=== PATIENT | female | born 1995 | race Caucasian/White ===

== ENCOUNTER → 2016-11-03 | Outpatient (CLI) | payer OTHER ==
[~2016-11-03] MED LIST: ATV5X PO; LAMO200T38 PO; LEVO1TAB19 PO; LITH1TAB PO; LTH300T PO; PRT/40 PO; SUCR1TAB29 PO; ZNTT/150 PO
[2016-11-03 14:34] LABS: BLOOD UREA NITROGEN 11 mg/dl (7-18); BUN/CREATININE RATIO 13.6 (10-20); CALCIUM 9.3 mg/dl (8.5-10.1); CARBON DIOXIDE 29 mmol/L (21-32); CHLORIDE 107 mmol/L (98-107); CREATININE 0.83 mg/dl (0.60-1.20); GLUCOSE 72 mg/dl (70-99); POTASSIUM 4.2 mmol/L (3.5-5.1); SODIUM 142 mmol/L (136-145)
== END | disposition home or self-care (01) ==
LOC: C.LAB 13:20
PROVIDERS: ATTEND Psychiatry & Neurology Psychiatry
DX: F31.81 Bipolar II disorder (principal)

== ENCOUNTER 2017-02-09 10:41 | Emergency (ER) | payer OTHER ==
[~2017-02-09] VITALS: Ht 165.1 cm; Wt 54.0 kg
[~2017-02-09 10:41] MED LIST changes: -LITH1TAB PO; +PANT40TA2 PO; -PRT/40 PO
[2017-02-09 10:52] VITALS: TEMP 36.6; Ht 165.1 cm; Wt 54.0 kg
[2017-02-09] MEDS ORDERED: MECLIZINE HCL 25 MG TAB PO STA (12:00)
[2017-02-09] MEDS ORDERED: SODIUM CHLORIDE 0.9% 1000ML 1,000 ML IV STA (12:00)
[2017-02-09] MEDS ORDERED: LITH1TAB PO (12:12)
[2017-02-09 12:30] LABS: BASO % 0.4 %; BASO ABS # 0.03 K/uL (0-0.2); COMPLETE YES; EOS % 1.4 %; HEMATOCRIT 44.4 % (37-47); LYMPH % 21.5 %; LYMPH ABS # 1.49 K/uL (1.2-3.4); MEAN CELL VOLUME 87.6 fL (80-100); MEAN CORPUSCULAR HEMOGLOBIN 29.8 pg (25-34); MONO % 7.9 %; NEUT % 68.8 %; PLATELET COUNT 383 K/uL (130-400); RED BLOOD COUNT 5.07 M/uL (4.2-5.4); WHITE BLOOD COUNT 6.93 K/uL (4.8-10.8)
--- NOTE | 2017-02-09 12:34 | EMERGENCY ROOM VISIT NOTE ---
History Report prepared by Loni: Kimberly Pagan Under the Supervision of: Dr. Lorena Carrero M.D. First contact with patient: 11:45 Chief Complaint: SYNCOPE (NEAR SYNCOPE) Stated Complaint: NEAR SYNCOPE Nursing Triage Summary: PT PRESENTS FROM THE [facility] FOR PRE-SYNCOPAL EVENT. PT DEVELOPED SUDDEN ABDOMINAL PAIN AND FELT LIKE SHE WAS GOING TO HAVE DIARRHEA AND THEN FELT LIKE SHE WAS GOING TO PASS OUT. PT VERBALIZES HX OF ANXIETY, GERD, PTSD. PT TAKES LAMICTAL, LITHIUM, AND LORAZAPAM AND HAS TAKEN MEDS PRESCRIBED BUT THINKS "I MIGHT BE HAVING A REACTION TO THEM". History of Present Illness The patient is a 21 year old female who presents to the Emergency Room with complaints of persistent lightheadedness and dizziness starting this morning. The patient has a history of anxiety. She took Lamictal, [place], and Lorazepam today as prescribed. She had a panic attack around 3 hours ago. About an hour later, she started having dizziness, lightheadedness, nausea, and diarrhea. The patient denies vomiting. She reports a pulse of 135. She felt as though she was about to pass out. The patient was at work at the time. 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 She currently continues to complain of dizziness. She describes it to be room-spinning. She ate breakfast as normal this morning. She denies headache , fevers, chills, chest pain, shortness of breath, or any other complaints. The patient denies any chance of . She is on control. She has a history of heat exhaustion occurring last year. Source of History: patient Onset: this morning Position: other (global) Quality: other (dizziness and lightheadedness) Timing: other (persistent) Associated Symptoms: + diarrhea, + nausea, No SOB, No chest pain, No chills , No fevers, No headache, No vomiting Review of Systems See HPI for pertinent positives & negatives. A total of 10 systems reviewed and were otherwise negative. Past Medical & Surgical Medical Problems: (1) Dizziness (2) Dysmenorrhea (3) Medication reaction (4) Nausea (5) self injurious behaviors - cutting Family History No pertinent family history Social History Smoking Status: Never Smoker Alcohol Use: none Drug Use: none Marital Status: single Housing Status: lives with family Occupation Status: student Current/Historical Medications Scheduled Lamotrigine (Lamictal), 200 MG PO HS Levonorgestrel & Eth Estradiol (Orsythia), 1 TAB PO HS [place] Carbonate Ext Rel (Lithobid Ext Rel), 450 MG PO BID Scheduled PRN Lorazepam (Lorazepam), 0.5 MG PO Q4H PRN for Anxiety Allergies Coded Allergies: Nickel (Verified Allergy, Severe, swelling, 02/09/17) Latex (Verified Allergy, Unknown, Itchiness., 02/09/17) Reported by PT and a friend of the family. Physical Exam Vital Signs Date Time Temp Pulse Resp B/P Pulse Ox O2 Delivery O2 Flow Rate FiO2 02/09/17 14:11 76 18 107/81 100 Room Air 02/09/17 12:57 82 18 117/65 100 Room Air 02/09/17 12:12 88 16 111/60 98 Room Air 02/09/17 11:15 103 18 121/71 100 Room Air 105 125/84 107 119/76 02/09/17 11:05 110 02/09/17 10:52 36.6 115 18 109/69 99 Room Air Physical Exam Vital signs reviewed. General: Well-appearing, in no significant distress. HEENT: No scleral icterus, PERRLA, neck supple. Atraumatic. Cardiovascular: Regular rate and rhythm, no extra sounds. Pulmonary: Clear to auscultation bilaterally, normal work of breathing. Abdomen: Soft, nontender, nondistended, positive bowel sounds. Musculoskeletal: Atraumatic, no peripheral edema. Neurologic: Patient awake alert and oriented x 3, full strength in all 4 extremities. Cranial nerves 2 through 12 grossly intact. Skin: Warm, dry, no rash Medical Decision & Procedures Laboratory Results 02/09/17 11:08 Red Blood Count 5.07, Mean Corpuscular Volume 87.6, Mean Corpuscular Hemoglobin 29.8, Mean Corpuscular Hemoglobin Concent 34.0, Mean Platelet Volume 10.0, Neutrophils (%) (Auto) 68.8, Lymphocytes (%) (Auto) 21.5, Monocytes (%) (Auto) 7.9, Eosinophils (%) (Auto) 1.4, Basophils (%) (Auto) 0.4, Neutrophils # (Auto) 4.76, Lymphocytes # (Auto) 1.49, Monocytes # (Auto) 0.55, Eosinophils # (Auto) 0.10, Basophils # (Auto) 0.03 02/09/17 11:08 Test 02/09/17 11:08 White Blood Count 6.93 K/uL (4.8-10.8) Red Blood Count 5.07 M/uL (4.2-5.4) Hemoglobin 15.1 g/dL (12.0-16.0) Hematocrit 44.4 % (37-47) Mean Corpuscular Volume 87.6 fL (80-100) Mean Corpuscular Hemoglobin 29.8 pg (25-34) Mean Corpuscular Hemoglobin Concent 34.0 g/dl (32-36) Platelet Count 383 K/uL (130-400) Mean Platelet Volume 10.0 fL (7.4-10.4) Neutrophils (%) (Auto) 68.8 % Lymphocytes (%) (Auto) 21.5 % Monocytes (%) (Auto) 7.9 % Eosinophils (%) (Auto) 1.4 % Basophils (%) (Auto) 0.4 % Neutrophils # (Auto) 4.76 K/uL (1.4-6.5) Lymphocytes # (Auto) 1.49 K/uL (1.2-3.4) Monocytes # (Auto) 0.55 K/uL (0.11-0.59) Eosinophils # (Auto) 0.10 K/uL (0-0.5) Basophils # (Auto) 0.03 K/uL (0-0.2) RDW Standard Deviation 40.5 fL (36.4-46.3) RDW Coefficient of Variation 12.6 % (11.5-14.5) Immature Granulocyte % (Auto) 0.0 % Immature Granulocyte # (Auto) 0.00 K/uL (0.00-0.02) Urine Color YELLOW Urine Appearance CLEAR (CLEAR) Urine pH 7.5 (4.5-7.5) Urine Specific [place] 1.006 (1.000-1.030) Urine Protein NEG (NEG) Urine Glucose (UA) NEG (NEG) Urine Ketones NEG (NEG) Urine Occult Blood NEG (NEG) Urine Nitrite NEG (NEG) Urine Bilirubin NEG (NEG) Urine Urobilinogen NEG (NEG) Urine Leukocyte Esterase SMALL (NEG) Urine WBC (Auto) 1-5 /hpf (0-5) Urine RBC (Auto) 0-4 /hpf (0-4) Urine Hyaline Casts (Auto) 1-5 /lpf (0-5) Urine Epithelial Cells (Auto) >30 /lpf (0-5) Urine Bacteria (Auto) 1+ (NEG) Urine Test NEG (NEG) Anion Gap 7.0 mmol/L (3-11) Est Creatinine Clear Calc Drug Dose 94.4 ml/min Estimated GFR () 121.2 Estimated GFR (Non- 104.6 BUN/Creatinine Ratio 13.2 (10-20) Calcium Level 9.6 mg/dl (8.5-10.1) Magnesium Level 2.0 mg/dl (1.8-2.4) Total Bilirubin 0.2 mg/dl (0.2-1) Direct Bilirubin < 0.1 mg/dl (0-0.2) Aspartate Amino Transf (AST/SGOT) 15 U/L (15-37) Alanine Aminotransferase (ALT/SGPT) 19 U/L (12-78) Alkaline Phosphatase 57 U/L (45-117) Total Protein 7.6 gm/dl (6.4-8.2) Albumin 4.3 gm/dl (3.4-5.0) Thyroid Stimulating Hormone (TSH) 1.500 uIu/ml (0.300-4.500) [place] Level 0.6 mMOL/L (0.6-1.2) Date/Time Source Procedure Growth Status 02/09/17 11:08 Urine , Clean Catch Urine Culture - Final THREE TYPES OF ORGANISMS PRESENT, ALL... Complete Laboratory results per my review. Medications Administered Medications (Trade) Dose Ordered Sig/Elvira Route Start Time Stop Time Status Last Admin Dose Admin Sodium Chloride (Nss 1000ml) 1,000 ml @ 999 mls/hr Q1H1M STAT IV 02/09/17 12:00 02/09/17 13:02 DC 02/09/17 12:11 999 MLS/HR Meclizine HCl (Antivert Tab) 25 mg NOW STAT PO 02/09/17 12:00 02/09/17 12:02 DC 02/09/17 12:11 25 MG ECG Indication: other (Lightheadedness and dizziness) Rate (beats per minute): 81 Rhythm: normal sinus (with sinus arrhythmia) Findings: no acute ischemic change, no ectopy ED Course 1145: Past medical records reviewed. The patient was evaluated in room C06. A complete history and physical examination was performed. 1200: Meclizine HCl 25 mg PO, Sodium Chloride 1000 ml @ 999 mls/hr IV 1417: Upon reevaluation, the patient appeared to have improvement of her symptoms. I discussed findings with her. She verbalized agreement of the treatment plan. The patient was discharged home. Medical Decision Differential diagnosis: Etiologies such as benign positional vertigo, dehydration, hypovolemia, anemia, tumor, infection, hypoglycemia, electrolyte abnormalities, cardiac sources, intracerebral event, toxicologic, neurologic, as well as others were entertained. This patient was evaluated and appeared to be in no significant distress. IV access was obtained and laboratory work was drawn. The patient was placed on the cardiac technologist and found to be in a normal sinus rhythm. She was hydrated with normal saline solution. She is found not to be significantly orthostatic. Laboratory work is unrevealing. She was feeling better after the IV fluids. Patient's lithium level is stable. EKG is normal. The patient was encouraged to follow-up with her primary care physician for reevaluation and to return to the ER for worsening of symptoms or any medical concerns. Impression Primary Impression: Near syncope Scribe Attestation The scribe's documentation has been prepared under my direction and personally reviewed by me in its entirety. I confirm that the note above accurately reflects all work, treatment, procedures, and medical decision making performed by me. Departure Information Dispostion Home / Self-Care Referrals Dede Long C.R.N.P. (PCP) Forms HOME CARE DOCUMENTATION FORM, IMPORTANT VISIT INFORMATION Patient Instructions My [facility] Additional Instructions Diagnosis: Near-syncope Drink plenty of clear fluids. Continue your medications as prescribed. Eat and drink on a regular schedule, preferably 5-6 small meals daily. Follow-up with your physician this week for reevaluation and return to the ER for worsening of symptoms or any medical concerns.
[2017-02-09 12:39] LABS: ALT/SGPT 19 U/L (12-78); BLOOD UREA NITROGEN 11 mg/dl (7-18); BUN/CREATININE RATIO 13.2 (10-20); CARBON DIOXIDE 27 mmol/L (21-32); CHLORIDE 109 mmol/L (98-107); CREATININE 0.81 mg/dl (0.60-1.20); GLUCOSE 65 mg/dl (70-99); POTASSIUM 3.7 mmol/L (3.5-5.1); SODIUM 143 mmol/L (136-145)
[2017-02-09 12:41] LABS: CALCIUM 9.6 mg/dl (8.5-10.1)
[2017-02-09 12:54] LABS: URINE APPEARANCE CLEAR (CLEAR); URINE BILIRUBIN NEG (NEG); URINE COLOR YELLOW; URINE EPITHELIAL CELL AUTO >30 /lpf (0-5); URINE NITRITE NEG (NEG); URINE PH 7.5 (4.5-7.5); URINE SPECIFIC GRAVITY 1.006 (1.000-1.030); UROBILINOGEN NEG (NEG); ZZUR CULT IF INDIC CLEAN CATCH YES
[2017-02-09 12:58] LABS: MANUAL MICROSCOPIC REQUIRED? NO; REVIEW REQ? NO
[2017-02-09 13:02] LABS: ALKALINE PHOSPHATASE 57 U/L (45-117); AST/SGOT 15 U/L (15-37)
[2017-02-09 14:11] VITALS: BP 107/81; PULSE 76; O2SAT 100
== END 2017-02-09 14:32 | disposition home or self-care (01) ==
LOC: EDBD 10:41 → C.EDC 10:47
DX: R55 Syncope and collapse (principal); R19.7 Diarrhea, unspecified

== ENCOUNTER 2018-12-13 19:12 | Inpatient (IN) ==
--- NOTE | 2018-12-13 20:13 | Emergency Department Note ---
Entered by Soco Welch acting as a scribe for Krzysztof Van DO History of Present Illness General Chief complaint: Mental Health Evaluation Stated complaint: MENTAL HEALTH EVAL Time Seen by Provider: 12/13/18 19:58 Source: patient History of Present Illness Onset (ago): week(s) 2 Location: head (Mental health evaluation) Severity: similar to prior episodes Pain Consistency: + other (Persistent) Maximum Pain Intensity: 0 Quality: + other (Mental health evaluation) Relieved By: + medication Exacerbated By: not by medication Associated symptoms: + other (SI, loss of sleep) Treatments prior to arrival: none The patient is a 23 year old female who presents to the Emergency Room seeking a mental health evaluation. The patient reports that she has been having persistent mood changes starting 2 weeks ago. She reports that she is bipolar and doesnt take medication for it. She states that she was severely depressed 4 weeks ago and was afraid to be alone. She notes that she did not trust herself to be alone while she was very depressed. She explains that since 1 week ago her mood has drastically improved and that she has only slept 6 hours over the last 6 days. The patient reports that she has intermittent suicidal thoughts and that she sometimes cuts herself on her arms with a razor. She states that if she were to kill herself she would do it by cutting herself with her razors on her arm. She notes that the last time she cut herself with a razor on her arm was 2 weeks ago. She adds that last time she took medication for her symptoms was in 2017 and that she was taking [place], Lamictal and Lorazepam. The patient reports that she recently tried to call her psychiatrist and make an appointment because she knows that she has been getting bad. She states that her psychiatrist is out of town on vacation and that she cannot get an appointment for two weeks and is afraid that she will not make it two more weeks. She reports that she drank alcohol last night, consuming 1 mixed drink and 2 shots of liquor. The patients friend is at bedside and reports that she has been encouraging the patient to check herself into the hospital. Home Medications Home Medications Medication Instructions Recorded Confirmed Type etonogestrel [Nexplanon] 68 mg SUBDERMAL DIRECTED 10/25/18 12/13/18 History Allergies Allergy/AdvReac Type Severity Reaction Status Date / Time nickel Allergy Severe swelling Verified 10/28/18 13:13 latex Allergy Unknown Itchiness. Verified 10/28/18 13:13 Past Med/Surg History Medical History Mood disorder GERD (gastroesophageal reflux disease) (Chronic) Family History Other No significant family history Social History marital status: relationship-boyfriend current occupational status: employed Feels Safe at Home: Yes Smoking Status: Never smoker Review of Systems See HPI for pertinent positives & negatives. and A total of 10 systems reviewed and were otherwise negative Physical Exam Vital Signs Vital Signs - 24 hr 12/13/18 19:24 12/13/18 22:59 Temperature 36.8 C Temperature Source Oral Sepsis Recent Fever Within 48 Hours No Sepsis Action Taken by Nursing No Action Required Pulse Rate 80 Pulse Rate [Right Finger] 120 H Pulse Rhythm Regular Pulse Strength Normal Respiratory Rate 18 18 Respiratory Effort / Characteristics Non-Labored Spontaneous Respiratory Depth Normal Normal Blood Pressure 142/93 H Blood Pressure [Right Arm] 124/85 Blood Pressure Mean 109 Blood Pressure Mean [Right Arm] 98 Blood Pressure Position Sitting Pulse Oximetry 98 99 Oxygen Delivery Method Room Air Room Air CONSTITUTIONAL/VITAL SIGNS: Reviewed / noted above. GENERAL: Non-toxic in appearance. INTEGUMENTARY: Warm, dry, and [place]. HEAD: Normocephalic. EYES: without scleral icterus or trauma. ENT/OROPHARYNX: clear and moist. LYMPHADENOPATHY/NECK: Is supple without lymphadenopathy or meningismus. RESPIRATORY: Lungs clear and equal. CARDIOVASCULAR: Regular rate and rhythm. GI/ABDOMEN: Soft and nontender. No organomegaly or pulsatile mass. No rebound or guarding. Normal bowel sounds. EXTREMITIES: Warm and well perfused. BACK: No CVA tenderness. NEUROLOGICAL: Intact without focal deficits. PSYCHIATRIC: depressed affect. MUSCULOSKELETAL: Normally developed with good muscle tone. Course 1999: Past medical records reviewed. The patient was evaluated in room A5, and a complete history and physical examination were performed. 2119: I informed the psychiatric counseling case manager that the patient has been medically cleared at this time. 2299: The patient was accepted to [address] [place] [address] Psychiatric Inpatient unit. They will evaluate the patient for further management. Medical Decision Making Differential Diagnosis differential includes toxic ingestions, self-mutilation, suicidal ideation, suicide attempt, depression. Medical Records Attestation: I reviewed the patient's medical records. Home Medications Current Medication List: was personally reviewed by me Laboratory Data Attestation: I reviewed the patient's lab results. Result diagrams: 12/13/18 20:15 12/13/18 20:15 Lab Results 12/13/18 12/13/18 12/13/18 Range/Units 20:15 20:15 20:15 WBC 9.39 (4.8-10.8) K/uL RBC 5.27 (4.2-5.4) M/uL Hgb 15.3 (12.0-16.0) g/dL Hct 44.7 (37-47) % MCV 84.8 (80-100) fL MCH 29.0 (25-34) pg MCHC 34.2 (32-36) g/dL RDW Std Deviation 41.2 (36.4-46.3) fL RDW Coeff of [place] 13.4 (11.5-14.5) % Plt Count 355 (130-400) K/uL MPV 9.4 (7.4-10.4) fL Immature Gran % (Auto) 0.2 % Neut % (Auto) 76.2 % Lymph % (Auto) 15.8 % [place] % (Auto) 5.5 % Eos % (Auto) 2.0 % Baso % (Auto) 0.3 % Immature Gran # (Auto) 0.02 (0.00-0.02) K/uL Neut # (Auto) 7.15 H (1.4-6.5) K/uL Lymph # (Auto) 1.48 (1.2-3.4) K/uL [place] # (Auto) 0.52 (0.11-0.59) K/uL Eos # (Auto) 0.19 (0-0.5) K/uL Baso # (Auto) 0.03 (0-0.2) K/uL Sodium 138 (136-145) mmol/L Potassium 3.7 (3.5-5.1) mmol/L Chloride 106 (98-107) mmol/L Carbon Dioxide 24 (21-32) mmol/L Anion Gap 8.0 (3-11) BUN 9 (7-18) mg/dl Creatinine 0.67 (0.6-1.2) mg/dl Est Cr Clr Drug Dosing 118.5 ml/min Est GFR ( Amer) 144.6 Est GFR (Non-Af Amer) 124.8 BUN/Creatinine Ratio 13.2 (10-20) Glucose 90 (70-99) mg/dl Calcium 9.2 (8.5-10.1) mg/dl Total Bilirubin 0.5 (0.2-1) mg/dl AST 12 L (15-37) U/L ALT 15 (12-78) U/L Alkaline Phosphatase 73 (45-117) U/L Total Protein 7.9 (6.4-8.2) gm/dl Albumin 4.9 (3.4-5.0) gm/dl Globulin 3.0 (2.5-4.0) gm/dl Albumin/Globulin Ratio 1.6 (0.9-2) TSH 0.845 (0.300-4.500) uIu/ml HCG, Qual (Negative) Urine Color Urine Appearance (Clear) Urine pH (4.5-7.5) Ur Specific [place] (1.000-1.030) Urine Protein (Negative) Urine Glucose (UA) (Negative) Urine Ketones (Negative) Urine Blood (Negative) Urine Nitrite (Negative) Urine Bilirubin (Negative) Urine Urobilinogen (Negative) Ur Leukocyte Esterase (Negative) Urine WBC (Auto) (0-5) /hpf Urine RBC (Auto) (0-4) /hpf U Hyaline Cast (Auto) (0-5) /lpf U Epithel Cells (Auto) (0-5) /lpf Urine Bacteria (Auto) (Negative) Salicylates < 1.7 L (2.8-20) mg/dl Urine Opiates Screen (Neg) Ur Methadone, Qual (Neg) Acetaminophen < 2 L (10-30) ug/ml Urine Barbiturates (Neg) Ur Phencyclidine (PCP) (Neg) U Amphetamin/Meth Scrn (Neg) MDMA (Ecstasy) Screen (Neg) U Benzodiazepines Scrn (Neg) Ur Cocaine Metabolite (Neg) U Marijuana (THC) Screen (Neg) Ethyl Alcohol mg/dL (0-3) mg/dl 12/13/18 12/13/18 12/13/18 Range/Units 20:15 20:15 Unknown WBC (4.8-10.8) K/uL RBC (4.2-5.4) M/uL Hgb (12.0-16.0) g/dL Hct (37-47) % MCV (80-100) fL MCH (25-34) pg MCHC (32-36) g/dL RDW Std Deviation (36.4-46.3) fL RDW Coeff of Maryana (11.5-14.5) % Plt Count (130-400) K/uL MPV (7.4-10.4) fL Immature Gran % (Auto) % Neut % (Auto) % Lymph % (Auto) % [place] % (Auto) % Eos % (Auto) % Baso % (Auto) % Immature Gran # (Auto) (0.00-0.02) K/uL Neut # (Auto) (1.4-6.5) K/uL Lymph # (Auto) (1.2-3.4) K/uL [place] # (Auto) (0.11-0.59) K/uL Eos # (Auto) (0-0.5) K/uL Baso # (Auto) (0-0.2) K/uL Sodium (136-145) mmol/L Potassium (3.5-5.1) mmol/L Chloride (98-107) mmol/L Carbon Dioxide (21-32) mmol/L Anion Gap (3-11) BUN (7-18) mg/dl Creatinine (0.6-1.2) mg/dl Est Cr Clr Drug Dosing ml/min Est GFR ( Amer) Est GFR (Non-Af Amer) BUN/Creatinine Ratio (10-20) Glucose (70-99) mg/dl Calcium (8.5-10.1) mg/dl Total Bilirubin (0.2-1) mg/dl AST (15-37) U/L ALT (12-78) U/L Alkaline Phosphatase (45-117) U/L Total Protein (6.4-8.2) gm/dl Albumin (3.4-5.0) gm/dl Globulin (2.5-4.0) gm/dl Albumin/Globulin Ratio (0.9-2) TSH (0.300-4.500) uIu/ml HCG, Qual Negative (Negative) Urine Color Urine Appearance (Clear) Urine pH (4.5-7.5) Ur Specific [place] (1.000-1.030) Urine Protein (Negative) Urine Glucose (UA) (Negative) Urine Ketones (Negative) Urine Blood (Negative) Urine Nitrite (Negative) Urine Bilirubin (Negative) Urine Urobilinogen (Negative) Ur Leukocyte Esterase (Negative) Urine WBC (Auto) (0-5) /hpf Urine RBC (Auto) (0-4) /hpf U Hyaline Cast (Auto) (0-5) /lpf U Epithel Cells (Auto) (0-5) /lpf Urine Bacteria (Auto) (Negative) Salicylates (2.8-20) mg/dl Urine Opiates Screen Neg (Neg) Ur Methadone, Qual Neg (Neg) Acetaminophen (10-30) ug/ml Urine Barbiturates Neg (Neg) Ur Phencyclidine (PCP) Neg (Neg) U Amphetamin/Meth Scrn Neg (Neg) MDMA (Ecstasy) Screen Neg (Neg) U Benzodiazepines Scrn Neg (Neg) Ur Cocaine Metabolite Neg (Neg) U Marijuana (THC) Screen Neg (Neg) Ethyl Alcohol mg/dL < 3.0 (0-3) mg/dl 12/13/18 Range/Units Unknown WBC (4.8-10.8) K/uL RBC (4.2-5.4) M/uL Hgb (12.0-16.0) g/dL Hct (37-47) % MCV (80-100) fL MCH (25-34) pg MCHC (32-36) g/dL RDW Std Deviation (36.4-46.3) fL RDW Coeff of Maryana (11.5-14.5) % Plt Count (130-400) K/uL MPV (7.4-10.4) fL Immature Gran % (Auto) % Neut % (Auto) % Lymph % (Auto) % [place] % (Auto) % Eos % (Auto) % Baso % (Auto) % Immature Gran # (Auto) (0.00-0.02) K/uL Neut # (Auto) (1.4-6.5) K/uL Lymph # (Auto) (1.2-3.4) K/uL [place] # (Auto) (0.11-0.59) K/uL Eos # (Auto) (0-0.5) K/uL Baso # (Auto) (0-0.2) K/uL Sodium (136-145) mmol/L Potassium (3.5-5.1) mmol/L Chloride (98-107) mmol/L Carbon Dioxide (21-32) mmol/L Anion Gap (3-11) BUN (7-18) mg/dl Creatinine (0.6-1.2) mg/dl Est Cr Clr Drug Dosing ml/min Est GFR ( Amer) Est GFR (Non-Af Amer) BUN/Creatinine Ratio (10-20) Glucose (70-99) mg/dl Calcium (8.5-10.1) mg/dl Total Bilirubin (0.2-1) mg/dl AST (15-37) U/L ALT (12-78) U/L Alkaline Phosphatase (45-117) U/L Total Protein (6.4-8.2) gm/dl Albumin (3.4-5.0) gm/dl Globulin (2.5-4.0) gm/dl Albumin/Globulin Ratio (0.9-2) TSH (0.300-4.500) uIu/ml HCG, Qual (Negative) Urine Color Yellow Urine Appearance Cloudy H (Clear) Urine pH 7.5 (4.5-7.5) Ur Specific [place] 1.027 (1.000-1.030) Urine Protein Negative (Negative) Urine Glucose (UA) Negative (Negative) Urine Ketones Negative (Negative) Urine Blood Trace H (Negative) Urine Nitrite Negative (Negative) Urine Bilirubin Negative (Negative) Urine Urobilinogen Negative (Negative) Ur Leukocyte Esterase Negative (Negative) Urine WBC (Auto) 1-5 (0-5) /hpf Urine RBC (Auto) 0-4 (0-4) /hpf U Hyaline Cast (Auto) 1-5 (0-5) /lpf U Epithel Cells (Auto) >30 H (0-5) /lpf Urine Bacteria (Auto) Negative (Negative) Salicylates (2.8-20) mg/dl Urine Opiates Screen (Neg) Ur Methadone, Qual (Neg) Acetaminophen (10-30) ug/ml Urine Barbiturates (Neg) Ur Phencyclidine (PCP) (Neg) U Amphetamin/Meth Scrn (Neg) MDMA (Ecstasy) Screen (Neg) U Benzodiazepines Scrn (Neg) Ur Cocaine Metabolite (Neg) U Marijuana (THC) Screen (Neg) Ethyl Alcohol mg/dL (0-3) mg/dl Blood Pressure Blood Pressure Findings: Normal blood pressure Blood Pressure Disposition: further management by hospitalist BARBRA Narrative This is a 23-year-old female who presents to the ED with a chief complaint of bipolar disorder. The patient states that she has not been taking her medication since 2017. She had been on lithium, Lamictal and lorazepam. The patient states that for the past 6 days she is only slept for about 6 hours. She states that she cannot see her psychiatrist for at least 2 weeks because she is out of town. She feels that she could get suicidal in that timeframe and her friends talked her into coming in because of her recent symptoms. She did cut her wrist 2 weeks ago. She feels like she could cut her wrist if she became suicidal. Her physical exam was unremarkable. She did drink some alcohol last night. She has not attempted to overdose or hurt herself in the last 24 hours. She is cooperative and willing to get help. The patient's blood work was normal. Tox screen was negative. test was negative. The patient is felt to be stable for mental health evaluation/admission. She was admitted to [facility] [address]. Impression & Plan Bipolar affect, depressed Discharge Plan Visit Data Chief Complaint: Mental Health Evaluation Stated Complaint: MENTAL HEALTH EVAL ED Provider: Krzysztof Van Discharge Problem: Bipolar affect, depressed Patient Disposition: Admitted As Inpatient Forms Stand Alone Forms: My [facility] Prescriptions Prescriptions: No Action Nexplanon 68 mg Implant 68 mg Subdermal DIRECTED RF: 0 Referrals Referrals: Dede Long CRNP [Primary Care Provider] - Discharge Problem: Bipolar affect, depressed Qualifiers: Current episode severity: moderate Qualified Code(s): F31.32 - Bipolar disorder, current episode depressed, moderate The scribe's documentation has been prepared under my direction and personally reviewed by me in its entirety. I confirm that the note above accurately refl ects all work, treatment, procedures, and medical decision making performed by me.
[2018-12-13 20:30] LABS: Basophils # (auto) 0.03 K/uL (0-0.2); Basophils % (auto) 0.3 %; Eosinophils # (auto) 0.19 K/uL (0-0.5); Hematocrit (blood only) 44.7 % (37-47); Hemoglobin 15.3 g/dL (12.0-16.0); Immature Granulocytes # (auto) 0.02 K/uL (0.00-0.02); Immature Granulocytes % (auto) 0.2 %; Lymphocytes # (auto) 1.48 K/uL (1.2-3.4); Lymphocytes % (auto) 15.8 %; Mean Corpuscular Hgb Conc 34.2 g/dL (32-36); Mean Corpuscular Volume 84.8 fL (80-100); Mean Platelet Volume 9.4 fL (7.4-10.4); Monocytes # (auto) 0.52 K/uL (0.11-0.59); Monocytes % (auto) 5.5 %; Neutrophils # (auto) 7.15 K/uL (1.4-6.5); Neutrophils % (auto) 76.2 %; Platelet Count 355 K/uL (130-400); RDW Coefficient of Variation 13.4 % (11.5-14.5); RDW Standard Deviation 41.2 fL (36.4-46.3); Red Blood Count 5.27 M/uL (4.2-5.4); White Blood Count 9.39 K/uL (4.8-10.8)
[2018-12-13 20:34] LABS: Appearance Urine Cloudy (Clear); Bacteria Urine Automated Negative (Negative); Bilirubin Urine Negative (Negative); Blood Urine Trace (Negative); Color Urine Yellow; Epithelial Cell Urine Auto >30 /lpf (0-5); Glucose Urine UA Negative (Negative); Ketones Urine Negative (Negative); Leukocyte Esterase Urine Negative (Negative); Nitrite Urine Negative (Negative); Protein Urine Negative (Negative); RBC Urine Automated 0-4 /hpf (0-4); Specific Gravity Urine 1.027 (1.000-1.030); Urobilinogen Urine Negative (Negative); pH Urine 7.5 (4.5-7.5)
[2018-12-13 20:48] LABS: Albumin Level 4.9 gm/dl (3.4-5.0); BUN Creatinine Ratio 13.2 (10-20); Calcium 9.2 mg/dl (8.5-10.1); Creatinine Clr Calc Pharmacy 118.5 ml/min; Est GFR (African American) 144.6; Est GFR (Non-African American) 124.8; Potassium 3.7 mmol/L (3.5-5.1)
[2018-12-13 20:51] LABS: Amphetamines+Metham, Urine Neg (Neg); Barbiturates, Urine Neg (Neg); Benzodiazepine, Urine Neg (Neg); Cocaine, Urine Neg (Neg); MDMA (Ecstacy), Urine Neg (Neg); Methadone, Urine Neg (Neg); Opiate, Urine Neg (Neg); Phencyclidine, Urine Neg (Neg)
[2018-12-13 20:58] LABS: Albumin Globulin Ratio 1.6 (0.9-2); Bilirubin,Total 0.5 mg/dl (0.2-1); Total Protein 7.9 gm/dl (6.4-8.2)
[2018-12-13 21:15] LABS: Pregnancy Test, Serum Negative (Negative)
[2018-12-13 21:18] LABS: Acetaminophen < 2 ug/ml (10-30)
[2018-12-13 21:19] LABS: Salicylate < 1.7 mg/dl (2.8-20)
[2018-12-13] MEDS ORDERED: SODIUM CHLORIDE 0.65% NA SOLN 45 ML (OCEAN) PRN (22:46)
[2018-12-13] MEDS ORDERED: ALUMINUM/MAGNESIUM SUSP 30 ML UDC PO PRN (22:46)
[2018-12-13] MEDS ORDERED: ACETAMINOPHEN 325 MG TAB PO PRN (22:46)
[2018-12-13] MEDS ORDERED: MAGNESIUM HYDROXIDE SUSP 30 ML UDC PO PRN (22:46)
[2018-12-13] MEDS ORDERED: BISMUTH SUBSALICYLATE PER ML OMNICELL CHARGE PO PRN (22:46)
--- NOTE | 2018-12-14 14:23 | History & Physical ---
Date of Service December 14, 2018 Impression / Recommendations Impression 23 yo female with previous dx of PTSD and/or bipolar disorder presents with recurrent depressive symptoms in the context of being out of meds/formal treatment for > 1 year. She continues to have an interesting interpersonal style that suggests underlying personality disorder traits, likely shaped by past family dynamics. (1) Bipolar affect, depressed: The patient [facility] on q15 min checks (behavioral with suicide precautions) for safety. The patient will participate in group, recreational, and milieu therapies and will be offered additional individual and family sessions as clinically appropriate. Risks/benefits/alternatives reviewed re: restart of low dose lithium, lamictal retitration, and prn Ativan for panic attacks which have been more frequent off of mood stabilizers. Discussion included but was not limited to risks of Garrick's Guru, interactions with control, teratogenecity and toxicity with lihtium. She contracted not to combine prn Ativan with ETOH if it is continued upon discharge and is aware controlled substance which can be habit forming and/or affect operation of a vehicle/machinery,etc. [place] 150 mg po this hs, lamictal 25 mg hs. Current episode severity: moderate Qualified Code(s): F31.32 - Bipolar disorder, current episode depressed, moderate Inventory Assets Strengths: employed, longstanding relationship with boyfriend, independent Needs: resume outpatient med management and therapy Risk Factors Assessment Do You Have Access To A Gun?: No Protective Factors Assessment Employed: Yes Psychiatric History Identifying Data STANLEY HOWELLBashirWILMAN is a 23-year-old F who currently lives in alone, has a history of mood disorder dx and at least 1 inpatient psychiatric admission, and was admitted on 12/13/18 22:46 on a 201 voluntary commitment for SI. Chief Complaint "Just been feeling really hopeless for 2 weeks". History of Present Illness Stanley, prefers [place], is known to me from previously treatment at [facility], initially evaluated in middle school for concerns about urges to cut and possible dissociative symptoms. Parents were not supportive of med trials around that time but when turned 19, reports gaining stability on combo of Bethal[place], Lamictal, and prn Ativan (the latter for panic). She reports a prior suicide attempt by taking OTC meds at age 18 but was not hospitalized at that time. She states that she stopped medication 1.5-2 years ago and that it was a "mistake". Patient states that she has gradually had a harder time coping with stress. She is currently working 2 jobs, at one of the jobs she feels she is being harassed by the customers ([employer]) and that the management is not doing anything about it. 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 She also just got a seasonal position at [employer]. Regardless, these changes haven't been enough. Her friends have encouraged her to get back in treatment as she hasn't been "myself". She states that she started missing shifts at work but at the same time would sometimes stay at the [employer] [facility] longer than her currently shift as feeling hopeless and lonely and didn't feel safe to be "alone with myself" in the apartment. She does have a boyfriend but is disappointed that her brothers from her adoptive family (at least 1 of which is biological) don't stay in touch. She frequently apologized for "unloading" or saying "too much". She states that she hasn't been sleeping well, denies catrina. Is aware that her affect seemed somewhat expansive in the ED and attributes to anxiety, "not being used to people listening to me". She reported a voice/or obessive thought to "let the blood out". When she was younger she had an active imagination and would discuss her house being haunted/had a friendship with a ghost as a coping mechanism. Past Psychiatric History Current Psychiatric Diagnosis: Bipolar disorder; PTSD Outpatient Services: none currently, states she wasn't able to secure a return appointment at [facility] Previous Psych Admissions: 2017 [facility] Do You Have Access To A Gun?: No History of Previous Suicide Attempt: Yes Describe Attempts in the Past: 18 y/o - overdose Past Head Trauma/Neuro History History of Concussion/Seizure: No Allergies Allergy/AdvReac Type Severity Reaction Status Date / Time nickel Allergy Severe swelling Verified 10/28/18 13:13 latex Allergy Unknown Itchiness. Verified 10/28/18 13:13 Home Medications Home Medications Medication Instructions Recorded Confirmed Type etonogestrel [Nexplanon] 68 mg SUBDERMAL DIRECTED 10/25/18 12/13/18 History Family History Family Mental Health History Comment: Hx of MH and addiction on biological side, patient was adopted Alcohol History Hx of Alcohol Use Over the Past 12 Months: Yes (On occassions, when my friends drag me out of isolation) AUDIT Total Score: 1 Smoking Use Have You Smoked or Used Tobacco Products in the Last 30 Days: No Smoking Status: Never smoker Substance History Hx of Prescription Med Misuse Over the Past 12 Months: No Hx of Over the Counter Med Misuse Over the Past 12 Months: No Hx of Inhalent Misuse Over the Past 12 Months: No Hx of Organic Substance Use Over the Past 12 Months: No Hx of Illegal Substances/Street Drug Use Over Past 12 Months: No Problems as a Result of Past Substance Use: None Identified Personal History Living Arrangements: [employer]artment Childhood: conflictual with adoptive mothers, reports mothers now live in [place] Highest Grade Completed: High School Graduate Highest Grade Completed Comment: 12 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 Marital Status: Single Number Of Children: 0 Beliefs That Will Affect Care: None Current Legal Problems: No Hx Traumatic Life Events: Yes Patient History Medical History Mood disorder GERD (gastroesophageal reflux disease) (Chronic) Family History Other No significant family history Social History Preferred Language: Albanian Communication Ability: Effective Outside Machinist Required: No Beliefs That Will Affect Care: None marital status: relationship-boyfriend current occupational status: employed Feels Safe at Home: Yes Smoking Status: Never smoker Review of Systems All systems reviewed & are unremarkable except as noted in HPI & below Physical Exam Psychiatric Orientation: alert and oriented x 3 Apperance: appropriately dressed and appropriately groomed Eye Contact: + fair eye contact Motor Behavior: no abnormal motor movements Speech: normal rate/rhythm/volume of speech Affect: + depressed affect Mood: + depressed mood and + anxious mood Thought Process: goal directed thought process Thought Content: + preoccupation Suicidal Thoughts: denies suicidal plan ongoing SI, no urge to cut on the unit, unable to safety contract outside of the hospital Homicidal Thoughts: denies homicidal thoughts Hallucinations: no auditory hallucinations and no visual hallucinations Cognition: remote memory grossly intact, attention grossly intact and language grossly intact Estimated Intelligence: consistent with education level Insight: + limited insight Judgement: + limited judgement A routine physical examination was performed in the ED by Dr. Carrero. I accept that physical as accurate for the inpatient physical exam as well as medical clearance. Vital Signs (Past 24 Hours) Last Vital Signs Temp 36.7 C 12/14/18 06:46 Pulse 96 H 12/14/18 06:47 Resp 16 12/14/18 06:46 BP 112/50 L 12/14/18 06:47 Pulse Ox 99 12/13/18 22:59 Results & Data Laboratory Results Laboratory Results - last 24 hr 12/13/18 12/13/18 12/13/18 20:15 20:15 20:15 WBC 9.39 RBC 5.27 Hgb 15.3 Hct 44.7 MCV 84.8 MCH 29.0 MCHC 34.2 RDW Std Deviation 41.2 RDW Coeff of Maryana 13.4 Plt Count 355 MPV 9.4 Immature Gran % (Auto) 0.2 Neut % (Auto) 76.2 Lymph % (Auto) 15.8 Bryan % (Auto) 5.5 Eos % (Auto) 2.0 Baso % (Auto) 0.3 Immature Gran # (Auto) 0.02 Neut # (Auto) 7.15 H Lymph # (Auto) 1.48 Bryan # (Auto) 0.52 Eos # (Auto) 0.19 Baso # (Auto) 0.03 Sodium 138 Potassium 3.7 Chloride 106 Carbon Dioxide 24 Anion Gap 8.0 BUN 9 Creatinine 0.67 Est Cr Clr Drug Dosing 118.5 Est GFR ( Amer) 144.6 Est GFR (Non-Af Amer) 124.8 BUN/Creatinine Ratio 13.2 Glucose 90 Calcium 9.2 Total Bilirubin 0.5 AST 12 L ALT 15 Alkaline Phosphatase 73 Total Protein 7.9 Albumin 4.9 Globulin 3.0 Albumin/Globulin Ratio 1.6 TSH 0.845 HCG, Qual Urine Color Urine Appearance Urine pH Ur Specific Sebastian Urine Protein Urine Glucose (UA) Urine Ketones Urine Blood Urine Nitrite Urine Bilirubin Urine Urobilinogen Ur Leukocyte Esterase Urine WBC (Auto) Urine RBC (Auto) U Hyaline Cast (Auto) U Epithel Cells (Auto) Urine Bacteria (Auto) Salicylates < 1.7 L Urine Opiates Screen Ur Methadone, Qual Acetaminophen < 2 L Urine Barbiturates Ur Phencyclidine (PCP) U Amphetamin/Meth Scrn MDMA (Ecstasy) Screen U Benzodiazepines Scrn Ur Cocaine Metabolite U Marijuana (THC) Screen Ethyl Alcohol mg/dL 12/13/18 12/13/18 12/13/18 20:15 20:15 Unknown WBC RBC Hgb Hct MCV MCH MCHC RDW Std Deviation RDW Coeff of Maryana Plt Count MPV Immature Gran % (Auto) Neut % (Auto) Lymph % (Auto) Bryan % (Auto) Eos % (Auto) Baso % (Auto) Immature Gran # (Auto) Neut # (Auto) Lymph # (Auto) Bryan # (Auto) Eos # (Auto) Baso # (Auto) Sodium Potassium Chloride Carbon Dioxide Anion Gap BUN Creatinine Est Cr Clr Drug Dosing Est GFR ( Amer) Est GFR (Non-Af Amer) BUN/Creatinine Ratio Glucose Calcium Total Bilirubin AST ALT Alkaline Phosphatase Total Protein Albumin Globulin Albumin/Globulin Ratio TSH HCG, Qual Negative Urine Color Urine Appearance Urine pH Ur Specific Sebastian Urine Protein Urine Glucose (UA) Urine Ketones Urine Blood Urine Nitrite Urine Bilirubin Urine Urobilinogen Ur Leukocyte Esterase Urine WBC (Auto) Urine RBC (Auto) U Hyaline Cast (Auto) U Epithel Cells (Auto) Urine Bacteria (Auto) Salicylates Urine Opiates Screen Neg Ur Methadone, Qual Neg Acetaminophen Urine Barbiturates Neg Ur Phencyclidine (PCP) Neg U Amphetamin/Meth Scrn Neg MDMA (Ecstasy) Screen Neg U Benzodiazepines Scrn Neg Ur Cocaine Metabolite Neg U Marijuana (THC) Screen Neg Ethyl Alcohol mg/dL < 3.0 12/13/18 Unknown WBC RBC Hgb Hct MCV MCH MCHC RDW Std Deviation RDW Coeff of Maryana Plt Count MPV Immature Gran % (Auto) Neut % (Auto) Lymph % (Auto) Bryan % (Auto) Eos % (Auto) Baso % (Auto) Immature Gran # (Auto) Neut # (Auto) Lymph # (Auto) Bryan # (Auto) Eos # (Auto) Baso # (Auto) Sodium Potassium Chloride Carbon Dioxide Anion Gap BUN Creatinine Est Cr Clr Drug Dosing Est GFR ( Amer) Est GFR (Non-Af Amer) BUN/Creatinine Ratio Glucose Calcium Total Bilirubin AST ALT Alkaline Phosphatase Total Protein Albumin Globulin Albumin/Globulin Ratio TSH HCG, Qual Urine Color Yellow Urine Appearance Cloudy H Urine pH 7.5 Ur Specific Sebastian 1.027 Urine Protein Negative Urine Glucose (UA) Negative Urine Ketones Negative Urine Blood Trace H Urine Nitrite Negative Urine Bilirubin Negative Urine Urobilinogen Negative Ur Leukocyte Esterase Negative Urine WBC (Auto) 1-5 Urine RBC (Auto) 0-4 U Hyaline Cast (Auto) 1-5 U Epithel Cells (Auto) >30 H Urine Bacteria (Auto) Negative Salicylates Urine Opiates Screen Ur Methadone, Qual Acetaminophen Urine Barbiturates Ur Phencyclidine (PCP) U Amphetamin/Meth Scrn MDMA (Ecstasy) Screen U Benzodiazepines Scrn Ur Cocaine Metabolite U Marijuana (THC) Screen Ethyl Alcohol mg/dL Current Inpatient Medications Current Inpatient Medications: Current Inpatient Medications Acetaminophen (Tylenol) 650 mg PO Q4H PRN PRN Reason: Headache or Minor Fever Stop: 01/12/19 22:45 Al Hydrox/Mg Hydrox/Simethicone (Maalox) 30 ml PO Q4H PRN PRN Reason: GI Upset Stop: 01/12/19 22:45 Bismuth Subsalicylate (Kaopectate) 15 ml PO PRN PRN PRN Reason: Loose Stool Stop: 01/12/19 22:45 Hydroxyzine HCl (Vistaril) 25 mg PO Q4H PRN PRN Reason: Anxiety Stop: 01/12/19 22:45 Hydroxyzine HCl (Vistaril) 50 mg PO HSZ PRN PRN Reason: Insomnia Stop: 01/12/19 22:45 Last Admin: 12/14/18 00:06 Dose: 50 mg Documented by: Magnesium Hydroxide (Milk Of Magnesia) 30 ml PO DAILY PRN PRN Reason: Heartburn Stop: 01/12/19 22:45 Sodium Chloride ([place] Nasal) 1 - 2 sprays NA PRN PRN PRN Reason: Nasal Dryness/Congestion Stop: 01/12/19 22:45 CPT Code CPT Code Initial Hospital Care: [id number]
[2018-12-14] MEDS ORDERED: LORazepam 0.5 MG TAB PO PRN (14:32)
[2018-12-14] MEDS: lamoTRIgine 25 MG TAB PO SCH (21:17)
[2018-12-14] MEDS ORDERED: LITHIUM CARBONATE 300 MG TAB PO SCH (22:00)
[2018-12-14] MEDS ORDERED: LITHIUM ORAL SOLN 300MG/5 ML UDP PO SCH (22:00)
--- NOTE | 2018-12-15 11:27 | Psychiatric Progress Note ---
Date of Service December 15, 2018 Impression / Recommendations Impression 23 yo female with previous dx of PTSD and/or bipolar disorder presents with recurrent depressive symptoms in the context of being out of meds/formal treatment for > 1 year. She continues to have an interesting interpersonal style that suggests underlying personality disorder traits, likely shaped by past family dynamics. (1) Bipolar affect, depressed: 12/14--The patient was admitted to the [facility] on q15 min checks (behavioral with suicide precautions) for safety. The patient will participate in group, recreational, and milieu therapies and will be offered additional individual and family sessions as clinically appropriate. Risks/benefits/alternatives reviewed re: restart of low dose lithium, lamictal retitration, and prn Ativan for panic attacks which have been more frequent off of mood stabilizers. Discussion included but was not limited to risks of Garrick's Guru, interactions with control, teratogenecity and toxicity with lihtium. She contracted not to combine prn Ativan with ETOH if it is continued upon discharge and is aware controlled substance which can be habit forming and/or affect operation of a vehicle/machinery,etc. [place] 150 mg po this hs, lamictal 25 mg hs. 12/15--titrate [place] to 300 mg Inventory Assets Strengths: employed, longstanding relationship with boyfriend, independent Needs: resume outpatient med management and therapy Risk Factors Assessment Do You Have Access To A Gun?: No Protective Factors Assessment Employed: Yes Interval History Chief Complaint "still isolating myself". Review of Systems Sleep Information Total Hours of Sleep: 7.25 Sleep Comments: pt given vistaril per rn. pt on q-15 minute checks Meal Information Percent Meal Consumed - Breakfast: 60 Percent Meal Consumed - Lunch: 100 Percent Meal Consumed - Dinner: 60 Nutrition Comment: states that she does not typically eat breakfast Subjective Subjective Patient was seen & assessed and interval progress reviewed with Nursing and social work. Patient apparently does have access to gun via boyfriend so social work to address today. Tolerated restart of [place] and Lamictal, no rash, did use prn Vistaril for sleep so seems a bit tired this am. Continues to view self as "black sheep" of her family, purposely keeps discussion pretty superficial and then apologizes repeatedly. Physical Exam Psychiatric Orientation: alert and oriented x 3 Apperance: appropriately dressed and appropriately groomed Eye Contact: + fair eye contact Motor Behavior: no abnormal motor movements Speech: normal rate/rhythm/volume of speech Affect: + depressed affect Mood: + depressed mood and + anxious mood Thought Process: goal directed thought process Thought Content: + preoccupation Suicidal Thoughts: denies suicidal plan Homicidal Thoughts: denies homicidal thoughts Hallucinations: no auditory hallucinations and no visual hallucinations Cognition: remote memory grossly intact, attention grossly intact and language grossly intact Estimated Intelligence: consistent with education level Insight: + limited insight Judgement: + limited judgement Vital Signs (Past 24 Hours) Last Vital Signs Temp 36.6 C 12/15/18 06:46 Pulse 86 12/15/18 06:46 Resp 16 12/15/18 06:46 BP 114/67 12/15/18 06:46 Pulse Ox 99 12/13/18 22:59 Results & Data Current Inpatient Medications Current Inpatient Medications: Current Inpatient Medications Acetaminophen (Tylenol) 650 mg PO Q4H PRN PRN Reason: Headache or Minor Fever Stop: 01/12/19 22:45 Al Hydrox/Mg Hydrox/Simethicone (Maalox) 30 ml PO Q4H PRN PRN Reason: GI Upset Stop: 01/12/19 22:45 Bismuth Subsalicylate (Kaopectate) 15 ml PO PRN PRN PRN Reason: Loose Stool Stop: 01/12/19 22:45 Hydroxyzine HCl (Vistaril) 25 mg PO Q4H PRN PRN Reason: Anxiety Stop: 01/12/19 22:45 Hydroxyzine HCl (Vistaril) 50 mg PO HSZ PRN PRN Reason: Insomnia Stop: 01/12/19 22:45 Last Admin: 12/14/18 22:51 Dose: 50 mg Documented by: Lamotrigine (Lamictal) 25 mg PO HS LORENA Stop: 01/13/19 21:59 Last Admin: 12/14/18 21:17 Dose: 25 mg Documented by: [place] Carbonate ([place] Carbonate) 300 mg PO HS LORENA Stop: 01/14/19 21:59 Lorazepam (Ativan) 0.5 mg PO Q6 PRN PRN Reason: Anxiety Stop: 01/13/19 14:31 Magnesium Hydroxide (Milk Of Magnesia) 30 ml PO DAILY PRN PRN Reason: Heartburn Stop: 01/12/19 22:45 Sodium Chloride ([place] Nasal) 1 - 2 sprays NA PRN PRN PRN Reason: Nasal Dryness/Congestion Stop: 01/12/19 22:45 Post Discharge Appointments Primary Care Physician Name Of Family Doctor: Dede Long Therapist Name of Therapist: Denies Director External Communications Name of Director External Communications: Denies CPT Code CPT Code 81309 (1) Bipolar affect, depressed Current episode severity: moderate Qualified Code(s): F31.32 - Bipolar disorder, current episode depressed, moderate
[2018-12-15] MEDS: LITHIUM CARBONATE 300 MG TAB PO SCH (21:09)
[2018-12-15] MEDS: lamoTRIgine 25 MG TAB PO SCH (21:09)
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
[2018-12-16] MEDS: LITHIUM CARBONATE 300 MG TAB PO SCH ×2 (10:49→21:00)
[2018-12-16] MEDS: lamoTRIgine 25 MG TAB PO SCH (20:59)
[2018-12-17] MEDS: LITHIUM CARBONATE 300 MG TAB PO SCH ×2 (08:39→21:17)
--- NOTE | 2018-12-17 10:38 | Psychiatric Progress Note ---
Date of Service December 17, 2018 Impression / Recommendations Impression Feels she is benefitting from her hospitalization and is taking time to practice healthier behaviors like being assertive. She denies side effects to meds and so will continue. Will need a lithium level on or about 12/20/18. (1) Bipolar affect, depressed: 12/14--The patient was admitted to the [facility] ([facility] mental health unit) on q15 min checks (behavioral with suicide precautions) for safety. The patient will participate in group, recreational, and milieu therapies and will be offered additional individual and family sessions as clinically appropriate. Risks/benefits/alternatives reviewed re: restart of low dose lithium, lamictal retitration, and prn Ativan for panic attacks which have been more frequent off of mood stabilizers. Discussion included but was not limited to risks of Garrick's Guru, interactions with control, teratogenecity and toxicity with lihtium. She contracted not to combine prn Ativan with ETOH if it is continued upon discharge and is aware controlled substance which can be habit forming and/or affect operation of a vehicle/machinery,etc. [place] 150 mg po this hs, lamictal 25 mg hs. 12/15--titrate [place] to 300 mg. 12/16--Titrate lithium to 300 mg BID. Continue lamictal 25 mg HS 12/17 - Continue current meds - Li level on or about 12/20/18 Inventory Assets Strengths: employed, longstanding relationship with boyfriend, independent Needs: resume outpatient med management and therapy Risk Factors Assessment Do You Have Access To A Gun?: No Protective Factors Assessment Employed: Yes Interval History Identifying Information 23 yo admitted voluntarily after having been off of her meds for more than a year, and decompensating into severe depression. Chief Complaint "I'm better. ". Review of Systems Sleep Information Total Hours of Sleep: 7.25 Sleep Comments: pt given vistaril per rn. pt on q-15 minute checks Meal Information Percent Meal Consumed - Breakfast: 30 Percent Meal Consumed - Lunch: 50 Percent Meal Consumed - Dinner: 100 Nutrition Comment: states that she does not typically eat breakfast Subjective Subjective Patient was seen & assessed and interval progress reviewed with Treatment Team. The patient says that she is feeling "better" and by that she means "calmer", less anxious. She also reports that her mood is improved, but doesn't feel ready to leave the hospital. She talked about plans to quite her second job that she doesn't like, and to only work the rest of the winter at the [employer] where she has worked for 9 years. 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 She talked about having had a meeting with her boyfriend that went "as well as could be expected". She admits that she has trouble "opening up" and recognizes that she needs to be more open with him. This led her to talking about the fact that she could hear discussions in the nurses station about her that she perceived to be negative which hurt her feelings. She says that she has trouble confronting issues like this but wanted to talk with someone who might be able to talk with the staff for her. She was given positive reinforcement for being assertive and trying to communicate differently as she says previously she would just keep it to herself and then she would ruminate about it. She denies SI/HI today, and denies side effects to meds. Physical Exam Psychiatric Orientation: alert and cooperative Apperance: appropriately dressed and appropriately groomed Eye Contact: + fair eye contact Motor Behavior: steady gait and station and no abnormal motor movements Speech: normal rate/rhythm/volume of speech Affect: + anxious affect Mood: + depressed mood (improving) and + anxious mood (improving) Thought Process: goal directed thought process Thought Content: reality based without delusions Suicidal Thoughts: denies suicidal thoughts Homicidal Thoughts: denies homicidal thoughts Hallucinations: no auditory hallucinations and no visual hallucinations Estimated Intelligence: average estimated intelligence Insight: + limited insight Judgement: + limited judgement Vital Signs (Past 24 Hours) Last Vital Signs Temp 36.7 C 12/17/18 06:51 Pulse 92 H 12/17/18 06:51 Resp 16 12/17/18 06:51 BP 108/71 12/17/18 06:51 Pulse Ox 99 12/13/18 22:59 Results & Data Current Inpatient Medications Current Inpatient Medications: Current Inpatient Medications Acetaminophen (Tylenol) 650 mg PO Q4H PRN PRN Reason: Headache or Minor Fever Stop: 01/12/19 22:45 Al Hydrox/Mg Hydrox/Simethicone (Maalox) 30 ml PO Q4H PRN PRN Reason: GI Upset Stop: 01/12/19 22:45 Bismuth Subsalicylate (Kaopectate) 15 ml PO PRN PRN PRN Reason: Loose Stool Stop: 01/12/19 22:45 Hydroxyzine HCl (Vistaril) 25 mg PO Q4H PRN PRN Reason: Anxiety Stop: 01/12/19 22:45 Hydroxyzine HCl (Vistaril) 50 mg PO HSZ PRN PRN Reason: Insomnia Stop: 01/12/19 22:45 Last Admin: 12/16/18 22:36 Dose: 50 mg Documented by: Lamotrigine (Lamictal) 25 mg PO HS [place] Stop: 01/13/19 21:59 Last Admin: 12/16/18 20:59 Dose: 25 mg Documented by: [place] Carbonate ([place] Carbonate) 300 mg PO HS [facility] Stop: 01/14/19 21:59 Last Admin: 12/16/18 21:00 Dose: 300 mg Documented by: [place] Carbonate ([place] Carbonate) 300 mg PO QAM [place] Stop: 01/15/19 09:59 Last Admin: 12/17/18 08:39 Dose: 300 mg Documented by: Lorazepam (Ativan) 0.5 mg PO Q6 PRN PRN Reason: Anxiety Stop: 01/13/19 14:31 Magnesium Hydroxide (Milk Of Magnesia) 30 ml PO DAILY PRN PRN Reason: Heartburn Stop: 01/12/19 22:45 Sodium Chloride ([place] Nasal) 1 - 2 sprays NA PRN PRN PRN Reason: Nasal Dryness/Congestion Stop: 01/12/19 22:45 Post Discharge Appointments Primary Care Physician Name Of Family Doctor: [facility] - ROYA Richter Primary Care Provider Appointment Comment: [address], [address], [place] [address] Psychiatrist Name of Psychiatrist: Iris Zamora Psychiatrist's Date of Appointment with Psychiatrist: 12/20/18 Time of Appointment with Psychiatrist: 3pm Psychiatric Appointment Comment: [address], [place] [address] Therapist Name of Therapist: [facility] - therapist will call us to schedule Therapist's Therapy Appointment Comment: [address], [place] [address] Metal Fabricating Supervisor Name of Metal Fabricating Supervisor: Denies Contact Information Discharge Discharge Address: [address], [place] [address] CPT Code CPT Code 04168 (1) Bipolar affect, depressed Current episode severity: moderate Qualified Code(s): F31.32 - Bipolar disorder, current episode depressed, moderate
[2018-12-17] MEDS: lamoTRIgine 25 MG TAB PO SCH (21:17)
[2018-12-18] MEDS: LITHIUM CARBONATE 300 MG TAB PO SCH ×2 (08:43→21:22)
--- NOTE | 2018-12-18 09:42 | Psychiatric Progress Note ---
Date of Service December 18, 2018 Impression / Recommendations Impression Although the patient had reported that she felt that she was improving, nursing staff reports that yesterday afternoon and evening she became more paranoid. She voiced persecute toward believes, such as a belief that unspecified "others" were planning to cause her physical harm, feeling that she was "not safe," and believe that others were talking about her in derogatory terms and laughing at her when, in fact, this seems not to been the case. The patient acknowledges, freely, that she has become more paranoid and she spontaneously and independently noted that this is often a symptom of an exacerbation of her illness. She even stated, "I am not hearing voices yet," and clarified that by saying that often auditory hallucinations began to occur when she becomes more paranoid. She does use the word "paranoid" herself, and is able to recognize that some of what she is fearing and believing catrina. While the patient does say that she is not experiencing auditory hallucinations, I suspect that she may be. For example, she told me that she was hearing things coming from the nursing station while we were in the physician's this, and sounds in the nursing station are generally not audible. I most certainly did not hear any sounds coming from the nursing station. She described the sounds as consisting of a ringing telephone and a nurse answering the phone." When I commented that that seemed to be unlikely, the patient said that she has "excellent hearing" and "[hears] things that many other people do not." Today, we will get a lithium level and determine whether to adjust her dose of lithium. She tells me that her standard dose of lithium tends to be 600 mg daily, and she prefers sustained release lithium, once the lithium level has reached the therapeutic range. She also is aware that lamotrigine has to be titrated slowly, and so we discussed interim options, including adding an anti-psychotic medication. The patient tells me that she has never taken an antipsychotic medication in the past, but has heard of Abilify and is willing to give it a try. Material risks of Abilify, including but not limited to metabolic syndrome, reviewed with the patient and she indicated understanding. Her hope is that this will be a temporary measure, while we titrate the dose of lamotrigine. (1) Bipolar affect, depressed: 3/--The patient was admitted to the [facility] ([facility] mental health unit) on q15 min checks (behavioral with suicide precautions) for safety. The patient will participate in group, recreational, and milieu therapies and will be offered additional individual and family sessions as clinically appropriate. Risks/benefits/alternatives reviewed re: restart of low dose lithium, lamictal retitration, and prn Ativan for panic attacks which have been more frequent off of mood stabilizers. Discussion included but was not limited to risks of Garrick's Guru, interactions with control, teratogenecity and toxicity with lihtium. She contracted not to combine prn Ativan with ETOH if it is continued upon discharge and is aware controlled substance which can be habit forming and/or affect operation of a vehicle/machinery,etc. [place] 150 mg po this hs, lamictal 25 mg hs. 12/15--titrate [place] to 300 mg. 12/16--Titrate lithium to 300 mg BID. Continue lamictal 25 mg HS 12/17 - Continue current meds - Li level on or about 12/20/1812/18 -More symptomatic today. -[place] level ordered -Continue lithium carbonate 300 mg twice a day. -Add aripiprazole 5 mg daily as a mood stabilizer and to address paranoia and possible perceptual disturbances. Inventory Assets Strengths: employed, longstanding relationship with boyfriend, independent Needs: resume outpatient med management and therapy Risk Factors Assessment Do You Have Access To A Gun?: No Protective Factors Assessment Employed: Yes Interval History Identifying Information 23 yo admitted voluntarily after having been off of her meds for more than a year, and decompensating into severe depression. Chief Complaint "Yes, I'm feeling paranoid". Review of Systems Sleep Information Total Hours of Sleep: 6 Sleep Comments: pt on q-15 minute checks Meal Information Percent Meal Consumed - Breakfast: 30 Percent Meal Consumed - Lunch: 90 Percent Meal Consumed - Dinner: 100 Nutrition Comment: states that she does not typically eat breakfast Subjective Subjective Patient was seen & assessed and interval progress reviewed with Treatment Team. I met individually with the patient in order to assess her current mental status, evaluate her response to treatment, coordinate any necessary changes in her treatment plan with the patient, and address issues and concerns that might arise. Nursing staff reports that the patient has seemed more vigilant and paranoid recently. She reportedly said that she has "excellent hearing," and claimed that she heard nursing staff ridiculing her and the nursing station when, in fact, she had not been the subject of any discussion at the time. Also noted by nursing staff is that she has reported feeling unsafe and, perhaps, targeted. Today, when I met with the patient, she acknowledged that she has been feeling paranoid and she self identifies that as a symptom of not being well. While she notes that she is not experiencing auditory hallucinations "yet," she acknowledges that she said "not yet" because she is expecting that perceptual disturbances will follow the recent increased feelings of persecution. In fact, during the encounter she told me that she could hear sounds coming from the nursing station, even though the office in which we were situated is located at the opposite end of the unit and sounds from the nursing station are not routinely heard in this location. We discussed various treatment options at this point, and I recommended a trial of aripiprazole 5 mg now and then 5 mg daily as a mood stabilizer, at least while while we are in the process of titrating her dose of lamotrigine. (The patient tells me that she has not taken any antipsychotic medication in the past, including, but not limited to, aripiprazole, risperidone, invega, Geodon, Haldol, and olanzapine.) Physical Exam Psychiatric Orientation: oriented x 3 Apperance: appropriately dressed and appropriately groomed Eye Contact: good eye contact Motor Behavior: steady gait and station Speech: normal rate/rhythm/volume of speech Affect: + constricted affect Mood: + depressed mood and + anxious mood Thought Process: linear/logical thought process Thought Content: + delusions (The patient describes non-systematized delusions of persecution that involve a believe that others are denigrating her, and a expressed fear that she is in physical danger as part of being targeted by others.) Suicidal Thoughts: denies suicidal thoughts Homicidal Thoughts: denies homicidal thoughts Hallucinations: + auditory hallucinations Although the patient reports that she is not experiencing auditory hallucinations currently, I suspect that she may be. For example, the patient reported that she was hearing nursing staff in the nursing station making derogatory comments about her and laughing at her when, in fact, this pretty clearly was not the case. Also, in the office today, she claimed that she could overhear things that were happening in the nursing station from the office, even though I heard nothing and sounds from the nursing station are not audible in the physicians' office. Cognition: recent memory grossly intact, remote memory grossly intact, attention grossly intact and language grossly intact Estimated Intelligence: average estimated intelligence Insight: + fair insight Judgement: + fair judgement Vital Signs (Past 24 Hours) Last Vital Signs Temp 36.7 C 12/18/18 06:48 Pulse 78 12/18/18 06:48 Resp 16 12/18/18 06:48 BP 108/66 12/18/18 06:48 Pulse Ox 99 12/13/18 22:59 Results & Data Current Inpatient Medications Current Inpatient Medications: Current Inpatient Medications Acetaminophen (Tylenol) 650 mg PO Q4H PRN PRN Reason: Headache or Minor Fever Stop: 01/12/19 22:45 Al Hydrox/Mg Hydrox/Simethicone (Maalox) 30 ml PO Q4H PRN PRN Reason: GI Upset Stop: 01/12/19 22:45 Aripiprazole (Abilify) 5 mg PO QAM [facility] Stop: 01/17/19 09:14 Bismuth Subsalicylate (Kaopectate) 15 ml PO PRN PRN PRN Reason: Loose Stool Stop: 01/12/19 22:45 Hydroxyzine HCl (Vistaril) 25 mg PO Q4H PRN PRN Reason: Anxiety Stop: 01/12/19 22:45 Hydroxyzine HCl (Vistaril) 50 mg PO HSZ PRN PRN Reason: Insomnia Stop: 01/12/19 22:45 Last Admin: 12/17/18 22:25 Dose: 50 mg Documented by: Lamotrigine (Lamictal) 25 mg PO HS LORENA Stop: 01/13/19 21:59 Last Admin: 12/17/18 21:17 Dose: 25 mg Documented by: [place]al[place] Carbonate (Escalante Carbonate) 300 mg PO HS LORENA Stop: 01/14/19 21:59 Last Admin: 12/17/18 21:17 Dose: 300 mg Documented by: [place] Carbonate ([place] Carbonate) 300 mg PO QAM LORENA Stop: 01/17/19 08:59 Lorazepam (Ativan) 0.5 mg PO Q6 PRN PRN Reason: Anxiety Stop: 01/13/19 14:31 Magnesium Hydroxide (Milk Of Magnesia) 30 ml PO DAILY PRN PRN Reason: Heartburn Stop: 01/12/19 22:45 Sodium Chloride ([place] Nasal) 1 - 2 sprays NA PRN PRN PRN Reason: Nasal Dryness/Congestion Stop: 01/12/19 22:45 Post Discharge Appointments Primary Care Physician Name Of Family Doctor: [facility] - ROYA Richter Primary Care Provider Appointment Comment: [address], [address], [place] [address] Psychiatrist Name of Psychiatrist: Iris Dowling - Georgina Zamora Psychiatrist's Date of Appointment with Psychiatrist: 12/20/18 Time of Appointment with Psychiatrist: 3pm Psychiatric Appointment Comment: [address], [place] [address] Therapist Name of Therapist: [facility] - Tg Greer Therapist's Date of Therapist Appointment: 12/25/18 Time of Therapist Appointment: 15:00 Therapy Appointment Comment: [address], [place] [address] Interior Decorator Painting Name of Interior Decorator Painting: Denies Contact Information Discharge Discharge Address: [address], [place] [address] CPT Code CPT Code 20255 (1) Bipolar affect, depressed Current episode severity: moderate Qualified Code(s): F31.32 - Bipolar disorder, current episode depressed, moderate
[2018-12-18] MEDS: ARIPiprazole 5 MG TAB PO SCH (10:21)
[2018-12-18 10:48] LABS: Chol HDL Ratio 3; Cholesterol 179 mg/dl (0-200); HDL Cholesterol 63 mg/dl; LDL Cholesterol Calculated 102 mg/dl; Triglycerides 72 mg/dl (0-150); VLDL Cholesterol 14 mg/dl
[2018-12-18] MEDS: lamoTRIgine 25 MG TAB PO SCH (21:22)
[2018-12-19] MEDS ORDERED: LITHIUM CARBONATE 300 MG TAB PO SCH (09:00)
[2018-12-19] MEDS: ARIPiprazole 5 MG TAB PO SCH (09:15)
--- NOTE | 2018-12-19 10:07 | Psychiatric Progress Note ---
Date of Service December 19, 2018 Impression / Recommendations Impression The patient reports a favorable response to aripiprazole. More specifically, she says that she feels her mood has brightened, she feels more "stable, and has noticed that she is not feeling paranoid. As she notes that she was experiencing some degree of nausea, but reports today that that has improved considerably and the "queasy feeling" has essentially resolved. Her lithium level this morning was slightly in the subtherapeutic range. According the patient, her lithium level typically is therapeutic when she takes an extended release form of lithium carbonate 300 mg twice a day or 600 mg at bedtime. We d iscussed possibly increasing her dose of lithium today, but the patient says that she would prefer to be converted to a sustained release form of lithium and be retested. The patient has been active in the milieu, participates actively in groups, and has been engaged. We agree that if the patient continues to do well and remained stable we will look towards discharge tomorrow morning. (1) Bipolar affect, depressed: 12/14--The patient was admitted to the [facility] unit) on q15 min checks (behavioral with suicide precautions) for safety. The patient will participate in group, recreational, and milieu therapies and will be offered additional individual and family sessions as clinically appropriate. Risks/benefits/alternatives reviewed re: restart of low dose lithium, lamictal retitration, and prn Ativan for panic attacks which have been more frequent off of mood stabilizers. Discussion included but was not limited to risks of Garrick's Guru, interactions with control, teratogenecity and toxicity with lihtium. She contracted not to combine prn Ativan with ETOH if it is continued upon discharge and is aware controlled substance which can be habit forming and/or affect operation of a vehicle/machinery,etc. [place] 150 mg po this hs, lamictal 25 mg hs. 12/15--titrate [place] to 300 mg. 12/16--Titrate lithium to 300 mg BID. Continue lamictal 25 mg HS 12/17 - Continue current meds - Li level on or about 12/20/18 36 -More symptomatic today. -[place] level ordered -Continue lithium carbonate 300 mg twice a day. -Add aripiprazole 5 mg daily as a mood stabilizer and to address paranoia and possible perceptual disturbances. 12/19 -[place] level = 0.5 this morning. [place] extended release 300 mg twice a day has generally allowed the patient to maintain a therapeutic lithium level, and today we are changing her to dose formal lithium from immediate release lithium carbonate to lithium carbonate slow release 300 mg twice a day. -The patient reports a favorable response to aripiprazole 5 mg daily. The only side effect noted yesterday was some mild nausea, and she reports today that the nausea has for the most part resolved. -If the patient continues to do well we will plan to discharge her to the community tomorrow. She has an appointment with a psychiatrist at 3 PM on 12/20/2018. -The patient reports that her paranoia has resolved. She also has had no perceptual disturbances, and she describes her mood as being "7 out of 10. -No thoughts of suicide. Inventory Assets Strengths: employed, longstanding relationship with boyfriend, independent Needs: resume outpatient med management and therapy Risk Factors Assessment Do You Have Access To A Gun?: No Protective Factors Assessment Employed: Yes Interval History Identifying Information 23 yo admitted voluntarily after having been off of her meds for more than a year, and decompensating into severe depression. Chief Complaint "I'm feeling better. Not paranoid." Review of Systems Sleep Information Total Hours of Sleep: 7 Sleep Comments: received an hs prn dose of vistaril for sleep aid Meal Information Percent Meal Consumed - Breakfast: 100 Percent Meal Consumed - Lunch: 90 Percent Meal Consumed - Dinner: 95 Nutrition Comment: states that she does not typically eat breakfast Subjective Subjective Patient was seen & assessed and interval progress reviewed with Treatment Team. I met with the patient individually in order to assess her current mental status, evaluate her response to treatment, make any necessary changes in the patient's treatment plan and coordination with the patient, and address issues and concerns that may arise. Today, the patient tells me that she is feeling "better." More specifically, she reports that her mood has been brighter and more stable. She also reports that she has been feeling "not paranoid. May be a little suspicious at times, but that is my usual." There are no perceptual disturbances. The patient does note, however, that on immediate release lithium she can feel her lithium level "get low" before her next dose and asked that she be placed on extended release/slow release lithium. Sleep and appetite are reportedly "good," and there has been no further thoughts of suicide. She is participating actively in the milieu and seems engaged. We also discussed her safety plan, and I provided her with my assessment of her personal strengths which include honesty, motivation to recovery, emotional maturity, and others. I advised the patient that her lipid panel findings were within normal limits. Her lithium level today was 0.5, which is slightly below the therapeutic range, and I recommended that we convert lithium to lithium slow release 300 mg twice a day, a dose that, traditionally, has allowed the patient to have a therapeutic benefit. Physical Exam Psychiatric Orientation: oriented x 3 Apperance: appropriately dressed and appropriately groomed Eye Contact: good eye contact Motor Behavior: steady gait and station Speech: normal rate/rhythm/volume of speech Affect: euthymic affect "Good. At least a 7 out of 10." Thought Process: linear/logical thought process Thought Content: reality based without delusions; not paranoid Suicidal Thoughts: denies suicidal thoughts Homicidal Thoughts: denies homicidal thoughts Hallucinations: no auditory hallucinations Cognition: recent memory grossly intact, remote memory grossly intact, attention grossly intact and language grossly intact Estimated Intelligence: + above average estimated intelligence Insight: good insight Judgement: good judgement Vital Signs (Past 24 Hours) Last Vital Signs Temp 36.9 C 12/19/18 06:46 Pulse 78 12/19/18 06:47 Resp 16 12/19/18 06:46 BP 123/85 12/19/18 06:47 Pulse Ox 99 12/13/18 22:59 Results & Data Laboratory Results Laboratory Results - last 24 hr 12/18/18 12/18/18 09:13 09:17 Triglycerides 72 Cholesterol 179 LDL Cholesterol, Calc 102 VLDL Cholesterol, Calc 14 HDL Cholesterol 63 Cholesterol/HDL Ratio 3 [place] 0.5 L Current Inpatient Medications Current Inpatient Medications: Current Inpatient Medications Acetaminophen (Tylenol) 650 mg PO Q4H PRN PRN Reason: Headache or Minor Fever Stop: 01/12/19 22:45 Last Admin: 12/19/18 08:34 Dose: 650 mg Documented by: Al Hydrox/Mg Hydrox/Simethicone (Maalox) 30 ml PO Q4H PRN PRN Reason: GI Upset Stop: 01/12/19 22:45 Aripiprazole (Abilify) 5 mg PO QAM [place] Stop: 01/17/19 09:59 Last Admin: 12/19/18 09:15 Dose: 5 mg Documented by: Bismuth Subsalicylate (Kaopectate) 15 ml PO PRN PRN PRN Reason: Loose Stool Stop: 01/12/19 22:45 Hydroxyzine HCl (Vistaril) 25 mg PO Q4H PRN PRN Reason: Anxiety Stop: 01/12/19 22:45 Hydroxyzine HCl (Vistaril) 50 mg PO HSZ PRN PRN Reason: Insomnia Stop: 01/12/19 22:45 Last Admin: 12/18/18 22:15 Dose: 50 mg Documented by: Lamotrigine (Lamictal) 25 mg PO HS LORENA Stop: 01/13/19 21:59 Last Admin: 12/18/18 21:22 Dose: 25 mg Documented by: [place] Carbonate (Lithobid) 300 mg PO BID LORENA Stop: 01/18/19 20:59 Lorazepam (Ativan) 0.5 mg PO Q6 PRN PRN Reason: Anxiety Stop: 01/13/19 14:31 Magnesium Hydroxide (Milk Of Magnesia) 30 ml PO DAILY PRN PRN Reason: Heartburn Stop: 01/12/19 22:45 Sodium Chloride ([place] Nasal) 1 - 2 sprays NA PRN PRN PRN Reason: Nasal Dryness/Congestion Stop: 01/12/19 22:45 Post Discharge Appointments Primary Care Physician Name Of Family Doctor: [facility] - ROYA Richter Primary Care Provider Appointment Comment: [address], [address], [place] [address] Psychiatrist Name of Psychiatrist: Iris Dowling - Georgina Zamora Psychiatrist's Date of Appointment with Psychiatrist: 12/20/18 Time of Appointment with Psychiatrist: 3pm Psychiatric Appointment Comment: [address], [place] [address] Therapist Name of Therapist: [facility] - [facility] Greer Therapist's Date of Therapist Appointment: 12/25/18 Time of Therapist Appointment: 15:00 Therapy Appointment Comment: [address], [place] [address] Pony Worker Name of Pony Worker: Denies Contact Information Discharge Discharge Address: [address] [place] [address] CPT Code CPT Code 19248 (1) Bipolar affect, depressed Current episode severity: moderate Qualified Code(s): F31.32 - Bipolar disorder, current episode depressed, moderate
[2018-12-19] MEDS: lamoTRIgine 25 MG TAB PO SCH (21:15)
[2018-12-19] MEDS: LITHIUM CARBONATE SLOW REL 300 MG TAB PO SCH (21:15)
[2018-12-20] MEDS: LITHIUM CARBONATE SLOW REL 300 MG TAB PO SCH (09:01)
[2018-12-20] MEDS: ARIPiprazole 5 MG TAB PO SCH (09:01)
--- NOTE | 2018-12-20 09:37 | Discharge Summary ---
Date of Service December 20, 2018 History of Present Illness Elidia, prefers Carmelita, is known to me from previously treatment at [facility], initially evaluated in middle school for concerns about urges to cut and possible dissociative symptoms. Parents were not supportive of med trials around that time but when turned 19, reports gaining stability on combo of Senath, Lamictal, and prn Ativan (the latter for panic). She reports a prior suicide attempt by taking OTC meds at age 18 but was not hospitalized at that time. She states that she stopped medication 1.5-2 years ago and that it was a "mistake". Patient states that she has gradually had a harder time coping with stress. She is currently working 2 jobs, at one of the jobs she feels she is being harassed by the customers ([employer]) and that the management is not doing anything about it. 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 Regardless, these changes haven't been enough. Her friends have encouraged her to get back in treatment as she hasn't been "myself". She states that she started missing shifts at work but at the same time would sometimes stay at the [employer] longer than her currently shift as feeling hopeless and lonely and didn't feel safe to be "alone with myself" in the apartment. She does have a boyfriend but is disappointed that her brothers from her adoptive family (at least 1 of which is biological) don't stay in touch. She frequently apologized for "u nloading" or saying "too much". She states that she hasn't been sleeping well, denies catrina. Is aware that her affect seemed somewhat expansive in the ED and attributes to anxiety, "not being used to people listening to me". She reported a voice/or obessive thought to "let the blood out". When she was younger she had an active imagination and would discuss her house being haunted/had a friendship with a ghost as a coping mechanism. Physical Exam Psychiatric Orientation: oriented x 3 Apperance: appropriately dressed and appropriately groomed Eye Contact: good eye contact Motor Behavior: steady gait and station Speech: normal rate/rhythm/volume of speech Affect: euthymic affect "Good. Stable." Thought Process: goal directed thought process, linear/logical thought process and clear/coherent thought process Thought Content: reality based without delusions Suicidal Thoughts: denies suicidal thoughts Homicidal Thoughts: denies homicidal thoughts Hallucinations: no auditory hallucinations Cognition: recent memory grossly intact, remote memory grossly intact, attention grossly intact and language grossly intact Estimated Intelligence: + above average estimated intelligence Insight: good insight Judgement: good judgement Vital Signs (Past 24 Hours) Last Vital Signs Temp 36.7 C 12/20/18 09:19 Pulse 85 12/20/18 09:19 Resp 16 12/20/18 09:19 BP 113/74 12/20/18 09:19 Pulse Ox 99 12/20/18 09:19 Principal Diagnosis Bipolar Disorder, Type 1, Mixed Psychiatric Data During the course of hospitalization the patient was offered various modalities of psychiatric treatment, including individual, group, activity and milieu therapy. Several medication adjustments were made during the patient's stay. Senath carbonate was restarted and titrated to a dose of lithium carbonate slow release 300 mg twice a day. Her lithium level on 12/19/2018 was 0.5 at a trough, and the dose form was changed from immediate release to sustained release. The patient reports that typically 300 mg of extended release lithium twice a day is sufficient to maintain a therapeutic range in her case, and so the dose was not increased but should be rechecked by her outpatient provider. In addition, we added lamotrigine 25 mg daily as a mood stabilizer. The risks associated with lamotrigine were reviewed with the patient, including, but not limited to Draper-Guru syndrome, and the patient has been made aware of the need to monitor for the development of a rash and to report same immediately to a healthcare provider should one occur. The patient is aware that the dose of this medication has to be titrated slowly, and that she may expect the dose to be increased in approximately 2 weeks. We also added aripiprazole 5 mg daily, as a mood stabilizer and as an antipsychotic, given the patient's reports of paranoia and auditory hallucinations. She initially experienced nausea associated with aripiprazole, but this resolved after several days and she reports that aripiprazole was effective in reducing her feelings of being persecuted or, as she put it, "paranoia," and it also seems to have brightened her mood. Although the patient's admitting diagnosis was bipolar disorder, depressed, her pattern seems to be more consistent with the diagnosis of bipolar disorder, mixed, with periods during which her mood is depressed, but she has increased energy and decreased desire for sleep. Day of Discharge Assessment The patient was seen individually by the undersigned on the day of discharge. She reports that she is feeling "good" and notes that her mood is "stable." She offers no complaints, and tells me that she feels fully ready to return to the community. She said, "this is a great unit, and the staff is awesome, but, no offense, I am really hoping I do not have to come back." The patient's affect is euthymic. Her thought processes demonstrate tight associations. There is no delusional material identified and the patient's thought content, and she reports that the feelings that somebody was about to come up behind her and choke her or that people were talking about her or laughing at her have all resolved. She also has not experienced any perceptual disturbances, although she notes that the onset of auditory hallucinations is often a sign of a relapse in her bipolar disorder. The patient reports that she has no suicidal ideations, and she was able to accurately review her safety plan with me. We again reviewed her discharge medications and reviewed both the material risks and anticipated benefits of each. Transition of Care Transition Of Care Record: was reviewed with the patient Advance Directives Advance Directives Information Provided: Yes Advance Directives: No Mental Health Advance Directive: No Advance Directives on File: No Living Will: No Power of Federal Appellate Clerk: No Advance Directives Reason:: Declines as Mental Health Visit. Risk Factors Assessment Male: No : Yes Do You Have Access To A Gun?: No Health Problems: No Mental Health Diagnoses: Yes Substance Use Disorders: No Previous Attempt: No Previous Attempt; Highly Lethal: No Previous Attempt; Planned: No Previous Attempt; Didn't Tell Anyone: No Family History of Suicide: No Hopelessness: No Smoker: No Protective Factors Assessment : No Responsible for Young Children: No Employed: Yes Stable Relationships: Yes Supportive Family: No Good Rapport with Provider: Yes Absence of Any Risk Factors Above: No Discharge Data Lab Results 12/13/18 12/13/18 12/13/18 20:15 20:15 20:15 WBC 9.39 RBC 5.27 Hgb 15.3 Hct 44.7 MCV 84.8 MCH 29.0 MCHC 34.2 RDW Std Deviation 41.2 RDW Coeff of Maryana 13.4 Plt Count 355 MPV 9.4 Immature Gran % (Auto) 0.2 Neut % (Auto) 76.2 Lymph % (Auto) 15.8 Cambria % (Auto) 5.5 Eos % (Auto) 2.0 Baso % (Auto) 0.3 Immature Gran # (Auto) 0.02 Neut # (Auto) 7.15 H Lymph # (Auto) 1.48 Cambria # (Auto) 0.52 Eos # (Auto) 0.19 Baso # (Auto) 0.03 Sodium 138 Potassium 3.7 Chloride 106 Carbon Dioxide 24 Anion Gap 8.0 BUN 9 Creatinine 0.67 Est Cr Clr Drug Dosing 118.5 Est GFR ( Amer) 144.6 Est GFR (Non-Af Amer) 124.8 BUN/Creatinine Ratio 13.2 Glucose 90 Calcium 9.2 Total Bilirubin 0.5 AST 12 L ALT 15 Alkaline Phosphatase 73 Total Protein 7.9 Albumin 4.9 Globulin 3.0 Albumin/Globulin Ratio 1.6 Triglycerides Cholesterol LDL Cholesterol, Calc VLDL Cholesterol, Calc HDL Cholesterol Cholesterol/HDL Ratio TSH 0.845 HCG, Qual Urine Color Urine Appearance Urine pH Ur Specific Sledge Urine Protein Urine Glucose (UA) Urine Ketones Urine Blood Urine Nitrite Urine Bilirubin Urine Urobilinogen Ur Leukocyte Esterase Urine WBC (Auto) Urine RBC (Auto) U Hyaline Cast (Auto) U Epithel Cells (Auto) Urine Bacteria (Auto) Salicylates < 1.7 L Urine Opiates Screen Ur Methadone, Qual Acetaminophen < 2 L Urine Barbiturates Ur Phencyclidine (PCP) U Amphetamin/Meth Scrn MDMA (Ecstasy) Screen U Benzodiazepines Scrn Senath Ur Cocaine Metabolite U Marijuana (THC) Screen Ethyl Alcohol mg/dL 12/13/18 12/13/18 12/13/18 20:15 20:15 Unknown WBC RBC Hgb Hct MCV MCH MCHC RDW Std Deviation RDW Coeff of Maryana Plt Count MPV Immature Gran % (Auto) Neut % (Auto) Lymph % (Auto) Cambria % (Auto) Eos % (Auto) Baso % (Auto) Immature Gran # (Auto) Neut # (Auto) Lymph # (Auto) Cambria # (Auto) Eos # (Auto) Baso # (Auto) Sodium Potassium Chloride Carbon Dioxide Anion Gap BUN Creatinine Est Cr Clr Drug Dosing Est GFR ( Amer) Est GFR (Non-Af Amer) BUN/Creatinine Ratio Glucose Calcium Total Bilirubin AST ALT Alkaline Phosphatase Total Protein Albumin Globulin Albumin/Globulin Ratio Triglycerides Cholesterol LDL Cholesterol, Calc VLDL Cholesterol, Calc HDL Cholesterol Cholesterol/HDL Ratio TSH HCG, Qual Negative Urine Color Urine Appearance Urine pH Ur Specific Sledge Urine Protein Urine Glucose (UA) Urine Ketones Urine Blood Urine Nitrite Urine Bilirubin Urine Urobilinogen Ur Leukocyte Esterase Urine WBC (Auto) Urine RBC (Auto) U Hyaline Cast (Auto) U Epithel Cells (Auto) Urine Bacteria (Auto) Salicylates Urine Opiates Screen Neg Ur Methadone, Qual Neg Acetaminophen Urine Barbiturates Neg Ur Phencyclidine (PCP) Neg U Amphetamin/Meth Scrn Neg MDMA (Ecstasy) Screen Neg U Benzodiazepines Scrn Neg Senath Ur Cocaine Metabolite Neg U Marijuana (THC) Screen Neg Ethyl Alcohol mg/dL < 3.0 12/13/18 12/18/18 12/18/18 Unknown 09:13 09:17 WBC RBC Hgb Hct MCV MCH MCHC RDW Std Deviation RDW Coeff of Maryana Plt Count MPV Immature Gran % (Auto) Neut % (Auto) Lymph % (Auto) Cambria % (Auto) Eos % (Auto) Baso % (Auto) Immature Gran # (Auto) Neut # (Auto) Lymph # (Auto) Cambria # (Auto) Eos # (Auto) Baso # (Auto) Sodium Potassium Chloride Carbon Dioxide Anion Gap BUN Creatinine Est Cr Clr Drug Dosing Est GFR ( Amer) Est GFR (Non-Af Amer) BUN/Creatinine Ratio Glucose Calcium Total Bilirubin AST ALT Alkaline Phosphatase Total Protein Albumin Globulin Albumin/Globulin Ratio Triglycerides 72 Cholesterol 179 LDL Cholesterol, Calc 102 VLDL Cholesterol, Calc 14 HDL Cholesterol 63 Cholesterol/HDL Ratio 3 TSH HCG, Qual Urine Color Yellow Urine Appearance Cloudy H Urine pH 7.5 Ur Specific Sledge 1.027 Urine Protein Negative Urine Glucose (UA) Negative Urine Ketones Negative Urine Blood Trace H Urine Nitrite Negative Urine Bilirubin Negative Urine Urobilinogen Negative Ur Leukocyte Esterase Negative Urine WBC (Auto) 1-5 Urine RBC (Auto) 0-4 U Hyaline Cast (Auto) 1-5 U Epithel Cells (Auto) >30 H Urine Bacteria (Auto) Negative Salicylates Urine Opiates Screen Ur Methadone, Qual Acetaminophen Urine Barbiturates Ur Phencyclidine (PCP) U Amphetamin/Meth Scrn MDMA (Ecstasy) Screen U Benzodiazepines Scrn Senath 0.5 L Ur Cocaine Metabolite U Marijuana (THC) Screen Ethyl Alcohol mg/dL Hospital Course (1) Bipolar affect, depressed: 12/14--The patient was admitted to the [facility] ([facility]) on q15 min checks (behavioral with suicide precautions) for safety. The patient will participate in group, recreational, and milieu therapies and will be offered additional individual and family sessions as clinically appropriate. Risks/benefits/alternatives reviewed re: restart of low dose lithium, lamictal retitration, and prn Ativan for panic attacks which have been more frequent off of mood stabilizers. Discussion included but was not limited to risks of Garrick's Guru, interactions with control, teratogenecity and toxicity with lihtium. She contracted not to combine prn Ativan with ETOH if it is continued upon discharge and is aware controlled substance which can be habit forming and/or affect operation of a vehicle/machinery,etc. Senath 150 mg po this hs, lamictal 25 mg hs. 12/15--titrate Senath to 300 mg. 12/16--Titrate lithium to 300 mg BID. Continue lamictal 25 mg HS 12/17 - Continue current meds 12/17 -Continue current meds. Ready for discharge today. - Li level on or about 12/20/1812/18 -More symptomatic today. -Senath level ordered -Continue lithium carbonate 300 mg twice a day. -Add aripiprazole 5 mg daily as a mood stabilizer and to address paranoia and possible perceptual disturbances. 12/19 -Senath level = 0.5 this morning. Senath extended release 300 mg twice a day has generally allowed the patient to maintain a therapeutic lithium level, and today we are changing her to dose formal lithium from immediate release lithium carbonate to lithium carbonate slow release 300 mg twice a day. -The patient reports a favorable response to aripiprazole 5 mg daily. The only side effect noted yesterday was some mild nausea, and she reports today that the nausea has for the most part resolved. -If the patient continues to do well we will plan to discharge her to the community tomorrow. She has an appointment with a psychiatrist at 3 PM on 12/20/2018. -The patient reports that her paranoia has resolved. She also has had no perceptual disturbances, and she describes her mood as being "7 out of 10. -No thoughts of suicide. Post Discharge Appointments Primary Care Physician Name Of Family Doctor: [facility] - ROYA Richter Primary Care Time of Appointment with PCP: As needed Provider Appointment Comment: [address], [address], [place] [address] Primary Care Release of Information: Obtained, Reviewed and Signed Psychiatrist Name of Psychiatrist: Iris Dowling - Georgina Zamora Psychiatrist's Date of Appointment with Psychiatrist: 12/20/18 Time of Appointment with Psychiatrist: 3pm Psychiatric Appointment Comment: [address], [place] [address] Psychiatrist Release of Information: Obtained, Reviewed and Signed Therapist Name of Therapist: [facility] - Tg [facility]er Therapist's Date of Therapist Appointment: 12/25/18 Time of Therapist Appointment: 3:00pm Therapy Appointment Comment: [address], [place] [address] Therapist Release of Information: Obtained, Reviewed and Signed Supervisor Name of Supervisor: Denies Contact Information Discharge Discharge Address: [address] [place] [address] Discharge Plan Discharge Items Patient Disposition: Home - Self-Care Reason For Visit: DEPRESSIVE DISORDER NOS Discharge Diagnosis: Bipolar Disorder, Type 1, Mixed Discharge Goals: Specific goals Specific Goals: Maintain mood stability Activity: Resume your previous activity Non-emergency contact: Primary Care Provider, Psychiatrist and Therapist Call non-emergency contact if: you have any medication questions and your s ymptoms worsen Follow-up/Referrals: Dede Long CRNP [Primary Care Provider] - Diet: Regular Addtl Provider Instructions: Access your safety plan and coping strategies, as needed. Prescriptions: New lithium carbonate 300 mg Tablet Extended Release 300 mg PO BID Qty: 60 RF: 0 lamotrigine 25 mg Tablet 25 mg PO HS Qty: 30 RF: 0 hydroxyzine HCl 25 mg Tablet 50 mg PO HSZ PRN (Reason: Sleep) Qty: 30 RF: 0 aripiprazole [Abilify] 5 mg Tablet 5 mg PO QAM Qty: 30 RF: 0 Continued Nexplanon 68 mg Implant 68 mg Subdermal DIRECTED RF: 0 Stand-Alone Forms: [facility] Discharge Orders: Discharge Order (Routine); Ordered 12/20/18 Ordered By: Eduardo Hughes Admission Data Admit Date/Time: 12/13/18 22:46 Attending Provider: Loretta Patino Admit Provider: Loretta Patino Primary Care Provider: Dede Long Service: Psychiatry Other Interventions: PSY Interdisciplinary Discharge Planning Last Done: 12/19/18 10:09 Pending Studies at Discharge: No
--- NOTE | 2018-12-20 09:42 | Discharge Summary ---
Date of Service December 20, 2018 History of Present Illness Elidia, prefers Carmelita, is known to me from previously treatment at [facility], initially evaluated in middle school for concerns about urges to cut and possible dissociative symptoms. Parents were not supportive of med trials around that time but when turned 19, reports gaining stability on combo of Lawson, Lamictal, and prn Ativan (the latter for panic). She reports a prior suicide attempt by taking OTC meds at age 18 but was not hospitalized at that time. She states that she stopped medication 1.5-2 years ago and that it was a "mistake". Patient states that she has gradually had a harder time coping with stress. She is currently working 2 jobs, at one of the jobs she feels she is being harassed by the customers ([employer]) and that the management is not doing anything about it. 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 She also just got a seasonal position at [employer]. Regardless, these changes haven't been enough. Her friends have encouraged her to get back in treatment as she hasn't been "myself". She states that she started missing shifts at work but at the same time would sometimes stay at the [employer] longer than her currently shift as feeling hopeless and lonely and didn't feel safe to be "alone with myself" in the apartment. She does have a boyfriend but is disappointed that her brothers from her adoptive family (at least 1 of which is biological) don't stay in touch. She frequently apologized for "u nloading" or saying "too much". She states that she hasn't been sleeping well, denies catrina. Is aware that her affect seemed somewhat expansive in the ED and attributes to anxiety, "not being used to people listening to me". She reported a voice/or obessive thought to "let the blood out". When she was younger she had an active imagination and would discuss her house being haunted/had a friendship with a ghost as a coping mechanism. Physical Exam Vital Signs (Past 24 Hours) Last Vital Signs Temp 36.7 C 12/20/18 09:19 Pulse 85 12/20/18 09:19 Resp 16 12/20/18 09:19 BP 113/74 12/20/18 09:19 Pulse Ox 99 12/20/18 09:19 Psychiatric Data Advance Directives Advance Directives Information Provided: Yes Advance Directives: No Mental Health Advance Directive: No Advance Directives on File: No Living Will: No Power of Ophthalmic Nurse: No Advance Directives Reason:: Declines as Mental Health Visit. Risk Factors Assessment Male: No : Yes Do You Have Access To A Gun?: No Health Problems: No Mental Health Diagnoses: Yes Substance Use Disorders: No Previous Attempt: No Previous Attempt; Highly Lethal: No Previous Attempt; Planned: No Previous Attempt; Didn't Tell Anyone: No Family History of Suicide: No Hopelessness: No Smoker: No Protective Factors Assessment : No Responsible for Young Children: No Employed: Yes Stable Relationships: Yes Supportive Family: No Good Rapport with Provider: Yes Absence of Any Risk Factors Above: No Tobacco Cessation at Discharge Tobacco Cessation Medication Prescribed at Discharge: Not Applicable/Non-Smoker Discharge Data Lab Results 12/13/18 12/13/18 12/13/18 20:15 20:15 20:15 WBC 9.39 RBC 5.27 Hgb 15.3 Hct 44.7 MCV 84.8 MCH 29.0 MCHC 34.2 RDW Std Deviation 41.2 RDW Coeff of Maryana 13.4 Plt Count 355 MPV 9.4 Immature Gran % (Auto) 0.2 Neut % (Auto) 76.2 Lymph % (Auto) 15.8 Frontier % (Auto) 5.5 Eos % (Auto) 2.0 Baso % (Auto) 0.3 Immature Gran # (Auto) 0.02 Neut # (Auto) 7.15 H Lymph # (Auto) 1.48 Frontier # (Auto) 0.52 Eos # (Auto) 0.19 Baso # (Auto) 0.03 Sodium 138 Potassium 3.7 Chloride 106 Carbon Dioxide 24 Anion Gap 8.0 BUN 9 Creatinine 0.67 Est Cr Clr Drug Dosing 118.5 Est GFR ( Amer) 144.6 Est GFR (Non-Af Amer) 124.8 BUN/Creatinine Ratio 13.2 Glucose 90 Calcium 9.2 Total Bilirubin 0.5 AST 12 L ALT 15 Alkaline Phosphatase 73 Total Protein 7.9 Albumin 4.9 Globulin 3.0 Albumin/Globulin Ratio 1.6 Triglycerides Cholesterol LDL Cholesterol, Calc VLDL Cholesterol, Calc HDL Cholesterol Cholesterol/HDL Ratio TSH 0.845 HCG, Qual Urine Color Urine Appearance Urine pH Ur Specific [place] Urine Protein Urine Glucose (UA) Urine Ketones Urine Blood Urine Nitrite Urine Bilirubin Urine Urobilinogen Ur Leukocyte Esterase Urine WBC (Auto) Urine RBC (Auto) U Hyaline Cast (Auto) U Epithel Cells (Auto) Urine Bacteria (Auto) Salicylates < 1.7 L Urine Opiates Screen Ur Methadone, Qual Acetaminophen < 2 L Urine Barbiturates Ur Phencyclidine (PCP) U Amphetamin/Meth Scrn MDMA (Ecstasy) Screen U Benzodiazepines Scrn Lawson Ur Cocaine Metabolite U Marijuana (THC) Screen Ethyl Alcohol mg/dL 12/13/18 12/13/18 12/13/18 20:15 20:15 Unknown WBC RBC Hgb Hct MCV MCH MCHC RDW Std Deviation RDW Coeff of Maryana Plt Count MPV Immature Gran % (Auto) Neut % (Auto) Lymph % (Auto) Frontier % (Auto) Eos % (Auto) Baso % (Auto) Immature Gran # (Auto) Neut # (Auto) Lymph # (Auto) Frontier # (Auto) Eos # (Auto) Baso # (Auto) Sodium Potassium Chloride Carbon Dioxide Anion Gap BUN Creatinine Est Cr Clr Drug Dosing Est GFR ( Amer) Est GFR (Non-Af Amer) BUN/Creatinine Ratio Glucose Calcium Total Bilirubin AST ALT Alkaline Phosphatase Total Protein Albumin Globulin Albumin/Globulin Ratio Triglycerides Cholesterol LDL Cholesterol, Calc VLDL Cholesterol, Calc HDL Cholesterol Cholesterol/HDL Ratio TSH HCG, Qual Negative Urine Color Urine Appearance Urine pH Ur Specific [place] Urine Protein Urine Glucose (UA) Urine Ketones Urine Blood Urine Nitrite Urine Bilirubin Urine Urobilinogen Ur Leukocyte Esterase Urine WBC (Auto) Urine RBC (Auto) U Hyaline Cast (Auto) U Epithel Cells (Auto) Urine Bacteria (Auto) Salicylates Urine Opiates Screen Neg Ur Methadone, Qual Neg Acetaminophen Urine Barbiturates Neg Ur Phencyclidine (PCP) Neg U Amphetamin/Meth Scrn Neg MDMA (Ecstasy) Screen Neg U Benzodiazepines Scrn Neg Lawson Ur Cocaine Metabolite Neg U Marijuana (THC) Screen Neg Ethyl Alcohol mg/dL < 3.0 12/13/18 12/18/18 12/18/18 Unknown 09:13 09:17 WBC RBC Hgb Hct MCV MCH MCHC RDW Std Deviation RDW Coeff of Maryana Plt Count MPV Immature Gran % (Auto) Neut % (Auto) Lymph % (Auto) Frontier % (Auto) Eos % (Auto) Baso % (Auto) Immature Gran # (Auto) Neut # (Auto) Lymph # (Auto) Frontier # (Auto) Eos # (Auto) Baso # (Auto) Sodium Potassium Chloride Carbon Dioxide Anion Gap BUN Creatinine Est Cr Clr Drug Dosing Est GFR ( Amer) Est GFR (Non-Af Amer) BUN/Creatinine Ratio Glucose Calcium Total Bilirubin AST ALT Alkaline Phosphatase Total Protein Albumin Globulin Albumin/Globulin Ratio Triglycerides 72 Cholesterol 179 LDL Cholesterol, Calc 102 VLDL Cholesterol, Calc 14 HDL Cholesterol 63 Cholesterol/HDL Ratio 3 TSH HCG, Qual Urine Color Yellow Urine Appearance Cloudy H Urine pH 7.5 Ur Specific [place] 1.027 Urine Protein Negative Urine Glucose (UA) Negative Urine Ketones Negative Urine Blood Trace H Urine Nitrite Negative Urine Bilirubin Negative Urine Urobilinogen Negative Ur Leukocyte Esterase Negative Urine WBC (Auto) 1-5 Urine RBC (Auto) 0-4 U Hyaline Cast (Auto) 1-5 U Epithel Cells (Auto) >30 H Urine Bacteria (Auto) Negative Salicylates Urine Opiates Screen Ur Methadone, Qual Acetaminophen Urine Barbiturates Ur Phencyclidine (PCP) U Amphetamin/Meth Scrn MDMA (Ecstasy) Screen U Benzodiazepines Scrn Lawson 0.5 L Ur Cocaine Metabolite U Marijuana (THC) Screen Ethyl Alcohol mg/dL Hospital Course (1) Bipolar affect, depressed: 3/--The patient was admitted to the [facility] ([facility] unit) on q15 min checks (behavioral with suicide precautions) for safety. The patient will participate in group, recreational, and milieu therapies and will be offered additional individual and family sessions as clinically appropriate. Risks/benefits/alternatives reviewed re: restart of low dose lithium, lamictal retitration, and prn Ativan for panic attacks which have been more frequent off of mood stabilizers. Discussion included but was not limited to risks of Garrick's Guru, interactions with control, teratogenecity and toxicity with lihtium. She contracted not to combine prn Ativan with ETOH if it is continued upon discharge and is aware controlled substance which can be habit forming and/or affect operation of a vehicle/machinery,etc. Lawson 150 mg po this hs, lamictal 25 mg hs. 3/3--titrate Lawson to 300 mg. 3/4--Titrate lithium to 300 mg BID. Continue lamictal 25 mg HS 12/17 - Continue current meds 12/17 -Continue current meds. Ready for discharge today. - Li level on or about 12/20/1812/18 -More symptomatic today. -Lawson level ordered -Continue lithium carbonate 300 mg twice a day. -Add aripiprazole 5 mg daily as a mood stabilizer and to address paranoia and possible perceptual disturbances. 12/19 -Lawson level = 0.5 this morning. Lawson extended release 300 mg twice a day has generally allowed the patient to maintain a therapeutic lithium level, and today we are changing her to dose formal lithium from immediate release lithium carbonate to lithium carbonate slow release 300 mg twice a day. -The patient reports a favorable response to aripiprazole 5 mg daily. The only side effect noted yesterday was some mild nausea, and she reports today that the nausea has for the most part resolved. -If the patient continues to do well we will plan to discharge her to the community tomorrow. She has an appointment with a psychiatrist at 3 PM on 12/20/2018. -The patient reports that her paranoia has resolved. She also has had no perceptual disturbances, and she describes her mood as being "7 out of 10. -No thoughts of suicide. Post Discharge Appointments Primary Care Physician Name Of Family Doctor: [facility] - ROYA Richter Primary Care Time of Appointment with PCP: As needed Provider Appointment Comment: [address], [address], [place] [address] Primary Care Release of Information: Obtained, Reviewed and Signed Psychiatrist Name of Psychiatrist: Iris Zamora Psychiatrist's Date of Appointment with Psychiatrist: 12/20/18 Time of Appointment with Psychiatrist: 3pm Psychiatric Appointment Comment: [address], [place] [address] Psychiatrist Release of Information: Obtained, Reviewed and Signed Therapist Name of Therapist: [facility] - [facility] Therapist's Date of Therapist Appointment: 12/25/18 Time of Therapist Appointment: 3:00pm Therapy Appointment Comment: [address], [place] [address] Therapist Release of Information: Obtained, Reviewed and Signed Manager Highway Name of Manager Highway: Denies Smoking Cessation Counseling Tobacco Cessation Medication Prescribed at Discharge: Not Applicable/Non-Smoker Contact Information Discharge Discharge Address: [address] [place] [address] Discharge Plan Discharge Items Patient Disposition: Home - Self-Care Reason For Visit: DEPRESSIVE DISORDER NOS Discharge Diagnosis: Bipolar Disorder, Type 1, Mixed Discharge Goals: Specific goals Specific Goals: Maintain mood stability Activity: Resume your previous activity Non-emergency contact: Primary Care Provider, Psychiatrist and Therapist Call non-emergency contact if: you have any medication questions and your symptoms worsen Follow-up/Referrals: Dede Long CRNP [Primary Care Provider] - Diet: Regular Addtl Provider Instructions: Access your safety plan and coping strategies, as needed. Prescriptions: New lithium carbonate 300 mg Tablet Extended Release 300 mg PO BID Qty: 60 RF: 0 lamotrigine 25 mg Tablet 25 mg PO HS Qty: 30 RF: 0 hydroxyzine HCl 25 mg Tablet 50 mg PO HSZ PRN (Reason: Sleep) Qty: 30 RF: 0 aripiprazole [Abilify] 5 mg Tablet 5 mg PO QAM Qty: 30 RF: 0 Continued Nexplanon 68 mg Implant 68 mg Subdermal DIRECTED RF: 0 Stand-Alone Forms: [facility] Discharge Orders: Discharge Order (Routine); Ordered 12/20/18 Ordered By: Eduardo Hughes Admission Data Admit Date/Time: 12/13/18 22:46 Attending Provider: Loretta Patino Admit Provider: Loretta Patino Primary Care Provider: Dede Long Service: Psychiatry Other Interventions: PSY Interdisciplinary Discharge Planning Last Done: 12/19/18 10:09 Pending Studies at Discharge: No
== END 2018-12-20 11:25 | disposition home or self-care (01) | DRG 885 ==
LOC: ED 19:12 → 3S 22:46

== ENCOUNTER 2019-03-05 20:30 | Inpatient (IN) ==
--- OUTSIDE RECORDS SUMMARY | 2019-03-05 20:33 | External Medical Summary | Continuity of Care Document ---
:1995 Author Name Abel Pillai, Provider Address Unavailable Unavailable , Care Team Providers Name Role Phone Unavailable Unavailable Unavailable PCP, UNKNOWN Unavailable Unavailable Problems Active medical history not documented Allergies and Adverse Reactions Allergy history not documented Medications Medications not documented Procedures Procedures not documented Immunizations Immunizations not documented Plan of Treatment Planned Observations Planned Goals not documented Results No Known Results Results not documented
[2019-03-05] MEDS ORDERED: LORazepam 1 MG TAB SL STA (20:43)
[2019-03-05 21:27] LABS: Basophils # (auto) 0.03 K/uL (0-0.2); Basophils % (auto) 0.3 %; Eosinophils # (auto) 0.24 K/uL (0-0.5); Eosinophils % (auto) 2.7 %; Hematocrit (blood only) 38.2 % (37-47); Hemoglobin 13.2 g/dL (12.0-16.0); Immature Granulocytes # (auto) 0.02 K/uL (0.00-0.02); Immature Granulocytes % (auto) 0.2 %; Lymphocytes # (auto) 2.43 K/uL (1.2-3.4); Mean Corpuscular Hgb Conc 34.6 g/dL (32-36); Mean Corpuscular Volume 86.6 fL (80-100); Monocytes # (auto) 0.87 K/uL (0.11-0.59); Monocytes % (auto) 9.7 %; Neutrophils % (auto) 60.1 %; Platelet Count 380 K/uL (130-400); RDW Coefficient of Variation 13.7 % (11.5-14.5); Red Blood Count 4.41 M/uL (4.2-5.4); White Blood Count 8.99 K/uL (4.8-10.8)
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
[2019-03-05 21:44] LABS: Albumin Level 4.1 gm/dl (3.4-5.0); Calcium 8.9 mg/dl (8.5-10.1); Creatinine Clr Calc Pharmacy 107.3 ml/min; Est GFR (African American) 133.3; Potassium 3.7 mmol/L (3.5-5.1)
[2019-03-05 21:49] LABS: Acetaminophen < 2 ug/ml (10-30); Lithium < 0.2 mmol/L (0.6-1.2); Salicylate < 1.7 mg/dl (2.8-20)
[2019-03-05 21:54] LABS: Pregnancy Test, Serum Negative (Negative)
[2019-03-05 21:55] LABS: Albumin Globulin Ratio 1.2 (0.9-2); Bilirubin,Total 0.3 mg/dl (0.2-1); Globulin 3.4 gm/dl (2.5-4.0); Total Protein 7.5 gm/dl (6.4-8.2)
[2019-03-05 21:57] LABS: Amphetamines+Metham, Urine Neg (Neg); Barbiturates, Urine Neg (Neg); Benzodiazepine, Urine Neg (Neg); Cocaine, Urine Neg (Neg); MDMA (Ecstacy), Urine Neg (Neg); Methadone, Urine Neg (Neg); Opiate, Urine Neg (Neg); Phencyclidine, Urine Neg (Neg)
[2019-03-05 22:24] LABS: Appearance Urine Cloudy (Clear); Bacteria Urine Automated 1+ (Negative); Bilirubin Urine Negative (Negative); Blood Urine Negative (Negative); Color Urine Yellow; Epithelial Cell Urine Auto >30 /lpf (0-5); Glucose Urine UA Negative (Negative); Ketones Urine Negative (Negative); Leukocyte Esterase Urine Negative (Negative); Nitrite Urine Negative (Negative); Protein Urine Negative (Negative); RBC Urine Automated 0-4 /hpf (0-4); Specific Gravity Urine 1.026 (1.000-1.030); Urobilinogen Urine Negative (Negative); pH Urine 5.5 (4.5-7.5)
[2019-03-05] MEDS ORDERED: ACETAMINOPHEN 325 MG TAB PO PRN (23:50)
[2019-03-05] MEDS ORDERED: ALUMINUM/MAGNESIUM SUSP 30 ML UDC PO PRN (23:50)
[2019-03-05] MEDS ORDERED: BISMUTH SUBSALICYLATE PER ML OMNICELL CHARGE PO PRN (23:50)
[2019-03-05] MEDS ORDERED: MAGNESIUM HYDROXIDE SUSP 30 ML UDC PO PRN (23:50)
[2019-03-05] MEDS ORDERED: SODIUM CHLORIDE 0.65% NA SOLN 45 ML (OCEAN) PRN (23:50)
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
[2019-03-06] MEDS: lamoTRIgine 25 MG TAB PO SCH (11:22)
[2019-03-06] MEDS: LITHIUM CARBONATE SLOW REL 300 MG TAB PO SCH ×2 (11:22→20:58)
[2019-03-06] MEDS: PANTOprazole 40 MG TAB PO SCH (12:44)
[2019-03-07] MEDS: LITHIUM CARBONATE SLOW REL 300 MG TAB PO SCH ×2 (08:43→21:42)
[2019-03-07] MEDS: lamoTRIgine 25 MG TAB PO SCH (08:43)
[2019-03-07] MEDS: PANTOprazole 40 MG TAB PO SCH (08:43)
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
--- NOTE | 2019-03-07 15:10 | Psychiatric Progress Note ---
Date of Service March 07, 2019 Impression / Recommendations Impression This 23-year-old woman with a history of bipolar disorder and PTSD had been discharged from the hospital following an inpatient psychiatric stay approximately 2 months ago. She reports that she had done well in the community subsequent to discharge, but experienced certain breakthrough symptoms and was offered an increased dose of aripiprazole. She had difficulty tolerating the higher dose of aripiprazole because of side effects that included cognitive "fogging" and "feeling like a robot." She acknowledges that she made a bad decision by not talking about it with her outpatient psychiatrist and, instead, when she was unable to reach the psychiatrist she decided to simply stop her medications. The patient does have insight into the self sabotaging nature of this decision, given the fragility of her psychiatric condition and her recurrent symptomatology. Her explanation was that she had been feeling "good enough" and thought that the problem at this point was just "side effects." When her mood alterations resumed following discontinuation of her medications, she hoped that she would be able to manage without them, but was aware that her symptoms were becoming progressively worse and she began to experience recurrence of her suicidal thoughtseventually with specific plan to either overdose on leftover pain medications given to her following recent surgery, or exsanguinate through self cutting. To her credit, she accessed her safety plan developed during her previous stay, and within this context, she eventually realized that she would need to come to the emergency room for a psychiatric evaluation and possible psychiatric hospitalizations. She has been placed back on lamotrigine 25 mg daily (she had reached a dose of lamotrigine 50 mg until she stopped lamotrigine 2 weeks ago) and lithium carbonate 300 mg twice a day. The current plan is to continue these medications, but lamotrigine will be increased today to 50 mg given the patient's demonstrated ability to tolerate lamotrigine at this dose without any noted side effects. We reviewed the material risks, including but not limited to the risk of Draper-Guru syndrome with the patient, and she indicated understanding. (1) Suicidal ideation: 03/06 -continue inpatient treatment on a voluntary commitment. -Every 15 minute checks for safety. -Attend to participate in groups and therapy. Work on healthy coping skills and discharge safety plan. -Family meeting with boyfriend, with specific discussion of their safety plan and how to ensure the patient will not have access to his guns or other weapons. Discussed today with the patient that she needs to own her safety plan, and that because of the chronic nature of her condition, she and her boyfriend should have a plan that either of them can implement at any time if they feel she is destabilizing, is having suicidal thoughts, or either of them have concerns for her safety. This plan should include a way to secure the guns, knives, and swords as well as medications, and could involve the use of a gun safe that only her boyfriend had access to, trigger locks, a medication lock box, etc. -Discussed importance of avoiding alcohol when mood is unstable, given the increased risk of impulsive acts and self-harm under the influence. 03/07 -The patient reports that her suicidal thoughts essentially resolved shortly after admission to the behavioral health unit. She says that she is not entirely sure that she feels safe because her symptoms of depression persist, albeit to a lesser extent, and she is concerned about being able to tolerate the stress of community reentry. -Today, the patient is future oriented (2) Bipolar disorder: 03/06 -patient has been diagnosed with bipolar type II in the past, changed to bipolar type I during her hospitalization in December as she presented in a mixed state. She has had good response to combination of lithium and lamotrigine in the past, and would like to return to this regimen. Will start lithium ER 300 mg twice daily and lamotrigine 25 mg daily. Discussed the need to titrate lamotrigine over a period of 4 weeks, and patient expressed understanding. She will need a lithium trough level after 5 days. -Coordinate care with psychiatric PA, Georgina Zamora, at [place], and therapist, Tg Greer, at [facility]. 03/07 -the patient has been started back on lithium carbonate 300 mg twice a day and lamotrigine 25 mg it is my opinion that the patient can safely have her dose lamotrigine increased back to 50 mg daily at this point. She is aware of the material risks associated with lamotrigine and will continue to monitor in the inpatient setting. (3) PTSD (post-traumatic stress disorder): 03/06 -resume medications as above. Hydroxyzine as needed for anxiety. -Work on coping skills in groups, and coordinate with outpatient therapist. Inventory Assets Strengths: intelligence, employed, stable housing and relationship Needs: mood stabilizing medication, safety plan (multiple guns and knives/swords at home) Risk Factors Assessment Male: No : Yes Do You Have Access To A Gun?: Yes Health Problems: No Mental Health Diagnoses: Yes Substance Use Disorders: No Previous Attempt: Yes Family History of Suicide: No Previous Psychiatric Hospitalization: Yes Hopelessness: Yes Smoker: No Protective Factors Assessment Shinto Beliefs: No : No Responsible for Young Children: No Employed: Yes Stable Relationships: Yes Good Rapport with Provider: Yes Interval History Chief Complaint "I went off my medications and got depressed.". Review of Systems Sleep Information Total Hours of Sleep: 8.5 Meal Information Percent Meal Consumed - Breakfast: 50 Percent Meal Consumed - Lunch: 100 Percent Meal Consumed - Dinner: 100 Subjective Subjective Patient was seen & assessed and interval progress reviewed with Treatment Team. I met with the patient individually in order to assess her current mental status, evaluate her response to treatment, make any necessary changes in her medication regimen, and address issues and concerns that may arise. She explains that following her most recent previous hospitalization she did fairly well in the community, but had some breakthrough symptoms and her outpatient psychiatrist increased her dose of aripiprazole from 5 mg to a dose of 10 mg. After the dose was increased, she began to feel mentally "foggy" and "like a zombie," and, approximately 2 weeks ago she stopped her medications completely. Shortly thereafter, she began to notice a return of her feelings of depression (while the "foggy" cognition resolved). Suicidal thoughts reemerge and eventually developed into an act plan to either cut herself and exsanguinate or overdose on her pain medications, given her subsequent to recent surgery. She tells us that she applied to the safety plan that she had been given following her discharge from the previous inpatient stay, and this worked for several days, but as the thoughts of suicide became more intense she arranged for a psychiatric evaluation and was admitted to 3 . Since admission, the suicidal thoughts of reportedly stopped, and her mood is gradually improved. Yesterday, she described her mood as a "3 out of 10". She notes that her mood was "4 out of 10" this morning, and currently it is described as being "5 out of 10." She agreed that the trajectory is towards recovery, and she hopes that this will be a short stay. There have been several positive changes in the community, including the fact that she is now working full-time at the [employer] and enjoys her new assignment. Physical Exam Psychiatric Orientation: oriented x 3 Apperance: appropriately dressed and appropriately groomed Eye Contact: good eye contact Motor Behavior: steady gait and station and no abnormal motor movements Speech: normal rate/rhythm/volume of speech Affect: euthymic affect Patient reports that she continues to have feelings of depression, but also reports that these are improving. Thought Process: goal directed thought process and linear/logical thought process Thought Content: reality based without delusions Suicidal Thoughts: denies suicidal thoughts Patient reports that her suicidal thoughts resolved shortly after admission, but her concern is that she may not be able to tolerate the stress of community reentry at this point until her mood has improved somewhat more. Homicidal Thoughts: denies homicidal thoughts Hallucinations: no auditory hallucinations Cognition: recent memory grossly intact, remote memory grossly intact, attention grossly intact and language grossly intact Estimated Intelligence: + above average estimated intelligence Insight: good insight Judgement: good judgement Vital Signs (Past 24 Hours) Last Vital Signs Temp 36.7 C 03/07/19 06:22 Pulse 94 H 03/07/19 06:23 Resp 16 03/07/19 06:22 BP 87/57 L 03/07/19 06:23 Pulse Ox 100 03/05/19 23:51 Results & Data Current Inpatient Medications Current Inpatient Medications: Current Inpatient Medications Acetaminophen (Tylenol) 650 mg PO Q4H PRN PRN Reason: Headache or Minor Fever Stop: 04/04/19 23:49 Last Admin: 03/07/19 10:00 Dose: 650 mg Documented by: Al Hydrox/Mg Hydrox/Simethicone (Maalox) 30 ml PO Q4H PRN PRN Reason: GI Upset Stop: 04/04/19 23:49 Bismuth Subsalicylate (Kaopectate) 15 ml PO PRN PRN PRN Reason: Loose Stool Stop: 04/04/19 23:49 Hydroxyzine HCl (Vistaril) 50 mg PO HSZ PRN PRN Reason: Insomnia Stop: 04/04/19 23:49 Hydroxyzine HCl (Vistaril) 25 mg PO Q4H PRN PRN Reason: Anxiety Stop: 04/04/19 23:49 Lamotrigine (Lamictal) 25 mg PO QAM LORENA Stop: 04/05/19 11:14 Last Admin: 03/07/19 08:43 Dose: 25 mg Documented by: [place] Carbonate (Lithobid) 300 mg PO BID LORENA Stop: 04/05/19 11:14 Last Admin: 03/07/19 08:43 Dose: 300 mg Documented by: Magnesium Hydroxide (Milk Of Magnesia) 30 ml PO DAILY PRN PRN Reason: Heartburn Stop: 04/04/19 23:49 Pantoprazole Sodium (Protonix) 40 mg PO DAILY LORENA Stop: 04/05/19 11:14 Last Admin: 03/07/19 08:43 Dose: 40 mg Documented by: Sodium Chloride (Bent Nasal) 1 - 2 sprays NA PRN PRN PRN Reason: Nasal Dryness/Congestion Stop: 04/04/19 23:49 Post Discharge Appointments Primary Care Physician Name Of Family Doctor: [facility]: Dede Logn [facility] Time of Appointment with PCP: follow up as needed. Provider Appointment Comment: [id number], [place] [address] Psychiatrist Name of Psychiatrist: Iris Zamora Psychiatrist's Date of Appointment with Psychiatrist: 03/14/19 Time of Appointment with Psychiatrist: 9am Psychiatric Appointment Comment: [address] [facility], [place] [address] Therapist Name of Therapist: [facility] Bashir Mas Therapist's Date of Therapist Appointment: 03/18/19 Time of Therapist Appointment: 4pm Therapy Appointment Comment: [address] [facility], [address], [place] [address] Environmental Engineer Name of Environmental Engineer: Denied Contact Information Discharge Discharge Address: [address] [place] [address], [place] [address] CPT Code CPT Code 81916 (1) Bipolar disorder Active/Remission status: currently active Current bipolar episode type: depressed Current episode severity: severe Psychotic features: without psychotic features Qualified Code(s): F31.4 - Bipolar disorder, current episode depressed, severe, without psychotic features
[2019-03-08] MEDS: PANTOprazole 40 MG TAB PO SCH (09:06)
[2019-03-08] MEDS: LITHIUM CARBONATE SLOW REL 300 MG TAB PO SCH ×2 (09:06→21:14)
[2019-03-08] MEDS: lamoTRIgine 25 MG TAB PO SCH (09:06)
--- NOTE | 2019-03-08 12:21 | Psychiatric Progress Note ---
Date of Service March 08, 2019 Impression / Recommendations Impression This 23-year-old woman with a history of bipolar disorder and PTSD had been discharged from the hospital following an inpatient psychiatric stay approximately 2 months ago. She reported that she had done well in the ommunity subsequent to discharge, but experienced certain breakthrough symptoms and was offered an increased dose of aripiprazole to which she had side effects to includecognitive "fogging" and "feeling like a robot." She acknowledged to intake provider that she made a bad decision by not talking about it with her outpatient psychiatrist and, instead, when she was unable to reach the psychiatrist she decided to simply stop her medications. The patient does have some insight into the self sabotaging nature of this decision, given the fragility of her psychiatric condition and her recurrent symptomatology. Her explanation was that she had been feeling "good enough" and thought that the problem at this point was just "side effects." When her mood alterations resumed following discontinuation of her medications, she hoped that she would be able to manage without them, but was aware that her symptoms were becoming progressively worse and she began to experience recurrence of her suicidal thoughtseventually with specific plan to either overdose on leftover pain medications given to her following recent surgery, or exsanguinate through self cutting. To her credit, she accessed her safety plan developed during her previous stay, and within this context, she eventually realized that she would need to come to the emergency room for a psychiatric evaluation and possible psychiatric hospitalizations. At admission she has been placed back on lamotrigine 25 mg daily (she had reached a dose of lamotrigine 50 mg until she stopped lamotrigine 2 weeks ago) and lithium carbonate 300 mg twice a day. The current plan is to continue these medications, but lamotrigine was to be increased 03/07/19 to 50 mg given the patient's demonstrated ability to tolerate lamotrigine at this dose without any noted side effects. At that time the provider reviewed the material risks, including but not limited to the risk of Draper-Guru syndrome with the patient, and she indicated understanding. (1) Suicidal ideation: 03/06 -continue inpatient treatment on a voluntary commitment. -Every 15 minute checks for safety. -Attend to participate in groups and therapy. Work on healthy coping skills and discharge safety plan. -Family meeting with boyfriend, with specific discussion of their safety plan and how to ensure the patient will not have access to his guns or other weapons. Discussed today with the patient that she needs to own her safety plan, and that because of the chronic nature of her condition, she and her boyfriend should have a plan that either of them can implement at any time if they feel she is destabilizing, is having suicidal thoughts, or either of them have concerns for her safety. This plan should include a way to secure the guns, knives, and swords as well as medications, and could involve the use of a gun safe that only her boyfriend had access to, trigger locks, a medication lock box, etc. -Discussed importance of avoiding alcohol when mood is unstable, given the increased risk of impulsive acts and self-harm under the influence. 03/07 -The patient reports that her suicidal thoughts essentially resolved shortly after admission to the behavioral health unit. She says that she is not entirely sure that she feels safe because her symptoms of depression persist, albeit to a lesser extent, and she is concerned about being able to tolerate the stress of community reentry. -Today, the patient is future oriented (2) Bipolar disorder: 03/06 -patient has been diagnosed with bipolar type II in the past, changed to bipolar type I during her hospitalization in December as she presented in a mixed state. She has had good response to combination of lithium and lamotrigine in the past, and would like to return to this regimen. Will start lithium ER 300 mg twice daily and lamotrigine 25 mg daily. Discussed the need to titrate lamotrigine over a period of 4 weeks, and patient expressed understanding. She will need a lithium trough level after 5 days. -Coordinate care with psychiatric PA, Georgina Zamora, at [place], and therapist, Tg Greer, at [facility]. 03/07 -the patient has been started back on lithium carbonate 300 mg twice a day and lamotrigine 25 mg it is my opinion that the patient can safely have her dose lamotrigine increased back to 50 mg daily at this point. She is aware of the material risks associated with lamotrigine and will continue to monitor in the inpatient setting. 03/08 - continue plan as above, follow through with 50mg lamictal as already advanced watching closely while inpatient, and order lithium level for 5/28/19 (3) PTSD (post-traumatic stress disorder): 03/06 -resume medications as above. Hydroxyzine as needed for anxiety. -Work on coping skills in groups, and coordinate with outpatient therapist. Inventory Assets Strengths: intelligence, employed, stable housing and relationship Needs: mood stabilizing medication, safety plan (multiple guns and knives/swords at home) Risk Factors Assessment Male: No : Yes Do You Have Access To A Gun?: Yes Health Problems: No Mental Health Diagnoses: Yes Substance Use Disorders: No Previous Attempt: Yes Family History of Suicide: No Previous Psychiatric Hospitalization: Yes Hopelessness: Yes Smoker: No Protective Factors Assessment Gnosticist Beliefs: No : No Responsible for Young Children: No Employed: Yes Stable Relationships: Yes Good Rapport with Provider: Yes Interval History Chief Complaint "I am feeling a little bit better than when I came in". Review of Systems Sleep Information Total Hours of Sleep: 6.75 Meal Information Percent Meal Consumed - Breakfast: 95 Percent Meal Consumed - Lunch: 100 Percent Meal Consumed - Dinner: 100 Subjective Subjective Patient was seen & assessed and interval progress reviewed with Treatment Team She had a meeting with BF yesterday and roommate came to visit and social work reports that went fair e.g. still had not secured weapons as previously he said he would do. Ludin was able to be assertive with roommate about not drinking in the apartment, She notes that she is at a 5/10 today, not feeling great but not feeling as poorly as she had when she came in. She denies thoughts to hurt herself on the unit but notes "I don't have any major stresses here" She is tolerating the lithium, day 5 would be 03/11/19, and she has been on lamictal 25mg since 03/06 as well would increase on 03/13/19 to which she agrees. She denies SE. She notes she is sleeping, energy is fair to poor but slowly showing improvemetn. She is eating better than when she came in. She denies h/h/w. Still having some low motivation and limited interest. Physical Exam Psychiatric Orientation: alert, oriented x 3 and cooperative Apperance: appropriately dressed, appropriately groomed and appeared stated age Eye Contact: good eye contact and + fair eye contact Motor Behavior: steady gait and station and no abnormal motor movements Speech: normal rate/rhythm/volume of speech Affect: + blunted affect (seems [id number] but not spontaneous, no social brightening) Mood: + depressed mood and + anxious mood Thought Process: goal directed thought process and linear/logical thought process Thought Content: + cognitive distortions, reality based without delusions, + hopelessness, + guilt and + self deprecation Suicidal Thoughts: denies suicidal thoughts (had thoughts to shoot self at admission, BF asked to secure weapons ) Homicidal Thoughts: denies homicidal thoughts Hallucinations: no auditory hallucinations and no visual hallucinations Cognition: recent memory grossly intact, remote memory grossly intact, attention grossly intact and language grossly intact Estimated Intelligence: + above average estimated intelligence Insight: good insight and + fair insight Judgement: good judgement and + fair judgement Vital Signs (Past 24 Hours) Last Vital Signs Temp 36.6 C 03/08/19 06:45 Pulse 79 03/08/19 06:45 Resp 16 03/08/19 06:45 BP 104/67 03/08/19 06:45 Pulse Ox 100 03/05/19 23:51 Results & Data Current Inpatient Medications Current Inpatient Medications: Current Inpatient Medications Acetaminophen (Tylenol) 650 mg PO Q4H PRN PRN Reason: Headache or Minor Fever Stop: 04/04/19 23:49 Last Admin: 03/07/19 10:00 Dose: 650 mg Documented by: Al Hydrox/Mg Hydrox/Simethicone (Maalox) 30 ml PO Q4H PRN PRN Reason: GI Upset Stop: 04/04/19 23:49 Bismuth Subsalicylate (Kaopectate) 15 ml PO PRN PRN PRN Reason: Loose Stool Stop: 04/04/19 23:49 Hydroxyzine HCl (Vistaril) 50 mg PO HSZ PRN PRN Reason: Insomnia Stop: 04/04/19 23:49 Hydroxyzine HCl (Vistaril) 25 mg PO Q4H PRN PRN Reason: Anxiety Stop: 04/04/19 23:49 Lamotrigine (Lamictal) 25 mg PO QAM LORENA Stop: 04/05/19 11:14 Last Admin: 03/08/19 09:06 Dose: 25 mg Documented by: [place] Carbonate (Lithobid) 300 mg PO BID LORENA Stop: 04/05/19 11:14 Last Admin: 03/08/19 09:06 Dose: 300 mg Documented by: Magnesium Hydroxide (Milk Of Magnesia) 30 ml PO DAILY PRN PRN Reason: Heartburn Stop: 04/04/19 23:49 Pantoprazole Sodium (Protonix) 40 mg PO DAILY LORENA Stop: 04/05/19 11:14 Last Admin: 03/08/19 09:06 Dose: 40 mg Documented by: Sodium Chloride ([place] Nasal) 1 - 2 sprays NA PRN PRN PRN Reason: Nasal Dryness/Congestion Stop: 04/04/19 23:49 Post Discharge Appointments Primary Care Physician Name Of Family Doctor: [facility]: Dede Long [facility] Time of Appointment with PCP: follow up as needed. Provider Appointment Comment: [address], [place] [address] Psychiatrist Name of Psychiatrist: Iris Zamora Psychiatrist's Date of Appointment with Psychiatrist: 03/14/19 Time of Appointment with Psychiatrist: 9am Psychiatric Appointment Comment: [address] [facility], [place] [address] Therapist Name of Therapist: [facility] Bashir Mas Therapist's Date of Therapist Appointment: 03/18/19 Time of Therapist Appointment: 4pm Therapy Appointment Comment: [address] [facility], [address], [place] [address] Engineering Lab Technician Name of Engineering Lab Technician: Denied Contact Information Discharge Discharge Address: [address] [place] [address], [place], [place] [address] CPT Code CPT Code 43205 (1) Bipolar disorder Active/Remission status: currently active Current bipolar episode type: depressed Current episode severity: severe Psychotic features: without psychotic features Qualified Code(s): F31.4 - Bipolar disorder, current episode depressed, severe, without psychotic features
[2019-03-09] MEDS: PANTOprazole 40 MG TAB PO SCH (08:39)
[2019-03-09] MEDS: LITHIUM CARBONATE SLOW REL 300 MG TAB PO SCH ×2 (08:39→21:16)
[2019-03-09] MEDS: lamoTRIgine 25 MG TAB PO SCH (08:39)
--- NOTE | 2019-03-09 10:38 | Psychiatric Progress Note ---
Date of Service March 09, 2019 Impression / Recommendations Impression This 23-year-old woman with a history of bipolar disorder and PTSD had been discharged from the hospital following an inpatient psychiatric stay approximately 2 months ago. She reported that she had done well in the ommunity subsequent to discharge, but experienced certain breakthrough symptoms and was offered an increased dose of aripiprazole to which she had side effects to includecognitive "fogging" and "feeling like a robot." She acknowledged to intake provider that she made a bad decision by not talking about it with her outpatient psychiatrist and, instead, when she was unable to reach the psychiatrist she decided to simply stop her medications. The patient does have some insight into the self sabotaging nature of this decision, given the fragility of her psychiatric condition and her recurrent symptomatology. Her explanation was that she had been feeling "good enough" and thought that the problem at this point was just "side effects." When her mood alterations resumed following discontinuation of her medications, she hoped that she would be able to manage without them, but was aware that her symptoms were becoming progressively worse and she began to experience recurrence of her suicidal thoughtseventually with specific plan to either overdose on leftover pain medications given to her following recent surgery, or exsanguinate through self cutting. To her credit, she accessed her safety plan developed during her previous stay, and within this context, she eventually realized that she would need to come to the emergency room for a psychiatric evaluation and possible psychiatric hospitalizations. At admission she has been placed back on lamotrigine 25 mg daily (she had reached a dose of lamotrigine 50 mg until she stopped lamotrigine 2 weeks ago) and lithium carbonate 300 mg twice a day. The current plan is to continue these medications, and titrate lamictal back to mood stablizing doses. (1) Suicidal ideation: 03/06 -continue inpatient treatment on a voluntary commitment. -Every 15 minute checks for safety. -Attend to participate in groups and therapy. Work on healthy coping skills and discharge safety plan. -Family meeting with boyfriend, with specific discussion of their safety plan and how to ensure the patient will not have access to his guns or other weapons. Discussed today with the patient that she needs to own her safety plan, and that because of the chronic nature of her condition, she and her boyfriend should have a plan that either of them can implement at any time if they feel she is destabilizing, is having suicidal thoughts, or either of them have concerns for her safety. This plan should include a way to secure the guns, knives, and swords as well as medications, and could involve the use of a gun safe that only her boyfriend had access to, trigger locks, a medication lock box, etc. -Discussed importance of avoiding alcohol when mood is unstable, given the increased risk of impulsive acts and self-harm under the influence. 03/07 -The patient reports that her suicidal thoughts essentially resolved shortly after admission to the behavioral health unit. She says that she is not entirely sure that she feels safe because her symptoms of depression persist, albeit to a lesser extent, and she is concerned about being able to tolerate the stress of community reentry. -Today, the patient is future oriented 03/09/19 - patient denies active SI intention or plan but due to limited structure and access to supports we discussed that premature discharge may put her in a position of worsening with less structure. Goal is to anticipate discharge on Sunday or Sunday to utilize the return to structure as a support and closer to f/u appt as well. She notes "I don't want to come back here if I don't have to and I want to be solid when I leave." Agreed to support her in this way as premature discharge could lead to worsening and regression of her improvements here. (2) Bipolar disorder: 03/06 -patient has been diagnosed with bipolar type II in the past, changed to bipolar type I during her hospitalization in December as she presented in a mixe d state. She has had good response to combination of lithium and lamotrigine in the past, and would like to return to this regimen. Will start lithium ER 300 mg twice daily and lamotrigine 25 mg daily. Discussed the need to titrate lamotrigine over a period of 4 weeks, and patient expressed understanding. She will need a lithium trough level after 5 days. -Coordinate care with psychiatric PA, Georgina Zamora, at [facility], and therapist, Tg Greer, at [facility]. 03/07 -the patient has been started back on lithium carbonate 300 mg twice a day and lamotrigine 25 mg it is my opinion that the patient can safely have her dose lamotrigine increased back to 50 mg daily at this point. She is aware of the material risks associated with lamotrigine and will continue to monitor in the inpatient setting. 03/08 and 03/09 - continue plan as above, follow through with {amended from :"50mg lamictal as already advanced " ----> ammended to: staying at 25mg/day for full week and advancing weekly watching closely while inpatient, and order lithium level for 03/11/19 (3) PTSD (post-traumatic stress disorder): 03/06 -resume medications as above. Hydroxyzine as needed for anxiety. -Work on coping skills in groups, and coordinate with outpatient therapist. Inventory Assets Strengths: intelligence, employed, stable housing and relationship Needs: mood stabilizing medication, safety plan (multiple guns and knives/swords at home) Risk Factors Assessment Male: No : Yes Do You Have Access To A Gun?: Yes Health Problems: No Mental Health Diagnoses: Yes Substance Use Disorders: No Previous Attempt: Yes Family History of Suicide: No Previous Psychiatric Hospitalization: Yes Hopelessness: Yes Smoker: No Protective Factors Assessment Nondenominational Beliefs: No : No Responsible for Young Children: No Employed: Yes Stable Relationships: Yes Good Rapport with Provider: Yes Interval History Chief Complaint "I think I am holding steady". Review of Systems Sleep Information Total Hours of Sleep: 8 Meal Information Percent Meal Consumed - Breakfast: 95 Percent Meal Consumed - Lunch: 100 Percent Meal Consumed - Dinner: 100 Subjective Subjective Patient was seen & assessed and interval progress reviewed with Treatment Team. Patient is taking medication, and attending groups involved in the milieu actively. Met with patient she notes she feels improved back on her medications and we discussed safety planning and responsibilities of work and stressors of work and bills. Discussed her need to get lithium level this Sunday and she is concerned about the timing of her f/u appt with PA at [facility] due to conflict with anticipated work shift. She notes she however looks forward to returning to work when discharged. She feels "each day is a little better" rating mood as a 5/10 (10 manic, 5 middle, 0 most depressed) and denies active thoughts to hurt self today inpatient. She is concerned about going home today due to limited access to supports given the holiday weekend and feeling that she is only feeling less depressed int he last 1-2 days. We discussed working toward discharge on Sunday or Sunday when she has access to BF, and structure of workday to help her, and closer to her f/u appt. Physical Exam Vital Signs (Past 24 Hours) Last Vital Signs Temp 36.6 C 03/09/19 06:39 Pulse 94 H 03/09/19 06:39 Resp 16 03/09/19 06:39 BP 98/63 L 03/09/19 06:39 Pulse Ox 100 03/05/19 23:51 Results & Data Current Inpatient Medications Current Inpatient Medications: Current Inpatient Medications Acetaminophen (Tylenol) 650 mg PO Q4H PRN PRN Reason: Headache or Minor Fever Stop: 04/04/19 23:49 Last Admin: 03/07/19 10:00 Dose: 650 mg Documented by: Al Hydrox/Mg Hydrox/Simethicone (Maalox) 30 ml PO Q4H PRN PRN Reason: GI Upset Stop: 04/04/19 23:49 Bismuth Subsalicylate (Kaopectate) 15 ml PO PRN PRN PRN Reason: Loose Stool Stop: 04/04/19 23:49 Hydroxyzine HCl (Vistaril) 50 mg PO HSZ PRN PRN Reason: Insomnia Stop: 04/04/19 23:49 Hydroxyzine HCl (Vistaril) 25 mg PO Q4H PRN PRN Reason: Anxiety Stop: 04/04/19 23:49 Lamotrigine (Lamictal) 25 mg PO QAM [facility] Stop: 04/05/19 11:14 Last Admin: 03/09/19 08:39 Dose: 25 mg Documented by: [place] Carbonate (Lithobid) 300 mg PO BID [facility] Stop: 04/05/19 11:14 Last Admin: 03/09/19 08:39 Dose: 300 mg Documented by: Magnesium Hydroxide (Milk Of Magnesia) 30 ml PO DAILY PRN PRN Reason: Heartburn Stop: 04/04/19 23:49 Pantoprazole Sodium (Protonix) 40 mg PO DAILY [facility] Stop: 04/05/19 11:14 Last Admin: 03/09/19 08:39 Dose: 40 mg Documented by: Sodium Chloride ([place] Nasal) 1 - 2 sprays NA PRN PRN PRN Reason: Nasal Dryness/Congestion Stop: 04/04/19 23:49 Post Discharge Appointments Primary Care Physician Name Of Family Doctor: [facility]: Dede [facility] Time of Appointment with PCP: follow up as needed. Provider Appointment Comment: [id number], [place] [address] Psychiatrist Name of Psychiatrist: Iris Zamora Psychiatrist's Date of Appointment with Psychiatrist: 03/14/19 Time of Appointment with Psychiatrist: 9am Psychiatric Appointment Comment: [address] [facility], [place] [address] Therapist Name of Therapist: [facility] - Tg Therapist's Date of Therapist Appointment: 03/18/19 Time of Therapist Appointment: 4pm Therapy Appointment Comment: [address], [address], [place] [address] Flue Lining Dipper Name of Flue Lining Dipper: Denied Contact Information Discharge Discharge Address: [address] [place] [address], [place] [address] CPT Code CPT Code 59768 (1) Bipolar disorder Active/Remission status: currently active Current bipolar episode type: depressed Current episode severity: severe Psychotic features: without psychotic features Qualified Code(s): F31.4 - Bipolar disorder, current episode depressed, severe, without psychotic features
[2019-03-10] MEDS: LITHIUM CARBONATE SLOW REL 300 MG TAB PO SCH ×2 (08:36→21:51)
[2019-03-10] MEDS: lamoTRIgine 25 MG TAB PO SCH (08:36)
[2019-03-10] MEDS: PANTOprazole 40 MG TAB PO SCH (08:37)
--- NOTE | 2019-03-10 09:49 | Psychiatric Progress Note ---
Date of Service March 10, 2019 Impression / Recommendations Impression This 23-year-old woman with a history of bipolar disorder and PTSD had been discharged from the hospital following an inpatient psychiatric stay approximately 2 months ago. She reported that she had done well in the ommunity subsequent to discharge, but experienced certain breakthrough symptoms and was offered an increased dose of aripiprazole to which she had side effects to includecognitive "fogging" and "feeling like a robot." She acknowledged to intake provider that she made a bad decision by not talking about it with her outpatient psychiatrist and, instead, when she was unable to reach the psychiatrist she decided to simply stop her medications. The patient does have some insight into the self sabotaging nature of this decision, given the fragility of her psychiatric condition and her recurrent symptomatology. Her explanation was that she had been feeling "good enough" and thought that the problem at this point was just "side effects." When her mood alterations resumed following discontinuation of her medications, she hoped that she would be able to manage without them, but was aware that her symptoms were becoming progressively worse and she began to experience recurrence of her suicidal thoughtseventually with specific plan to either overdose on leftover pain medications given to her following recent surgery, or exsanguinate through self cutting. To her credit, she accessed her safety plan developed during her previous stay, and within this context, she eventually realized that she would need to come to the emergency room for a psychiatric evaluation and possible psychiatric hospitalizations. At admission she has been placed back on lamotrigine 25 mg daily (she had reached a dose of lamotrigine 50 mg until she stopped lamotrigine 2 weeks ago) and lithium carbonate 300 mg twice a day. The current plan is to continue these medications, and titrate lamictal back to mood stablizing doses. (1) Suicidal ideation: 03/06 -continue inpatient treatment on a voluntary commitment. -Every 15 minute checks for safety. -Attend to participate in groups and therapy. Work on healthy coping skills and discharge safety plan. -Family meeting with boyfriend, with specific discussion of their safety plan and how to ensure the patient will not have access to his guns or other weapons. Discussed today with the patient that she needs to own her safety plan, and that because of the chronic nature of her condition, she and her boyfriend should have a plan that either of them can implement at any time if they feel she is destabilizing, is having suicidal thoughts, or either of them have concerns for her safety. This plan should include a way to secure the guns, knives, and swords as well as medications, and could involve the use of a gun safe that only her boyfriend had access to, trigger locks, a medication lock box, etc. -Discussed importance of avoiding alcohol when mood is unstable, given the increased risk of impulsive acts and self-harm under the influence. 03/07 -The patient reports that her suicidal thoughts essentially resolved shortly after admission to the behavioral health unit. She says that she is not entirely sure that she feels safe because her symptoms of depression persist, albeit to a lesser extent, and she is concerned about being able to tolerate the stress of community reentry. -Today, the patient is future oriented 03/09/19 - patient denies active SI intention or plan but due to limited structure and access to supports we discussed that premature discharge may put her in a position of worsening with less structure. Goal is to anticipate discharge on Sunday or Sunday to utilize the return to structure as a support and closer to f/u appt as well. She notes "I don't want to come back here if I don't have to and I want to be solid when I leave." Agreed to support her in this way as premature discharge could lead to worsening and regression of her improvements here. 03/10/19 - patient darryl for safety on the unit, she seems to have regressed somewhat being around another patient with high emotional intensity, and is more anxious and uncertain today. She is aware that the logistics and stressors of aftercare can be burden for her and asks to complete her lithium level and attempts to move f/u appt prior to discharge to pave the way for her to simply focus on return to work and have as few additional stressors at possible. This is very reasonable and as it assists in support of reduction of stress this harm reduction strategy to improve chance of successful return to outpatient care. (2) Bipolar disorder: 03/06 -patient has been diagnosed with bipolar type II in the past, changed to bipolar type I during her hospitalization in December as she presented in a mixed state. She has had good response to combination of lithium and lamotrigine in the past, and would like to return to this regimen. Will start lithium ER 300 mg twice daily and lamotrigine 25 mg daily. Discussed the need to titrate lamotrigine over a period of 4 weeks, and patient expressed understanding. She will need a lithium trough level after 5 days. -Coordinate care with psychiatric PA, Georgina Zamora, at [facility], and therapist, Tg Greer, at [facility]. 03/07 -the patient has been started back on lithium carbonate 300 mg twice a day and lamotrigine 25 mg it is my opinion that the patient can safely have her dose lamotrigine increased back to 50 mg daily at this point. She is aware of the material risks associated with lamotrigine and will continue to monitor in the inpatient setting. 03/08 and 03/09 and 03/10 - continue plan as above, follow through with {amended from :"50mg lamictal as already advanced " ----> ammended to: staying at 25mg/day for full week and advancing weekly watching closely while inpatient, and order lithium level for 03/11/19 (3) PTSD (post-traumatic stress disorder): 03/06 -resume medications as above. Hydroxyzine as needed for anxiety. -Work on coping skills in groups, and coordinate with outpatient therapist. Inventory Assets Strengths: intelligence, employed, stable housing and relationship Needs: mood stabilizing medication, safety plan (multiple guns and knives/swords at home) Risk Factors Assessment Male: No : Yes Do You Have Access To A Gun?: Yes Health Problems: No Mental Health Diagnoses: Yes Substance Use Disorders: No Previous Attempt: Yes Family History of Suicide: No Previous Psychiatric Hospitalization: Yes Hopelessness: Yes Smoker: No Protective Factors Assessment Scientology Beliefs: No : No Responsible for Young Children: No Employed: Yes Stable Relationships: Yes Good Rapport with Provider: Yes Interval History Chief Complaint "I am feeling anxious being around another intense patient on the unit". Review of Systems Sleep Information Total Hours of Sleep: 8.25 Sleep Comments: pt on q-15 minute checks Meal Information Percent Meal Consumed - Breakfast: 100 Percent Meal Consumed - Lunch: 90 Percent Meal Consumed - Dinner: 100 Nutrition Comment: per meal record. Subjective Subjective Patient was seen & assessed and interval progress reviewed with Treatment Team. She was noted to be anxious yesterday after visit with BF and asked for prn vistaril and seems more blunted through the evening and this AM. Met with patient she notes "I am okay...feel anxious yesterday and a little paranoid tat the staff was trying to hurt me...but I was able to use my rational thought to say they have not done anything for me to have that feeling, and that helped it pass. THis morning I was anxious because of another patient who seemed to create conflict with the staff over a status board the patient asked about. Ludin felt taht somehow there was a conflict she did not intend to be constitution party to." Ludin states she is not having active paranoia this AM and is able to reality test thoughts from yesterday without assistance, feels safe here. She denies sarah t the visit from her BF impacted her anxiousness yesterday stating the visit went well. She shares about being sensing and perceiving and reacting to the other patient's emotional intensity. Pt notes that is hard for her to separate other's intense emotions from her own at times in the past and this AM. She reports her mood is "stable" "a little down today but not depressed" She feels anxious but wtih time away from the other patient is settling. SHe wishes to stay through tomorrow to get her lithium level, and see if her Sunday appt can be moved to afternoon as "I have missed so much work, I can't take off one more day." Ludin feels that coordinating all of these details alone may serve to be more stressful and would appreciate the help of the unit as she prepares to leave. Overall she feels improved, denies SI at this time but is aware of her sensitivity to emotions and reactions of others and plans to focus on this today. Physical Exam Psychiatric Orientation: alert, oriented x 3 and cooperative Apperance: appropriately dressed, appropriately groomed and appeared stated age Eye Contact: good eye contact and + fair eye contact Motor Behavior: steady gait and station and no abnormal motor movements Speech: normal rate/rhythm/volume of speech Affect: + anxious affect and + blunted affect (seems [id number] but not spontaneous, no social brightening) Mood: + depressed mood and + anxious mood Thought Process: goal directed thought process and linear/logical thought process Thought Content: + cognitive distortions, reality based without delusions, + hopelessness, + guilt and + self deprecation Suicidal Thoughts: denies suicidal thoughts (had thoughts to shoot self at admission, BF asked to secure weapons ) Homicidal Thoughts: denies homicidal thoughts Hallucinations: no auditory hallucinations and no visual hallucinations Cognition: recent memory grossly intact, remote memory grossly intact, attention grossly intact and language grossly intact Estimated Intelligence: + above average estimated intelligence Insight: good insight and + fair insight Judgement: good judgement, + impaired judgement and + fair judgement Vital Signs (Past 24 Hours) Last Vital Signs Temp 36.6 C 03/10/19 06:54 Pulse 84 03/10/19 06:55 Resp 16 03/10/19 06:54 BP 90/59 L 03/10/19 06:55 Pulse Ox 100 03/05/19 23:51 Results & Data Current Inpatient Medications Current Inpatient Medications: Current Inpatient Medications Acetaminophen (Tylenol) 650 mg PO Q4H PRN PRN Reason: Headache or Minor Fever Stop: 04/04/19 23:49 Last Admin: 03/07/19 10:00 Dose: 650 mg Documented by: Al Hydrox/Mg Hydrox/Simethicone (Maalox) 30 ml PO Q4H PRN PRN Reason: GI Upset Stop: 04/04/19 23:49 Bismuth Subsalicylate (Kaopectate) 15 ml PO PRN PRN PRN Reason: Loose Stool Stop: 04/04/19 23:49 Hydroxyzine HCl (Vistaril) 50 mg PO HSZ PRN PRN Reason: Insomnia Stop: 04/04/19 23:49 Hydroxyzine HCl (Vistaril) 25 mg PO Q4H PRN PRN Reason: Anxiety Stop: 04/04/19 23:49 Last Admin: 03/09/19 18:38 Dose: 25 mg Documented by: Lamotrigine (Lamictal) 25 mg PO QAM [facility] Stop: 04/05/19 11:14 Last Admin: 03/10/19 08:36 Dose: 25 mg Documented by: [place] Carbonate (Lithobid) 300 mg PO BID [facility] Stop: 04/05/19 11:14 Last Admin: 03/10/19 08:36 Dose: 300 mg Documented by: Magnesium Hydroxide (Milk Of Magnesia) 30 ml PO DAILY PRN PRN Reason: Heartburn Stop: 04/04/19 23:49 Pantoprazole Sodium (Protonix) 40 mg PO DAILY [facility] Stop: 04/05/19 11:14 Last Admin: 03/10/19 08:37 Dose: 40 mg Documented by: Sodium Chloride ([place] Nasal) 1 - 2 sprays NA PRN PRN PRN Reason: Nasal Dryness/Congestion Stop: 04/04/19 23:49 Post Discharge Appointments Primary Care Physician Name Of Family Doctor: [facility] [place]: Dede Long Primary [facility] Time of Appointment with PCP: follow up as needed. Provider Appointment Comment: [id number], [place] [address] Psychiatrist Name of Psychiatrist: Iris Zamora Psychiatrist's Date of Appointment with Psychiatrist: 03/14/19 Time of Appointment with Psychiatrist: 9am Psychiatric Appointment Comment: [address] [facility], [place] [address] Therapist Name of Therapist: [facility] Bashir Mas Therapist's Date of Therapist Appointment: 03/18/19 Time of Therapist Appointment: 4pm Therapy Appointment Comment: [address] [facility], [address], [place] [address] Hide Buffer Name of Hide Buffer: Denied Contact Information Discharge Discharge Address: [address] [place] [address], [place] [address] CPT Code CPT Code 03020 (1) Bipolar disorder Active/Remission status: currently active Current bipolar episode type: depressed Current episode severity: severe Psychotic features: without psychotic features Qualified Code(s): F31.4 - Bipolar disorder, current episode depressed, severe, without psychotic features
--- NOTE | 2019-03-11 09:17 | Discharge Summary ---
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 By: Marita Aguilera Admission Data Admit Date/Time: 03/05/19 23:12 Attending Provider: Azzia Baum Admit Provider: Aziza Baum Primary Care Provider: Dede Long Service: Psychiatry Other Interventions: Discharge Summary Assessment (RN) Last Done: 03/11/19 10:13 PSY Interdisciplinary Discharge Planning Last Done: 03/11/19 10:17 Pending Studies at Discharge: Yes Studies:: Outpatient lab order provided - [place] level to be drawn on 03/17/19 prior to AM dose of lithium. DC Date/Time DO NOT enter until pt leaves facility: 03/11/19 11:05
[2019-03-11] MEDS: lamoTRIgine 25 MG TAB PO SCH (09:25)
[2019-03-11] MEDS: LITHIUM CARBONATE SLOW REL 300 MG TAB PO SCH (09:25)
[2019-03-11] MEDS: PANTOprazole 40 MG TAB PO SCH (09:25)
== END 2019-03-11 11:05 | disposition home or self-care (01) | DRG 885 ==
LOC: ED 20:30 → 3S 23:12

== ENCOUNTER 2019-10-03 10:51 | Inpatient (IN) ==
[2019-10-03 12:01] LABS: Appearance Urine Clear (Clear); Bacteria Urine Automated Negative (Negative); Bilirubin Urine Negative (Negative); Blood Urine Negative (Negative); Cast Urine Automated 0 /lpf (0-5); Color Urine Yellow; Epithelial Cell Urine Auto >30 /lpf (0-5); Glucose Urine UA Negative (Negative); Ketones Urine Negative (Negative); Leukocyte Esterase Urine Trace (Negative); Nitrite Urine Negative (Negative); Protein Urine Negative (Negative); RBC Urine Automated 0-4 /hpf (0-4); Specific Gravity Urine 1.008 (1.000-1.030); Urobilinogen Urine Negative (Negative); pH Urine 7.5 (4.5-7.5)
[2019-10-03 12:05] LABS: Basophils # (auto) 0.03 K/uL (0-0.2); Basophils % (auto) 0.5 %; Eosinophils # (auto) 0.21 K/uL (0-0.5); Eosinophils % (auto) 3.3 %; Hematocrit (blood only) 42.1 % (37-47); Hemoglobin 14.1 g/dL (12.0-16.0); Lymphocytes # (auto) 1.01 K/uL (1.2-3.4); Mean Corpuscular Hemoglobin 28.3 pg (25-34); Mean Corpuscular Hgb Conc 33.5 g/dL (32-36); Mean Corpuscular Volume 84.4 fL (80-100); Mean Platelet Volume 9.1 fL (7.4-10.4); Monocytes # (auto) 0.53 K/uL (0.11-0.59); Monocytes % (auto) 8.4 %; Neutrophils # (auto) 4.54 K/uL (1.4-6.5); Neutrophils % (auto) 71.8 %; Platelet Count 391 K/uL (130-400); RDW Coefficient of Variation 14.5 % (11.5-14.5); Red Blood Count 4.99 M/uL (4.2-5.4); White Blood Count 6.32 K/uL (4.8-10.8)
[2019-10-03 12:20] LABS: Pregnancy Test, Serum Negative (Negative)
[2019-10-03 12:23] LABS: Albumin Level 4.2 gm/dl (3.4-5.0); BUN Creatinine Ratio 10.6 (10-20); Calcium 9.5 mg/dl (8.5-10.1); Creatinine Clr Calc Pharmacy 99.7 ml/min; Est GFR (African American) 122.3; Est GFR (Non-African American) 105.5; Potassium 3.8 mmol/L (3.5-5.1)
[2019-10-03 12:30] LABS: Amphetamines+Metham, Urine Neg (Neg); Barbiturates, Urine Neg (Neg); Benzodiazepine, Urine Neg (Neg); Cocaine, Urine Neg (Neg); MDMA (Ecstacy), Urine Neg (Neg); Methadone, Urine Neg (Neg); Opiate, Urine Neg (Neg); Phencyclidine, Urine Neg (Neg)
[2019-10-03 12:34] LABS: Albumin Globulin Ratio 1.2 (0.9-2); Bilirubin,Total 0.5 mg/dl (0.2-1); Globulin 3.5 gm/dl (2.5-4.0); Thyroid Stimulating Hormone 1.14 uIu/ml (0.300-4.500); Total Protein 7.7 gm/dl (6.4-8.2)
[2019-10-03 13:12] LABS: Acetaminophen < 2 ug/ml (10-30); Lithium 0.6 mmol/L (0.6-1.2); Salicylate < 1.7 mg/dl (2.8-20)
--- NOTE | 2019-10-03 15:46 | Emergency Department Note ---
Entered by Lance Brito acting as a scribe for Chris Yeager MD History of Present Illness General Chief complaint: Referred by Doctor Stated complaint: DOCTOR REFERRED Time Seen by Provider: 10/03/19 11:43 Source: patient Limitations: no limitations History of Present Illness Onset (ago): week(s) 1 Location: head Exacerbated By: + other (not being able to be around pools again) Associated symptoms: + other (suicidal thoughts, ); no fever/chills (fevers) and no nausea/vomiting (vomiting) Treatments prior to arrival: other (lithium) The patient is a 24 year old female who presents to the Emergency Room with complaints of suicidal thoughts starting a week ago. The patient states she was exposed to chlorine gas for months while at work and developed a chemical pneumonitis. 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 She feels like she has wasted 8 years and job development because of this. She states she has been having a rough year. She states has been cutting her wrist everyday for the past week with a razor. She states she saw shadows from the corner of her eyes last night. She states she has seen shadows before. These visual hallucinations are not abnormal for her. She states she saw her psychiatrist today and her psychiatrist sent her to the ED for inpatient psychiatric care. She states she has been drinking alcohol frequently but states she did not drink today or yesterday. She notes she has bipolar disorder and states she has been taking lithium for it. The patient denies having fevers, vomiting, and taking drugs. Home Medications Home Medications Medication Instructions Recorded Confirmed Type Nexplanon 68 mg SUBDERMAL DIRECTED 03/09/19 10/03/19 History lithium carbonate 300 mg PO BID 06/21/19 10/03/19 History albuterol sulfate [Ventolin HFA] 90 mcg INHALATION DIRECTED 10/03/19 10/03/19 History Allergies Allergy/AdvReac Type Severity Reaction Status Date / Time nickel Allergy Severe swelling Verified 07/28/19 18:14 latex Allergy Intermediate Itchiness Verified 07/28/19 18:14 Past Med/Surg History Medical History Bipolar disorder Chemical pneumonitis GERD (gastroesophageal reflux disease) (Chronic) PTSD (post-traumatic stress disorder) (Chronic) Surgical History H/O wisdom tooth extraction Family History Other No significant family history Social History Preferred Language: Georgian Communication Ability: Effective Tax Examiner Required: No Beliefs That Will Affect Care: None marital status: relationship-boyfriend current occupational status: employed Feels Safe at Home: Yes Smoking Status: Never smoker Review of Systems See HPI for pertinent positives & negatives. and A total of 10 systems reviewed and were otherwise negative Physical Exam Vital Signs Vital Signs - 24 hr 10/03/19 10:53 10/03/19 13:42 Temperature 37 C Temperature Source Oral Pulse Rate 64 Pulse Rate [Right Finger] 82 Pulse Rhythm Regular Pulse Rhythm [Right Finger] Regular Pulse Strength Normal Pulse Strength [Right Finger] Normal Respiratory Rate 18 18 Respiratory Effort / Characteristics Non-Labored Spontaneous Non-Labored Spontaneous Respiratory Depth Normal Normal Respiratory Pattern Regular Regular Blood Pressure 136/80 Blood Pressure [Left Arm] 123/74 Blood Pressure Mean 98 Blood Pressure Mean [Left Arm] 90 Blood Pressure Position Sitting Blood Pressure Position [Left Arm] Sitting Pulse Oximetry 97 99 Oxygen Delivery Method Room Air Room Air Sepsis Recent Fever Within 48 Hours No Sepsis New/Unexplained Change in Mental Status No Sepsis Action Taken by Nursing No Action Required Constitutional: Vital signs reviewed. Eyes: Pupils are equal round reactive to light. Conjunctiva are noninjected. ENT: Pharynx is clear without erythema or exudate. Mucous membranes are moist. Neck supple without meningeal signs. Respiratory: Clear to auscultation bilaterally. Breath sounds are equal bilaterally. Cardiovascular: Regular rate and rhythm. No rubs or gallops. GI: Soft, nondistended and nontender. Bowel sounds are present. Musculoskeletal: No peripheral edema. No lower extremity tenderness. Multiple superficial abrasions to volar aspect of the left wrist. No signs of infection or bleeding. Integumentary: No cyanosis. Neurological: The patient is awake and alert. No focal deficits. Psychiatric: Guarded affect. Not tearful. Course Course 1146: The patient was evaluated in room A7, and a complete history and physical examination were performed. 1649: The patient has been accepted to [address] [place] [address]. Administered Medications Medical Decision Making Differential Diagnosis Differential Diagnosis includes but is not limited to mood disorder, schizoaffective disorder, suicidal ideations, alcohol dependence, and visual hallucinations. Medical Records Attestation: I reviewed the patient's medical records. Patient was seen in the ED for dyspnea in July. She was evaluated here and discharged for outpatient follow-up. Home Medications Current Medication List: was personally reviewed by me Laboratory Data Attestation: I reviewed the patient's lab results. Result diagrams: 10/03/19 11:47 10/03/19 11:47 Lab Results 10/03/19 10/03/19 10/03/19 Range/Units 11:20 11:20 11:47 WBC 6.32 (4.8-10.8) K/uL RBC 4.99 (4.2-5.4) M/uL Hgb 14.1 (12.0-16.0) g/dL Hct 42.1 (37-47) % MCV 84.4 (80-100) fL MCH 28.3 (25-34) pg MCHC 33.5 (32-36) g/dL RDW Std Deviation 45.0 (36.4-46.3) fL RDW Coeff of Maryana 14.5 (11.5-14.5) % Plt Count 391 (130-400) K/uL MPV 9.1 (7.4-10.4) fL Immature Gran % (Auto) 0.0 % Neut % (Auto) 71.8 % Lymph % (Auto) 16.0 % [place] % (Auto) 8.4 % Eos % (Auto) 3.3 % Baso % (Auto) 0.5 % Immature Gran # (Auto) 0.00 (0.00-0.02) K/uL Neut # (Auto) 4.54 (1.4-6.5) K/uL Lymph # (Auto) 1.01 L (1.2-3.4) K/uL [place] # (Auto) 0.53 (0.11-0.59) K/uL Eos # (Auto) 0.21 (0-0.5) K/uL Baso # (Auto) 0.03 (0-0.2) K/uL Sodium (136-145) mmol/L Potassium (3.5-5.1) mmol/L Chloride (98-107) mmol/L Carbon Dioxide (21-32) mmol/L Anion Gap (3-11) BUN (7-18) mg/dl Creatinine (0.6-1.2) mg/dl Est Cr Clr Drug Dosing ml/min Est GFR ( Amer) Est GFR (Non-Af Amer) BUN/Creatinine Ratio (10-20) Glucose (70-99) mg/dl Calcium (8.5-10.1) mg/dl Total Bilirubin (0.2-1) mg/dl AST (15-37) U/L ALT (12-78) U/L Alkaline Phosphatase (45-117) U/L Total Protein (6.4-8.2) gm/dl Albumin (3.4-5.0) gm/dl Globulin (2.5-4.0) gm/dl Albumin/Globulin Ratio (0.9-2) TSH (0.300-4.500) uIu/ml HCG, Qual (Negative) Urine Color Yellow Urine Appearance Clear (Clear) Urine pH 7.5 (4.5-7.5) Ur Specific [place] 1.008 (1.000-1.030) Urine Protein Negative (Negative) Urine Glucose (UA) Negative (Negative) Urine Ketones Negative (Negative) Urine Blood Negative (Negative) Urine Nitrite Negative (Negative) Urine Bilirubin Negative (Negative) Urine Urobilinogen Negative (Negative) Ur Leukocyte Esterase Trace H (Negative) Urine WBC (Auto) 1-5 (0-5) /hpf Urine RBC (Auto) 0-4 (0-4) /hpf U Hyaline Cast (Auto) 0 (0-5) /lpf U Epithel Cells (Auto) >30 H (0-5) /lpf Urine Bacteria (Auto) Negative (Negative) Salicylates (2.8-20) mg/dl Urine Opiates Screen Neg (Neg) Ur Methadone, Qual Neg (Neg) Acetaminophen (10-30) ug/ml Urine Barbiturates Neg (Neg) Ur Phencyclidine (PCP) Neg (Neg) U Amphetamin/Meth Scrn Neg (Neg) MDMA (Ecstasy) Screen Neg (Neg) U Benzodiazepines Scrn Neg (Neg) New [place]uwe (0.6-1.2) mmol/L Ur Cocaine Metabolite Neg (Neg) U Marijuana (THC) Screen Neg (Neg) Ethyl Alcohol mg/dL (0-3) mg/dl 10/03/19 10/03/19 10/03/19 Range/Units 11:47 11:47 11:47 WBC (4.8-10.8) K/uL RBC (4.2-5.4) M/uL Hgb (12.0-16.0) g/dL Hct (37-47) % MCV (80-100) fL MCH (25-34) pg MCHC (32-36) g/dL RDW Std Deviation (36.4-46.3) fL RDW Coeff of Maryana (11.5-14.5) % Plt Count (130-400) K/uL MPV (7.4-10.4) fL Immature Gran % (Auto) % Neut % (Auto) % Lymph % (Auto) % [place] % (Auto) % Eos % (Auto) % Baso % (Auto) % Immature Gran # (Auto) (0.00-0.02) K/uL Neut # (Auto) (1.4-6.5) K/uL Lymph # (Auto) (1.2-3.4) K/uL [place] # (Auto) (0.11-0.59) K/uL Eos # (Auto) (0-0.5) K/uL Baso # (Auto) (0-0.2) K/uL Sodium 140 (136-145) mmol/L Potassium 3.8 (3.5-5.1) mmol/L Chloride 109 H (98-107) mmol/L Carbon Dioxide 27 (21-32) mmol/L Anion Gap 5.0 (3-11) BUN 8 (7-18) mg/dl Creatinine 0.79 (0.6-1.2) mg/dl Est Cr Clr Drug Dosing 99.7 ml/min Est GFR ( Amer) 122.3 Est GFR (Non-Af Amer) 105.5 BUN/Creatinine Ratio 10.6 (10-20) Glucose 93 (70-99) mg/dl Calcium 9.5 (8.5-10.1) mg/dl Total Bilirubin 0.5 (0.2-1) mg/dl AST 10 L (15-37) U/L ALT 17 (12-78) U/L Alkaline Phosphatase 65 (45-117) U/L Total Protein 7.7 (6.4-8.2) gm/dl Albumin 4.2 (3.4-5.0) gm/dl Globulin 3.5 (2.5-4.0) gm/dl Albumin/Globulin Ratio 1.2 (0.9-2) TSH 1.140 (0.300-4.500) uIu/ml HCG, Qual (Negative) Urine Color Urine Appearance (Clear) Urine pH (4.5-7.5) Ur Specific [place] (1.000-1.030) Urine Protein (Negative) Urine Glucose (UA) (Negative) Urine Ketones (Negative) Urine Blood (Negative) Urine Nitrite (Negative) Urine Bilirubin (Negative) Urine Urobilinogen (Negative) Ur Leukocyte Esterase (Negative) Urine WBC (Auto) (0-5) /hpf Urine RBC (Auto) (0-4) /hpf U Hyaline Cast (Auto) (0-5) /lpf U Epithel Cells (Auto) (0-5) /lpf Urine Bacteria (Auto) (Negative) Salicylates < 1.7 L (2.8-20) mg/dl Urine Opiates Screen (Neg) Ur Methadone, Qual (Neg) Acetaminophen < 2 L (10-30) ug/ml Urine Barbiturates (Neg) Ur Phencyclidine (PCP) (Neg) U Amphetamin/Meth Scrn (Neg) MDMA (Ecstasy) Screen (Neg) U Benzodiazepines Scrn (Neg) New [place]uwe 0.6 (0.6-1.2) mmol/L Ur Cocaine Metabolite (Neg) U Marijuana (THC) Screen (Neg) Ethyl Alcohol mg/dL < 3.0 (0-3) mg/dl 10/03/19 Range/Units 11:47 WBC (4.8-10.8) K/uL RBC (4.2-5.4) M/uL Hgb (12.0-16.0) g/dL Hct (37-47) % MCV (80-100) fL MCH (25-34) pg MCHC (32-36) g/dL RDW Std Deviation (36.4-46.3) fL RDW Coeff of Maryana (11.5-14.5) % Plt Count (130-400) K/uL MPV (7.4-10.4) fL Immature Gran % (Auto) % Neut % (Auto) % Lymph % (Auto) % [place] % (Auto) % Eos % (Auto) % Baso % (Auto) % Immature Gran # (Auto) (0.00-0.02) K/uL Neut # (Auto) (1.4-6.5) K/uL Lymph # (Auto) (1.2-3.4) K/uL [place] # (Auto) (0.11-0.59) K/uL Eos # (Auto) (0-0.5) K/uL Baso # (Auto) (0-0.2) K/uL Sodium (136-145) mmol/L Potassium (3.5-5.1) mmol/L Chloride (98-107) mmol/L Carbon Dioxide (21-32) mmol/L Anion Gap (3-11) BUN (7-18) mg/dl Creatinine (0.6-1.2) mg/dl Est Cr Clr Drug Dosing ml/min Est GFR ( Amer) Est GFR (Non-Af Amer) BUN/Creatinine Ratio (10-20) Glucose (70-99) mg/dl Calcium (8.5-10.1) mg/dl Total Bilirubin (0.2-1) mg/dl AST (15-37) U/L ALT (12-78) U/L Alkaline Phosphatase (45-117) U/L Total Protein (6.4-8.2) gm/dl Albumin (3.4-5.0) gm/dl Globulin (2.5-4.0) gm/dl Albumin/Globulin Ratio (0.9-2) TSH (0.300-4.500) uIu/ml HCG, Qual Negative (Negative) Urine Color Urine Appearance (Clear) Urine pH (4.5-7.5) Ur Specific [place] (1.000-1.030) Urine Protein (Negative) Urine Glucose (UA) (Negative) Urine Ketones (Negative) Urine Blood (Negative) Urine Nitrite (Negative) Urine Bilirubin (Negative) Urine Urobilinogen (Negative) Ur Leukocyte Esterase (Negative) Urine WBC (Auto) (0-5) /hpf Urine RBC (Auto) (0-4) /hpf U Hyaline Cast (Auto) (0-5) /lpf U Epithel Cells (Auto) (0-5) /lpf Urine Bacteria (Auto) (Negative) Salicylates (2.8-20) mg/dl Urine Opiates Screen (Neg) Ur Methadone, Qual (Neg) Acetaminophen (10-30) ug/ml Urine Barbiturates (Neg) Ur Phencyclidine (PCP) (Neg) U Amphetamin/Meth Scrn (Neg) MDMA (Ecstasy) Screen (Neg) U Benzodiazepines Scrn (Neg) New [place] (0.6-1.2) mmol/L Ur Cocaine Metabolite (Neg) U Marijuana (THC) Screen (Neg) Ethyl Alcohol mg/dL (0-3) mg/dl Blood Pressure Blood Pressure Findings: Elevated blood pressure Blood Pressure Disposition: elevated BP felt to be situational MDM Narrative I did evaluate the patient as noted above. The patient was evaluated by her psychiatrist and sent here for inpatient psychiatric care. The patient has had been thinking about hurting herself for the past week. She has had a rough year career [employer] and also relating to her health. She is agreeable to hospitalization.. I did order a urine analysis. I did order and review the patient's blood work as noted in the electronic medical record. CBC is unremarkable without leukocytosis or anemia. Electrolytes are unremarkable. Her lithium level is within normal limits. The patient was medically cleared. She was seen by the mental health disease case manager for placement. She was accepted by [facility] and taken upstairs for inpatient psychiatric care. Impression & Plan Mood disorder, Suicidal ideation, Hallucination, visual, Self-harm Discharge Plan Visit Data *Final* Discharge Date/Time: 10/03/19 16:50 Chief Complaint: Referred by Doctor Stated Complaint: DOCTOR REFERRED ED Provider: Chris Yeager Discharge Problem: Mood disorder, Suicidal ideation, Hallucination, visual, Self-harm Patient Disposition: Transfer Inpatient Rehab Fac Discharge Instructions Interventions: ED Discharge Assessment Last Done: 10/03/19 16:50 The justinlloyd's documentation has been prepared under my direction and personally reviewed by me in its entirety. I confirm that the note above accurately reflects all work, treatment, procedures, and medical decision making performed by me.
[2019-10-03] MEDS ORDERED: ACETAMINOPHEN 325 MG TAB PO PRN (16:37)
[2019-10-03] MEDS ORDERED: BISMUTH SUBSALICYLATE PER ML OMNICELL CHARGE PO PRN (16:37)
[2019-10-03] MEDS ORDERED: SODIUM CHLORIDE 0.65% NA SOLN 45 ML (OCEAN) PRN (16:37)
[2019-10-03] MEDS ORDERED: MAGNESIUM HYDROXIDE SUSP 30 ML UDC PO PRN (16:37)
[2019-10-03] MEDS ORDERED: ALUMINUM/MAGNESIUM SUSP 30 ML UDC PO PRN (16:37)
[2019-10-03] MEDS ORDERED: ALBUTEROL HFA 8 GM INHALER INH PRN (16:52)
[2019-10-03] MEDS: LITHIUM CARBONATE 300 MG TAB PO SCH (21:15)
[2019-10-04] MEDS: LITHIUM CARBONATE 300 MG TAB PO SCH ×2 (08:52→20:50)
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
[2019-10-05] MEDS: LITHIUM CARBONATE 300 MG TAB PO SCH ×2 (08:30→20:48)
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
[2019-10-06] MEDS: LITHIUM CARBONATE 300 MG TAB PO SCH ×2 (10:42→21:32)
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
[2019-10-07] MEDS: LITHIUM CARBONATE 300 MG TAB PO SCH ×2 (08:41→21:56)
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
[2019-10-08] MEDS: LITHIUM CARBONATE 300 MG TAB PO SCH ×2 (09:02→21:23)
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
[2019-10-09] MEDS: LITHIUM CARBONATE 300 MG TAB PO SCH ×2 (08:40→20:46)
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
[2019-10-10] MEDS: LITHIUM CARBONATE 300 MG TAB PO SCH (08:59)
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
== END 2019-10-10 14:59 | disposition home or self-care (01) | DRG 885 ==
LOC: ED 10:51 → 3S 16:38

== ENCOUNTER 2022-08-25 10:49 | Inpatient (IN) ==
--- NOTE | 2022-08-25 11:19 | Emergency Department Note ---
Impression & Plan Depression with suicidal ideation, PTSD (post-traumatic stress disorder), Bipolar disorder ED Provider Note NAME: STANLEY VUONG AGE: 27 SEX: F : 1995 ARRIVES VIA: Walk-In INFORMANT: Patient, ED PROVIDER(S): Horacio Bolaños MD Chief Complaint: Suicidal ideation HPI: Patient presents due to concern for suicidal ideation and patient has thought about shooting herself as the patient does have a firearm within the home. The patient is also thought about cutting into her overdose. The patient does have a prior history of suicide attempt in 2019. This was last time that she was inpatient. Patient Nuys any chest pains or shortness of breath. Patient did have a recent increase in her lithium several weeks ago and thinks that this may be helping but modestly. Patient denies any HI or AVH. Patient states her sleep and appetite of been poor the patient has been having nightmares. Patient states that she has not had a solid meal in approximate 3 weeks. Patient has been sober for several years and does not use any alcohol currently. No tobacco or drugs. 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 The patient does feel safe at home. ROS: See HPI for pertinent positives and negatives. A total of 10 systems were reviewed and otherwise negative. Past medical history: See below Surgical history: See below Social history: See below Physical Exam: GENERAL: NAD, wearing a mask, non-toxic. EYE EXAM: Normal conjunctiva. PERRL, no anisocoria and EOM's grossly intact w/o pain. NECK: Supple, no nuchal rigidity, no adenopathy, non-tender. No signs of meningismus. FROM of the neck with good chin to chest and neck extension. No stridor. LUNGS: Clear to auscultation. Normal chest wall mechanics. HEART: NSR, no MRG. ABDOMEN: Abdomen soft, non-tender, normo-active bowel sounds, no masses, no rebound or guarding. BACK: No CVA TTP. SKIN: No rashes and no bruising. UPPER EXTREMITIES: Upper extremities are grossly normal. LOWER EXTREMITIES: Grossly normal, no edema. NEURO EXAM: A&O x3, cranial nerves II-XII grossly intact, normal speech, moves all 4 extremities. Psych: Positive SI with plan, negative HI or AVH. Differential diagnoses: Mood disorder, infection, hypoglycemia, electrolyte abnormalities, cardiac sources, intracerebral event, toxicologic, trauma, victoriano rologic, as well as other pathologies. Course: Patient was seen and evaluated the bedside. Full history physical exam was performed. MDM: Patient was seen due to concern for suicidal ideation with plan. Blood work is obtained. Patient was seen and evaluated by the psych manager case. Patient was cleared medically was accepted to 3 S. Past Med/Surg History Medical History Bipolar disorder Chemical pneumonitis GERD (gastroesophageal reflux disease) PTSD (post-traumatic stress disorder) Surgical History H/O wisdom tooth extraction Family History Other No significant family history Social History Smoking Status: Never smoker Preferred Language: Namibian Communication Ability: Effective Tax Accounting Assistant Required: No Beliefs That Will Affect Care: None marital status: relationship-boyfriend current occupational status: employed Feels Safe at Home: Yes Assistive Devices: None Allergies Allergies Allergy/AdvReac Type Severity Reaction Status Date / Time nickel Allergy Severe swelling Verified 10/03/21 08:36 Influenza Virus Vaccines Allergy Intermediate Itchiness Verified 10/03/21 08:36 and hives latex Allergy Intermediate Itchiness Verified 10/03/21 08:36 AEROSOLS/VARIOUS CHEMICALS Allergy Severe INFLAMMED Uncoded 10/03/21 08:36 AIRWAYS Home Meds Home Medications Medication Instructions Recorded Confirmed budesonide 0.5 mg/2 mL suspension 0.25 mg inhalation BID PRN SOB 08/25/22 08/25/22 for nebulization lithium carbonate 300 mg 600 mg PO BID 08/25/22 08/25/22 tablet,extended release Previous Rx's Medication Instructions Recorded ondansetron 4 mg disintegrating 4 mg PO Q8H PRN nausea and 05/11/21 tablet vomiting #8 tabs Results & Data (ED) Vital Signs Vital Signs - 24 hr 08/25/22 10:54 08/25/22 12:50 08/25/22 14:00 Temperature 36.6 C Temperature Source Temporal Artery Scan Pulse Rate 94 H Respiratory Rate 18 20 70 H Respiratory Effort / Characteristics Non-Labored Non-Labored Respiratory Depth Normal Normal Respiratory Pattern Regular Blood Pressure 126/91 Blood Pressure [Left Arm] 124/74 119/60 Blood Pressure Mean 102 Blood Pressure Mean [Left Arm] 90 79 Blood Pressure Position [Left Arm] Sitting Pulse Oximetry 99 98 98 Oxygen Delivery Method Room Air Room Air Room Air Sepsis Recent Fever Within 48 Hours No Sepsis New/Unexplained Change in Mental Status No Sepsis Action Taken by Nursing No Action Required Home Medications Current Medication List: was personally reviewed by me Laboratory Data Attestation: I reviewed the patient's lab results. Result diagrams: 08/25/22 Unknown 08/25/22 Unknown Lab Results 08/25/22 Range/Units Unknown WBC 8.60 (4.8-10.8) K/ul RBC 4.91 (3.93-5.22) M/uL Hgb 14.5 (12.0-16.0) g/dl Hct 42.2 (34.1-44.9) % MCV 85.9 (80.0-100.0) fL MCH 29.5 (25.0-34.0) pg MCHC 34.4 (32.0-36.0) g/dL RDW Std Deviation 38.6 (36.4-46.3) fL RDW Coeff of Maryana 12.5 (11.5-14.5) % Plt Count 453 H (130-400) K/uL MPV 9.4 (9.4-12.3) fL Immature Gran % (Auto) 0.2 % Neut % (Auto) 58.8 % Lymph % (Auto) 29.1 % [place] % (Auto) 8.8 % Eos % (Auto) 2.4 % Baso % (Auto) 0.7 % Neut # (Auto) 5.05 (1.4-6.5) K/uL Lymph # (Auto) 2.50 (1.2-3.4) K/uL [place] # (Auto) 0.76 (0.24-0.82) K/uL Eos # (Auto) 0.21 (0-0.50) K/uL Baso # (Auto) 0.06 (0-0.2) K/uL Immature Gran # (Auto) 0.02 (0.00-0.02) K/uL Discharge Plan Visit Data Chief Complaint: Mental Health Evaluation Stated Complaint: MENTAL HEALTH ED Provider: Horacio Bolaños Discharge Problem: Depression with suicidal ideation, PTSD (post-traumatic stress disorder), Bipolar disorder Patient Disposition: Admitted As Inpatient Discharge Instructions Interventions: ED Discharge Assessment Last Done: 08/25/22 15:28 : Bipolar disorder Qualifiers: Active/Remission status: remission status unspecified Qualified Code(s): F31.9 - Bipolar disorder, unspecified
[2022-08-25 12:01] LABS: Basophils # (auto) 0.06 K/uL (0-0.2); Basophils % (auto) 0.7 %; Eosinophils # (auto) 0.21 K/uL (0-0.50); Eosinophils % (auto) 2.4 %; Hematocrit (blood only) 42.2 % (34.1-44.9); Hemoglobin 14.5 g/dl (12.0-16.0); Immature Granulocytes # (auto) 0.02 K/uL (0.00-0.02); Immature Granulocytes % (auto) 0.2 %; Lymphocytes % (auto) 29.1 %; Mean Corpuscular Hemoglobin 29.5 pg (25.0-34.0); Mean Corpuscular Hgb Conc 34.4 g/dL (32.0-36.0); Mean Corpuscular Volume 85.9 fL (80.0-100.0); Mean Platelet Volume 9.4 fL (9.4-12.3); Monocytes # (auto) 0.76 K/uL (0.24-0.82); Monocytes % (auto) 8.8 %; Neutrophils # (auto) 5.05 K/uL (1.4-6.5); Neutrophils % (auto) 58.8 %; Platelet Count 453 K/uL (130-400); RDW Coefficient of Variation 12.5 % (11.5-14.5); RDW Standard Deviation 38.6 fL (36.4-46.3); Red Blood Count 4.91 M/uL (3.93-5.22)
[2022-08-25 12:08] LABS: Pregnancy Test, Urine Negative (Negative)
[2022-08-25 12:10] LABS: Appearance Urine Clear (Clear); Bacteria Urine Automated Negative (Negative); Bilirubin Urine Negative (Negative); Blood Urine Negative (Negative); Cast Urine Automated 0 /lpf (0-5); Color Urine Yellow; Epithelial Cell Urine Auto >30 /lpf (0-5); Glucose Urine UA Negative (Negative); Ketones Urine Negative (Negative); Leukocyte Esterase Urine Trace (Negative); Nitrite Urine Negative (Negative); Protein Urine Negative (Negative); RBC Urine Automated 0-4 /hpf (0-4); Specific Gravity Urine 1.012 (1.000-1.030); Urobilinogen Urine Negative (Negative); pH Urine 8.5 (4.5-7.5)
[2022-08-25 12:33] LABS: Albumin Globulin Ratio 1.7 (0.9-2); Albumin Level 4.6 gm/dl (3.4-5.0); BUN Creatinine Ratio 10.8 (10-20); Bilirubin,Total 0.4 mg/dl (0.2-1.0); Calcium 9.6 mg/dl (8.5-10.1); Creatinine Clr Calc Pharmacy 115.6 ml/min; Est GFR (African American) 129.6 ml/min; Est GFR (Non-African American) 111.8 ml/min; Globulin 2.7 gm/dl (2.5-4.0); Potassium 3.6 mmol/L (3.5-5.1); Total Protein 7.3 gm/dl (6.0-8.3)
[2022-08-25 12:34] LABS: Acetaminophen < 3 ug/ml (10-30); Salicylate < 3.0 mg/dl (3.0-30)
[2022-08-25 12:42] LABS: Thyroid Stimulating Hormone 6.183 uIu/ml (0.300-4.500)
[2022-08-25 13:24] LABS: Amphetamines+Metham, Urine Neg (Neg); Barbiturates, Urine Neg (Neg); Benzodiazepine, Urine Neg (Neg); MDMA (Ecstacy), Urine Neg (Neg); Methadone, Urine Neg (Neg); Opiate, Urine Neg (Neg); Phencyclidine, Urine Neg (Neg)
[2022-08-25 13:59] LABS: T4 Free Thyroxine 0.73 ng/dl (0.61-1.60)
[2022-08-25] MEDS ORDERED: SODIUM CHLORIDE 0.65% NA SOLN 45 ML (OCEAN) PRN (14:58)
[2022-08-25] MEDS ORDERED: ALUMINUM/MAGNESIUM SUSP 30 ML UDC PO PRN (14:58)
[2022-08-25] MEDS ORDERED: BISMUTH SUBSALICYLATE LIQD 236 ML PO PRN (14:58)
[2022-08-25] MEDS ORDERED: hydrOXYzine HCl 25 MG TAB PO PRN ×2 (14:58)
[2022-08-25] MEDS ORDERED: ACETAMINOPHEN 325 MG TAB PO PRN (14:58)
[2022-08-25] MEDS ORDERED: MAGNESIUM HYDROXIDE SUSP 30 ML UDC PO PRN (14:58)
[2022-08-25 16:36] LABS: Cocaine, Urine Neg (Neg)
[2022-08-25] MEDS: LITHIUM CARBONATE SLOW REL 300 MG TAB PO SCH (21:39)
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
[2022-08-26] MEDS: LITHIUM CARBONATE SLOW REL 300 MG TAB PO SCH ×2 (08:47→21:43)
[2022-08-26] MEDS ORDERED: ONDANSETRON 4 MG OD TAB PO PRN (10:51)
[2022-08-26] MEDS ORDERED: BUDESONIDE 0.5 MG/2 ML VIAL (PULMICORT) INH PRN (10:51)
[2022-08-26] MEDS: MIRTAZAPINE TAB 15 MG TAB PO SCH (21:43)
[2022-08-27] MEDS: LITHIUM CARBONATE SLOW REL 300 MG TAB PO SCH ×2 (08:54→22:09)
--- NOTE | 2022-08-27 08:56 | Psychiatric Progress Note ---
Date of Service August 27, 2022 Impression / Recommendations Impression 27 year old with a history of BPAD, PTSD, depression, anxiety who was admitted for depression and SI with plan. Diagnostically consistent with BPAD current depressive episode with prominent symptoms of decreased sleep and appetite. The patient is deemed unstable and requires psychiatric hospitalization for diagnostic clarification, safety and stabilization, medication management and development of further coping skills. 08/27/22: Remains depressed with SI. Tolerating mirtazapine with improved sleep. Ongoing counseling regarding access to guns at home. (1) Bipolar disorder with severe depression: (2) Depression with suicidal ideation: (3) Pulmonary disorder: (4) Reactive airways dysfunction syndrome: (5) Bipolar disorder: (6) PTSD (post-traumatic stress disorder): (7) Anxiety disorder, unspecified: (8) TSH elevation: recommend repeat level in 6-8 weeks by PCP, current free T4 level is normal Plan 08/27/22: Continue current medications and tx plan. 08/26/22: The patient was admitted to the [facility] ([facility] mental health unit) on q15 min checks (behavioral with suicide precautions) for safety. The patient will participate in group, recreational, and milieu therapies and will be offered additional individual and family sessions as clinically appropriate. -Continue Maskell SR 600mg BID -Start mirtazapine 7.5mg qhs Inventory Assets Strengths: supportive relationships, willing to get treatment, trauma survivor Needs: safety and stabilization, medication adjustment, additional coping skills Suicide Risk Level Suicide Risk Level: High-Moderate (q15 min suicide checks) (High-Moderate due to severe depression with SI with plan prior to admission but feels safe in the hospital, able to safety contract and agrees to let nursing/staff know should they develop plan, intent or feel unable to remain safe.) Suicide Risk Level Comments: Risk Factors Assessment : Yes Do You Have Access To A Gun?: Yes (3 guns at home) Mental Health Diagnoses: Yes Previous Attempt: Yes Previous Psychiatric Hospitalization: Yes Protective Factors Assessment 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 Chief Complaint "The suicidal thoughts are still there but not as prominent". Review of Systems Sleep Information Total Hours of Sleep: 7.5 Sleep Comments: reports she ususally works nightshift Meal Information Percent Meal Consumed - Breakfast: 50 Percent Meal Consumed - Lunch: 50 Percent Meal Consumed - Dinner: 50 Subjective Subjective Patient was seen & assessed and interval progress reviewed with treatment team nursing and social work. Intermittent SI and very low mood last night. Slept 7.5 hours last night after taking the mirtazapine. Attending groups. Feels tired today but thinks that's maybe because she finally got enough sleep. Still with SI but lessening. No medication side effects. Physical Exam Psychiatric Orientation: alert and oriented x 3 Apperance: appropriately dressed and appropriately groomed Eye Contact: good eye contact Motor Behavior: no abnormal motor movements Speech: normal rate/rhythm/volume of speech Affect: + constricted affect Mood: + depressed mood and + anxious mood Thought Process: goal directed thought process Thought Content: reality based without delusions Suicidal Thoughts: denies suicidal plan (none for her in the hospital, using gun prior to coming to the hospital) and denies suicidal intent; + reports suicidal thoughts (intermittent) Homicidal Thoughts: denies homicidal thoughts Hallucinations: no auditory hallucinations and no visual hallucinations Cognition: recent memory grossly intact, remote memory grossly intact, attention grossly intact and language grossly intact Estimated Intelligence: consistent with education level Insight: + fair insight Judgement: + limited judgement Vital Signs (Past 24 Hours) Last Vital Signs Temp 36.9 C 08/27/22 06:34 Pulse 83 08/27/22 06:35 Resp 18 08/27/22 06:34 BP 125/90 08/27/22 06:35 Pulse Ox 97 08/25/22 15:28 O2 Del Method 08/25/22 15:28 Results & Data ([facility]) Current Inpatient Medications Current Inpatient Medications: Current Inpatient Medications Acetaminophen (Acetaminophen 325 Mg Tab) 650 mg PO Q4H PRN PRN Reason: Headache or Minor Fever Stop: 09/24/22 14:57 Al Hydrox/Mg Hydrox/Simethicone (Aluminum/Magnesium Susp 30 Ml Udc) 30 ml PO Q4H PRN PRN Reason: GI Upset Stop: 09/24/22 14:57 Albuterol (Albuterol 0.5% Neb Soln 2.5 Mg/0.5 Ml Vial) 2.5 mg NEB QID PRN; Protocol PRN Reason: Shortness Of Breath Stop: 09/25/22 12:59 Bismuth Subsalicylate (Bismuth Subsalicylate Liqd 236 Ml) 15 ml PO PRN PRN PRN Reason: Loose Stool Stop: 09/24/22 14:57 Budesonide (Budesonide 0.5 Mg/2 Ml Vial (Pulmicort)) 0.25 mg INH BID PRN PRN Reason: Shortness Of Breath Stop: 09/25/22 10:50 Hydroxyzine HCl (Hydroxyzine Hcl 25 Mg Tab) 50 mg PO HSZ PRN PRN Reason: Insomnia Stop: 09/24/22 14:57 Hydroxyzine HCl (Hydroxyzine Hcl 25 Mg Tab) 25 mg PO Q4H PRN PRN Reason: Anxiety Stop: 09/24/22 14:57 Maskell Carbonate (Maskell Carbonate Slow Rel 300 Mg Tab) 600 mg PO BID LORENA Stop: 09/24/22 20:59 Last Admin: 08/26/22 21:43 Dose: 600 mg Magnesium Hydroxide (Magnesium Hydroxide Susp 30 Ml Udc) 30 ml PO DAILY PRN PRN Reason: Constipation Stop: 09/24/22 14:57 Mirtazapine (Mirtazapine Tab 15 Mg Tab) 7.5 mg PO HS LORENA Stop: 09/25/22 21:59 Last Admin: 08/26/22 21:43 Dose: 7.5 mg Ondansetron HCl (Ondansetron 4 Mg Od Tab) 4 mg PO DAILY PRN PRN Reason: nausea and vomiting Stop: 09/25/22 10:50 Sodium Chloride (Sodium Chloride 0.65% Na Soln 45 Ml ([place])) 1 - 2 sprays NA PRN PRN PRN Reason: Nasal Dryness/Congestion Stop: 09/24/22 14:57 Mental Health & Subst Abuse Tx Therapist Name of Therapist: [facility]/for[facility] name Date of Therapist Appointment: 08/29/22 Machine Lay Out Worker Name of Machine Lay Out Worker: None Post Discharge Appointments Primary Care Physician Name Of Family Doctor: Dede Gerard (1) Bipolar disorder Active/Remission status: remission status unspecified Qualified Code(s): F31.9 - Bipolar disorder, unspecified
[2022-08-27] MEDS: MIRTAZAPINE TAB 15 MG TAB PO SCH (22:09)
--- NOTE | 2022-08-28 08:49 | Psychiatric Progress Note ---
Date of Service August 28, 2022 Impression / Recommendations Impression 27 year old with a history of BPAD, PTSD, depression, anxiety who was admitted for depression and SI with plan. Diagnostically consistent with BPAD current depressive episode with prominent symptoms of decreased sleep and appetite. The patient is deemed unstable and requires psychiatric hospitalization for diagnostic clarification, safety and stabilization, medication management and development of further coping skills. 08/28/22: Remains depressed with SI and a lot of intrusive PTSD memories. Tolerating mirtazapine with improved sleep. Ongoing counseling regarding access to guns at home. (1) Bipolar disorder with severe depression: (2) Depression with suicidal ideation: (3) Pulmonary disorder: (4) Reactive airways dysfunction syndrome: (5) Bipolar disorder: (6) PTSD (post-traumatic stress disorder): (7) Anxiety disorder, unspecified: (8) TSH elevation: recommend repeat level in 6-8 weeks by PCP, current free T4 level is normal Plan 08/28/22: Continue current medications and tx plan. Consider addition of SSRI if depression and PTSD symptoms remain challenging 08/27/22: Continue current medications and tx plan. 08/26/22: The patient was admitted to the [facility] ([facility] mental health unit) on q15 min checks (behavioral with suicide precautions) for safety. The patient will participate in group, recreational, and milieu therapies and will be offered additional individual and family sessions as clinically appropriate. -Continue Bowen SR 600mg BID -Start mirtazapine 7.5mg qhs Inventory Assets Strengths: supportive relationships, willing to get treatment, trauma survivor Needs: safety and stabilization, medication adjustment, additional coping skills Suicide Risk Level Suicide Risk Level: High-Moderate (q15 min suicide checks) (High-Moderate due to severe depression with SI with plan prior to admission but feels safe in the hospital, able to safety contract and agrees to let nursing/staff know should they develop plan, intent or feel unable to remain safe.) Suicide Risk Level Comments: Risk Factors Assessment : Yes Do You Have Access To A Gun?: Yes (3 guns at home) Mental Health Diagnoses: Yes Previous Attempt: Yes Previous Psychiatric Hospitalization: Yes Protective Factors Assessment 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 Chief Complaint "I feel nothing". Review of Systems Sleep Information Total Hours of Sleep: 6.5 Sleep Comments: reports she ususally works nightshift Meal Information Percent Meal Consumed - Breakfast: 100 Percent Meal Consumed - Lunch: 90 Percent Meal Consumed - Dinner: 50 Subjective Subjective Patient was seen & assessed and interval progress reviewed with treatment team nursing and social work. Anxious last evening after making call to get [facility] paperwork. Today reports she continues to have SI but it's "not as frequent but still there". Her mood is "ok" and she notes that she can't "feel anything". Discussed how the traumatic events of her job, hearing about the deaths of children, continues to haunt her thoughts and reviewed some of the trauma work she's been doing in therapy. Did sleep well last night, tired today but she thinks this is due to normally sleeping during the day since she works at night. Physical Exam Psychiatric Orientation: alert and oriented x 3 Apperance: appropriately dressed and appropriately groomed Eye Contact: good eye contact Motor Behavior: no abnormal motor movements Speech: normal rate/rhythm/volume of speech Affect: + depressed affect and + constricted affect Mood: + depressed mood and + anxious mood Thought Process: goal directed thought process Thought Content: reality based without delusions Suicidal Thoughts: denies suicidal plan (none for her in the hospital, using gun prior to coming to the hospital) and denies suicidal intent; + reports suicidal thoughts (intermittent) Homicidal Thoughts: denies homicidal thoughts Hallucinations: no auditory hallucinations and no visual hallucinations Cognition: recent memory grossly intact, remote memory grossly intact, attention grossly intact and language grossly intact Estimated Intelligence: consistent with education level Insight: + fair insight Judgement: + limited judgement Vital Signs (Past 24 Hours) Last Vital Signs Temp 36.9 C 08/28/22 06:38 Pulse 80 08/28/22 06:39 Resp 16 08/28/22 06:38 BP 105/74 08/28/22 06:39 Pulse Ox 97 08/25/22 15:28 O2 Del Method 08/25/22 15:28 Results & Data ([facility]) Current Inpatient Medications Current Inpatient Medications: Current Inpatient Medications Acetaminophen (Acetaminophen 325 Mg Tab) 650 mg PO Q4H PRN PRN Reason: Headache or Minor Fever Stop: 09/24/22 14:57 Al Hydrox/Mg Hydrox/Simethicone (Aluminum/Magnesium Susp 30 Ml Udc) 30 ml PO Q4H PRN PRN Reason: GI Upset Stop: 09/24/22 14:57 Albuterol (Albuterol 0.5% Neb Soln 2.5 Mg/0.5 Ml Vial) 2.5 mg NEB QID PRN; Protocol PRN Reason: Shortness Of Breath Stop: 09/25/22 12:59 Bismuth Subsalicylate (Bismuth Subsalicylate Liqd 236 Ml) 15 ml PO PRN PRN PRN Reason: Loose Stool Stop: 09/24/22 14:57 Budesonide (Budesonide 0.5 Mg/2 Ml Vial (Pulmicort)) 0.25 mg INH BID PRN PRN Reason: Shortness Of Breath Stop: 09/25/22 10:50 Hydroxyzine HCl (Hydroxyzine Hcl 25 Mg Tab) 50 mg PO HSZ PRN PRN Reason: Insomnia Stop: 09/24/22 14:57 Hydroxyzine HCl (Hydroxyzine Hcl 25 Mg Tab) 25 mg PO Q4H PRN PRN Reason: Anxiety Stop: 09/24/22 14:57 Bowen Carbonate (Bowen Carbonate Slow Rel 300 Mg Tab) 600 mg PO BID LORENA Stop: 09/24/22 20:59 Last Admin: 08/27/22 22:09 Dose: 600 mg Magnesium Hydroxide (Magnesium Hydroxide Susp 30 Ml Udc) 30 ml PO DAILY PRN PRN Reason: Constipation Stop: 09/24/22 14:57 Mirtazapine (Mirtazapine Tab 15 Mg Tab) 7.5 mg PO HS LORENA Stop: 09/25/22 21:59 Last Admin: 08/27/22 22:09 Dose: 7.5 mg Ondansetron HCl (Ondansetron 4 Mg Od Tab) 4 mg PO DAILY PRN PRN Reason: nausea and vomiting Stop: 09/25/22 10:50 Sodium Chloride (Sodium Chloride 0.65% Na Soln 45 Ml ([place])) 1 - 2 sprays NA PRN PRN PRN Reason: Nasal Dryness/Congestion Stop: 09/24/22 14:57 Mental Health & Subst Abuse Tx Therapist Name of Therapist: Ashley/baldomero name Date of Therapist Appointment: 08/29/22 .Net Architect Name of .Net Architect: None Post Discharge Appointments Primary Care Physician Name Of Family Doctor: Dede Gerard (1) Bipolar disorder Active/Remission status: remission status unspecified Qualified Code(s): F31.9 - Bipolar disorder, unspecified
[2022-08-28] MEDS: LITHIUM CARBONATE SLOW REL 300 MG TAB PO SCH ×2 (08:59→21:48)
[2022-08-28] MEDS: ALBUTEROL 0.5% NEB SOLN 2.5 MG/0.5 ML VIAL NEB PRN (15:31)
[2022-08-28] MEDS: MIRTAZAPINE TAB 15 MG TAB PO SCH (21:49)
[2022-08-29] MEDS: LITHIUM CARBONATE SLOW REL 300 MG TAB PO SCH ×2 (08:58→21:43)
[2022-08-29] MEDS: ALBUTEROL HFA 8 GM INHALER INH PRN ×2 (12:28→14:27)
--- NOTE | 2022-08-29 13:09 | Psychiatric Progress Note ---
Date of Service August 29, 2022 Impression / Recommendations Impression 27 year old with a history of BPAD, PTSD, depression, anxiety who was admitted for depression and SI with plan. Diagnostically consistent with BPAD current depressive episode with prominent symptoms of decreased sleep and appetite. The patient is deemed unstable and requires psychiatric hospitalization for diagnostic clarification, safety and stabilization, medication management and development of further coping skills. 08/29/22: Remains depressed with SI and increased pulmonary symptoms which have contributed to an increase in anxiety. Not interested in addition of SSRI for the time being. Sleep is stable. Remains unwilling to remove the guns from her home but able to make a safety plan regarding what to do with them if she became worried about using them in the future with her friend Cameron who agreed to secure them if requested in the future. Spent 20 minutes completing [facility] paperwork. (1) Bipolar disorder with severe depression: (2) Depression with suicidal ideation: (3) Pulmonary disorder: (4) Reactive airways dysfunction syndrome: (5) Bipolar disorder: (6) PTSD (post-traumatic stress disorder): (7) Anxiety disorder, unspecified: (8) TSH elevation: recommend repeat level in 6-8 weeks by PCP, current free T4 level is normal Plan 08/29/22: Continue current medications and tx plan. Singulair added to help with breathing. 08/28/22: Continue current medications and tx plan. Consider addition of SSRI if depression and PTSD symptoms remain challenging 08/27/22: Continue current medications and tx plan. 08/26/22: The patient was admitted to the [facility] ([facility] mental health unit) on q15 min checks (behavioral with suicide precautions) for safety. The patient will participate in group, recreational, and milieu therapies and will be offered additional individual and family sessions as clinically appropriate. -Continue Osterdock SR 600mg BID -Start mirtazapine 7.5mg qhs Inventory Assets Strengths: supportive relationships, willing to get treatment, trauma survivor Needs: safety and stabilization, medication adjustment, additional coping skills Suicide Risk Level Suicide Risk Level: High-Moderate (q15 min suicide checks) (High-Moderate due to severe depression with SI with plan prior to admission but feels safe in the hospital, able to safety contract and agrees to let nursing/staff know should they develop plan, intent or feel unable to remain safe.) Suicide Risk Level Comments: Risk Factors Assessment : Yes Do You Have Access To A Gun?: Yes (3 guns at home) Mental Health Diagnoses: Yes Previous Attempt: Yes Previous Psychiatric Hospitalization: Yes Protective Factors Assessment 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 Chief Complaint "That's challenging to answer" (when asked about her mood today). Review of Systems Sleep Information Total Hours of Sleep: 6.5 Sleep Comments: reports she ususally works nightshift Meal Information Percent Meal Consumed - Breakfast: 100 Percent Meal Consumed - Lunch: 95 Percent Meal Consumed - Dinner: 80 Subjective Subjective Patient was seen & assessed and interval progress reviewed with treatment team nursing and social work. Had more breathing issues yesterday which she attributes to painting that has needed to occur on the unit. Offered N95 mask to help with reducing exposure to fumes but she declined, felt this was ineffective and unfortunately we do not have any respirators which she felt would be the only thing that might help. Due to breathing issues she feels her mood is worse today but that her SI is "there but improving". Denies any medication side effects. Unsure about SSRI. Using Vistaril prn for anxiety and finds this helpful. Reviewed [facility] paperwork was received and she gives permission for me to complete this. Asks about starting montelukast as this has helped in the past when her breathing worsens. Physical Exam Psychiatric Orientation: alert and oriented x 3 Apperance: appropriately dressed and appropriately groomed Eye Contact: good eye contact Motor Behavior: no abnormal motor movements Speech: normal rate/rhythm/volume of speech Affect: + depressed affect, + anxious affect and + constricted affect; + mood not congruent with affect Mood: + depressed mood and + anxious mood Thought Process: goal directed thought process Thought Content: reality based without delusions Suicidal Thoughts: denies suicidal plan (none for her in the hospital, using gun prior to coming to the hospital) and denies suicidal intent; + reports suicidal thoughts (intermittent) Homicidal Thoughts: denies homicidal thoughts Hallucinations: no auditory hallucinations and no visual hallucinations Cognition: recent memory grossly intact, remote memory grossly intact, attention grossly intact and language grossly intact Estimated Intelligence: consistent with education level Insight: + fair insight Judgement: + limited judgement Vital Signs (Past 24 Hours) Last Vital Signs Temp 36.9 C 08/29/22 06:38 Pulse 81 08/29/22 06:39 Resp 16 08/29/22 06:38 BP 103/66 08/29/22 06:39 Pulse Ox 100 08/28/22 15:33 O2 Del Method 08/28/22 15:33 Results & Data ([facility]) Current Inpatient Medications Current Inpatient Medications: Current Inpatient Medications Acetaminophen (Acetaminophen 325 Mg Tab) 650 mg PO Q4H PRN PRN Reason: Headache or Minor Fever Stop: 09/24/22 14:57 Al Hydrox/Mg Hydrox/Simethicone (Aluminum/Magnesium Susp 30 Ml Udc) 30 ml PO Q4H PRN PRN Reason: GI Upset Stop: 09/24/22 14:57 Albuterol (Albuterol 0.5% Neb Soln 2.5 Mg/0.5 Ml Vial) 2.5 mg NEB QID PRN; Protocol PRN Reason: Shortness Of Breath Stop: 09/25/22 12:59 Last Admin: 08/28/22 15:31 Dose: 2.5 mg Albuterol (Albuterol Hfa 8 Gm Inhaler) 2 puffs INH Q2R PRN PRN Reason: Shortness Of Breath Or Wheezing Stop: 09/27/22 16:59 Last Admin: 08/29/22 12:28 Dose: 2 puffs Bismuth Subsalicylate (Bismuth Subsalicylate Liqd 236 Ml) 15 ml PO PRN PRN PRN Reason: Loose Stool Stop: 09/24/22 14:57 Budesonide (Budesonide 0.5 Mg/2 Ml Vial (Pulmicort)) 0.25 mg INH BID PRN PRN Reason: Shortness Of Breath Stop: 09/25/22 10:50 Hydroxyzine HCl (Hydroxyzine Hcl 25 Mg Tab) 50 mg PO HSZ PRN PRN Reason: Insomnia Stop: 09/24/22 14:57 Hydroxyzine HCl (Hydroxyzine Hcl 25 Mg Tab) 25 mg PO Q4H PRN PRN Reason: Anxiety Stop: 09/24/22 14:57 Last Admin: 08/28/22 15:26 Dose: 25 mg Osterdock Carbonate (Osterdock Carbonate Slow Rel 300 Mg Tab) 600 mg PO BID LORENA Stop: 09/24/22 20:59 Last Admin: 08/29/22 08:58 Dose: 600 mg Magnesium Hydroxide (Magnesium Hydroxide Susp 30 Ml Udc) 30 ml PO DAILY PRN PRN Reason: Constipation Stop: 09/24/22 14:57 Mirtazapine (Mirtazapine Tab 15 Mg Tab) 7.5 mg PO HS LORENA Stop: 09/25/22 21:59 Last Admin: 08/28/22 21:49 Dose: 7.5 mg Ondansetron HCl (Ondansetron 4 Mg Od Tab) 4 mg PO DAILY PRN PRN Reason: nausea and vomiting Stop: 09/25/22 10:50 Sodium Chloride (Sodium Chloride 0.65% Na Soln 45 Ml ([place])) 1 - 2 sprays NA PRN PRN PRN Reason: Nasal Dryness/Congestion Stop: 09/24/22 14:57 Mental Health & Subst Abuse Tx Psychiatrist Name of Psychiatrist: Iris Garcia Psychiatrist's Date of Appointment with Psychiatrist: 09/14/22 Time of Appointment with Psychiatrist: 11 AM Psychiatric Appointment Comment: [address] [place], [place] Therapist Name of Therapist: Juan M Maria Therapist's Date of Therapist Appointment: 09/05/22 Time of Therapist Appointment: 10am Therapy Appointment Comment: [address], [address], [place], [place] Floorperson Name of Floorperson: None Post Discharge Appointments Primary Care Physician Name Of Family Doctor: Dede PRYOR Provider Appointment Comment: Please follow-up with PCP as needed. Contact Information Discharge Discharge [address]: [address] [place] [id number] (1) Bipolar disorder Active/Remission status: remission status unspecified Qualified Code(s): F31.9 - Bipolar disorder, unspecified
[2022-08-29] MEDS: MIRTAZAPINE TAB 15 MG TAB PO SCH (21:43)
[2022-08-29] MEDS ORDERED: MONTELUKAST SODIUM 10 MG TABLET PO SCH (22:00)
[2022-08-30] MEDS: LITHIUM CARBONATE SLOW REL 300 MG TAB PO SCH ×2 (08:37→21:30)
[2022-08-30] MEDS: ALBUTEROL 0.5% NEB SOLN 2.5 MG/0.5 ML VIAL NEB PRN (09:27)
--- NOTE | 2022-08-30 16:15 | Psychiatric Progress Note ---
Date of Service August 30, 2022 Impression / Recommendations Impression 27 year old with a history of BPAD, PTSD, depression, anxiety who was admitted for depression and SI with plan. Diagnostically consistent with BPAD current depressive episode with prominent symptoms of decreased sleep and appetite. The patient is deemed unstable and requires psychiatric hospitalization for diagnostic clarification, safety and stabilization, medication management and development of further coping skills. 08/30/22: Remains depressed with SI and increased anxiety related to increased pulmonary symptoms. Not interested in addition of SSRI for the time being. (1) Bipolar disorder with severe depression: (2) Depression with suicidal ideation: (3) Pulmonary disorder: (4) Reactive airways dysfunction syndrome: (5) Bipolar disorder: (6) PTSD (post-traumatic stress disorder): (7) Anxiety disorder, unspecified: (8) TSH elevation: recommend repeat level in 6-8 weeks by PCP, current free T4 level is normal Plan 08/30/22: Continue current medications and treatment plan. 08/29/22: Continue current medications and tx plan. Singulair added to help with breathing. 08/28/22: Continue current medications and tx plan. Consider addition of SSRI if depression and PTSD symptoms remain challenging 08/27/22: Continue current medications and tx plan. 08/26/22: The patient was admitted to the [facility] ([facility] unit) on q15 min checks (behavioral with suicide precautions) for safety. The patient will participate in group, recreational, and milieu therapies and will be offered additional individual and family sessions as clinically appropriate. -Continue [place] SR 600mg BID -Start mirtazapine 7.5mg qhs Inventory Assets Strengths: supportive relationships, willing to get treatment, trauma survivor Needs: safety and stabilization, medication adjustment, additional coping skills Suicide Risk Level Suicide Risk Level: High-Moderate (q15 min suicide checks) (High-Moderate due to severe depression with SI with plan prior to admission and ongoing SI but no plan, feels safe in the hospital, able to safety contract and agrees to let nursing/staff know should they develop plan, intent or feel unable to remain safe.) Suicide Risk Level Comments: Risk Factors Assessment : Yes Do You Have Access To A Gun?: Yes (3 guns at home) Mental Health Diagnoses: Yes Previous Attempt: Yes Previous Psychiatric Hospitalization: Yes Protective Factors Assessment 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 Chief Complaint "I'm ok". 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 This morning felt very dizziness and like she couldn't breathe. Got nebulizer treatment was 100% on room air prior to this. States she feels embarrassed this happened and anxious about what may have caused it, wonders if it was a medication reaction to addition of montelukast last night, requests that this be moved to the morning as possibility it caused interaction with mirtazapine. Denies any other side effects from medication. Still with SI but lessening, feels these thoughts are more "at bay" today. Brighter in interactions with peers. Slept well. Remains overwhelmed by recent health issues involving pulmonary issues and worsened with COVID. Physical Exam Psychiatric Orientation: alert and oriented x 3 Apperance: appropriately dressed and appropriately groomed Eye Contact: good eye contact Motor Behavior: no abnormal motor movements Speech: normal rate/rhythm/volume of speech Affect: + depressed affect, + anxious affect and + constricted affect Mood: + depressed mood and + anxious mood Thought Process: goal directed thought process Thought Content: reality based without delusions Suicidal Thoughts: denies suicidal plan (none for in the hospital, using gun prior to coming to the hospital) and denies suicidal intent; + reports suicidal thoughts (intermittent) Homicidal Thoughts: denies homicidal thoughts Hallucinations: no auditory hallucinations and no visual hallucinations Cognition: recent memory grossly intact, remote memory grossly intact, attention grossly intact and language grossly intact Estimated Intelligence: consistent with education level Insight: + fair insight Judgement: + limited judgement Vital Signs (Past 24 Hours) Last Vital Signs Temp 36.9 C 08/30/22 06:00 Pulse 80 08/30/22 09:35 Resp 16 08/30/22 09:35 BP 118/82 08/30/22 06:45 Pulse Ox 98 08/30/22 09:35 O2 Del Method 08/30/22 09:35 Results & Data ([facility]) Current Inpatient Medications Current Inpatient Medications: Current Inpatient Medications Acetaminophen (Acetaminophen 325 Mg Tab) 650 mg PO Q4H PRN PRN Reason: Headache or Minor Fever Stop: 09/24/22 14:57 Al Hydrox/Mg Hydrox/Simethicone (Aluminum/Magnesium Susp 30 Ml Udc) 30 ml PO Q4H PRN PRN Reason: GI Upset Stop: 09/24/22 14:57 Albuterol (Albuterol 0.5% Neb Soln 2.5 Mg/0.5 Ml Vial) 2.5 mg NEB QID PRN; Protocol PRN Reason: Shortness Of Breath Stop: 09/25/22 12:59 Last Admin: 08/30/22 09:27 Dose: 2.5 mg Albuterol (Albuterol Hfa 8 Gm Inhaler) 2 puffs INH Q2R PRN PRN Reason: Shortness Of Breath Or Wheezing Stop: 09/27/22 16:59 Last Admin: 08/29/22 14:27 Dose: 2 puffs Bismuth Subsalicylate (Bismuth Subsalicylate Liqd 236 Ml) 15 ml PO PRN PRN PRN Reason: Loose Stool Stop: 09/24/22 14:57 Budesonide (Budesonide 0.5 Mg/2 Ml Vial (Pulmicort)) 0.25 mg INH BID PRN PRN Reason: Shortness Of Breath Stop: 09/25/22 10:50 Hydroxyzine HCl (Hydroxyzine Hcl 25 Mg Tab) 50 mg PO HSZ PRN PRN Reason: Insomnia Stop: 09/24/22 14:57 Hydroxyzine HCl (Hydroxyzine Hcl 25 Mg Tab) 25 mg PO Q4H PRN PRN Reason: Anxiety Stop: 09/24/22 14:57 Last Admin: 08/28/22 15:26 Dose: 25 mg [place] Carbonate ([place] Carbonate Slow Rel 300 Mg Tab) 600 mg PO BID LORENA Stop: 09/24/22 20:59 Last Admin: 08/30/22 08:37 Dose: 600 mg Magnesium Hydroxide (Magnesium Hydroxide Susp 30 Ml Udc) 30 ml PO DAILY PRN PRN Reason: Constipation Stop: 09/24/22 14:57 Mirtazapine (Mirtazapine Tab 15 Mg Tab) 7.5 mg PO HS LORENA Stop: 09/25/22 21:59 Last Admin: 08/29/22 21:43 Dose: 7.5 mg Montelukast Sodium (Montelukast Sodium 10 Mg Tablet) 10 mg PO QD@08 LORENA Stop: 09/30/22 07:59 Ondansetron HCl (Ondansetron 4 Mg Od Tab) 4 mg PO DAILY PRN PRN Reason: nausea and vomiting Stop: 09/25/22 10:50 Sodium Chloride (Sodium Chloride 0.65% Na Soln 45 Ml ([place])) 1 - 2 sprays NA PRN PRN PRN Reason: Nasal Dryness/Congestion Stop: 09/24/22 14:57 Mental Health & Subst Abuse Tx Psychiatrist Name of Psychiatrist: Iris Garcia Psychiatrist's Date of Appointment with Psychiatrist: 09/14/22 Time of Appointment with Psychiatrist: 11 AM Psychiatric Appointment Comment: [address] [place], [place] Therapist Name of Therapist: Juan M Maria Therapist's Date of Therapist Appointment: 09/05/22 Time of Therapist Appointment: 10am Therapy Appointment Comment: [address], [address], [place], [place] Sports Teacher Name of Sports Teacher: None Post Discharge Appointments Primary Care Physician Name Of Family Doctor: Dede PRYOR Provider Appointment Comment: Please follow-up with PCP as needed. Contact Information Discharge Discharge Address: [address] [place] [id number] (1) Bipolar disorder Active/Remission status: remission status unspecified Qualified Code(s): F31.9 - Bipolar disorder, unspecified
[2022-08-30] MEDS: MIRTAZAPINE TAB 15 MG TAB PO SCH (21:30)
--- NOTE | 2022-08-31 08:53 | Psychiatric Progress Note ---
Date of Service August 31, 2022 Impression / Recommendations Impression 27 year old with a history of BPAD, PTSD, depression, anxiety who was admitted for depression and SI with plan. Diagnostically consistent with BPAD current depressive episode with prominent symptoms of decreased sleep and appetite. The patient is deemed unstable and requires psychiatric hospitalization for diagnostic clarification, safety and stabilization, medication management and development of further coping skills. 08/31/22: Remains depressed with SI but mood with steady progress and less lightheadedness today. Ongoing discussions regarding safety planning and managing distress related to work. (1) Bipolar disorder with severe depression: (2) Depression with suicidal ideation: (3) Pulmonary disorder: (4) Reactive airways dysfunction syndrome: (5) Bipolar disorder: (6) PTSD (post-traumatic stress disorder): (7) Anxiety disorder, unspecified: (8) TSH elevation: recommend repeat level in 6-8 weeks by PCP, current free T4 level is normal Plan 08/31/22: Continue current medications and treatment plan. 08/30/22: Continue current medications and treatment plan. 08/29/22: Continue current medications and tx plan. Singulair added to help with breathing. 08/28/22: Continue current medications and tx plan. Consider addition of SSRI if depression and PTSD symptoms remain challenging 08/27/22: Continue current medications and tx plan. 08/26/22: The patient was admitted to the [facility] ([facility]) on q15 min checks (behavioral with suicide precautions) for safety. The patient will participate in group, recreational, and milieu therapies and will be offered additional individual and family sessions as clinically appropriate. -Continue [place] SR 600mg BID -Start mirtazapine 7.5mg qhs Inventory Assets Strengths: supportive relationships, willing to get treatment, trauma survivor Needs: safety and stabilization, medication adjustment, additional coping skills Suicide Risk Level Suicide Risk Level: Moderate (q15 min suicide checks) (severe depression with SI with plan prior to admission and ongoing SI but lessening and feels safe in the hospital, able to safety contract and agrees to let nursing/staff know should they develop plan, intent or feel unable to remain safe.) Suicide Risk Level Comments: Risk Factors Assessment : Yes Do You Have Access To A Gun?: Yes (3 guns at home) Mental Health Diagnoses: Yes Previous Attempt: Yes Previous Psychiatric Hospitalization: Yes Protective Factors Assessment 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 Chief Complaint "I'm ok". Review of Systems Sleep Information Total Hours of Sleep: 7.5 Sleep Comments: reports she ususally works nightshift Meal Information Percent Meal Consumed - Breakfast: 100 Percent Meal Consumed - Lunch: 90 Percent Meal Consumed - Dinner: 90 Subjective Subjective Patient was seen & assessed and interval progress reviewed with treatment team nursing and social work. Attending groups and affect improving around peers. Intermittent lightheadedness today but only with position change and not like yesterday. Wants to continue with mirtazapine. Still with SI but lessening. Physical Exam Psychiatric Orientation: alert and oriented x 3 Apperance: appropriately dressed and appropriately groomed Eye Contact: good eye contact Motor Behavior: no abnormal motor movements Speech: normal rate/rhythm/volume of speech Affect: + depressed affect, + anxious affect and + constricted affect Mood: + depressed mood and + anxious mood Thought Process: goal directed thought process Thought Content: reality based without delusions Suicidal Thoughts: denies suicidal plan and denies suicidal intent; + reports suicidal thoughts (intermittent) Homicidal Thoughts: denies homicidal thoughts Hallucinations: no auditory hallucinations and no visual hallucinations Cognition: recent memory grossly intact, remote memory grossly intact, attention grossly intact and language grossly intact Estimated Intelligence: consistent with education level Insight: + fair insight Judgement: + limited judgement Vital Signs (Past 24 Hours) Last Vital Signs Temp 36.4 C L 08/31/22 06:00 Pulse 84 08/31/22 06:36 Resp 16 08/31/22 06:00 BP 115/80 08/31/22 06:36 Pulse Ox 97 08/31/22 06:00 O2 Del Method 08/31/22 06:00 Results & Data ([facility]) Current Inpatient Medications Current Inpatient Medications: Current Inpatient Medications Acetaminophen (Acetaminophen 325 Mg Tab) 650 mg PO Q4H PRN PRN Reason: Headache or Minor Fever Stop: 09/24/22 14:57 Last Admin: 08/30/22 21:27 Dose: 650 mg Al Hydrox/Mg Hydrox/Simethicone (Aluminum/Magnesium Susp 30 Ml Udc) 30 ml PO Q4H PRN PRN Reason: GI Upset Stop: 09/24/22 14:57 Albuterol (Albuterol 0.5% Neb Soln 2.5 Mg/0.5 Ml Vial) 2.5 mg NEB QID PRN; Protocol PRN Reason: Shortness Of Breath Stop: 09/25/22 12:59 Last Admin: 08/30/22 09:27 Dose: 2.5 mg Albuterol (Albuterol Hfa 8 Gm Inhaler) 2 puffs INH Q2R PRN PRN Reason: Shortness Of Breath Or Wheezing Stop: 09/27/22 16:59 Last Admin: 08/29/22 14:27 Dose: 2 puffs Bismuth Subsalicylate (Bismuth Subsalicylate Liqd 236 Ml) 15 ml PO PRN PRN PRN Reason: Loose Stool Stop: 09/24/22 14:57 Budesonide (Budesonide 0.5 Mg/2 Ml Vial (Pulmicort)) 0.25 mg INH BID PRN PRN Reason: Shortness Of Breath Stop: 09/25/22 10:50 Hydroxyzine HCl (Hydroxyzine Hcl 25 Mg Tab) 50 mg PO HSZ PRN PRN Reason: Insomnia Stop: 09/24/22 14:57 Hydroxyzine HCl (Hydroxyzine Hcl 25 Mg Tab) 25 mg PO Q4H PRN PRN Reason: Anxiety Stop: 09/24/22 14:57 Last Admin: 08/28/22 15:26 Dose: 25 mg [place] Carbonate ([place] Carbonate Slow Rel 300 Mg Tab) 600 mg PO BID LORENA Stop: 09/24/22 20:59 Last Admin: 08/30/22 21:30 Dose: 600 mg Magnesium Hydroxide (Magnesium Hydroxide Susp 30 Ml Udc) 30 ml PO DAILY PRN PRN Reason: Constipation Stop: 09/24/22 14:57 Mirtazapine (Mirtazapine Tab 15 Mg Tab) 7.5 mg PO HS LORENA Stop: 09/25/22 21:59 Last Admin: 08/30/22 21:30 Dose: 7.5 mg Montelukast Sodium (Montelukast Sodium 10 Mg Tablet) 10 mg PO QD@08 LORENA Stop: 09/30/22 07:59 Ondansetron HCl (Ondansetron 4 Mg Od Tab) 4 mg PO DAILY PRN PRN Reason: nausea and vomiting Stop: 09/25/22 10:50 Sodium Chloride (Sodium Chloride 0.65% Na Soln 45 Ml ([place])) 1 - 2 sprays NA PRN PRN PRN Reason: Nasal Dryness/Congestion Stop: 09/24/22 14:57 Mental Health & Subst Abuse Tx Psychiatrist Name of Psychiatrist: Iris Garcia Psychiatrist's Date of Appointment with Psychiatrist: 09/14/22 Time of Appointment with Psychiatrist: 11 AM Psychiatric Appointment Comment: [address] [place], [place] Therapist Name of Therapist: Juan M Maria Therapist's Date of Therapist Appointment: 09/05/22 Time of Therapist Appointment: 10am Therapy Appointment Comment: [address], [address], [place], [place] Drop Forger Helper Name of Drop Forger Helper: None Post Discharge Appointments Primary Care Physician Name Of Family Doctor: Dede PRYOR Provider Appointment Comment: Please follow-up with PCP as needed. Contact Information Discharge Discharge Address: [address] [place] [id number] (1) Bipolar disorder Active/Remission status: remission status unspecified Qualified Code(s): F31.9 - Bipolar disorder, unspecified
[2022-08-31] MEDS: MONTELUKAST SODIUM 10 MG TABLET PO SCH (09:04)
[2022-08-31] MEDS: LITHIUM CARBONATE SLOW REL 300 MG TAB PO SCH ×2 (09:04→21:52)
[2022-08-31] MEDS: MIRTAZAPINE TAB 15 MG TAB PO SCH (21:52)
[2022-09-01] MEDS: LITHIUM CARBONATE SLOW REL 300 MG TAB PO SCH (08:43)
[2022-09-01] MEDS: MONTELUKAST SODIUM 10 MG TABLET PO SCH (08:43)
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
== END 2022-09-01 11:13 | disposition home or self-care (01) | DRG 885 ==
LOC: ED 10:49 → 3S 14:58

== ENCOUNTER 2023-03-28 12:31 | Inpatient (IN) ==
--- NOTE | 2023-03-28 13:00 | Emergency Department Note ---
Impression & Plan Suicidal ideation ED Provider Note NAME: STANLEY VUONG AGE: 27 SEX: F : 1995 ARRIVES VIA: Walk-In INFORMANT: [Patient] ED PROVIDER(S): [Slim Madrigal MD] CHIEF COMPLAINT: Mental health evaluation HISTORY OF PRESENT ILLNESS: The patient is a 27-year-old female with a diagnosis of reactive airways dysfunction syndrome. She states that this diagnosis has caused some stress at work. She is afraid to go to work because she has flareups when she is at work. She feels that her employer is not taking her condition seriously. The patient states that today, she thought about shooting herself with a gun. She has guns. She was supposed to go to work but was afraid to. She states that it was either shoot herself or come to the hospital for help. She chose to come to the hospital. There has been no increased cough. No fever. She is on a prednisone taper, she has 2 days left. The patient is voluntary, she has tried to harm herself in the past. She belie ves she requires inpatient psychiatric care. PMHx/PSHx: See Below SOCIAL HISTORY: See Below. PHYSICAL EXAM: GENERAL: Patient is in no acute distress. HEENT: No acute trauma, normocephalic atraumatic, mucous membranes moist, no nasal congestion. NECK: No stridor, no adenopathy, no meningismus, trachea is midline. LUNGS: Clear to auscultation bilaterally, no wheeze, no rhonchi, breath sounds equal. HEART: Without murmurs gallops or rubs, regular rate and rhythm. ABDOMEN: Soft, nontender, bowel sounds positive, no peritonitis. EXTREMITIES: No cyanosis or edema, full range of motion of all the joints without pain or difficulty, no signs for acute trauma. NEUROLOGIC: Oriented x 3, no acute motor or sensory deficits, no focal weakness. SKIN: No rash, no jaundice, no diaphoresis. Psychiatric: Cooperative, voluntary, admits to suicidal ideation with a plan. DIFFERENTIAL DIAGNOSIS: Psychosis, depression, anxiety, suicidality, electrolyte imbalance, infection, thyroid disorder, among others. EMERGENCY DEPARTMENT COURSE/PROCEDURES: Prior/Outside records reviewed: Previous ED note. MEDICAL DECISION MAKING: There is a mild leukocytosis, likely from her current steroid use. There is a normal hemoglobin. Platelet count somewhat elevated at 525. The patient is a history of a higher platelet count. No electrolyte abnormality in need of emergent correction. No renal failure. No concerning liver enzyme elevation. The patient appeared to be in a euthyroid state. testing returned negative. Urinalysis does not show infection. Aspirin, Tylenol and alcohol levels were undetectable. [place] level was therapeutic. Urine tox was negative. COVID testing is currently pending. The patient was felt medically clear. She was voluntary. She admitted to suicidal ideation. She had plan to harm herself with one of her guns. The patient was seen by psychiatry case management. A bed search was initiated. The patient is currently being reviewed by our psychiatric floor, 3 S. At this point, the patient's care is being assumed by Dr. Aiken at the change of shift. Her disposition is still pending. DISPOSITION: Currently still a patient in our ED. Past Med/Surg History Medical History Bipolar disorder Bipolar disorder with severe depression Chemical pneumonitis GERD (gastroesophageal reflux disease) PTSD (post-traumatic stress disorder) Reactive airways dysfunction syndrome Surgical History H/O wisdom tooth extraction Family History Other No significant family history Social History Smoking Status: Never smoker Preferred Language: Divehi Communication Ability: Effective Mix House Tender Required: No Beliefs That Will Affect Care: None marital status: relationship-boyfriend current occupational status: employed Feels Safe at Home: Yes Gender Identity: Female Assistive Devices: None Allergies Allergies Allergy/AdvReac Type Severity Reaction Status Date / Time nickel Allergy Severe swelling Verified 03/21/23 00:49 Influenza Virus Vaccines Allergy Intermediate Itchiness Verified 03/21/23 00:49 and hives latex Allergy Intermediate Itchiness Verified 03/21/23 00:49 AEROSOLS/VARIOUS CHEMICALS Allergy Severe INFLAMMED Uncoded 03/21/23 00:49 AIRWAYS Home Meds Home Medications Medication Instructions Recorded Confirmed mirtazapine 15 mg tablet 22.5 mg PO HS 01/17/23 03/28/23 montelukast 10 mg tablet 10 mg PO DAILY 01/17/23 03/28/23 (Singulair) budesonide 160 mcg-glycopyr 9 2 inh inhalation BID 03/21/23 03/28/23 mcg-formot 4.8 mcg/actuation HFA inhaler (Breztri Aerosphere) lithium carbonate 450 mg 900 mg PO BID 03/21/23 03/28/23 tablet,extended release tezepelumab-ekko 210 mg/1.91 mL 210 mg subcut MONTHLY 03/21/23 03/28/23 (110 mg/mL) subcutaneous pen injector (Tezspire) levothyroxine 75 mcg tablet 75 mcg PO DAILY 03/28/23 03/28/23 Previous Rx's Medication Instructions Recorded prednisone 20 mg tablet 20 mg PO DAILY #18 tabs 03/21/23 Results & Data (ED) Vital Signs Vital Signs - 24 hr 03/28/23 12:39 03/28/23 14:30 Temperature 37.1 C Temperature Source Temporal Artery Scan Pulse Rate 114 H Pulse Rate [Finger] 88 Respiratory Rate 16 14 Respiratory Effort / Characteristics Non-Labored Spontaneous Respiratory Depth Normal Blood Pressure 157/97 H Blood Pressure [Left Arm] 132/72 Blood Pressure Mean 117 Blood Pressure Mean [Left Arm] 92 Pulse Oximetry 100 99 Oxygen Delivery Method Room Air Room Air Sepsis Recent Fever Within 48 Hours No Sepsis New/Unexplained Change in Mental Status No Sepsis Action Taken by Nursing No Action Required Home Medications Current Medication List: was personally reviewed by me Laboratory Data Attestation: I reviewed the patient's lab results. 03/28/23 12:55 03/28/23 12:45 Lab Results 03/28/23 03/28/23 03/28/23 Range/Units 12:45 12:45 12:45 WBC (4.8-10.8) K/ul RBC (4.20-5.40) M/uL Hgb (12.0-16.0) g/dl Hct (37.0-47.0) % MCV (80.0-100.0) fL MCH (25.0-34.0) pg MCHC (32.0-36.0) g/dL RDW Std Deviation (36.4-46.3) fL RDW Coeff of Maryana (11.5-14.5) % Plt Count (130-400) K/uL MPV (9.4-12.4) fL Immature Gran % (Auto) % Neut % (Auto) % Lymph % (Auto) % Perkins % (Auto) % Eos % (Auto) % Baso % (Auto) % Neut # (Auto) (1.40-6.50) K/uL Lymph # (Auto) (1.2-3.4) K/uL Perkins # (Auto) (0.11-0.59) K/uL Eos # (Auto) (0-0.50) K/uL Baso # (Auto) (0-0.2) K/uL Immature Gran # (Auto) (0.01-0.20) K/uL Sodium 137 (136-145) mmol/L Potassium 3.8 (3.5-5.1) mmol/L Chloride 103 (98-107) mmol/L Carbon Dioxide 27 (21-32) mmol/L Anion Gap 7 (3-11) BUN 8 (6-23) mg/dl Creatinine 0.80 (0.6-1.2) mg/dl Est Cr Clr Drug Dosing 108.4 ml/min Est GFR ( Amer) 117.9 ml/min Est GFR (Non-Af Amer) 101.8 ml/min BUN/Creatinine Ratio 10.0 (10-20) Glucose 162 H (70-99(Fasting)) mg/dl Calcium 9.7 (8.6-10.3) mg/dl Total Bilirubin 0.6 (0.2-1.0) mg/dl AST 18 (13-39) U/L ALT 23 (7-52) U/L Alkaline Phosphatase 68 (34-104) U/L Total Protein 7.3 (6.0-8.3) gm/dl Albumin 4.6 (3.4-5.0) gm/dl Globulin 2.7 (2.5-4.0) gm/dl Albumin/Globulin Ratio 1.7 (0.9-2) TSH 1.508 (0.300-4.500) uIu/ml HCG, Qual (Negative) Urine Color Urine Appearance (Clear) Urine pH (4.5-7.5) Ur Specific [place] (1.000-1.030) Urine Protein (Negative) Urine Glucose (UA) (Negative) Urine Ketones (Negative) Urine Blood (Negative) Urine Nitrite (Negative) Urine Bilirubin (Negative) Urine Urobilinogen (Negative) Ur Leukocyte Esterase (Negative) Salicylates < 3.0 L (3.0-30) mg/dl Urine Opiates Screen (Neg) Ur Methadone, Qual (Neg) Acetaminophen < 3 L (10-30) ug/ml Urine Barbiturates (Neg) Ur Phencyclidine (PCP) (Neg) U Amphetamin/Meth Scrn (Neg) MDMA (Ecstasy) Screen (Neg) U Benzodiazepines Scrn (Neg) [place] 1.1 (0.6-1.2) mmol/L Ur Cocaine Metabolite (Neg) U Marijuana (THC) Screen (Neg) Ethyl Alcohol mg/dL (<10.0) mg/dl 03/28/23 03/28/23 03/28/23 Range/Units 12:45 12:55 12:55 WBC 13.23 H (4.8-10.8) K/ul RBC 5.25 (4.20-5.40) M/uL Hgb 15.2 (12.0-16.0) g/dl Hct 47.0 (37.0-47.0) % MCV 89.5 (80.0-100.0) fL MCH 29.0 (25.0-34.0) pg MCHC 32.3 (32.0-36.0) g/dL RDW Std Deviation 42.8 (36.4-46.3) fL RDW Coeff of Maryana 13.1 (11.5-14.5) % Plt Count 525 H (130-400) K/uL MPV 9.1 L (9.4-12.4) fL Immature Gran % (Auto) 2.0 % Neut % (Auto) 57.1 % Lymph % (Auto) 30.4 % Perkins % (Auto) 8.0 % Eos % (Auto) 2.0 % Baso % (Auto) 0.5 % Neut # (Auto) 7.56 H (1.40-6.50) K/uL Lymph # (Auto) 4.02 H (1.2-3.4) K/uL Perkins # (Auto) 1.06 H (0.11-0.59) K/uL Eos # (Auto) 0.26 (0-0.50) K/uL Baso # (Auto) 0.06 (0-0.2) K/uL Immature Gran # (Auto) 0.27 H (0.01-0.20) K/uL Sodium (136-145) mmol/L Potassium (3.5-5.1) mmol/L Chloride (98-107) mmol/L Carbon Dioxide (21-32) mmol/L Anion Gap (3-11) BUN (6-23) mg/dl Creatinine (0.6-1.2) mg/dl Est Cr Clr Drug Dosing ml/min Est GFR ( Amer) ml/min Est GFR (Non-Af Amer) ml/min BUN/Creatinine Ratio (10-20) Glucose (70-99(Fasting)) mg/dl Calcium (8.6-10.3) mg/dl Total Bilirubin (0.2-1.0) mg/dl AST (13-39) U/L ALT (7-52) U/L Alkaline Phosphatase (34-104) U/L Total Protein (6.0-8.3) gm/dl Albumin (3.4-5.0) gm/dl Globulin (2.5-4.0) gm/dl Albumin/Globulin Ratio (0.9-2) TSH (0.300-4.500) uIu/ml HCG, Qual Negative (Negative) Urine Color Urine Appearance (Clear) Urine pH (4.5-7.5) Ur Specific [place] (1.000-1.030) Urine Protein (Negative) Urine Glucose (UA) (Negative) Urine Ketones (Negative) Urine Blood (Negative) Urine Nitrite (Negative) Urine Bilirubin (Negative) Urine Urobilinogen (Negative) Ur Leukocyte Esterase (Negative) Salicylates (3.0-30) mg/dl Urine Opiates Screen (Neg) Ur Methadone, Qual (Neg) Acetaminophen (10-30) ug/ml Urine Barbiturates (Neg) Ur Phencyclidine (PCP) (Neg) U Amphetamin/Meth Scrn (Neg) MDMA (Ecstasy) Screen (Neg) U Benzodiazepines Scrn (Neg) [place] (0.6-1.2) mmol/L Ur Cocaine Metabolite (Neg) U Marijuana (THC) Screen (Neg) Ethyl Alcohol mg/dL < 10.0 (<10.0) mg/dl 03/28/23 03/28/23 Range/Units 13:00 13:00 WBC (4.8-10.8) K/ul RBC (4.20-5.40) M/uL Hgb (12.0-16.0) g/dl Hct (37.0-47.0) % MCV (80.0-100.0) fL MCH (25.0-34.0) pg MCHC (32.0-36.0) g/dL RDW Std Deviation (36.4-46.3) fL RDW Coeff of Maryana (11.5-14.5) % Plt Count (130-400) K/uL MPV (9.4-12.4) fL Immature Gran % (Auto) % Neut % (Auto) % Lymph % (Auto) % Perkins % (Auto) % Eos % (Auto) % Baso % (Auto) % Neut # (Auto) (1.40-6.50) K/uL Lymph # (Auto) (1.2-3.4) K/uL Perkins # (Auto) (0.11-0.59) K/uL Eos # (Auto) (0-0.50) K/uL Baso # (Auto) (0-0.2) K/uL Immature Gran # (Auto) (0.01-0.20) K/uL Sodium (136-145) mmol/L Potassium (3.5-5.1) mmol/L Chloride (98-107) mmol/L Carbon Dioxide (21-32) mmol/L Anion Gap (3-11) BUN (6-23) mg/dl Creatinine (0.6-1.2) mg/dl Est Cr Clr Drug Dosing ml/min Est GFR ( Amer) ml/min Est GFR (Non-Af Amer) ml/min BUN/Creatinine Ratio (10-20) Glucose (70-99(Fasting)) mg/dl Calcium (8.6-10.3) mg/dl Total Bilirubin (0.2-1.0) mg/dl AST (13-39) U/L ALT (7-52) U/L Alkaline Phosphatase (34-104) U/L Total Protein (6.0-8.3) gm/dl Albumin (3.4-5.0) gm/dl Globulin (2.5-4.0) gm/dl Albumin/Globulin Ratio (0.9-2) TSH (0.300-4.500) uIu/ml HCG, Qual (Negative) Urine Color Yellow Urine Appearance Clear (Clear) Urine pH 8.5 H (4.5-7.5) Ur Specific [place] 1.007 (1.000-1.030) Urine Protein Negative (Negative) Urine Glucose (UA) Negative (Negative) Urine Ketones Negative (Negative) Urine Blood Negative (Negative) Urine Nitrite Negative (Negative) Urine Bilirubin Negative (Negative) Urine Urobilinogen Negative (Negative) Ur Leukocyte Esterase Negative (Negative) Salicylates (3.0-30) mg/dl Urine Opiates Screen Neg (Neg) Ur Methadone, Qual Neg (Neg) Acetaminophen (10-30) ug/ml Urine Barbiturates Neg (Neg) Ur Phencyclidine (PCP) Neg (Neg) U Amphetamin/Meth Scrn Neg (Neg) MDMA (Ecstasy) Screen Neg (Neg) U Benzodiazepines Scrn Neg (Neg) [place] (0.6-1.2) mmol/L Ur Cocaine Metabolite Neg (Neg) U Marijuana (THC) Screen Neg (Neg) Ethyl Alcohol mg/dL (<10.0) mg/dl Discharge Plan Visit Data Chief Complaint: Mental Health Evaluation Stated Complaint: MENTAL HEALTH EVALUATION ED Provider: Slim Madrigal Discharge Problem: Suicidal ideation Patient Disposition: Still a Patient Condition: Good Forms Stand Alone Forms: My [facility], Suicide Prevention Resources Prescriptions Prescriptions: No Action mirtazapine 15 mg tablet 22.5 mg PO HS montelukast [Singulair] 10 mg tablet 10 mg PO DAILY lithium carbonate 450 mg tablet extended release 900 mg PO BID Breztri Aerosphere 160-9-4.8 mcg/actuation Hfa Aerosol Inhaler 2 inh INHALATION BID Tezspire 210 mg/1.91 mL (110 mg/mL) Pen Injector 210 mg SUBCUT MONTHLY prednisone 20 mg tablet 20 mg PO DAILY Qty: 18 0RF Rx Instructions: Take 3 tabs daily x3 days, take 2 tabs daily x3 days, take 1 tab daily x3 days, then stop. levothyroxine 75 mcg tablet 75 mcg PO DAILY Referrals Referrals: Dede Long CRNP [Primary Care Provider] -
[2023-03-28 13:36] LABS: Basophils # (auto) 0.06 K/uL (0-0.2); Basophils % (auto) 0.5 %; Eosinophils # (auto) 0.26 K/uL (0-0.50); Hemoglobin 15.2 g/dl (12.0-16.0); Immature Granulocytes # (auto) 0.27 K/uL (0.01-0.20); Lymphocytes # (auto) 4.02 K/uL (1.2-3.4); Lymphocytes % (auto) 30.4 %; Mean Corpuscular Hgb Conc 32.3 g/dL (32.0-36.0); Mean Corpuscular Volume 89.5 fL (80.0-100.0); Mean Platelet Volume 9.1 fL (9.4-12.4); Monocytes # (auto) 1.06 K/uL (0.11-0.59); Neutrophils # (auto) 7.56 K/uL (1.40-6.50); Neutrophils % (auto) 57.1 %; Platelet Count 525 K/uL (130-400); RDW Coefficient of Variation 13.1 % (11.5-14.5); RDW Standard Deviation 42.8 fL (36.4-46.3); Red Blood Count 5.25 M/uL (4.20-5.40); White Blood Count 13.23 K/ul (4.8-10.8)
[2023-03-28 13:49] LABS: Appearance Urine Clear (Clear); Bilirubin Urine Negative (Negative); Blood Urine Negative (Negative); Color Urine Yellow; Glucose Urine UA Negative (Negative); Ketones Urine Negative (Negative); Leukocyte Esterase Urine Negative (Negative); Nitrite Urine Negative (Negative); Protein Urine Negative (Negative); Specific Gravity Urine 1.007 (1.000-1.030); Urobilinogen Urine Negative (Negative); pH Urine 8.5 (4.5-7.5)
[2023-03-28 13:52] LABS: Albumin Globulin Ratio 1.7 (0.9-2); Albumin Level 4.6 gm/dl (3.4-5.0); Bilirubin,Total 0.6 mg/dl (0.2-1.0); Calcium 9.7 mg/dl (8.6-10.3); Creatinine Clr Calc Pharmacy 108.4 ml/min; Est GFR (African American) 117.9 ml/min; Est GFR (Non-African American) 101.8 ml/min; Globulin 2.7 gm/dl (2.5-4.0); Potassium 3.8 mmol/L (3.5-5.1); Total Protein 7.3 gm/dl (6.0-8.3)
[2023-03-28 14:00] LABS: Pregnancy Test, Serum Negative (Negative)
[2023-03-28 14:15] LABS: Lithium 1.1 mmol/L (0.6-1.2)
[2023-03-28 14:20] LABS: Acetaminophen < 3 ug/ml (10-30); Salicylate < 3.0 mg/dl (3.0-30)
[2023-03-28 14:35] LABS: Amphetamines+Metham, Urine Neg (Neg); Barbiturates, Urine Neg (Neg); Benzodiazepine, Urine Neg (Neg); Cocaine, Urine Neg (Neg); MDMA (Ecstacy), Urine Neg (Neg); Methadone, Urine Neg (Neg); Opiate, Urine Neg (Neg); Phencyclidine, Urine Neg (Neg)
--- NOTE | 2023-03-28 16:55 | Emergency Department Note ---
ED Visit Note I received this patient at change of shift signout from Dr. Madrigal. Please see his note for initial history physical exam. The patient is a 27-year-old female who presented to the emergency department for mental health evaluation. She was medically cleared previously. She was evaluated by the mental health embedded case manager. She was felt to be a good candidate for inpatient management. The patient was agreeable to this. Ultimately she was accepted for inpatient management on 3 S. I did sign the 201 paperwork. .
[2023-03-28] MEDS ORDERED: ALUMINUM/MAGNESIUM SUSP 30 ML UDC PO PRN ×2 (17:07→17:35)
[2023-03-28] MEDS ORDERED: SODIUM CHLORIDE 0.65% NA SOLN 45 ML (OCEAN) PRN ×2 (17:07→17:35)
[2023-03-28] MEDS ORDERED: ACETAMINOPHEN 325 MG TAB PO PRN ×2 (17:07→17:35)
[2023-03-28] MEDS ORDERED: hydrOXYzine HCl 25 MG TAB PO PRN ×4 (17:07→17:35)
[2023-03-28] MEDS ORDERED: BISMUTH SUBSALICYLATE LIQD 236 ML PO PRN ×2 (17:07→17:35)
[2023-03-28] MEDS ORDERED: MAGNESIUM HYDROXIDE SUSP 30 ML UDC PO PRN ×2 (17:07→17:35)
[2023-03-28] MEDS ORDERED: BUDESONIDE/FORMOTEROL FUMARATE 160/4.5 60 PUFFS/INHALER INH SCH ×2 (21:00)
[2023-03-28] MEDS ORDERED: LITHIUM CARBONATE SLOW REL 300 MG TAB PO SCH (21:00)
[2023-03-28] MEDS ORDERED: MIRTAZAPINE TAB 15 MG TAB PO SCH ×2 (21:00→22:00)
[2023-03-28] MEDS ORDERED: MONTELUKAST SODIUM 10 MG TABLET PO SCH (21:00)
[2023-03-28] MEDS: FLUTICASONE/VILANTEROL 200/25MCG 14 PUFFS/INHALER INH SCH ×2 (22:14→22:27)
[2023-03-28] MEDS: LITHIUM CARBONATE 450 MG TABCR PO SCH (22:15)
[2023-03-28] MEDS: MONTELUKAST SODIUM 10 MG TABLET PO SCH (22:16)
[2023-03-28] MEDS ORDERED: NON-FORMULARY PATIENT'S OWN MED STA (23:10)
[2023-03-28] MEDS ORDERED: FORMOTEROL STA (23:16)
[2023-03-28] MEDS ORDERED: BUDESONIDE STA (23:16)
[2023-03-29] MEDS ORDERED: LEVOTHYROXINE SODIUM 75 MCG TABLET PO SCH (06:30)
[2023-03-29] MEDS: LEVOTHYROXINE SODIUM 75 MCG TABLET PO SCH (08:08)
[2023-03-29] MEDS: LITHIUM CARBONATE 450 MG TABCR PO SCH ×2 (08:37→21:41)
[2023-03-29] MEDS: FORMOTEROL SCH ×2 (08:38→21:41)
[2023-03-29] MEDS: BUDESONIDE SCH ×2 (08:38→21:41)
[2023-03-29] MEDS ORDERED: NON-FORMULARY PATIENT'S OWN MED SCH ×2 (09:00)
[2023-03-29] MEDS: predniSONE 20 MG TAB PO SCH (09:57)
--- NOTE | 2023-03-29 10:58 | History & Physical ---
Date of Service March 29, 2023 Impression / Recommendations Impression Stanley is a 27 year old woman with a history of PTSD, BPAD, anxiety and reactive airway dysfunction syndrome who was admitted for SI with plan to shoot herself using her guns due to ongoing respiratory issues and conflictual work environment. Diagnostically consistent with BPAD current depressive episode, may also be some cluster B components including possible histrionic traits as well as likely depression and anxiety induced by ongoing breathing issues and possible contribution from current steroid use. She is deemed in need of psychiatric hospitalization for diagnostic clarification, safety and stabiliza tion, medication management and development of further coping skills. Discussed medication treatment options in detail. Discussed risks, benefits and alternatives. Patient would like to continue B[place]ing for bipolar disorder and consented to increasing mirtazapine for bipolar depression and anxiety. Reviewed side effects including but not limited to: sedation, increased appetite with mirtazapine; as well as reviewed thyroid function, kidney function, electrolytes, CBC, and UA in the ED and [place] level of 1.1 and reviewed side effects including but not limited to: educated on risks of dehydration, renal, thyroid, cardiac, drug interactions (NSAIDs, ACEIs, angiotensin receptor antagonists, risks) with lithium. (1) Suicidal ideation: (2) Depression with suicidal ideation: (3) Bipolar disorder: Active/Remission status: remission status unspecified Qualified Code(s): F31.9 - Bipolar disorder, unspecified (4) Anxiety disorder, unspecified: (5) PTSD (post-traumatic stress disorder): (6) Cluster B personality disorder in adult: (7) Reactive airways dysfunction syndrome: Plan 03/29/2023: The patient was admitted to the [facility] ([facility]) on q15 min checks (behavioral with suicide precautions) for safety. The patient will participate in group, recreational, and milieu therapies and will be offered additional individual and family sessions as clinically appropriate. -Increase mirtazapine to 30mg HS -Continue [place] 900mg BID -Continue prednisone course, two more days of 20mg qd -Continue prior to admission medications for breathing symptoms including inhalers, singulair as well as synthroid Inventory Assets Strengths: supportive relationships, willing to get treatment Needs: safety and stabilization, medication adjustment, additional coping skills, increased outpatient services Suicide Risk Level Suicide Risk Level: High-Moderate (q15 min suicide checks) (severe depression with SI with plan prior to admission but feels safe in the hospital, able to safety contract and agrees to let nursing/staff know should they develop plan, intent or feel unable to remain safe. ) Risk Factors Assessment Male: No : Yes Do You Have Access To A Gun?: Yes (3 at home) Health Problems: Yes Mental Health Diagnoses: Yes Substance Use Disorders: No Previous Attempt: Yes Previous Psychiatric Hospitalization: Yes Protective Factors Assessment Employed: Yes ([employer], [employer]; but currently on medical leave) Stable Relationships: Yes Supportive Family: Yes Good Rapport with Provider: Yes Psychiatric History Identifying Data STANLEY VUONG is a 27-year-old woman who currently lives in [place] alone, has a history of BPAD, PTSD and reactive airway dysfunction syndrome, and was admitted on 03/28/23 16:23 on a 201 voluntary commitment for SI with plan and access to guns. Chief Complaint "It's been a bazzi". History of Present Illness Stanley presented to the ED for worsening mood symptoms which she attributes to significant stress at work due to ongoing breathing issues and feeling that coworkers do not take her respiratory triggers seriously. Her coworkers continue to use aerosols, perfumes and other respiratory triggering agents around her while at work. Yesterday she felt as though if she didn't seek inpatient psychiatric treatment she would shoot herself with a gun so she sought help. Notes that her breathing issues have been very severe including in December turning blue but states her boss and coworkers have sat by while this occurs and "do nothing to help". She notes when telling people about these reactions no one helps or steps in to intervene. She's been on medical leave due to exhausting FMLA. She does not feel that stress at work sets off the breathing issues but rather is always caused by things in the air. She feels that at work "I'm ignored and dehumanized". States some of the suicidality is driven by her feeling that no one at work cares even when she's struggling to breath and then "if I'm going to from breathing attack I'd rather on my own terms". Her mood has been "at the bottom of the dumpster fire" with increased tearfulne ss, social isolation, hopelessness, decreased appetite, decreased sleep (due to breathing difficulties), and SI. She also reports high levels of anxiety including having a panic attack before making it in the building. She denies any recent episodes of catrina. Past Psychiatric History Current Psychiatric Diagnosis: Bipolar Disorder, PTSD, anxiety Outpatient Services: Lesley Lema at [facility], therapist at [place] [facility] Previous Psych Admissions: [facility] in August 2022 [facility] 3 times in 2018 [facility] 2015 Do You Have Access To A Gun?: Yes (3 at home) History of Previous Suicide Attempt: Yes Describe Attempts in the Past: Yes (~5 times before age 19, after 19 about 4-5 times last via OD 2019 Past Medication Trials: hx of abilify ("awful"), lorazepam, buspar, risperdal, hydroxyzine, lamictal (caused horrible GI side effects). Past Head Trauma/Neuro History History of Concussion/Seizure: No Allergies Allergy/AdvReac Type Severity Reaction Status Date / Time nickel Allergy Severe swelling Verified 03/29/23 11:06 Influenza Virus Vaccines Allergy Intermediate Itchiness Verified 03/29/23 11:06 and hives latex Allergy Intermediate Itchiness Verified 03/29/23 11:06 AEROSOLS/VARIOUS CHEMICALS Allergy Severe INFLAMMED Uncoded 03/29/23 11:06 AIRWAYS Home Medications Medication Instructions Recorded Confirmed Type mirtazapine 15 mg tablet 22.5 mg PO HS 01/17/23 03/28/23 History montelukast 10 mg tablet 10 mg PO DAILY 01/17/23 03/28/23 History (Singulair) budesonide 160 mcg-glycopyr 9 2 inh inhalation BID 03/21/23 03/28/23 History mcg-formot 4.8 mcg/actuation HFA inhaler (Breztri Aerosphere) lithium carbonate 450 mg 900 mg PO BID 03/21/23 03/28/23 History tablet,extended release prednisone 20 mg tablet 20 mg PO DAILY #18 tabs 03/21/23 03/28/23 Rx tezepelumab-ekko 210 mg/1.91 mL 210 mg subcut MONTHLY 03/21/23 03/28/23 History (110 mg/mL) subcutaneous pen injector (Tezspire) levothyroxine 75 mcg tablet 75 mcg PO DAILY 03/28/23 03/28/23 History Family History Family History of: Doesn't Know Alcohol History Hx of Alcohol Use Over the Past 12 Months: No AUDIT Total Score: 0 Has been sober since 2019. Smoking Use Smoking Status: Never smoker Substance History Hx of Prescription Med Misuse Over the Past 12 Months: No Hx of Over the Counter Med Misuse Over the Past 12 Months: No Hx of Inhalent Misuse Over the Past 12 Months: No Hx of Organic Substance Use Over the Past 12 Months: No Hx of Illegal Substances/Street Drug Use Over Past 12 Months: No Personal History Living Arrangements: Apartment Childhood: Adopted by a lesbian couple who were then . She remains in some contact with one of her adoptive mothers who lives in [place]. Her other mother lives in [place] and she doesn't have contact with her. Has two biological brothers, in contact with one who lives in [place]. One of her biggest supports is her close friend Cameron and his family who she notes is like her second adoptive family. 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 been able to work recently due to respiratory symptoms) Marital Status: Single Number Of Children: n/a Beliefs That Will Affect Care: None Hx Legal Problems: No Hx Traumatic Life Events: Yes Patient History Medical History Bipolar disorder Bipolar disorder with severe depression Chemical pneumonitis GERD (gastroesophageal reflux disease) PTSD (post-traumatic stress disorder) Reactive airways dysfunction syndrome Surgical History H/O wisdom tooth extraction Family History Other No significant family history Social History Smoking Status: Never smoker Preferred Language: Arabic Communication Ability: Effective Psych Coordinator Required: No Beliefs That Will Affect Care: None marital status: relationship-boyfriend current occupational status: employed Feels Safe at Home: Yes Gender Identity: Female Assistive Devices: None Review of Systems Review of Systems: All systems reviewed & are unremarkable except as noted in HPI & below ("my airways still hate") Physical Exam Psychiatric: Orientation: alert and oriented x 3 Apperance: appropriately dressed and appropriately groomed Eye Contact: good eye contact Motor Behavior: no abnormal motor movements Speech: normal rate/rhythm/volume of speech Affect: + depressed affect and + anxious affect Mood: + depressed mood and + anxious mood Thought Process: goal directed thought process Thought Content: reality based without delusions Suicidal Thoughts: denies suicidal plan (feels safe here in the hospital, not at home) and denies suicidal intent; + reports suicidal thoughts Homicidal Thoughts: denies homicidal thoughts Hallucinations: no auditory hallucinations and no visual hallucinations Cognition: recent memory grossly intact, remote memory grossly intact, attention grossly intact and language grossly intact Estimated Intelligence: consistent with education level Insight: + limited insight Judgment: + limited judgement Vital Signs (Past 24 Hours): Last Vital Signs Temp 37.1 C 03/29/23 06:47 Pulse 72 03/29/23 06:48 Resp 18 03/29/23 06:47 BP 122/85 03/29/23 06:48 Pulse Ox 97 03/28/23 17:43 O2 Del Method Room Air 03/28/23 17:43 Exam Statement: A physical exam was performed in the ED by Dr. Madrigal for the purposes of medical clearance. I accept that physical as correct and adequate for the purposes of the inpatient physical exam. Results & Data ([facility]) Laboratory Results Laboratory Results - last 24 hr 03/28/23 03/28/23 03/28/23 12:45 12:45 12:45 WBC RBC Hgb Hct MCV MCH MCHC RDW Std Deviation RDW Coeff of Maryana Plt Count MPV Immature Gran % (Auto) Neut % (Auto) Lymph % (Auto) [place] % (Auto) Eos % (Auto) Baso % (Auto) Neut # (Auto) Lymph # (Auto) [place] # (Auto) Eos # (Auto) Baso # (Auto) Immature Gran # (Auto) Sodium 137 Potassium 3.8 Chloride 103 Carbon Dioxide 27 Anion Gap 7 BUN 8 Creatinine 0.80 Est Cr Clr Drug Dosing 108.4 Est GFR ( Amer) 117.9 Est GFR (Non-Af Amer) 101.8 BUN/Creatinine Ratio 10.0 Glucose 162 H Calcium 9.7 Total Bilirubin 0.6 AST 18 ALT 23 Alkaline Phosphatase 68 Total Protein 7.3 Albumin 4.6 Globulin 2.7 Albumin/Globulin Ratio 1.7 TSH 1.508 HCG, Qual Urine Color Urine Appearance Urine pH Ur Specific [place] Urine Protein Urine Glucose (UA) Urine Ketones Urine Blood Urine Nitrite Urine Bilirubin Urine Urobilinogen Ur Leukocyte Esterase Salicylates < 3.0 L Urine Opiates Screen Ur Methadone, Qual Acetaminophen < 3 L Urine Barbiturates Ur Phencyclidine (PCP) U Amphetamin/Meth Scrn MDMA (Ecstasy) Screen U Benzodiazepines Scrn [place] 1.1 Ur Cocaine Metabolite U Marijuana (THC) Screen Ethyl Alcohol mg/dL SARS-CoV-2, RNA, NAAT 03/28/23 03/28/23 03/28/23 12:45 12:45 12:55 WBC 13.23 H RBC 5.25 Hgb 15.2 Hct 47.0 MCV 89.5 MCH 29.0 MCHC 32.3 RDW Std Deviation 42.8 RDW Coeff of Maryana 13.1 Plt Count 525 H MPV 9.1 L Immature Gran % (Auto) 2.0 Neut % (Auto) 57.1 Lymph % (Auto) 30.4 [place] % (Auto) 8.0 Eos % (Auto) 2.0 Baso % (Auto) 0.5 Neut # (Auto) 7.56 H Lymph # (Auto) 4.02 H [place] # (Auto) 1.06 H Eos # (Auto) 0.26 Baso # (Auto) 0.06 Immature Gran # (Auto) 0.27 H Sodium Potassium Chloride Carbon Dioxide Anion Gap BUN Creatinine Est Cr Clr Drug Dosing Est GFR ( Amer) Est GFR (Non-Af Amer) BUN/Creatinine Ratio Glucose Calcium Total Bilirubin AST ALT Alkaline Phosphatase Total Protein Albumin Globulin Albumin/Globulin Ratio TSH HCG, Qual Negative Urine Color Urine Appearance Urine pH Ur Specific [place] Urine Protein Urine Glucose (UA) Urine Ketones Urine Blood Urine Nitrite Urine Bilirubin Urine Urobilinogen Ur Leukocyte Esterase Salicylates Urine Opiates Screen Ur Methadone, Qual Acetaminophen Urine Barbiturates Ur Phencyclidine (PCP) U Amphetamin/Meth Scrn MDMA (Ecstasy) Screen U Benzodiazepines Scrn [place] Ur Cocaine Metabolite U Marijuana (THC) Screen Ethyl Alcohol mg/dL SARS-CoV-2, RNA, NAAT NEGATIVE 03/28/23 03/28/23 03/28/23 12:55 13:00 13:00 WBC RBC Hgb Hct MCV MCH MCHC RDW Std Deviation RDW Coeff of Maryana Plt Count MPV Immature Gran % (Auto) Neut % (Auto) Lymph % (Auto) [place] % (Auto) Eos % (Auto) Baso % (Auto) Neut # (Auto) Lymph # (Auto) [place] # (Auto) Eos # (Auto) Baso # (Auto) Immature Gran # (Auto) Sodium Potassium Chloride Carbon Dioxide Anion Gap BUN Creatinine Est Cr Clr Drug Dosing Est GFR ( Amer) Est GFR (Non-Af Amer) BUN/Creatinine Ratio Glucose Calcium Total Bilirubin AST ALT Alkaline Phosphatase Total Protein Albumin Globulin Albumin/Globulin Ratio TSH HCG, Qual Urine Color Yellow Urine Appearance Clear Urine pH 8.5 H Ur Specific [place] 1.007 Urine Protein Negative Urine Glucose (UA) Negative Urine Ketones Negative Urine Blood Negative Urine Nitrite Negative Urine Bilirubin Negative Urine Urobilinogen Negative Ur Leukocyte Esterase Negative Salicylates Urine Opiates Screen Neg Ur Methadone, Qual Neg Acetaminophen Urine Barbiturates Neg Ur Phencyclidine (PCP) Neg U Amphetamin/Meth Scrn Neg MDMA (Ecstasy) Screen Neg U Benzodiazepines Scrn Neg [place]ing Ur Cocaine Metabolite Neg U Marijuana (THC) Screen Neg Ethyl Alcohol mg/dL < 10.0 SARS-CoV-2, RNA, NAAT Current Inpatient Medications Current Inpatient Medications: Current Inpatient Medications Acetaminophen (Acetaminophen 325 Mg Tab) 650 mg PO Q4H PRN PRN Reason: Headache or Minor Fever Stop: 04/27/23 17:34 Al Hydrox/Mg Hydrox/Simethicone (Aluminum/Magnesium Susp 30 Ml Udc) 30 ml PO Q4H PRN PRN Reason: GI Upset Stop: 04/27/23 17:34 Bismuth Subsalicylate (Bismuth Subsalicylate Liqd 236 Ml) 15 ml PO PRN PRN PRN Reason: Loose Stool Stop: 04/27/23 17:34 Hydroxyzine HCl (Hydroxyzine Hcl 25 Mg Tab) 50 mg PO HSZ PRN PRN Reason: Insomnia Stop: 04/27/23 17:34 Hydroxyzine HCl (Hydroxyzine Hcl 25 Mg Tab) 25 mg PO Q4H PRN PRN Reason: Anxiety Stop: 04/27/23 17:34 Levothyroxine Sodium (Levothyroxine Sodium 75 Mcg Tablet) 75 mcg PO DAILYBB LORENA Stop: 04/28/23 07:59 Last Admin: 03/29/23 08:08 Dose: 75 mcg [place] Carbonate ([place] Carbonate 450 Mg Tabcr) 900 mg PO BID LORENA Stop: 04/27/23 20:59 Last Admin: 03/29/23 08:37 Dose: 900 mg Magnesium Hydroxide (Magnesium Hydroxide Susp 30 Ml Udc) 30 ml PO DAILY PRN PRN Reason: Constipation Stop: 04/27/23 17:34 Mirtazapine (Mirtazapine Tab 15 Mg Tab) 22.5 mg PO HS [facility] Stop: 04/27/23 21:59 Last Admin: 03/28/23 22:15 Dose: 22.5 mg Montelukast Sodium (Montelukast Sodium 10 Mg Tablet) [address] [facility] Stop: 04/27/23 21:59 Last Admin: 03/28/23 22:16 Dose: 10 mg Non-Formulary Patient's Own Med: Budesonide/Formoterol 80mcg/4. 5mcg Inhaler 2 each N/A BID LORENA Stop: 04/28/23 08:59 Last Admin: 03/29/23 08:38 Dose: 2 puffs Prednisone (Prednisone 20 Mg Tab) 20 mg PO DAILY LORENA Stop: 03/30/23 09:01 Last Admin: 03/29/23 09:57 Dose: 20 mg Sodium Chloride (Sodium Chloride 0.65% Na Soln 45 Ml ([place])) 1 - 2 sprays NA PRN PRN PRN Reason: Nasal Dryness/Congestion Stop: 04/27/23 17:34
[2023-03-29] MEDS: MIRTAZAPINE TAB 15 MG TAB PO SCH (21:39)
[2023-03-29] MEDS: MONTELUKAST SODIUM 10 MG TABLET PO SCH (21:39)
[2023-03-30] MEDS: LEVOTHYROXINE SODIUM 75 MCG TABLET PO SCH (07:53)
[2023-03-30] MEDS: predniSONE 20 MG TAB PO SCH (08:35)
[2023-03-30] MEDS: LITHIUM CARBONATE 450 MG TABCR PO SCH ×2 (08:35→21:10)
[2023-03-30] MEDS: BUDESONIDE SCH ×3 (08:38→21:12)
[2023-03-30] MEDS: FORMOTEROL SCH ×3 (08:38→21:12)
--- NOTE | 2023-03-30 09:18 | Psychiatric Progress Note ---
Date of Service March 30, 2023 Impression / Recommendations Impression Stanley is a 27 year old woman with a history of PTSD, BPAD, anxiety and reactive airway dysfunction syndrome who was admitted for SI with plan to shoot herself using her guns due to ongoing respiratory issues and conflictual work environment. Diagnostically consistent with BPAD current depressive episode, may also be some cluster B components including possible histrionic traits as well as likely depression and anxiety induced by ongoing breathing issues and possible contribution from current steroid use. She is deemed in need of psychiatric hospitalization for diagnostic clarification, safety and stabiliza tion, medication management and development of further coping skills. MNPR due to history of trauma with discomfort of being asleep next to someone unknown, reactive airway disease triggered by perfumes/body lotion/scents from others in close proximity 03/30/2023: ongoing depression and anxiety largely related to her job with ongoing SI. Slept better last night with higher dose of mirtazapine and denies any side effects to this. Finding groups helpful and feels safe in the inpatient setting. No current airway issues. (1) Suicidal ideation: (2) Depression with suicidal ideation: (3) Bipolar disorder: (4) Anxiety disorder, unspecified: (5) PTSD (post-traumatic stress disorder): (6) Cluster B personality disorder in adult: (7) Reactive airways dysfunction syndrome: Plan 03/30/2023: Continue mirtazapine 30mg HS and [place] 900mg BID 03/29/2023: The patient was admitted to the [facility] ([facility] mental health unit) on q15 min checks (behavioral with suicide precautions) for safety. The patient will participate in group, recreational, and milieu therapies and will be offered additional individual and family sessions as clinically appropriate. -Increase mirtazapine to 30mg HS -Continue [place] 900mg BID -Continue prednisone course, two more days of 20mg qd -Continue prior to admission medications for breathing symptoms including inhalers, singulair as well as synthroid Inventory Assets Strengths: supportive relationships, willing to get treatment Needs: safety and stabilization, medication adjustment, additional coping skills, increased outpatient services Suicide Risk Level Suicide Risk Level: High-Moderate (q15 min suicide checks) (severe depression with SI with plan prior to admission with access to guns at home but feels safe in the hospital, able to safety contract and agrees to let nursing/staff know should they develop plan, intent or feel unable to remain safe. ) Risk Factors Assessment Male: No : Yes Do You Have Access To A Gun?: Yes (owns 3 guns) Health Problems: Yes Mental Health Diagnoses: Yes Substance Use Disorders: No Previous Attempt: Yes Previous Psychiatric Hospitalization: Yes Protective Factors Assessment Employed: Yes ([employer], [employer]; but currently on medical leave) Stable Relationships: Yes Supportive Family: Yes Good Rapport with Provider: Yes Interval History Identifying Information STANLEY VUONG is a 27-year-old woman who currently lives in [place] alone, has a history of BPAD, PTSD and reactive airway dysfunction syndrome, and was admitted on 03/28/23 16:23 on a 201 voluntary commitment for SI with plan and access to guns. Chief Complaint "I'm ok". Review of Systems Sleep Information Total Hours of Sleep: 6.5 Sleep Comments: Meal Information Percent Meal Consumed - Breakfast: 100 Percent Meal Consumed - Lunch: 100 Percent Meal Consumed - Dinner: 100 Subjective Subjective Patient was seen & assessed and interval progress reviewed with treatment team nursing and social work. Described feeling numb in groups last night. Today appears bright with peers and while engaged in groups but more flat when alone. States she "finally slept well last night" which she attributes to the medication change of increased mirtazapine as well as "I was finally able to relax". Continues to have SI that "comes and goes" but she thinks it's slightly less intense today. Still very frustrated and stressed about her work situation. Also struggling to decide if she's going to contact her mom to tell her she is in the hospital. Physical Exam Psychiatric Orientation: alert and oriented x 3 Apperance: appropriately dressed and appropriately groomed Eye Contact: good eye contact Motor Behavior: no abnormal motor movements Speech: normal rate/rhythm/volume of speech Affect: euthymic affect, + depressed affect, + anxious affect and + labile affect Mood: + depressed mood and + anxious mood Thought Process: goal directed thought process Thought Content: reality based without delusions Suicidal Thoughts: denies suicidal plan (feels safe here in the hospital, at home to use her guns) and denies suicidal intent; + reports suicidal thoughts Homicidal Thoughts: denies homicidal thoughts Hallucinations: no auditory hallucinations and no visual hallucinations Cognition: recent memory grossly intact, remote memory grossly intact, attention grossly intact and language grossly intact Estimated Intelligence: consistent with education level Insight: + limited insight Judgment: + limited judgement Vital Signs (Past 24 Hours) Last Vital Signs Temp 37 C 03/30/23 06:49 Pulse 81 03/30/23 06:50 Resp 16 03/30/23 06:49 BP 115/79 03/30/23 06:50 Pulse Ox 97 03/28/23 17:43 O2 Del Method Room Air 03/28/23 17:43 Results & Data ([facility]) Current Inpatient Medications Current Inpatient Medications: Current Inpatient Medications Acetaminophen (Acetaminophen 325 Mg Tab) 650 mg PO Q4H PRN PRN Reason: Headache or Minor Fever Stop: 04/27/23 17:34 Al Hydrox/Mg Hydrox/Simethicone (Aluminum/Magnesium Susp 30 Ml Udc) 30 ml PO Q4H PRN PRN Reason: GI Upset Stop: 04/27/23 17:34 Bismuth Subsalicylate (Bismuth Subsalicylate Liqd 236 Ml) 15 ml PO PRN PRN PRN Reason: Loose Stool Stop: 04/27/23 17:34 Hydroxyzine HCl (Hydroxyzine Hcl 25 Mg Tab) 50 mg PO HSZ PRN PRN Reason: Insomnia Stop: 04/27/23 17:34 Hydroxyzine HCl (Hydroxyzine Hcl 25 Mg Tab) 25 mg PO Q4H PRN PRN Reason: Anxiety Stop: 04/27/23 17:34 Levothyroxine Sodium (Levothyroxine Sodium 75 Mcg Tablet) 75 mcg PO DAILYBB LORENA Stop: 04/28/23 07:59 Last Admin: 03/30/23 07:53 Dose: 75 mcg [place] Carbonate ([place] Carbonate 450 Mg Tabcr) 900 mg PO BID LORENA Stop: 04/27/23 20:59 Last Admin: 03/30/23 08:35 Dose: 900 mg Magnesium Hydroxide (Magnesium Hydroxide Susp 30 Ml Udc) 30 ml PO DAILY PRN PRN Reason: Constipation Stop: 04/27/23 17:34 Mirtazapine (Mirtazapine Tab 15 Mg Tab) 30 mg PO HS LORENA Stop: 04/28/23 21:59 Last Admin: 03/29/23 21:39 Dose: 30 mg Montelukast Sodium (Montelukast Sodium 10 Mg Tablet) 10 mg PO HS LORENA Stop: 04/27/23 21:59 Last Admin: 03/29/23 21:39 Dose: 10 mg Non-Formulary Patient's Own Med: Budesonide/Formoterol 80mcg/4. 5mcg Inhaler 2 each N/A BID LORENA Stop: 04/28/23 08:59 Last Admin: 03/30/23 08:41 Dose: 2 puffs Sodium Chloride (Sodium Chloride 0.65% Na Soln 45 Ml ([place])) 1 - 2 sprays NA PRN PRN PRN Reason: Nasal Dryness/Congestion Stop: 04/27/23 17:34 Mental Health & Subst Abuse Tx Psychiatrist Name of Psychiatrist: Iris Sutton Psychiatrist's Psychiatric Appointment Comment: [facility] [id number] Therapist Name of Therapist: Ashley Maria Therapist's Date of Therapist Appointment: 04/03/23 Time of Therapist Appointment: 10:00 AM Therapy Appointment Comment: [address] [facility], [address], [facility] [id number] Cushion Installer Name of Cushion Installer: None Post Discharge Appointments Primary Care Physician Name Of Family Doctor/PCP: Tawanna Gerard Contact Information Discharge Discharge [address]: [address] [place] [address] (3) Bipolar disorder Active/Remission status: remission status unspecified Qualified Code(s): F31.9 - Bipolar disorder, unspecified
[2023-03-30] MEDS: MIRTAZAPINE TAB 15 MG TAB PO SCH (21:12)
[2023-03-30] MEDS: MONTELUKAST SODIUM 10 MG TABLET PO SCH (21:15)
[2023-03-31] MEDS: LEVOTHYROXINE SODIUM 75 MCG TABLET PO SCH (09:02)
[2023-03-31] MEDS: LITHIUM CARBONATE 450 MG TABCR PO SCH ×2 (09:02→22:00)
[2023-03-31] MEDS: BUDESONIDE SCH ×2 (09:03→22:01)
[2023-03-31] MEDS: FORMOTEROL SCH ×2 (09:03→22:01)
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
[2023-03-31] MEDS: MONTELUKAST SODIUM 10 MG TABLET PO SCH (22:00)
[2023-03-31] MEDS: MIRTAZAPINE TAB 15 MG TAB PO SCH (22:00)
[2023-04-01] MEDS: BUDESONIDE SCH ×3 (08:49→21:31)
[2023-04-01] MEDS: FORMOTEROL SCH ×3 (08:49→21:31)
[2023-04-01] MEDS: LEVOTHYROXINE SODIUM 75 MCG TABLET PO SCH (08:49)
[2023-04-01] MEDS: LITHIUM CARBONATE 450 MG TABCR PO SCH ×2 (08:49→21:30)
--- NOTE | 2023-04-01 13:54 | Psychiatric Progress Note ---
Date of Service April 01, 2023 Impression / Recommendations Impression as per Dr. Werner: Stanley is a 27 year old woman with a history of PTSD, BPAD, anxiety and reactive airway dysfunction syndrome who was admitted for SI with plan to shoot herself using her guns due to ongoing respiratory issues and conflictual work environment. Diagnostically consistent with BPAD current depressive episode, may also be some cluster B components including possible histrionic traits as well as likely depression and anxiety induced by ongoing breathing issues and possible contribution from current steroid use. She is deemed in need of psychiatric hospitalization for diagnostic clarification, safety and stabilization, medication management and development of further coping skills. MNPR due to history of trauma with discomfort of being asleep next to someone unknown, reactive airway disease triggered by perfumes/body lotion/scents from others in close proximity 04/01/2023: minimal change (1) Suicidal ideation: (2) Depression with suicidal ideation: (3) Bipolar disorder: (4) Anxiety disorder, unspecified: (5) PTSD (post-traumatic stress disorder): (6) Cluster B personality disorder in adult: (7) Reactive airways dysfunction syndrome: Plan 04/01/2023: continue same. 03/31/2023: continue current meds and tx plan. 03/30/2023: Continue mirtazapine 30mg HS and [place]em[place] 900mg BID 03/29/2023: The patient was admitted to the [facility] ([facility]) on q15 min checks (behavioral with suicide precautions) for safety. The patient will participate in group, recreational, and milieu therapies and will be offered additional individual and family sessions as clinically appropriate. -Increase mirtazapine to 30mg HS -Continue [place]em[place] 900mg BID -Continue prednisone course, two more days of 20mg qd -Continue prior to admission medications for breathing symptoms including inhalers, singulair as well as synthroid Inventory Assets Strengths: supportive relationships, willing to get treatment Needs: safety and stabilization, medication adjustment, additional coping skills, increased outpatient services Suicide Risk Level Suicide Risk Level: High-Moderate (q15 min suicide checks) Risk Factors Assessment Male: No : Yes Do You Have Access To A Gun?: Yes (owns 3 guns) Health Problems: Yes Mental Health Diagnoses: Yes Substance Use Disorders: No Previous Attempt: Yes Previous Psychiatric Hospitalization: Yes Protective Factors Assessment Employed: Yes ([employer]; but currently on medical leave) Stable Relationships: Yes Supportive Family: Yes Good Rapport with Provider: Yes Interval History Identifying Information STANLEY VUONG is a 27-year-old woman who currently lives in [place] alone, has a history of BPAD, PTSD and reactive airway dysfunction syndrome, and was admitted on 03/28/23 16:23 on a 201 voluntary commitment for SI with plan and access to guns. Chief Complaint "it's hard to give up work, it's part of my identity but I need to be safe." Review of Systems Sleep Information Total Hours of Sleep: 6 Meal Information Percent Meal Consumed - Breakfast: 100 Percent Meal Consumed - Lunch: 95 Percent Meal Consumed - Dinner: 95 Subjective Subjective Patient was seen & assessed and interval progress reviewed with nursing. No acute issues overnight. Had a visitor and identifies supports but also disqualifies them at times, projects that others are mad at her. Not sleeping as well as home but also doesn't have her [place]pherds. Physical Exam Psychiatric Orientation: alert and oriented x 3 Apperance: appropriately dressed and appropriately groomed Eye Contact: good eye contact Motor Behavior: no abnormal motor movements Speech: normal rate/rhythm/volume of speech Affect: + depressed affect Mood: + depressed mood and + anxious mood Thought Process: goal directed thought process Thought Content: reality based without delusions Suicidal Thoughts: denies suicidal plan (feels safe here in the hospital, at home to use her guns) and denies suicidal intent; + reports suicidal thoughts Homicidal Thoughts: denies homicidal thoughts Hallucinations: no auditory hallucinations and no visual hallucinations Cognition: recent memory grossly intact, remote memory grossly intact, attention grossly intact and language grossly intact Estimated Intelligence: consistent with education level Insight: + fair insight Vital Signs (Past 24 Hours) Last Vital Signs Temp 36.8 C 04/01/23 06:45 Pulse 79 04/01/23 06:46 Resp 16 04/01/23 06:45 BP 109/76 04/01/23 06:46 Pulse Ox 97 03/28/23 17:43 O2 Del Method Room Air 03/28/23 17:43 Results & Data ([facility]) Current Inpatient Medications Current Inpatient Medications: Current Inpatient Medications Acetaminophen (Acetaminophen 325 Mg Tab) 650 mg PO Q4H PRN PRN Reason: Headache or Minor Fever Stop: 04/27/23 17:34 Al Hydrox/Mg Hydrox/Simethicone (Aluminum/Magnesium Susp 30 Ml Udc) 30 ml PO Q4H PRN PRN Reason: GI Upset Stop: 04/27/23 17:34 Bismuth Subsalicylate (Bismuth Subsalicylate Liqd 236 Ml) 15 ml PO PRN PRN PRN Reason: Loose Stool Stop: 04/27/23 17:34 Hydroxyzine HCl (Hydroxyzine Hcl 25 Mg Tab) 50 mg PO HSZ PRN PRN Reason: Insomnia Stop: 04/27/23 17:34 Hydroxyzine HCl (Hydroxyzine Hcl 25 Mg Tab) 25 mg PO Q4H PRN PRN Reason: Anxiety Stop: 04/27/23 17:34 Levothyroxine Sodium (Levothyroxine Sodium 75 Mcg Tablet) 75 mcg PO DAILYBB [facility] Stop: 04/28/23 07:59 Last Admin: 04/01/23 08:49 Dose: 75 mcg Jemison Carbonate (Jemison Carbonate 450 Mg Tabcr) 900 mg PO BID [facility] Stop: 04/27/23 20:59 Last Admin: 04/01/23 08:49 Dose: 900 mg Magnesium Hydroxide (Magnesium Hydroxide Susp 30 Ml Udc) 30 ml PO DAILY PRN PRN Reason: Constipation Stop: 04/27/23 17:34 Mirtazapine (Mirtazapine Tab 15 Mg Tab) 30 mg PO HS [facility] Stop: 04/28/23 21:59 Last Admin: 03/31/23 22:00 Dose: 30 mg Montelukast Sodium (Montelukast Sodium 10 Mg Tablet) 10 mg PO HS [facility] Stop: 04/27/23 21:59 Last Admin: 03/31/23 22:00 Dose: 10 mg Non-Formulary Patient's Own Med: Budesonide/Formoterol 80mcg/4. 5mcg Inhaler 2 each N/A BID [facility] Stop: 04/28/23 08:59 Last Admin: 04/01/23 08:49 Dose: 2 puffs Sodium Chloride (Sodium Chloride 0.65% Na Soln 45 Ml ([place])) 1 - 2 sprays NA PRN PRN PRN Reason: Nasal Dryness/Congestion Stop: 04/27/23 17:34 Mental Health & Subst Abuse Tx Psychiatrist Name of Psychiatrist: Iris Sutton Psychiatrist's Date Of Appointment With Psychiatric Provider: 04/11/23 Time of Appointment with Psychiatrist: 10:00 AM Psychiatric Appointment Comment: [address] [place] [address] Therapist Name of Therapist: Ashley Maria Therapist's Date of Therapist Appointment: 04/03/23 Time of Therapist Appointment: 10:00 AM Therapy Appointment Comment: [address] [facility], [address], [facility] [address] Upscale Security Officer Name of Upscale Security Officer: None Post Discharge Appointments Primary Care Physician Name Of Family Doctor/PCP: Tawanna Gerard Application Administrator Name of Application Administrator: [facility] Peer Phone Number of Application Administrator: Application Administrator Appointment Comment: Peer support will reach out to you to schedule initial meeting. Contact Information Discharge Discharge Address: [address] [place] [address] (3) Bipolar disorder Active/Remission status: remission status unspecified Qualified Code(s): F31.9 - Bipolar disorder, unspecified
[2023-04-01] MEDS ORDERED: predniSONE 10 MG TABLET PO STA (14:26)
[2023-04-01] MEDS: MIRTAZAPINE TAB 15 MG TAB PO SCH (21:32)
[2023-04-01] MEDS: MONTELUKAST SODIUM 10 MG TABLET PO SCH (21:32)
[2023-04-02] MEDS: FORMOTEROL SCH ×2 (08:29→22:04)
[2023-04-02] MEDS: LITHIUM CARBONATE 450 MG TABCR PO SCH ×2 (08:29→22:03)
[2023-04-02] MEDS: BUDESONIDE SCH ×2 (08:29→22:04)
[2023-04-02] MEDS: LEVOTHYROXINE SODIUM 75 MCG TABLET PO SCH (08:29)
--- NOTE | 2023-04-02 13:40 | Psychiatric Progress Note ---
Date of Service April 02, 2023 Impression / Recommendations Impression as per Dr. Werner: Stanley is a 27 year old woman with a history of PTSD, BPAD, anxiety and reactive airway dysfunction syndrome who was admitted for SI with plan to shoot herself using her guns due to ongoing respiratory issues and conflictual work environment. Diagnostically consistent with BPAD current depressive episode, may also be some cluster B components including possible histrionic traits as well as likely depression and anxiety induced by ongoing breathing issues and possible contribution from current steroid use. She is deemed in need of psychiatric hospitalization for diagnostic clarification, safety and stabilization, medication management and development of further coping skills. MNPR due to history of trauma with discomfort of being asleep next to someone unknown, reactive airway disease triggered by perfumes/body lotion/scents from others in close proximity 04/02/2023: reports reactive airway due to hospital hall cleaner yesterday pm, agreeable to slower prednisone taper (1) Suicidal ideation: (2) Depression with suicidal ideation: (3) Bipolar disorder: (4) Anxiety disorder, unspecified: (5) PTSD (post-traumatic stress disorder): (6) Cluster B personality disorder in adult: (7) Reactive airways dysfunction syndrome: Plan 04/12/2023: 10 mg prednisone effective yesterday, repeat today and continue taper in am. safety planning. 04/01/2023: continue same. 03/31/2023: continue current meds and tx plan. 03/30/2023: Continue mirtazapine 30mg HS and [place] 900mg BID 03/29/2023: The patient was admitted to the [facility] ([facility] unit) on q15 min checks (behavioral with suicide precautions) for safety. The patient will participate in group, recreational, and milieu therapies and will be offered additional individual and family sessions as clinically appropriate. -Increase mirtazapine to 30mg HS -Continue [place] 900mg BID -Continue prednisone course, two more days of 20mg qd -Continue prior to admission medications for breathing symptoms including inhalers, singulair as well as synthroid Inventory Assets Strengths: supportive relationships, willing to get treatment Needs: safety and stabilization, medication adjustment, additional coping skills, increased outpatient services Suicide Risk Level Suicide Risk Level: Moderate (q15 min suicide checks) Risk Factors Assessment Male: No : Yes Do You Have Access To A Gun?: Yes (owns 3 guns) Health Problems: Yes Mental Health Diagnoses: Yes Substance Use Disorders: No Previous Attempt: Yes Previous Psychiatric Hospitalization: Yes Protective Factors Assessment Employed: Yes ([employer]; but currently on medical leave) Stable Relationships: Yes Supportive Family: Yes Good Rapport with Provider: Yes Interval History Identifying Information STANLEY VUONG is a 27-year-old woman who currently lives in [place] alone, has a history of BPAD, PTSD and reactive airway dysfunction syndrome, and was admitted on 03/28/23 16:23 on a 201 voluntary commitment for SI with plan and access to guns. Chief Complaint "I'm getting there" referring to closer to leaving Review of Systems Sleep Information Total Hours of Sleep: 6 Meal Information Percent Meal Consumed - Breakfast: 100 Percent Meal Consumed - Lunch: 95 Percent Meal Consumed - Dinner: 100 Subjective Subjective Patient was seen & assessed and interval progress reviewed with treatment team. Patient is now agreeable to CM referral. Had agreed to peer crisis end of last week. agreeable to support person meeting. desires to return to work on 04/[address] Werner and paperwork to be faxed. Physical Exam Psychiatric Orientation: alert and oriented x 3 Apperance: appropriately dressed and appropriately groomed Eye Contact: good eye contact Motor Behavior: no abnormal motor movements Speech: normal rate/rhythm/volume of speech Affect: + depressed affect Mood: + depressed mood Thought Process: goal directed thought process Thought Content: reality based without delusions Suicidal Thoughts: denies suicidal thoughts Homicidal Thoughts: denies homicidal thoughts Hallucinations: no auditory hallucinations and no visual hallucinations Cognition: attention grossly intact and language grossly intact Estimated Intelligence: consistent with education level Vital Signs (Past 24 Hours) Last Vital Signs Temp 36.7 C 04/02/23 06:49 Pulse 78 04/02/23 06:50 Resp 16 04/02/23 06:49 BP 115/79 04/02/23 06:50 Pulse Ox 97 03/28/23 17:43 O2 Del Method Room Air 03/28/23 17:43 Results & Data ([facility]) Current Inpatient Medications Current Inpatient Medications: Current Inpatient Medications Acetaminophen (Acetaminophen 325 Mg Tab) 650 mg PO Q4H PRN PRN Reason: Headache or Minor Fever Stop: 04/27/23 17:34 Al Hydrox/Mg Hydrox/Simethicone (Aluminum/Magnesium Susp 30 Ml Udc) 30 ml PO Q4H PRN PRN Reason: GI Upset Stop: 04/27/23 17:34 Bismuth Subsalicylate (Bismuth Subsalicylate Liqd 236 Ml) 15 ml PO PRN PRN PRN Reason: Loose Stool Stop: 04/27/23 17:34 Hydroxyzine HCl (Hydroxyzine Hcl 25 Mg Tab) 50 mg PO HSZ PRN PRN Reason: Insomnia Stop: 04/27/23 17:34 Hydroxyzine HCl (Hydroxyzine Hcl 25 Mg Tab) 25 mg PO Q4H PRN PRN Reason: Anxiety Stop: 04/27/23 17:34 Levothyroxine Sodium (Levothyroxine Sodium 75 Mcg Tablet) 75 mcg PO DAILYBB [facility] Stop: 04/28/23 07:59 Last Admin: 04/02/23 08:29 Dose: 75 mcg [place] Carbonate ([place] Carbonate 450 Mg Tabcr) 900 mg PO BID [facility] Stop: 04/27/23 20:59 Last Admin: 04/02/23 08:29 Dose: 900 mg Magnesium Hydroxide (Magnesium Hydroxide Susp 30 Ml Udc) 30 ml PO DAILY PRN PRN Reason: Constipation Stop: 04/27/23 17:34 Mirtazapine (Mirtazapine Tab 15 Mg Tab) 30 mg PO HS [facility] Stop: 04/28/23 21:59 Last Admin: 04/01/23 21:32 Dose: 30 mg Montelukast Sodium (Montelukast Sodium 10 Mg Tablet) 10 mg PO HS [facility] Stop: 04/27/23 21:59 Last Admin: 04/01/23 21:32 Dose: 10 mg Non-Formulary Patient's Own Med: Budesonide/Formoterol 80mcg/4. 5mcg Inhaler 2 each N/A BID [facility] Stop: 04/28/23 08:59 Last Admin: 04/02/23 08:29 Dose: 2 puffs Prednisone (Prednisone 10 Mg Tablet) 10 mg PO ONE ONE Stop: 04/02/23 13:46 Prednisone (Prednisone 5 Mg Tab) 5 mg PO QAM [facility] Stop: 05/03/23 08:59 Sodium Chloride (Sodium Chloride 0.65% Na Soln 45 Ml ([place])) 1 - 2 sprays NA PRN PRN PRN Reason: Nasal Dryness/Congestion Stop: 04/27/23 17:34 Mental Health & Subst Abuse Tx Psychiatrist Name of Psychiatrist: Iris Sutton Psychiatrist's Date Of Appointment With Psychiatric Provider: 04/11/23 Time of Appointment with Psychiatrist: 10:00 AM Psychiatric Appointment Comment: [address] [facility], [facility] [address] Therapist Name of Therapist: Ashley Maria Therapist's Date of Therapist Appointment: 04/03/23 Time of Therapist Appointment: 10:00 AM Therapy Appointment Comment: [address] [facility], [address], [facility] [address] Customer Engagement Representative Name of Customer Engagement Representative: None Phone Number for Customer Engagement Representative: [phone] Case Management Appointment Comment: Your Customer Engagement Representative will reach out to you to schedule. Post Discharge Appointments Primary Care Physician Name Of Family Doctor/PCP: Tawanna Gerard Primary Care Date of Future Appointment with PCP: 04/09/23 Time of Appointment with PCP: 1:05 PM Provider Appointment Comment: [address] [facility], [address], [facility] [address] Food Counselor Name of Food Counselor: [facility] Peer Phone Number of Food Counselor: Food Counselor Appointment Comment: Peer support will reach out to you to schedule initial meeting. Contact Information Discharge Discharge Address: [address] [place] [address] (3) Bipolar disorder Active/Remission status: remission status unspecified Qualified Code(s): F31.9 - Bipolar disorder, unspecified
[2023-04-02] MEDS ORDERED: predniSONE 10 MG TABLET PO ONE (13:45)
[2023-04-02] MEDS: MIRTAZAPINE TAB 15 MG TAB PO SCH (22:04)
[2023-04-02] MEDS: MONTELUKAST SODIUM 10 MG TABLET PO SCH (22:05)
[2023-04-03] MEDS: LEVOTHYROXINE SODIUM 75 MCG TABLET PO SCH (08:20)
[2023-04-03] MEDS: LITHIUM CARBONATE 450 MG TABCR PO SCH ×2 (08:30→21:54)
[2023-04-03] MEDS: predniSONE 5 MG TAB PO SCH (08:30)
[2023-04-03] MEDS: BUDESONIDE SCH ×2 (08:31→21:54)
[2023-04-03] MEDS: FORMOTEROL SCH ×2 (08:31→21:54)
--- NOTE | 2023-04-03 12:30 | Psychiatric Progress Note ---
Date of Service April 03, 2023 Impression / Recommendations Impression as per Dr. Werner: Stanley is a 27 year old woman with a history of PTSD, BPAD, anxiety and reactive airway dysfunction syndrome who was admitted for SI with plan to shoot herself using her guns due to ongoing respiratory issues and conflictual work environment. Diagnostically consistent with BPAD current depressive episode, may also be some cluster B components including possible histrionic traits as well as likely depression and anxiety induced by ongoing breathing issues and possible contribution from current steroid use. She is deemed in need of psychiatric hospitalization for diagnostic clarification, safety and stabilization, medication management and development of further coping skills. MNPR due to history of trauma with discomfort of being asleep next to someone unknown, reactive airway disease triggered by perfumes/body lotion/scents from others in close proximity 04/03/2023: improving (1) Suicidal ideation: (2) Depression with suicidal ideation: (3) Bipolar disorder: (4) Anxiety disorder, unspecified: (5) PTSD (post-traumatic stress disorder): (6) Cluster B personality disorder in adult: (7) Reactive airways dysfunction syndrome: Plan 04/03/2023: Prednisone 5 mg, continue lithium and mirtazapine. 04/02/2023: 10 mg prednisone effective yesterday, repeat today and continue taper in am. safety planning. 04/01/2023: continue same. 03/31/2023: continue current meds and tx plan. 03/30/2023: Continue mirtazapine 30mg HS and Hildreth 900mg BID 03/29/2023: The patient was admitted to the [facility] ([facility]) on q15 min checks (behavioral with suicide precautions) for safety. The patient will participate in group, recreational, and milieu therapies and will be offered additional individual and family sessions as clinically appropriate. -Increase mirtazapine to 30mg HS -Continue Hildreth 900mg BID -Continue prednisone course, two more days of 20mg qd -Continue prior to admission medications for breathing symptoms including inhalers, singulair as well as synthroid Inventory Assets Strengths: supportive relationships, willing to get treatment Needs: safety and stabilization, medication adjustment, additional coping skills, increased outpatient services Suicide Risk Level Suicide Risk Level: Moderate (q15 min suicide checks) Risk Factors Assessment Male: No : Yes Do You Have Access To A Gun?: Yes (owns 3 guns) Health Problems: Yes Mental Health Diagnoses: Yes Substance Use Disorders: No Previous Attempt: Yes Previous Psychiatric Hospitalization: Yes Protective Factors Assessment Employed: Yes ([employer] [place] [employer]; but currently on medical leave) Stable Relationships: Yes Supportive Family: Yes Good Rapport with Provider: Yes Interval History Identifying Information STANLEY VUONG is a 27-year-old woman who currently lives in [place] alone, has a history of BPAD, PTSD and reactive airway dysfunction syndrome, and was admitted on 03/28/23 16:23 on a 201 voluntary commitment for SI with plan and access to guns. Chief Complaint improving Review of Systems Sleep Information Total Hours of Sleep: 6 Meal Information Percent Meal Consumed - Breakfast: 100 Percent Meal Consumed - Lunch: 90 Percent Meal Consumed - Dinner: 100 Subjective Subjective Patient was seen & assessed and interval progress reviewed with nursing and social work. denies respiratory issues. tolerating Prednisone taper. more positive about job search and seeing dogs. Still agreeable to additional services. Physical Exam Psychiatric Orientation: alert and oriented x 3 Apperance: appropriately dressed and appropriately groomed Eye Contact: good eye contact Motor Behavior: no abnormal motor movements Speech: normal rate/rhythm/volume of speech Affect: euthymic affect Mood: + depressed mood Thought Process: goal directed thought process Thought Content: reality based without delusions Suicidal Thoughts: denies suicidal thoughts Homicidal Thoughts: denies homicidal thoughts Hallucinations: no auditory hallucinations and no visual hallucinations Cognition: attention grossly intact and language grossly intact Estimated Intelligence: consistent with education level Vital Signs (Past 24 Hours) Last Vital Signs Temp 36.9 C 04/03/23 06:45 Pulse 82 04/03/23 06:47 Resp 16 04/03/23 06:45 BP 119/80 04/03/23 06:47 Pulse Ox 97 03/28/23 17:43 O2 Del Method Room Air 03/28/23 17:43 Results & Data ([facility]) Current Inpatient Medications Current Inpatient Medications: Current Inpatient Medications Acetaminophen (Acetaminophen 325 Mg Tab) 650 mg PO Q4H PRN PRN Reason: Headache or Minor Fever Stop: 04/27/23 17:34 Last Admin: 04/02/23 22:49 Dose: 650 mg Al Hydrox/Mg Hydrox/Simethicone (Aluminum/Magnesium Susp 30 Ml Udc) 30 ml PO Q4H PRN PRN Reason: GI Upset Stop: 04/27/23 17:34 Bismuth Subsalicylate (Bismuth Subsalicylate Liqd 236 Ml) 15 ml PO PRN PRN PRN Reason: Loose Stool Stop: 04/27/23 17:34 Hydroxyzine HCl (Hydroxyzine Hcl 25 Mg Tab) 50 mg PO HSZ PRN PRN Reason: Insomnia Stop: 04/27/23 17:34 Hydroxyzine HCl (Hydroxyzine Hcl 25 Mg Tab) 25 mg PO Q4H PRN PRN Reason: Anxiety Stop: 04/27/23 17:34 Levothyroxine Sodium (Levothyroxine Sodium 75 Mcg Tablet) 75 mcg PO DAILYBB [facility] Stop: 04/28/23 07:59 Last Admin: 04/03/23 08:20 Dose: 75 mcg Hildreth Carbonate (Hildreth Carbonate 450 Mg Tabcr) 900 mg PO BID LORENA Stop: 04/27/23 20:59 Last Admin: 04/03/23 08:30 Dose: 900 mg Magnesium Hydroxide (Magnesium Hydroxide Susp 30 Ml Udc) 30 ml PO DAILY PRN PRN Reason: Constipation Stop: 04/27/23 17:34 Mirtazapine (Mirtazapine Tab 15 Mg Tab) 30 mg PO HS LORENA Stop: 04/28/23 21:59 Last Admin: 04/02/23 22:04 Dose: 30 mg Montelukast Sodium (Montelukast Sodium 10 Mg Tablet) 10 mg PO HS [facility] Stop: 04/27/23 21:59 Last Admin: 04/02/23 22:05 Dose: 10 mg Non-Formulary Patient's Own Med: Budesonide/Formoterol 80mcg/4. 5mcg Inhaler 2 each N/A BID [facility] Stop: 04/28/23 08:59 Last Admin: 04/03/23 08:31 Dose: 2 puffs Prednisone (Prednisone 5 Mg Tab) 5 mg PO QAM LORENA Stop: 05/03/23 08:59 Last Admin: 04/03/23 08:30 Dose: 5 mg Sodium Chloride (Sodium Chloride 0.65% Na Soln 45 Ml ([place])) 1 - 2 sprays NA PRN PRN PRN Reason: Nasal Dryness/Congestion Stop: 04/27/23 17:34 Mental Health & Subst Abuse Tx Psychiatrist Name of Psychiatrist: Iris Sutton Psychiatrist's Date Of Appointment With Psychiatric Provider: 04/11/23 Time of Appointment with Psychiatrist: 10:00 AM Psychiatric Appointment Comment: [facility], [facility] [address] Therapist Name of Therapist: Ashley Maria Therapist's Date of Therapist Appointment: 04/03/23 Time of Therapist Appointment: 10:00 AM Therapy Appointment Comment: [address] [facility], [address], [facility] [address] Inspector Conveyor Line Name of Inspector Conveyor Line: None Phone Number for Inspector Conveyor Line: [phone] Case Management Appointment Comment: Your Inspector Conveyor Line will reach out to you to schedule. Post Discharge Appointments Primary Care Physician Name Of Family Doctor/PCP: Tawanna Gerard Primary Care Date of Future Appointment with PCP: 04/09/23 Time of Appointment with PCP: 1:05 PM Provider Appointment Comment: [address] [facility], [address], [facility] [address] End Maker Name of End Maker: [facility] Peer Phone Number of End Maker: End Maker Appointment Comment: Peer support will reach out to you to schedule initial meeting. Contact Information Discharge Discharge Address: [address] [place] [id number] (3) Bipolar disorder Active/Remission status: remission status unspecified Qualified Code(s): F31.9 - Bipolar disorder, unspecified
[2023-04-03] MEDS: MONTELUKAST SODIUM 10 MG TABLET PO SCH (21:54)
[2023-04-03] MEDS: MIRTAZAPINE TAB 15 MG TAB PO SCH (21:54)
--- NOTE | 2023-04-04 07:49 | Discharge Summary ---
Date of Service April 04, 2023 History of Present Illness As per Dr. Werner on admission: Elidia presented to the ED for worsening mood symptoms which she attributes to significant stress at work due to ongoing breathing issues and feeling that coworkers do not take her respiratory triggers seriously. Her coworkers continue to use aerosols, perfumes and other respiratory triggering agents around her while at work. Yesterday she felt as though if she didn't seek inpatient psychiatric treatment she would shoot herself with a gun so she sought help. Notes that her breathing issues have been very severe including in December turning blue but states her boss and coworkers have sat by while this occurs and "do nothing to help". She notes when telling people about these reactions no one helps or steps in to intervene. She's been on medical leave due to exhausting FMLA. She does not feel that stress at work sets off the breathing issues but rather is always caused by things in the air. She feels that at work "I'm ignored and dehumanized". States some of the suicidality is driven by her feeling that no one at work cares even when she's struggling to breath and then "if I'm going to from breathing attack I'd rather on my own terms". Her mood has been "at the bottom of the dumpster fire" with increased tearfulness, social isolation, hopelessness, decreased appetite, decreased sleep (due to breathing difficulties), and SI. She also reports high levels of anxiety including having a panic attack before making it in the building. She denies any recent episodes of catrina. Physical Exam Psychiatric See admission H&P and DOD assessment. Vital Signs (Past 24 Hours) Last Vital Signs Temp 37 C 04/04/23 06:54 Pulse 82 04/04/23 06:55 Resp 16 04/04/23 06:54 BP 114/77 04/04/23 06:55 Pulse Ox 97 03/28/23 17:43 O2 Del Method Room Air 03/28/23 17:43 Principal Diagnosis bipolar depression Psychiatric Data See daily stay summary. In short, safety was maintained and the patient was cooperative with care. Medication changes included titration of Remeron and taper of prednisone and they tolerated this well. A family session was held with a family friend and safety plan was completed prior to discharge. The patient insists on maintaining her weapons and ammo for protection as she is a female living alone. Her supports are aware and extensive discussions about safety have been conducted on this and previous stays. 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 She was given a short supply of prednisone to continue slow taper and will check with director instructional material for further instructions. Day of Discharge Assessment Today the patient voices readiness for discharge. They note improvement in mood and deny thoughts to harm self or others. Thoughts remain organized and they are improved from admission. There is no evidence of psychosis. They agree to take mediations as prescribed and keep follow-up appointments. They are stable for discharge to outpatient level of care. Transition of Care Transition Of Care Record: was reviewed with the patient Advance Directives Advance Directives Information Provided: Yes Advance Directives: No Mental Health Advance Directive: No Advance Directives on File: No Living Will: No Power of Industrial Controller: No Advance Directives Reason:: Declines as Mental Health Visit. Suicide Risk Level Suicide Risk Level Comments: Suicide risk at discharge is deemed low as the patient is no longer requiring 24-hr monitoring, has a safety plan, and is free of suicidal ideation at discharge. Risk Factors Assessment Male: No : Yes Do You Have Access To A Gun?: Yes (owns 3 guns) Health Problems: Yes Mental Health Diagnoses: Yes Substance Use Disorders: No Previous Attempt: Yes Previous Psychiatric Hospitalization: Yes Protective Factors Assessment Employed: Yes ([employer] [place] [employer]; but currently on medical leave) Stable Relationships: Yes Supportive Family: Yes Good Rapport with Provider: Yes Tobacco Cessation at Discharge Tobacco Cessation Medication Prescribed at Discharge: Not Applicable/Non-Smoker Total Time Total Time Spent: Greater Than 30 Minutes Total Time Includes: Examination of the patient, Discharge Planning and Medication Reconciliation Discharge Data Lab Results 03/28/23 03/28/23 03/28/23 12:45 12:45 12:45 WBC RBC Hgb Hct MCV MCH MCHC RDW Std Deviation RDW Coeff of Maryana Plt Count MPV Immature Gran % (Auto) Neut % (Auto) Lymph % (Auto) Assumption % (Auto) Eos % (Auto) Baso % (Auto) Neut # (Auto) Lymph # (Auto) Assumption # (Auto) Eos # (Auto) Baso # (Auto) Immature Gran # (Auto) Sodium 137 Potassium 3.8 Chloride 103 Carbon Dioxide 27 Anion Gap 7 BUN 8 Creatinine 0.80 Est Cr Clr Drug Dosing 108.4 Est GFR ( Amer) 117.9 Est GFR (Non-Af Amer) 101.8 BUN/Creatinine Ratio 10.0 Glucose 162 H Calcium 9.7 Total Bilirubin 0.6 AST 18 ALT 23 Alkaline Phosphatase 68 Total Protein 7.3 Albumin 4.6 Globulin 2.7 Albumin/Globulin Ratio 1.7 TSH 1.508 HCG, Qual Urine Color Urine Appearance Urine pH Ur Specific Wolf Urine Protein Urine Glucose (UA) Urine Ketones Urine Blood Urine Nitrite Urine Bilirubin Urine Urobilinogen Ur Leukocyte Esterase Salicylates < 3.0 L Urine Opiates Screen Ur Methadone, Qual Acetaminophen < 3 L Urine Barbiturates Ur Phencyclidine (PCP) U Amphetamin/Meth Scrn MDMA (Ecstasy) Screen U Benzodiazepines Scrn Greenup 1.1 Ur Cocaine Metabolite U Marijuana (THC) Screen Ethyl Alcohol mg/dL SARS-CoV-2, RNA, NAAT 03/28/23 03/28/23 03/28/23 12:45 12:45 12:55 WBC 13.23 H RBC 5.25 Hgb 15.2 Hct 47.0 MCV 89.5 MCH 29.0 MCHC 32.3 RDW Std Deviation 42.8 RDW Coeff of Maryana 13.1 Plt Count 525 H MPV 9.1 L Immature Gran % (Auto) 2.0 Neut % (Auto) 57.1 Lymph % (Auto) 30.4 Assumption % (Auto) 8.0 Eos % (Auto) 2.0 Baso % (Auto) 0.5 Neut # (Auto) 7.56 H Lymph # (Auto) 4.02 H Assumption # (Auto) 1.06 H Eos # (Auto) 0.26 Baso # (Auto) 0.06 Immature Gran # (Auto) 0.27 H Sodium Potassium Chloride Carbon Dioxide Anion Gap BUN Creatinine Est Cr Clr Drug Dosing Est GFR ( Amer) Est GFR (Non-Af Amer) BUN/Creatinine Ratio Glucose Calcium Total Bilirubin AST ALT Alkaline Phosphatase Total Protein Albumin Globulin Albumin/Globulin Ratio TSH HCG, Qual Negative Urine Color Urine Appearance Urine pH Ur Specific Wolf Urine Protein Urine Glucose (UA) Urine Ketones Urine Blood Urine Nitrite Urine Bilirubin Urine Urobilinogen Ur Leukocyte Esterase Salicylates Urine Opiates Screen Ur Methadone, Qual Acetaminophen Urine Barbiturates Ur Phencyclidine (PCP) U Amphetamin/Meth Scrn MDMA (Ecstasy) Screen U Benzodiazepines Scrn Greenup Ur Cocaine Metabolite U Marijuana (THC) Screen Ethyl Alcohol mg/dL SARS-CoV-2, RNA, NAAT NEGATIVE 03/28/23 03/28/23 03/28/23 12:55 13:00 13:00 WBC RBC Hgb Hct MCV MCH MCHC RDW Std Deviation RDW Coeff of Maryana Plt Count MPV Immature Gran % (Auto) Neut % (Auto) Lymph % (Auto) Assumption % (Auto) Eos % (Auto) Baso % (Auto) Neut # (Auto) Lymph # (Auto) Assumption # (Auto) Eos # (Auto) Baso # (Auto) Immature Gran # (Auto) Sodium Potassium Chloride Carbon Dioxide Anion Gap BUN Creatinine Est Cr Clr Drug Dosing Est GFR ( Amer) Est GFR (Non-Af Amer) BUN/Creatinine Ratio Glucose Calcium Total Bilirubin AST ALT Alkaline Phosphatase Total Protein Albumin Globulin Albumin/Globulin Ratio TSH HCG, Qual Urine Color Yellow Urine Appearance Clear Urine pH 8.5 H Ur Specific Wolf 1.007 Urine Protein Negative Urine Glucose (UA) Negative Urine Ketones Negative Urine Blood Negative Urine Nitrite Negative Urine Bilirubin Negative Urine Urobilinogen Negative Ur Leukocyte Esterase Negative Salicylates Urine Opiates Screen Neg Ur Methadone, Qual Neg Acetaminophen Urine Barbiturates Neg Ur Phencyclidine (PCP) Neg U Amphetamin/Meth Scrn Neg MDMA (Ecstasy) Screen Neg U Benzodiazepines Scrn Neg Greenup Ur Cocaine Metabolite Neg U Marijuana (THC) Screen Neg Ethyl Alcohol mg/dL < 10.0 SARS-CoV-2, RNA, NAAT Hospital Course (1) Suicidal ideation: (2) Depression with suicidal ideation: (3) Bipolar disorder: (4) Anxiety disorder, unspecified: (5) PTSD (post-traumatic stress disorder): (6) Cluster B personality disorder in adult: (7) Reactive airways dysfunction syndrome: Plan 04/03/2023: Prednisone 5 mg, continue lithium and mirtazapine. 04/02/2023: 10 mg prednisone effective yesterday, repeat today and continue taper in am. safety planning. 04/01/2023: continue same. 03/31/2023: continue current meds and tx plan. 03/30/2023: Continue mirtazapine 30mg HS and Greenup 900mg BID 03/29/2023: The patient was admitted to the [facility] ([facility] mental health unit) on q15 min checks (behavioral with suicide precautions) for safety. The patient will participate in group, recreational, and milieu therapies and will be offered additional individual and family sessions as clinically appropriate. -Increase mirtazapine to 30mg HS -Continue [place] 900mg BID -Continue prednisone course, two more days of 20mg qd -Continue prior to admission medications for breathing symptoms including inhalers, singulair as well as synthroid Mental Health & Subst Abuse Tx Psychiatrist Name of Psychiatrist: Iris Sutton Psychiatrist's Date Of Appointment With Psychiatric Provider: 04/11/23 Time of Appointment with Psychiatrist: 10:00 AM Psychiatric Appointment Comment: [address] [place] [id number] Therapist Name of Therapist: Ashley Maria Therapist's Date of Therapist Appointment: 04/03/23 Time of Therapist Appointment: 10:00 AM Therapy Appointment Comment: [address] [facility], [address], [facility] [address] Lay Out Inspector Name of Lay Out Inspector: None Phone Number for Lay Out Inspector: [phone] Case Management Appointment Comment: Your Lay Out Inspector will reach out to you to schedule. Post Discharge Appointments Primary Care Physician Name Of Family Doctor/PCP: Tawanna Gerard Primary Care Date of Future Appointment with PCP: 04/09/23 Time of Appointment with PCP: 1:05 PM Provider Appointment Comment: [address] [facility] [address], [facility] [address] Loft Patternmaker Name of Loft Patternmaker: [facility] Peer Phone Number of Loft Patternmaker: Loft Patternmaker Appointment Comment: Peer support will reach out to you to schedule initial meeting. Smoking Cessation Counseling Tobacco Cessation Medication Prescribed at Discharge: Not Applicable/Non-Smoker Contact Information Discharge Discharge Address: [address] [place] [id number] Discharge Plan Discharge Items Patient Disposition: Home - Self-Care Reason For Visit: MENTAL HEALTH EVALUATION Discharge Diagnosis: bipolar depression Condition on Discharge: Good Activity: Resume your previous activity Non-emergency contact: Primary Care Provider, Psychiatrist and Therapist Call non-emergency contact if: you have any medication questions and your symptoms worsen Follow-up/Referrals: Dede Long CRNP [Primary Care Provider] - Diet: Regular Addtl Attending Provider Instructions: SPECIAL CARE INSTRUCTIONS: 1. Follow through with your scheduled aftercare appointments. If unable to keep an appointment, please call to reschedule. 2. Take your medication only as prescribed. Medication should not be changed or stopped without the approval of your doctor. In the event of worsening symptoms or concerns about side effects, contact your doctor immediately. 3. Utilize new healthy coping skills, anger management skills, and stress management skills learned during your hospitalization. Journal feelings and process them with a support person. Identify stressors or situations that may result in relapse, deterioration or inappropriate behaviors and develop a plan to deal with those issues. 4. If your coping skills are ineffective and you are in crisis, contact your outpatient providers for direction. If unable to reach your providers, please call the [facility] CRISIS LINE AT , go to the [facility] walk-in center at [address] [place] [address] A, [place], or go to the closest Emergency Room. 5. Avoid alcohol and un-prescribed drugs. 6. You have been provided with the Mental Health Advance Directives Pamphlet for your review. 7. Your condition is stable for discharge to outpatient level of care, but recovery is an ongoing process. Ifthoughts to harm yourself or others return, follow the safety plan developed during your stay. Planning for a safe return home includes securing weapons. Our treatment team recommends weaponsbe removed from the home until your outpatient provider reassesses your progress. In rare cases where the items themselvescannot be removed, guns and ammunitionshould be secured separatelyand keys stored by a reliable personoutside of the home. If you were admitted on an involuntary commitment, the police or other legal authorities may be involved in this process. AFTERCARE APPOINTMENTS: * Please call your insurance company prior to your scheduled appointment to confirm your aftercare providers are covered. Take your insurance information to your appointments. WHO TO CALL AND WHEN: Medical Emergencies: For questions or emergencies related to your hospital stay, please contact the Inpatient Behavioral Health Unit at [phone]. A clinician oncology is on-call 07/05 for the Behavioral Health Unit for emergencies At any time you feel your situation is an emergency, you may also call 911 immediately. Pending Studies at Discharge: No Stand-Alone Forms: My [facility] [email or web address], Smoking Cessation Medications and DC Order Prescriptions: New prednisone 10 mg tablet 5 mg PO QAM Qty: 7 0RF Rx Instructions: taper as discussed Continued montelukast [Singulair] 10 mg tablet 10 mg PO DAILY lithium carbonate 450 mg tablet extended release 900 mg PO BID Breztri Aerosphere 160-9-4.8 mcg/actuation Hfa Aerosol Inhaler 2 inh INHALATION BID Tezspire 210 mg/1.91 mL (110 mg/mL) Pen Injector 210 mg SUBCUT MONTHLY Changed mirtazapine 15 mg tablet 30 mg PO HS Qty: 1 0RF Discontinued prednisone 20 mg tablet 20 mg PO DAILY Qty: 18 0RF Rx Instructions: Take 3 tabs daily x3 days, take 2 tabs daily x3 days, take 1 tab daily x3 days, then stop. No Action levothyroxine 75 mcg tablet 75 mcg PO DAILY Discharge Orders: Discharge Order (Routine); Ordered 04/04/23 Ordered By: Loretta Patino Admission Data Admit Date/Time: 03/28/23 16:23 Attending Provider: Loretta Patino Admit Provider: Helen Werner Primary Care Provider: Dede Long Other Providers: Helen Werner Other Interventions: PSY Interdisciplinary Discharge Planning Last Done: 04/04/23 10:06 Coding Level of Care Code 85697 D/C day mgmt > 30 min Diagnoses Suicidal ideation R45.851 Depression with suicidal ideation F32.A; R45.851 Bipolar disorder F31.9 Active/Remission status: remission status unspecified Anxiety disorder, unspecified F41.9 PTSD (post-traumatic stress disorder) F43.10 Cluster B personality disorder in adult F60.9 Reactive airways dysfunction syndrome J68.3
[2023-04-04] MEDS: LEVOTHYROXINE SODIUM 75 MCG TABLET PO SCH (08:55)
[2023-04-04] MEDS: LITHIUM CARBONATE 450 MG TABCR PO SCH (08:55)
[2023-04-04] MEDS: FORMOTEROL SCH (08:56)
[2023-04-04] MEDS: BUDESONIDE SCH (08:56)
[2023-04-04] MEDS: predniSONE 5 MG TAB PO SCH (08:56)
== END 2023-04-04 12:57 | disposition home or self-care (01) | DRG 885 ==
LOC: ED 12:31 → SUATTDRO 16:23 → 3S 16:23

== ENCOUNTER 2024-02-22 14:44 | Inpatient (IN) ==
[2024-02-22] MEDS ORDERED: BISMUTH SUBSALICYLATE LIQD 236 ML PO PRN (18:51)
[2024-02-22] MEDS ORDERED: MAGNESIUM HYDROXIDE SUSP 30 ML UDC PO PRN (18:51)
[2024-02-22] MEDS ORDERED: hydrOXYzine HCl 25 MG TAB PO PRN ×2 (18:51)
[2024-02-22] MEDS ORDERED: SODIUM CHLORIDE 0.65% NA SOLN 45 ML (OCEAN) PRN (18:51)
[2024-02-22] MEDS ORDERED: EPINEPHrine INJ 1 MG/ML AMP IM PRN (19:52)
[2024-02-22] MEDS: LITHIUM CARBONATE 450 MG TABCR PO SCH (21:07)
[2024-02-22] MEDS ORDERED: MONTELUKAST SODIUM 10 MG TABLET PO SCH (22:00)
[2024-02-23] MEDS: LEVOTHYROXINE SODIUM 50 MCG TABLET PO SCH (08:48)
[2024-02-23] MEDS: LITHIUM CARBONATE 450 MG TABCR PO SCH (08:48)
[2024-02-23] MEDS: FLUTICASONE/VILANTEROL 100/25MCG 14 PUFFS/INHALER INH SCH (08:51)
--- NOTE | 2024-02-23 09:35 | History & Physical ---
Date of Service February 23, 2024 Impression / Recommendations Impression Stanley is a 28 year old woman with a history of BPAD and PTSD who was admitted for worsening depression with SI with plan and access to guns in the context of recent surgical procedure, of her grandfather, worsened reactive airway disease and recent episode of catrina. Diagnostically consistent with BPAD current depressive episode. Discussed medication treatment options in detail including [place], augmentation with an antidepressant, augmentation with a dopamine antagonist for depression. Discussed risks, benefits and alternatives. She wants to continue [place] for bipolar depression. Given recent dose increase will hold off on further increase for now. Reviewed side effects including but not limited to: Baseline labs of thyroid function, kidney function, weight, electrolytes, CBC, and UA were pre formed and reviewed. Patient understands risks of dehydration, renal, thyroid, cardiac, drug interactions (NSAIDs, ACEIs, angiotensin receptor antagonists, risks). Overall I spent a total of 82 minutes for this admission including review of chart records, review of labwork, direct evaluation of the patient, counseling the patient, ordering medication, risk assessment, discussion with the RN and documentation in the electronic health record. (1) Depression with suicidal ideation: (2) Bipolar disorder: Active/Remission status: remission status unspecified Qualified Code(s): F31.9 - Bipolar disorder, unspecified (3) Borderline personality disorder: (4) PTSD (post-traumatic stress disorder): (5) Reactive airways dysfunction syndrome: Plan 02/23/2024: The patient was admitted to the [facility] on q15 min checks (behavioral with suicide precautions) for safety. The patient will participate in group, recreational, and milieu therapies and will be offered additional individual and family sessions as clinically appropriate. -[place] level tomorrow AM for true trough -Continue Li 450mg qAM and 900mg HS Inventory Assets Strengths: supportive relationships, willing to get treatment Needs: safety and stabilization, medication adjustment, additional coping skills, increased outpatient services Suicide Risk Level Suicide Risk Level: High-Moderate (q15 min suicide checks) (SI with plan for outside hospital, feels safe here) Suicide Risk Level Comments: Risk Factors Assessment : Yes Do You Have Access To A Gun?: Yes (3 at home) Health Problems: Yes Mental Health Diagnoses: Yes Previous Attempt: Yes Previous Psychiatric Hospitalization: Yes Protective Factors Assessment Employed: Yes Good Rapport with Provider: Yes Psychiatric History Identifying Data STANLEY SHAWLEY-RUTAN is a 28-year-old F who currently lives in [place] alone, has a history of BPAD, PTSD, anxiety and reactive airway disease and was admitted on 02/22/24 14:44 on a 201 voluntary commitment for SI with plan to shoot herself. Chief Complaint "Since they gave me ativan in January it triggered a depressive episode". History of Present Illness Presents with SI with thoughts of shooting herself with a gun. After getting a dose of lorazepam in January during an ED visit for shortness of breath she feels the depression "kicked in" with social withdrawal, not eating well, "thoughts of creeping in", low motivation, decreased sleep. She feels her current episode is depression and not mixed. In December she had a hysterectomy and episode of catrina following this with resultant increase in [place] from 600mg total to 900mg total. Her mood stabilized but then she developed more severe depression and the [place] was increased again to 1350mg total. She notes that it was the "perfect storm" to go into a depressive episode following the catrina and then getting the lorazepam. She also notes that another possible contribution to this current depressive episode is likely from hormone fluctuations and physical toll of her recent hysterectomy and oophorectomy. Additionally her grandfather on Sunday. She feels her mother is relying on her to support her emotionally through her grief. Reports three recent respiratory episodes since January 22 with one resulting in a hospital admission at [facility] in [place]. 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 [place] was increased from 450mg BID to 450mg qAM and 900mg HS one week ago. Denies any recent self-harm. Has been attending to avoid drinking. Past Psychiatric History Current Psychiatric Diagnosis: suicidal ideation Outpatient Services: Lesley Garcia at [place]. Rosa Maria at [place] for therapy. D&A peer support at [place]. Previous Psych Admissions: last admitted March 2023 at [facility]. [facility] in August 2022; [facility] 3 times in 2018; [facility] 2016 Do You Have Access To A Gun?: Yes (3 at home) History of Previous Suicide Attempt: Yes (~5 times before age 19, after 19 about 4-5 times last via OD 2019) Past Medication Trials: mirtazapine, abilify ("awful"), lorazepam, buspar, risperdal, hydroxyzine, lamictal (caused horrible GI side effects). Past Head Trauma/Neuro History History of Concussion/Seizure: No Allergies Allergy/AdvReac Type Severity Reaction Status Date / Time nickel Allergy Severe swelling Verified 09/16/23 00:39 Influenza Virus Vaccines Allergy Intermediate Itchiness Verified 09/16/23 00:39 and hives latex Allergy Intermediate Itchiness Verified 09/16/23 00:39 Benzodiazepines AdvReac Agitated Verified 02/22/24 12:43 AEROSOLS/VARIOUS CHEMICALS Allergy Severe INFLAMMED Uncoded 09/16/23 00:39 AIRWAYS Home Medications Medication Instructions Recorded Confirmed Type montelukast 10 mg tablet 10 mg PO QPM 01/17/23 02/22/24 History (Singulair) lithium carbonate 450 mg See Rx Instructions .Route .COMPLEX 03/21/23 02/22/24 History tablet,extended release budesonide-formoterol HFA 80 2 puff inhalation Q12H 08/02/23 02/22/24 History mcg-4.5 mcg/actuation aerosol inhaler (Symbicort) epinephrine 0.3 mg/0.3 mL 0.3 mg IM UD PRN Allergic Reaction 08/02/23 02/22/24 History injection, auto-injector hydroxyzine HCl 10 mg tablet 10 mg PO DIRECTED PRN Anxiety 02/22/24 02/22/24 History levothyroxine 50 mcg tablet 50 mcg PO 1XD 02/22/24 02/22/24 History Family History Family History of: Doesn't Know Family Mental Health History Comment: patient reports she is adopted and does not know the mental health history of her bio parents. Alcohol History Hx of Alcohol Use Over the Past 12 Months: No AUDIT Total Score: 0 Has been sober for 4 years. Smoking Use Have You Smoked or Used Tobacco Products in the Last 30 Days: No Smoking Status: Never smoker Smoking packs per day: 0 Substance History Hx of Prescription Med Misuse Over the Past 12 Months: No Hx of Over the Counter Med Misuse Over the Past 12 Months: No Hx of Inhalent Misuse Over the Past 12 Months: No Hx of Organic Substance Use Over the Past 12 Months: No Hx of Illegal Substances/Street Drug Use Over Past 12 Months: No Problems as a Result of Past Substance Use: Job Loss, Relationships Ended, Life out of Control and Attempted Suicide Personal History Highest Grade Completed: Some College (online courses through [employer], currently in forensic psychology ) 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 ([employer]) Marital Status: Single Number Of Children: n/a Beliefs That Will Affect Care: None Current Legal Problems: No Hx Legal Problems: No Hx Traumatic Life Events: Yes Patient History Medical History Suicidal ideation Bipolar disorder with severe depression Reactive airways dysfunction syndrome Depression with suicidal ideation Chemical pneumonitis Bipolar disorder PTSD (post-traumatic stress disorder) GERD (gastroesophageal reflux disease) Surgical History (Updated 02/23/24 @ 10:47 by Helen Werner MD) H/O hysterectomy with unilateral oophorectomy right oophorectomy removed H/O wisdom tooth extraction Family History Other No significant family history Social History Smoking Status: Never smoker Preferred Language: South African Communication Ability: Effective 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 Beliefs That Will Affect Care: None marital status: relationship-boyfriend current occupational status: employed Feels Safe at Home: Yes Gender Identity: Female Assistive Devices: None Review of Systems Review of Systems: All systems reviewed & are unremarkable except as noted in HPI & below Physical Exam Psychiatric: Orientation: alert and oriented x 3 Apperance: appropriately dressed and appropriately groomed Eye Contact: good eye contact (directed) Motor Behavior: no abnormal motor movements Speech: normal rate/rhythm/volume of speech Affect: + depressed affect and + constricted affect Mood: + depressed mood Thought Process: goal directed thought process Thought Content: reality based without delusions Suicidal Thoughts: denies suicidal intent; + reports suicidal thoughts and + reports suicidal plan (none for here, outside to use guns) Homicidal Thoughts: denies homicidal thoughts Hallucinations: no auditory hallucinations and no visual hallucinations Cognition: recent memory grossly intact, remote memory grossly intact, attention grossly intact and language grossly intact Estimated Intelligence: consistent with education level Insight: + fair insight Judgment: + fair judgement Vital Signs (Past 24 Hours): Last Vital Signs Temp 36.9 C 02/23/24 06:50 Pulse 74 02/23/24 06:50 Resp 16 02/23/24 06:50 BP 108/71 02/23/24 06:51 Pulse Ox 98 02/23/24 06:50 O2 Del Method Room Air 02/23/24 06:50 Exam Statement: A physical exam was performed in the ED by Dr. Aiken for the purposes of medical clearance. I accept that physical as correct and adequate for the purposes of the inpatient physical exam. Results & Data ([facility]) Current Inpatient Medications Current Inpatient Medications: Current Inpatient Medications Acetaminophen (Acetaminophen 325 Mg Tab) 650 mg PO Q4H PRN PRN Reason: Headache or Minor Fever Stop: 03/23/24 18:50 Al Hydrox/Mg Hydrox/Simethicone (Aluminum/Magnesium Susp 30 Ml Udc) 30 ml PO Q4H PRN PRN Reason: GI Upset Stop: 03/23/24 18:50 Bismuth Subsalicylate (Bismuth Subsalicylate Liqd 236 Ml) 15 ml PO PRN PRN PRN Reason: Loose Stool Stop: 03/23/24 18:50 Epinephrine HCl (Epinephrine Inj 1 Mg/Ml Amp) 0.3 mg IM PRN PRN PRN Reason: Allergic Reaction Stop: 02/29/24 19:51 Fluticasone/Vilanterol (Fluticasone/Vilanterol 100/25mcg 14 Puffs/Inhaler) 1 puffs INH DAILY LORENA Stop: 03/24/24 08:59 Last Admin: 02/23/24 08:51 Dose: Not Given Hydroxyzine HCl (Hydroxyzine Hcl 25 Mg Tab) 50 mg PO HSZ PRN PRN Reason: Insomnia Stop: 03/23/24 18:50 Hydroxyzine HCl (Hydroxyzine Hcl 25 Mg Tab) 25 mg PO Q4H PRN PRN Reason: Anxiety Stop: 03/23/24 18:50 Levothyroxine Sodium (Levothyroxine Sodium 50 Mcg Tablet) 50 mcg PO DAILYBB LORENA Stop: 03/24/24 07:59 Last Admin: 02/23/24 08:48 Dose: 50 mcg [place] Carbonate ([place] Carbonate 450 Mg Tabcr) 450 mg PO QAM LORENA Stop: 03/24/24 08:59 Last Admin: 02/23/24 08:48 Dose: 450 mg [place] Carbonate ([place] Carbonate 450 Mg Tabcr) 900 mg PO HS LORENA Stop: 03/23/24 21:59 Last Admin: 02/22/24 21:07 Dose: 900 mg Magnesium Hydroxide (Magnesium Hydroxide Susp 30 Ml Udc) 30 ml PO DAILY PRN PRN Reason: Constipation Stop: 03/23/24 18:50 Montelukast Sodium (Montelukast Sodium 10 Mg Tablet) 10 mg PO [facility] Stop: 03/22/24 21:59 Sodium Chloride (Sodium Chloride 0.65% Na Soln 45 Ml ([place])) 1 - 2 sprays NA PRN PRN PRN Reason: Nasal Dryness/Congestion Stop: 03/23/24 18:50
[2024-02-23] MEDS ORDERED: EPINEPHrine INJ 1 MG/ML AMP IM PRN (10:31)
[2024-02-23] MEDS: [UNRECOGNIZED DRUG - REMARK] INH SCH (21:52)
[2024-02-23] MEDS: MONTELUKAST SODIUM 10 MG TABLET PO SCH (21:52)
[2024-02-23] MEDS ORDERED: MONTELUKAST SODIUM 10 MG TABLET PO SCH (22:00)
[2024-02-24] MEDS: LEVOTHYROXINE SODIUM 50 MCG TABLET PO SCH (07:10)
[2024-02-24] MEDS ORDERED: FLUTICASONE/VILANTEROL 100/25MCG 14 PUFFS/INHALER INH SCH (09:00)
--- NOTE | 2024-02-24 10:03 | Psychiatric Progress Note ---
Date of Service February 24, 2024 Impression / Recommendations Impression Stanley is a 28 year old woman with a history of BPAD and PTSD who was admitted for worsening depression with SI with plan and access to guns in the context of recent surgical procedure, of her grandfather, worsened reactive airway disease and recent episode of catrina. Diagnostically consistent with BPAD current depressive episode. 02/24/2024: Ongoing depression and SI with poor sleep. [place] level within therapeutic range at 0.7. Reviewed options for bipolar depression, she prefers to continue with [place] monotherapy and to increase dose. Reviewed potential for toxicity as we near higher levels and difficult to predict exactly what level [place] addition will result in. She consents to this even knowing this potential and we re-reviewed symptoms of [place] toxicity to be aware of. Overall, I spent a total of 40 minutes on this case including meeting with the patient, reviewing the chart, nursing report, multidisciplinary team meeting, orders, and documentation. MNPR due to reactive airway disease and high sensitivity to any potential fragrances from roommates as well as PTSD (1) Depression with suicidal ideation: (2) Bipolar disorder: (3) Borderline personality disorder: (4) PTSD (post-traumatic stress disorder): (5) Reactive airways dysfunction syndrome: Plan 02/24/2024: Increase [place] to 450mg qAM & 1350mg HS 02/23/2024: The patient was admitted to the [facility] ([facility] health unit) on q15 min checks (behavioral with suicide precautions) for safety. The patient will participate in group, recreational, and milieu therapies and will be offered additional individual and family sessions as clinically appropriate. -[place] level tomorrow AM for true trough -Continue Li 450mg qAM and 900mg HS Inventory Assets Strengths: supportive relationships, willing to get treatment Needs: safety and stabilization, medication adjustment, additional coping skills, increased outpatient services Suicide Risk Level Suicide Risk Level: High-Moderate (q15 min suicide checks) (SI with plan for outside hospital, feels safe here) Suicide Risk Level Comments: Risk Factors Assessment : Yes Do You Have Access To A Gun?: Yes (2 rifles and 1 handgun in her apartment.) Health Problems: Yes Mental Health Diagnoses: Yes Previous Attempt: Yes Previous Psychiatric Hospitalization: Yes Protective Factors Assessment Employed: Yes Good Rapport with Provider: Yes Interval History Identifying Information STANLEY DAMIANJUDITH is a 28-year-old F who currently lives in [place] alone, has a history of BPAD, PTSD, anxiety and reactive airway disease and was admitted on 02/22/24 14:44 on a 201 voluntary commitment for SI with plan to shoot herself. Chief Complaint "I'm here". Review of Systems Sleep Information Total Hours of Sleep: 3.25 Sleep Comments: No PRNs needed Meal Information Percent Meal Consumed - Breakfast: 10 Percent Meal Consumed - Lunch: 90 Percent Meal Consumed - Dinner: 10 Subjective Subjective Patient was seen & assessed and interval progress reviewed with treatment team nursing and social work. Rates mood as 1 or 2 and unsettled but observing laughing with peers at times. Slept very poorly last night. Friend visited yesterday. Continues to have SI. Asks about not having a roommate due to potential for respiratory attack if in close proximity of someone with perfume or detergent scents. Discussed gun safety, she is willing to consider storing guns in her storage unit with gun safe and changing combination so only her friend has this. Reviewed lithium level, she would like to increase the dose to further target depression. She doesn't want to add any additional depression augmentation, prefers to maximize [place] monotherapy. 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 Physical Exam Psychiatric Orientation: alert and oriented x 3 Apperance: appropriately dressed and appropriately groomed Eye Contact: good eye contact (directed) Motor Behavior: no abnormal motor movements Speech: normal rate/rhythm/volume of speech Affect: + constricted affect Mood: + depressed mood Thought Process: goal directed thought process Thought Content: reality based without delusions and + self deprecation Suicidal Thoughts: denies suicidal intent; + reports suicidal thoughts and + reports suicidal plan (none for here, outside to use guns) Homicidal Thoughts: denies homicidal thoughts Hallucinations: no auditory hallucinations and no visual hallucinations Cognition: recent memory grossly intact, remote memory grossly intact, attention grossly intact and language grossly intact Estimated Intelligence: consistent with education level Insight: + fair insight Judgment: + fair judgement Vital Signs (Past 24 Hours) Last Vital Signs Temp 36.8 C 02/24/24 06:24 Pulse 87 02/24/24 06:25 Resp 16 05/12/24 06:24 BP 103/56 L 05/12/24 06:25 Pulse Ox 98 02/24/24 06:24 O2 Del Method Room Air 02/24/24 06:24 Results & Data ([facility]) Laboratory Results Laboratory Results - last 24 hr 02/24/24 06:58 [place] Pending Current Inpatient Medications Current Inpatient Medications: Current Inpatient Medications Acetaminophen (Acetaminophen 325 Mg Tab) 650 mg PO Q4H PRN PRN Reason: Headache or Minor Fever Stop: 03/23/24 18:50 Al Hydrox/Mg Hydrox/Simethicone (Aluminum/Magnesium Susp 30 Ml Udc) 30 ml PO Q4H PRN PRN Reason: GI Upset Stop: 03/23/24 18:50 Bismuth Subsalicylate (Bismuth Subsalicylate Liqd 236 Ml) 15 ml PO PRN PRN PRN Reason: Loose Stool Stop: 03/23/24 18:50 Epinephrine HCl (Epinephrine Inj 1 Mg/Ml Amp) 0.3 mg IM PRN PRN PRN Reason: Allergic Reaction Stop: 03/24/24 10:30 Hydroxyzine HCl (Hydroxyzine Hcl 25 Mg Tab) 50 mg PO HSZ PRN PRN Reason: Insomnia Stop: 03/23/24 18:50 Hydroxyzine HCl (Hydroxyzine Hcl 25 Mg Tab) 25 mg PO Q4H PRN PRN Reason: Anxiety Stop: 03/23/24 18:50 Levothyroxine Sodium (Levothyroxine Sodium 50 Mcg Tablet) 50 mcg PO DAILYBB LORENA Stop: 03/25/24 07:59 Last Admin: 02/24/24 07:10 Dose: 50 mcg [place] Carbonate ([place] Carbonate 450 Mg Tabcr) 450 mg PO QAM LORENA Stop: 03/24/24 08:59 Last Admin: 02/24/24 08:57 Dose: 450 mg [place] Carbonate ([place] Carbonate 450 Mg Tabcr) 900 mg PO HS LORENA Stop: 03/23/24 21:59 Last Admin: 02/23/24 21:51 Dose: 900 mg Magnesium Hydroxide (Magnesium Hydroxide Susp 30 Ml Udc) 30 ml PO DAILY PRN PRN Reason: Constipation Stop: 03/23/24 18:50 Montelukast Sodium (Montelukast Sodium 10 Mg Tablet) 10 mg PO QPM LORENA Stop: 03/24/24 20:59 Last Admin: 02/23/24 21:52 Dose: 10 mg *Symbicort Inhal*Non -Form Patient's Own Med 2 each INH BID LORENA Stop: 03/24/24 20:59 Last Admin: 02/24/24 08:57 Dose: 2 puffs Sodium Chloride (Sodium Chloride 0.65% Na Soln 45 Ml ([place])) 1 - 2 sprays NA PRN PRN PRN Reason: Nasal Dryness/Congestion Stop: 03/23/24 18:50 Mental Health & Subst Abuse Tx Psychiatrist Date Of Appointment With Psychiatric Provider: 03/04/24 Time of Appointment with Psychiatrist: 9:40am Therapist Name of Therapist: Rosa Maria Ramirez Date of Therapist Appointment: 02/25/24 Time of Therapist Appointment: 11:00am Telephone Sex Worker Name of Telephone Sex Worker: Osmany LANDIN Date of Appointment with Telephone Sex Worker: 03/13/24 Time of Appointment with Telephone Sex Worker: 8:00am Post Discharge Appointments Primary Care Physician Name Of Family Doctor/PCP: Rena Gerard Date of Future Appointment with PCP: 06/2024 Contact Information Discharge Discharge [address]: [address] [place] [id number] (2) Bipolar disorder Active/Remission status: remission status unspecified Qualified Code(s): F31.9 - Bipolar disorder, unspecified
[2024-02-24] MEDS: LITHIUM CARBONATE 450 MG TABCR PO SCH (21:51)
--- NOTE | 2024-02-25 09:14 | Psychiatric Progress Note ---
Date of Service February 25, 2024 Impression / Recommendations Impression Stanley is a 28 year old woman with a history of BPAD and PTSD who was admitted for worsening depression with SI with plan and access to guns in the context of recent surgical procedure, of her grandfather, worsened reactive airway disease and recent episode of catrina. Diagnostically consistent with BPAD current depressive episode. 02/25/2024: Mood improving a bit with lessening of SI. She has some hopefulness that Campus adjustment will improve her mood. Tolerating higher dose of Campus so far, she understands need for a level again in 5-7 days. Sleep improved last night. Overall, I spent a total of 24 minutes on this case including meeting with the patient, reviewing the chart, nursing report, multidisciplinary team meeting, orders, and documentation. MNPR due to reactive airway disease and high sensitivity to any potential fragrances from roommates as well as PTSD (1) Depression with suicidal ideation: (2) Bipolar disorder: (3) Borderline personality disorder: (4) PTSD (post-traumatic stress disorder): (5) Reactive airways dysfunction syndrome: Plan 02/25/2024: Continue with current medications and tx plan. 02/24/2024: Increase Campus to 450mg qAM & 1350mg HS 02/23/2024: The [facility] health unit) on q15 min checks (behavioral with suicide precautions) for safety. The patient will participate in group, recreational, and milieu therapies and will be offered additional individual and family sessions as clinically appropriate. -Campus level tomorrow AM for true trough -Continue Li 450mg qAM and 900mg HS Inventory Assets Strengths: supportive relationships, willing to get treatment Needs: safety and stabilization, medication adjustment, additional coping skills, increased outpatient services Suicide Risk Level Suicide Risk Level: Moderate (q15 min suicide checks) (SI lessening, feels safe here) Suicide Risk Level Comments: Risk Factors Assessment : Yes Do You Have Access To A Gun?: Yes (2 rifles and 1 handgun in her apartment.) Health Problems: Yes Mental Health Diagnoses: Yes Previous Attempt: Yes Previous Psychiatric Hospitalization: Yes Protective Factors Assessment Employed: Yes Good Rapport with Provider: Yes Interval History Identifying Information STANLEY DAMIANJUDITH is a 28-year-old F who currently lives in [place] alone, has a history of BPAD, PTSD, anxiety and reactive airway disease and was admitted on 02/22/24 14:44 on a 201 voluntary commitment for SI with plan to shoot herself. Chief Complaint "I'm ok". Review of Systems Sleep Information Total Hours of Sleep: 6.30 Sleep Comments: No PRNs needed Meal Information Percent Meal Consumed - Breakfast: 10 Percent Meal Consumed - Lunch: 50 Percent Meal Consumed - Dinner: 50 Subjective Subjective Patient was seen & assessed and interval progress reviewed with treatment team nursing and social work. Rated her mood as "stagnant" last evening. Today reports her mood is "ok". Met with her outpatient CM. Tolerating Campus increase without any side effects so far. Pleased that she slept well last night. Reports lessening of her SI. Planning to call her HR department at work to see if any paperwork needs to be completed before she can return. Physical Exam Psychiatric Orientation: alert and oriented x 3 Apperance: appropriately dressed and appropriately groomed Eye Contact: good eye contact (directed) Motor Behavior: no abnormal motor movements Speech: normal rate/rhythm/volume of speech Affect: + constricted affect (but with more smiles) Mood: + depressed mood Thought Process: goal directed thought process Thought Content: reality based without delusions Suicidal Thoughts: denies suicidal plan and denies suicidal intent; + reports suicidal thoughts (lessening) Homicidal Thoughts: denies homicidal thoughts Hallucinations: no auditory hallucinations and no visual hallucinations Cognition: recent memory grossly intact, remote memory grossly intact, attention grossly intact and language grossly intact Estimated Intelligence: consistent with education level Insight: + fair insight Judgment: + fair judgement Vital Signs (Past 24 Hours) Last Vital Signs Temp 36.9 C 02/25/24 06:47 Pulse 77 02/25/24 06:48 Resp 16 02/25/24 06:47 BP 105/68 02/25/24 06:48 Pulse Ox 98 02/24/24 06:24 O2 Del Method Room Air 02/24/24 06:24 Results & Data ([facility]) Laboratory Results Laboratory Results - last 24 hr 02/24/24 06:58 Campus 0.7 Current Inpatient Medications Current Inpatient Medications: Current Inpatient Medications Acetaminophen (Acetaminophen 325 Mg Tab) 650 mg PO Q4H PRN PRN Reason: Headache or Minor Fever Stop: 03/23/24 18:50 Al Hydrox/Mg Hydrox/Simethicone (Aluminum/Magnesium Susp 30 Ml Udc) 30 ml PO Q4H PRN PRN Reason: GI Upset Stop: 03/23/24 18:50 Bismuth Subsalicylate (Bismuth Subsalicylate Liqd 236 Ml) 15 ml PO PRN PRN PRN Reason: Loose Stool Stop: 03/23/24 18:50 Epinephrine HCl (Epinephrine Inj 1 Mg/Ml Amp) 0.3 mg IM PRN PRN PRN Reason: Allergic Reaction Stop: 03/24/24 10:30 Hydroxyzine HCl (Hydroxyzine Hcl 25 Mg Tab) 50 mg PO HSZ PRN PRN Reason: Insomnia Stop: 03/23/24 18:50 Hydroxyzine HCl (Hydroxyzine Hcl 25 Mg Tab) 25 mg PO Q4H PRN PRN Reason: Anxiety Stop: 03/23/24 18:50 Levothyroxine Sodium (Levothyroxine Sodium 50 Mcg Tablet) 50 mcg PO DAILYBB [facility] Stop: 03/25/24 07:59 Last Admin: 02/25/24 08:23 Dose: 50 mcg Campus Carbonate (Campus Carbonate 450 Mg Tabcr) 450 mg PO QAM [facility] Stop: 03/24/24 08:59 Last Admin: 02/25/24 08:24 Dose: 450 mg Campus Carbonate (Campus Carbonate 450 Mg Tabcr) 1,350 mg PO HS [place] Stop: 03/25/24 21:59 Last Admin: 02/24/24 21:51 Dose: 1,350 mg Magnesium Hydroxide (Magnesium Hydroxide Susp 30 Ml Udc) 30 ml PO DAILY PRN PRN Reason: Constipation Stop: 03/23/24 18:50 Montelukast Sodium (Montelukast Sodium 10 Mg Tablet) 10 mg PO QPM [facility] Stop: 03/24/24 20:59 Last Admin: 02/24/24 21:51 Dose: 10 mg *Symbicort Inhal*Non -Form Patient's Own Med 2 each INH BID [facility] Stop: 03/24/24 20:59 Last Admin: 02/25/24 08:24 Dose: 2 puffs Sodium Chloride (Sodium Chloride 0.65% Na Soln 45 Ml ([place])) 1 - 2 sprays NA PRN PRN PRN Reason: Nasal Dryness/Congestion Stop: 03/23/24 18:50 Mental Health & Subst Abuse Tx Psychiatrist Date Of Appointment With Psychiatric Provider: 03/04/24 Time of Appointment with Psychiatrist: 9:40am Therapist Name of Therapist: Rosa Maria Ramirez Date of Therapist Appointment: 02/25/24 Time of Therapist Appointment: 11:00am Hands Hanger Name of Hands Hanger: Osmany LANDIN Date of Appointment with Hands Hanger: 03/13/24 Time of Appointment with Hands Hanger: 8:00am Post Discharge Appointments Primary Care Physician Name Of Family Doctor/PCP: Rena Gerard Date of Future Appointment with PCP: 06/2024 Contact Information Discharge Discharge Address: [facility] [address] [place] [facility] [id number] (2) Bipolar disorder Active/Remission status: remission status unspecified Qualified Code(s): F31.9 - Bipolar disorder, unspecified
[2024-02-26] MEDS: LEVOTHYROXINE SODIUM 50 MCG TABLET PO SCH ×2 (06:50→07:58)
--- NOTE | 2024-02-26 09:15 | Psychiatric Progress Note ---
Date of Service February 26, 2024 Impression / Recommendations Impression Stanley is a 28 year old woman with a history of BPAD and PTSD who was admitted for worsening depression with SI with plan and access to guns in the context of recent surgical procedure, of her grandfather, worsened reactive airway disease and recent episode of catrina. Diagnostically consistent with BPAD current depressive episode. 02/26/2024: Noting feeling overwhelmed by prospect of discharge as she continues to feel unable to remain safe. Discussed trying to find balance of increasing safety with structure of hospitalization while not worsening stress from missing work and being removed from daily routine. Some ongoing help seeking/help rejecting behaviors but has insight into this when discussed and able to acknowledge role of past trauma impacting how she expresses her emotions and can sometimes appear as non-distressed externally due to this. Tolerating [place]. 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 Suspect some cluster B traits contributing to difficulty anticipating lack of inpatient structure on mood and safety. Overall, I spent a total of 40 minutes on this case including meeting with the patient, reviewing the chart, nursing report, multidisciplinary team meeting, orders, and documentation. MNPR due to reactive airway disease and high sensitivity to any potential fragrances from roommates as well as PTSD (1) Depression with suicidal ideation: (2) Bipolar disorder: (3) Borderline personality disorder: (4) PTSD (post-traumatic stress disorder): (5) Reactive airways dysfunction syndrome: Plan 02/26/2024: Start trazodone 50mg HS 02/25/2024: Continue with current medications and tx plan. 02/24/2024: Increase [place] to 450mg qAM & 1350mg HS 02/23/2024: The patient was admitted to the [facility] ([facility] inpatient mental health unit) on q15 min checks (behavioral with suicide precautions) for safety. The patient will participate in group, recreational, and milieu therapies and will be offered additional individual and family sessions as clinically appropriate. -[place] level tomorrow AM for true trough -Continue Li 450mg qAM and 900mg HS Inventory Assets Strengths: supportive relationships, willing to get treatment Needs: safety and stabilization, medication adjustment, additional coping skills, increased outpatient services Suicide Risk Level Suicide Risk Level: Moderate (q15 min suicide checks) (SI lessening though still feels she would not be safe at home, feels safe here) Suicide Risk Level Comments: Risk Factors Assessment : Yes Do You Have Access To A Gun?: Yes (2 rifles and 1 handgun in her apartment.) Health Problems: Yes Mental Health Diagnoses: Yes Previous Attempt: Yes Previous Psychiatric Hospitalization: Yes Protective Factors Assessment Employed: Yes Good Rapport with Provider: Yes Interval History Identifying Information STANLEY VUONG is a 28-year-old F who currently lives in [place] alone, has a history of BPAD, PTSD, anxiety and reactive airway disease and was admitted on 02/22/24 14:44 on a 201 voluntary commitment for SI with plan to shoot herself. Chief Complaint "I felt unheard last night, like you're trying to push me out of here". Review of Systems Sleep Information Total Hours of Sleep: 4 Sleep Comments: Pt woke up at 5 Meal Information Percent Meal Consumed - Breakfast: 100 Percent Meal Consumed - Lunch: 60 Percent Meal Consumed - Dinner: 60 Subjective Subjective Patient was seen & assessed and interval progress reviewed with treatment team nursing and social work. Describes feeling overwhelmed, confused and angry last night as felt that team asking her to safety plan meant she might be discharged today and she feels unsafe and not ready for this. Reports her SI is lessening but is still present and she is concerned that her appetite is still very low and that she's continuing to lose weight due to this. She did not sleep well last night though agrees that due to her overnight work schedule her sleep is impacted by changed schedule here. No side effects from higher dose of [place]. Discussed that she struggles to show any negative emotion as this was not permitted or accepted during her childhood and recognizes this can impact how she interacts with others. She acknowledges that some of her behaviors can be seen as help seeking/help rejecting including gun access. Physical Exam Psychiatric Orientation: alert and oriented x 3 Apperance: appropriately dressed and appropriately groomed Eye Contact: good eye contact Motor Behavior: no abnormal motor movements Speech: normal rate/rhythm/volume of speech Affect: + anxious affect, + irritable affect and + constricted affect Mood: + depressed mood, + anxious mood and + irritable mood Thought Process: goal directed thought process Thought Content: reality based without delusions Suicidal Thoughts: denies suicidal plan and denies suicidal intent; + reports suicidal thoughts (lessening but still present,feels she would be unable to remain safe at [facility]) Homicidal Thoughts: denies homicidal thoughts Hallucinations: no auditory hallucinations and no visual hallucinations Cognition: recent memory grossly intact, remote memory grossly intact, attention grossly intact and language grossly intact Estimated Intelligence: consistent with education level Insight: + fair insight Judgment: + fair judgement Vital Signs (Past 24 Hours) Last Vital Signs Temp 36.8 C 02/26/24 06:55 Pulse 82 02/26/24 06:56 Resp 16 02/26/24 06:55 BP 105/68 02/26/24 06:56 Pulse Ox 98 02/24/24 06:24 O2 Del Method Room Air 02/24/24 06:24 Results & Data ([facility]) Current Inpatient Medications Current Inpatient Medications: Current Inpatient Medications Acetaminophen (Acetaminophen 325 Mg Tab) 650 mg PO Q4H PRN PRN Reason: Headache or Minor Fever Stop: 03/23/24 18:50 Al Hydrox/Mg Hydrox/Simethicone (Aluminum/Magnesium Susp 30 Ml Udc) 30 ml PO Q4H PRN PRN Reason: GI Upset Stop: 03/23/24 18:50 Bismuth Subsalicylate (Bismuth Subsalicylate Liqd 236 Ml) 15 ml PO PRN PRN PRN Reason: Loose Stool Stop: 03/23/24 18:50 Epinephrine HCl (Epinephrine Inj 1 Mg/Ml Amp) 0.3 mg IM PRN PRN PRN Reason: Allergic Reaction Stop: 03/24/24 10:30 Hydroxyzine HCl (Hydroxyzine Hcl 25 Mg Tab) 50 mg PO HSZ PRN PRN Reason: Insomnia Stop: 03/23/24 18:50 Hydroxyzine HCl (Hydroxyzine Hcl 25 Mg Tab) 25 mg PO Q4H PRN PRN Reason: Anxiety Stop: 03/23/24 18:50 Levothyroxine Sodium (Levothyroxine Sodium 50 Mcg Tablet) 50 mcg PO QAM@0600 [facility] Stop: 03/27/24 07:29 Last Admin: 02/26/24 07:58 Dose: Not Given [place] Carbonate ([place] Carbonate 450 Mg Tabcr) 450 mg PO QAM [facility] Stop: 03/24/24 08:59 Last Admin: 02/26/24 08:39 Dose: 450 mg [place] Carbonate ([place] Carbonate 450 Mg Tabcr) 1,350 mg PO HS [facility] Stop: 03/25/24 21:59 Last Admin: 02/25/24 21:56 Dose: 1,350 mg Magnesium Hydroxide (Magnesium Hydroxide Susp 30 Ml Udc) 30 ml PO DAILY PRN PRN Reason: Constipation Stop: 03/23/24 18:50 Montelukast Sodium (Montelukast Sodium 10 Mg Tablet) 10 mg PO QPM [facility] Stop: 03/24/24 20:59 Last Admin: 02/25/24 21:56 Dose: 10 mg *Symbicort Inhal*Non -Form Patient's Own Med 2 each INH BID [facility] Stop: 03/24/24 20:59 Last Admin: 02/26/24 08:39 Dose: 2 puffs Sodium Chloride (Sodium Chloride 0.65% Na Soln 45 Ml ([place])) 1 - 2 sprays NA PRN PRN PRN Reason: Nasal Dryness/Congestion Stop: 03/23/24 18:50 Mental Health & Subst Abuse Tx Psychiatrist Date Of Appointment With Psychiatric Provider: 03/04/24 Time of Appointment with Psychiatrist: 9:40am Therapist Name of Therapist: Rosa Maria Ramirez Date of Therapist Appointment: 02/25/24 Time of Therapist Appointment: 11:00am Milk House Worker Name of Milk House Worker: Osmany LANDIN Date of Appointment with Milk House Worker: 03/13/24 Time of Appointment with Milk House Worker: 8:00am Post Discharge Appointments Primary Care Physician Name Of Family Doctor/PCP: Rena Gerard Date of Future Appointment with PCP: 06/2024 Contact Information Discharge Discharge Address: [address] [place] [id number] (2) Bipolar disorder Active/Remission status: remission status unspecified Qualified Code(s): F31.9 - Bipolar disorder, unspecified
[2024-02-26] MEDS: traZODone HCL 50 MG TAB PO SCH (22:19)
[2024-02-27] MEDS: ACETAMINOPHEN 325 MG TAB PO PRN (09:00)
--- NOTE | 2024-02-27 09:26 | Psychiatric Progress Note ---
Date of Service February 27, 2024 Impression / Recommendations Impression Stanley is a 28 year old woman with a history of BPAD and PTSD who was admitted for worsening depression with SI with plan and access to guns in the context of recent surgical procedure, of her grandfather, worsened reactive airway disease and recent episode of catrina. Diagnostically consistent with BPAD current depressive episode. 02/27/2024: Mood improving but impacted by bad headache today. Possibly from trazodone vs [place] side effect. Addressing with acetaminophen. Tomorrow will be 5 days at higher dose of Li, level to be repeated on morning of 02/29/2024. Overall, I spent a total of 34 minutes on this case including meeting with the patient, reviewing the chart, nursing report, multidisciplinary team meeting, orders, and documentation. MNPR due to reactive airway disease and high sensitivity to any potential fragrances from roommates as well as PTSD (1) Depression with suicidal ideation: (2) Bipolar disorder: (3) Borderline personality disorder: (4) PTSD (post-traumatic stress disorder): (5) Reactive airways dysfunction syndrome: Plan 02/27/2024: Continue current medications and tx plan. 02/26/2024: Start trazodone 50mg HS 02/25/2024: Continue with current medications and tx plan. 02/24/2024: Increase [place] to 450mg qAM & 1350mg HS 02/23/2024: The patient was admitted to the [facility] ([facility] mental health unit) on q15 min checks (behavioral with suicide precautions) for safety. The patient will participate in group, recreational, and milieu therapies and will be offered additional individual and family sessions as clinically appropriate. -[place] level tomorrow AM for true trough -Continue Li 450mg qAM and 900mg HS Inventory Assets Strengths: supportive relationships, willing to get treatment Needs: safety and stabilization, medication adjustment, additional coping skills, in creased outpatient services Suicide Risk Level Suicide Risk Level: Moderate (q15 min suicide checks) (SI lessening though still feels she would not be safe at home, feels safe here) Suicide Risk Level Comments: Risk Factors Assessment : Yes Do You Have Access To A Gun?: Yes (2 rifles and 1 handgun in her apartment.) Health Problems: Yes Mental Health Diagnoses: Yes Previous Attempt: Yes Previous Psychiatric Hospitalization: Yes Protective Factors Assessment Employed: Yes Good Rapport with Provider: Yes Interval History Identifying Information STANLEY VUONG is a 28-year-old F who currently lives in [place] alone, has a history of BPAD, PTSD, anxiety and reactive airway disease and was admitted on 02/22/24 14:44 on a 201 voluntary commitment for SI with plan to shoot herself. Chief Complaint "I've had a headache all day". Review of Systems Sleep Information Total Hours of Sleep: 8 Sleep Comments: Scheduled Trazodone at HS Meal Information Percent Meal Consumed - Breakfast: 100 Percent Meal Consumed - Lunch: 100 Percent Meal Consumed - Dinner: 100 Subjective Subjective Patient was seen & assessed and interval progress reviewed with treatment team nursing and social work. Had a visit with a friend last night but turned another away. Reported her mood as "cautiously optimistic" last night. Slept well with trazodone and slightly increased appetite today but has been experiencing a bad headache. No other symptoms at this time. She wants to continue with trazodone for now, discussed possible contribution from [place]. SI lessening and "going down". Physical Exam Psychiatric Orientation: alert and oriented x 3 Apperance: appropriately dressed and appropriately groomed Eye Contact: good eye contact Motor Behavior: no abnormal motor movements Speech: normal rate/rhythm/volume of speech Affect: + constricted affect Mood: + depressed mood Thought Process: goal directed thought process Thought Content: reality based without delusions Suicidal Thoughts: denies suicidal plan and denies suicidal intent; + reports suicidal thoughts (lessening but still present,feels she would be unable to remain safe at [facility]) Homicidal Thoughts: denies homicidal thoughts Hallucinations: no auditory hallucinations and no visual hallucinations Cognition: recent memory grossly intact, remote memory grossly intact, attention grossly intact and language grossly intact Estimated Intelligence: consistent with education level Insight: + fair insight Judgment: + fair judgement Vital Signs (Past 24 Hours) Last Vital Signs Temp 36.3 C L 02/27/24 06:00 Pulse 128 H 02/27/24 06:16 Resp 16 02/27/24 06:00 BP 104/62 02/27/24 06:16 Pulse Ox 98 02/24/24 06:24 O2 Del Method Room Air 02/24/24 06:24 Results & Data ([facility]) Current Inpatient Medications Current Inpatient Medications: Current Inpatient Medications Acetaminophen (Acetaminophen 325 Mg Tab) 650 mg PO Q4H PRN PRN Reason: Headache or Minor Fever Stop: 03/23/24 18:50 Last Admin: 02/27/24 09:00 Dose: 650 mg Al Hydrox/Mg Hydrox/Simethicone (Aluminum/Magnesium Susp 30 Ml Udc) 30 ml PO Q4H PRN PRN Reason: GI Upset Stop: 03/23/24 18:50 Bismuth Subsalicylate (Bismuth Subsalicylate Liqd 236 Ml) 15 ml PO PRN PRN PRN Reason: Loose Stool Stop: 03/23/24 18:50 Epinephrine HCl (Epinephrine Inj 1 Mg/Ml Amp) 0.3 mg IM PRN PRN PRN Reason: Allergic Reaction Stop: 03/24/24 10:30 Hydroxyzine HCl (Hydroxyzine Hcl 25 Mg Tab) 50 mg PO HSZ PRN PRN Reason: Insomnia Stop: 03/23/24 18:50 Hydroxyzine HCl (Hydroxyzine Hcl 25 Mg Tab) 25 mg PO Q4H PRN PRN Reason: Anxiety Stop: 03/23/24 18:50 Levothyroxine Sodium (Levothyroxine Sodium 50 Mcg Tablet) 50 mcg PO QAM@0600 [facility] Stop: 03/27/24 07:29 Last Admin: 02/27/24 06:01 Dose: 50 mcg [place] Carbonate ([place] Carbonate 450 Mg Tabcr) 450 mg PO QAM [facility] Stop: 03/24/24 08:59 Last Admin: 02/27/24 08:45 Dose: 450 mg [place] Carbonate ([place] Carbonate 450 Mg Tabcr) 1,350 mg PO HS [facility] Stop: 03/25/24 21:59 Last Admin: 02/26/24 22:20 Dose: 1,350 mg Magnesium Hydroxide (Magnesium Hydroxide Susp 30 Ml Udc) 30 ml PO DAILY PRN PRN Reason: Constipation Stop: 03/23/24 18:50 Montelukast Sodium (Montelukast Sodium 10 Mg Tablet) 10 mg PO QPM [facility] Stop: 03/24/24 20:59 Last Admin: 02/26/24 21:45 Dose: 10 mg *Symbicort Inhal*Non -Form Patient's Own Med 2 each INH BID [facility] Stop: 03/24/24 20:59 Last Admin: 02/27/24 08:45 Dose: 2 puffs Sodium Chloride (Sodium Chloride 0.65% Na Soln 45 Ml ([place])) 1 - 2 sprays NA PRN PRN PRN Reason: Nasal Dryness/Congestion Stop: 03/23/24 18:50 Trazodone HCl (Trazodone Hcl 50 Mg Tab) 50 mg PO HS [facility] Stop: 03/27/24 21:59 Last Admin: 02/26/24 22:19 Dose: 50 mg Mental Health & Subst Abuse Tx Psychiatrist Date Of Appointment With Psychiatric Provider: 03/04/24 Time of Appointment with Psychiatrist: 9:40am Therapist Name of Therapist: Rosa Maria Ramirez Date of Therapist Appointment: 02/25/24 Time of Therapist Appointment: 11:00am Sort Line Worker Name of Sort Line Worker: Osmany Pinto BSU Date of Appointment with Sort Line Worker: 03/13/24 Time of Appointment with Sort Line Worker: 8:00am Post Discharge Appointments Primary Care Physician Name Of Family Doctor/PCP: Rena Gerard Date of Future Appointment with PCP: 06/2024 Contact Information Discharge Discharge Address: [address] [place] [address] [place] [address] (2) Bipolar disorder Active/Remission status: remission status unspecified Qualified Code(s): F31.9 - Bipolar disorder, unspecified
[2024-02-27] MEDS: ACETAMINOPHEN 500 MG TAB PO PRN (14:23)
[2024-02-27] MEDS: SUMAtriptan succinate 25 MG TAB PO PRN (17:17)
--- NOTE | 2024-02-28 09:16 | Psychiatric Progress Note ---
Date of Service February 28, 2024 Impression / Recommendations Impression Stanley is a 28 year old woman with a history of BPAD and PTSD who was admitted for worsening depression with SI with plan and access to guns in the context of recent surgical procedure, of her grandfather, worsened reactive airway disease and recent episode of catrina. Diagnostically consistent with BPAD current depressive episode. 02/28/2024: Some anxiety today largely related to breathing issues, finding duoneb treatment helpful. Headache mild today and responded well to acetaminophen. [place] level in the morning for steady-state since dose increase. Overall, I spent a total of 36 minutes on this case including meeting with the patient, reviewing the chart, nursing report, multidisciplinary team meeting, orders, and documentation. MNPR due to reactive airway disease and high sensitivity to any potential fragrances from roommates as well as PTSD (1) Depression with suicidal ideation: (2) Bipolar disorder: (3) Borderline personality disorder: (4) PTSD (post-traumatic stress disorder): (5) Reactive airways dysfunction syndrome: Plan 02/28/2024: Continue current medications and tx plan. Duoneb prn for breathing difficulty/shortness of breath ordered. 02/27/2024: Continue current medications and tx plan. 02/26/2024: Start trazodone 50mg HS 02/25/2024: Continue with current medications and tx plan. 02/24/2024: Increase [place] to 450mg qAM & 1350mg HS 02/23/2024: The patient was admitted to the [facility] ([facility] health unit) on q15 min checks (behavioral with suicide precautions) for safety. The patient will participate in group, recreational, and milieu therapies and will be offered additional individual and family sessions as clinically appropriate. -[place] level tomorrow AM for true trough -Continue Li 450mg qAM and 900mg HS Inventory Assets Strengths: supportive relationships, willing to get treatment Needs: safety and stabilization, medication adjustment, additional coping skills, increased outpatient services Suicide Risk Level Suicide Risk Level: Moderate (q15 min suicide checks) (SI prior to admission, denies SI and mood improving and feels safe in the hospital ) Suicide Risk Level Comments: Risk Factors Assessment : Yes Do You Have Access To A Gun?: Yes (2 rifles and 1 handgun in her apartment.) Health Problems: Yes Mental Health Diagnoses: Yes Previous Attempt: Yes Previous Psychiatric Hospitalization: Yes Protective Factors Assessment Employed: Yes Good Rapport with Provider: Yes Interval History Identifying Information STANLEY VUONG is a 28-year-old F who currently lives in [place] alone, has a history of BPAD, PTSD, anxiety and reactive airway disease and was admitted on 02/22/24 14:44 on a 201 voluntary commitment for SI with plan to shoot herself. Chief Complaint "Ok, the hand displayer merchandise smell has set off my breathing". Review of Systems Sleep Information Total Hours of Sleep: 6 Sleep Comments: Scheduled Trazodone at HS Meal Information Percent Meal Consumed - Breakfast: 50 Percent Meal Consumed - Lunch: 100 Percent Meal Consumed - Dinner: 100 Subjective Subjective Patient was seen & assessed and interval progress reviewed with treatment team nursing and social work. Imitrex worked well for her headache yesterday. Slept well overnight and appetite improving. Today mild EVANS but it responded well to acetaminophen and went away. Mood is "ok" and denies any SI. Increased difficulty breathing this afternoon which she attributes to smelling hand displayer merchandise/irritation of airways. She requests duoneb treatment as this typically helps significantly. Physical Exam Psychiatric Orientation: alert and oriented x 3 Apperance: appropriately dressed and appropriately groomed Eye Contact: good eye contact Motor Behavior: no abnormal motor movements Speech: normal rate/rhythm/volume of speech Affect: + anxious affect Mood: + anxious mood Thought Process: goal directed thought process Thought Content: reality based without delusions Suicidal Thoughts: denies suicidal thoughts, denies suicidal plan and denies suicidal intent Homicidal Thoughts: denies homicidal thoughts Hallucinations: no auditory hallucinations and no visual hallucinations Cognition: recent memory grossly intact, remote memory grossly intact, attention grossly intact and language grossly intact Estimated Intelligence: consistent with education level Insight: + fair insight Judgment: + fair judgement Vital Signs (Past 24 Hours) Last Vital Signs Temp 36.2 C L 02/28/24 06:00 Pulse 93 H 02/28/24 06:21 Resp 16 02/28/24 06:00 BP 105/52 L 02/28/24 06:21 Pulse Ox 98 02/24/24 06:24 O2 Del Method Room Air 02/24/24 06:24 Results & Data ([facility]) Current Inpatient Medications Current Inpatient Medications: Current Inpatient Medications Acetaminophen (Acetaminophen 500 Mg Tab) 1,000 mg PO Q8H PRN PRN Reason: Headache or Minor Fever Stop: 03/23/24 18:50 Last Admin: 02/27/24 14:23 Dose: 1,000 mg Al Hydrox/Mg Hydrox/Simethicone (Aluminum/Magnesium Susp 30 Ml Udc) 30 ml PO Q4H PRN PRN Reason: GI Upset Stop: 03/23/24 18:50 Bismuth Subsalicylate (Bismuth Subsalicylate Liqd 236 Ml) 15 ml PO PRN PRN PRN Reason: Loose Stool Stop: 03/23/24 18:50 Epinephrine HCl (Epinephrine Inj 1 Mg/Ml Amp) 0.3 mg IM PRN PRN PRN Reason: Allergic Reaction Stop: 03/24/24 10:30 Hydroxyzine HCl (Hydroxyzine Hcl 25 Mg Tab) 50 mg PO HSZ PRN PRN Reason: Insomnia Stop: 03/23/24 18:50 Hydroxyzine HCl (Hydroxyzine Hcl 25 Mg Tab) 25 mg PO Q4H PRN PRN Reason: Anxiety Stop: 03/23/24 18:50 Levothyroxine Sodium (Levothyroxine Sodium 50 Mcg Tablet) 50 mcg PO QAM@[facility] Stop: 03/27/24 07:29 Last Admin: 02/28/24 06:00 Dose: 50 mcg [place] Carbonate ([place] Carbonate 450 Mg Tabcr) 450 mg PO QAM LORENA Stop: 03/24/24 08:59 Last Admin: 02/27/24 08:45 Dose: 450 mg [place] Carbonate ([place] Carbonate 450 Mg Tabcr) 1,350 mg PO HS LORENA Stop: 03/25/24 21:59 Last Admin: 02/27/24 22:21 Dose: 1,350 mg Magnesium Hydroxide (Magnesium Hydroxide Susp 30 Ml Udc) 30 ml PO DAILY PRN PRN Reason: Constipation Stop: 03/23/24 18:50 Montelukast Sodium (Montelukast Sodium 10 Mg Tablet) 10 mg PO QPM LORENA Stop: 03/24/24 20:59 Last Admin: 02/27/24 22:21 Dose: 10 mg *Symbicort Inhal*Non -Form Patient's Own Med 2 each INH BID LORENA Stop: 03/24/24 20:59 Last Admin: 02/27/24 22:22 Dose: 2 puffs Sodium Chloride (Sodium Chloride 0.65% Na Soln 45 Ml ([place])) 1 - 2 sprays NA PRN PRN PRN Reason: Nasal Dryness/Congestion Stop: 03/23/24 18:50 Sumatriptan Succinate (Sumatriptan Succinate 25 Mg Tab) 25 mg PO DAILY PRN PRN Reason: Migraine Headache Stop: 03/28/24 16:17 Last Admin: 02/27/24 17:17 Dose: 25 mg Trazodone HCl (Trazodone Hcl 50 Mg Tab) 50 mg PO HS LORENA Stop: 03/27/24 21:59 Last Admin: 02/27/24 22:21 Dose: 50 mg Mental Health & Subst Abuse Tx Psychiatrist Name of Psychiatrist: Iris Lema Psychiatrist's Date Of Appointment With Psychiatric Provider: 03/04/24 Time of Appointment with Psychiatrist: 9:40am Therapist Name of Therapist: Rosa Maria Ramirez Date of Therapist Appointment: 02/25/24 Time of Therapist Appointment: 11:00am Telecommunications Linesworker Name of Telecommunications Linesworker: Osmany LANDIN Date of Appointment with Telecommunications Linesworker: 03/13/24 Time of Appointment with Telecommunications Linesworker: 8:00am Case Management Appointment Comment: Will contact you within 1-3 days of being discharged Post Discharge Appointments Primary Care Physician Name Of Family Doctor/PCP: Rena Gerard Date of Future Appointment with PCP: 06/2024 Contact Information Discharge Discharge [address]: [address] [place] [address] (2) Bipolar disorder Active/Remission status: remission status unspecified Qualified Code(s): F31.9 - Bipolar disorder, unspecified
[2024-02-28] MEDS: ALBUT/IPRATROP 3MG/0.5MG NEB 3 ML VIAL NEB PRN (16:34)
--- NOTE | 2024-02-29 09:05 | Discharge Summary ---
Date of Service February 29, 2024 History of Present Illness Presents with SI with thoughts of shooting herself with a gun. After getting a dose of lorazepam in January during an ED visit for shortness of breath she feels the depression "kicked in" with social withdrawal, not eating well, "thoughts of creeping in", low motivation, decreased sleep. She feels her current episode is depression and not mixed. In December she had a hysterectomy and episode of catrina following this with resultant increase in [place] from 600mg total to 900mg total. Her mood stabilized but then she developed more severe depression and the [place] was increased again to 1350mg total. She notes that it was the "perfect storm" to go into a depressive episode following the catrina and then getting the lorazepam. She also notes that another possible contribution to this current depressive episode is likely from hormone fluctuations and physical toll of her recent hysterectomy and oophorectomy. Additionally her grandfather on Sunday. She feels her mother is relying on her to support her emotionally through her grief. Reports three recent respiratory episodes since January 22 with one resulting in a hospital admission at [facility] in [place]. 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 [place] was increased from 450mg BID to 450mg qAM and 900mg HS one week ago. Denies any recent self-harm. Has been attending AA to avoid drinking. Physical Exam Vital Signs (Past 24 Hours) Last Vital Signs Temp 36.9 C 02/29/24 06:43 Pulse 81 02/29/24 06:43 Resp 16 02/29/24 06:43 BP 101/66 02/29/24 06:43 Pulse Ox 100 02/28/24 16:34 O2 Del Method Room Air 02/28/24 16:34 FiO2 21 02/28/24 16:34 See admission H&P and DOD summary. Principal Diagnosis Bipolar Affective Disorder, current depressive episode Psychiatric Data See daily stay summary. In short, patient was engaged with the social/therapeutic milieu of the unit, safety was maintained and the patient was cooperative with care. Medication changes included [] and they tolerated this well. [any pertinent labs or titration schedule details/outpt follow-up info for PCP]. A family session was [held] and safety plan was completed prior to discharge. [He] [She] actively and insightfully participated in safety planning and in discussions about ways to seek support and recognizing warning signs and utilizing coping skills. Reviewed mobile apps that could be used for additional ways to have their safety plan and contacts easily available should thoughts of SI re-emerge in the future. Reviewed importance of seeking emergency care should SI intensify, worsen or should they feel unsafe in the future which they agree to do. On the day of discharge [he] [she] stated [his] [her] mood was "[]" and remained future-oriented including [spending time with his girlfriend, seeing his family] and engaging in aftercare appointments for psychiatry, therapy, case management and peer support. Day of Discharge Assessment Today the patient voices readiness for discharge. They note improvement in mood [and anxiety]. They deny thoughts of harm to self or others. Thoughts [remain] [are] organized and they are clinically improved from admission. There is no evidence of psychosis. They improved in the hospital with support [and medication adjustments]. They agree to take medications as prescribed and keep follow-up appointments. At the time of the discharge they are deemed to be stable and appropriate for outpatient level of care. They are not deemed to be at imminent risk of harm to self or others. They are aware of emergency and crisis services. Knows to call 911 or go to nearest emergency care center if in a crisis which cannot be handled as an outpatient. Overall, I spent a total of [] minutes on this case including meeting with the patient, reviewing the chart, nursing report, multidisciplinary team meeting, orders, and documentation. Transition of Care Transition Of Care Record: was reviewed with the patient Advance Directives Advance Directives Information Provided: No Advance Directives: No Mental Health Advance Directive: No Advance Directives on File: No Living Will: No Power of Mower Sharpener: No Advance Directives Reason:: Declines as Mental Health Visit. Suicide Risk Level Suicide Risk Level Comments: Acute risk is low given improvement in mood and denial of SI [lack of access to lethal means] [plan to avoid substance use] [improvement in sleep] [hopefulness] [improvement in psychosis]. Chronic risk is [low] [moderate] [high] given [few non-modifiable risk factors] [multiple non-modifiable risk factors] [psychiatric co-morbid diagnoses] [periods of impulsivity] [prior attempt] [hx self-harm] [emotional reactivity] [chronic illness] [prior psychiatric hospitalizations] [poor social support] [mood disorder] [schizophrenia] [cluster B personality disorder] [childhood trauma] [family history of by suicide] [but also with protective factors including] [employed/student] [good social support] [sense of responsibility to family and social supports] [outpatient care in place] [positive coping skills] [positive problem solving] [capacity to establish therapeutic alliance] [willingness to engage with treatment] [capacity for self- observation]. Counseled on ways to reduce acute and chronic risk including engaging with outpatient providers, using safety plan if needed, utilizing supports, taking medication, and using coping skills. Modifiable risk factors of [SI and depression] were addressed during hospitalization through development of new coping skills, family meeting, safety planning, and medication adjustments. Risk Factors Assessment : Yes Do You Have Access To A Gun?: Yes (2 rifles and 1 handgun in her apartment.) Health Problems: Yes Mental Health Diagnoses: Yes Previous Attempt: Yes Previous Psychiatric Hospitalization: Yes Hopelessness: No Protective Factors Assessment Employed: Yes Good Rapport with Provider: Yes Discharge Data Lab Results 02/24/24 06:58 [place] 0.7 Hospital Course (1) Depression with suicidal ideation: (2) Bipolar disorder: (3) Borderline personality disorder: (4) PTSD (post-traumatic stress disorder): (5) Reactive airways dysfunction syndrome: Plan 02/28/2024: Continue current medications and tx plan. Duoneb prn for breathing difficulty/shortness of breath ordered. 02/27/2024: Continue current medications and tx plan. 02/26/2024: Start trazodone 50mg HS 02/25/2024: Continue with current medications and tx plan. 02/24/2024: Increase [place] to 450mg qAM & 1350mg HS 02/23/2024: The patient was admitted to the [facility] ([facility]) on q15 min checks (behavioral with suicide precautions) for safety. The patient will participate in group, recreational, and milieu therapies and will be offered additional individual and family sessions as clinically appropriate. -[place] level tomorrow AM for true trough -Continue Li 450mg qAM and 900mg HS Mental Health & Subst Abuse Tx Psychiatrist Name of Psychiatrist: Iris Lema Psychiatrist's Date Of Appointment With Psychiatric Provider: 03/04/24 Time of Appointment with Psychiatrist: 2:40pm Psychiatric Appointment Comment: [address] [facility] [address] Therapist Name of Therapist: Ashley Crane Therapist's Date of Therapist Appointment: 03/05/24 Time of Therapist Appointment: 12:00 Central Supply Technician Name of Central Supply Technician: Osmany Pinto BSArmando Date of Appointment with Central Supply Technician: 03/13/24 Time of Appointment with Central Supply Technician: 8:00am Case Management Appointment Comment: Will contact you within 1-3 days of being discharged Post Discharge Appointments Primary Care Physician Name Of Family Doctor/PCP: Rena Gerard Primary Care Date of Future Appointment with PCP: . Provider Appointment Comment: Please follow up with PCP as needed. Contact Information Discharge Discharge Address: [facility] [address] Discharge Plan Discharge Items Reason For Visit: SUICIDAL IDEATION Follow-up/Referrals: Dede Long CRNP [Primary Care Provider] - Medications and DC Order Prescriptions: No Action montelukast [Singulair] 10 mg tablet 10 mg PO QPM lithium carbonate 450 mg tablet extended release See Rx Instructions .ROUTE .COMPLEX Rx Instructions: Take one 450 mg tablet in the morning, take two 450 mg tablets before bed (for a total of 900 mg before bed) epinephrine 0.3 mg/0.3 mL auto-injector 0.3 mg IM UD PRN (Reason: Allergic Reaction) budesonide-formoterol [Symbicort] 80-4.5 mcg/actuation HFA aerosol inhaler 2 puff INHALATION Q12H levothyroxine 50 mcg tablet 50 mcg PO 1XD hydroxyzine HCl 10 mg tablet 10 mg PO DIRECTED PRN (Reason: Anxiety) Admission Data Admit Date/Time: 02/22/24 14:44 Attending Provider: Helen Werner Admit Provider: Alfonzo Salamanca Primary Care Provider: Dede Long Coding Diagnoses Depression with suicidal ideation F32.A; R45.851 Bipolar disorder, current episode depressed, severe, without psychotic features F31.9 Active/Remission status: remission status unspecified Borderline personality disorder F60.3 PTSD (post-traumatic stress disorder) F43.10 Reactive airways dysfunction syndrome J68.3
--- NOTE | 2024-02-29 11:42 | Psychiatric Progress Note ---
Date of Service February 29, 2024 Impression / Recommendations Impression Stanley is a 28 year old woman with a history of BPAD and PTSD who was admitted for worsening depression with SI with plan and access to guns in the context of recent surgical procedure, of her grandfather, worsened reactive airway disease and recent episode of catrina. Diagnostically consistent with BPAD current depressive episode. 02/29/2024: Her mood has improved and no longer with SI however her Delavan level came back high this morning at 1.5 and result did not come back until after she received her scheduled AM lithium dose. Therefore, even though she does not currently meet criteria for lithium toxicity given no clinical symptoms, it is felt important to continue to monitor for any emergence of such symptoms, check labwork related to electrolytes/BUN/Cr and hold her next lithium doses for repe at Delavan level this evening and tomorrow morning to ensure it does not increase. Should her level increase or any clinical symptoms of toxicity arise then hospitalist provider to be consulted to determine if any supportive or IV fluid treatment becomes needed. Stanley vocalizes understanding and is in support of this plan. She agrees to let us know if any toxicity symptoms emerge which we reviewed. Overall, I spent a total of 40 minutes on this case including meeting with the patient, reviewing the chart, nursing report, multidisciplinary team meeting, orders, and documentation. MNPR due to reactive airway disease and high sensitivity to any potential fragrances from roommates as well as PTSD (1) Elevated lithium level: (2) Depression with suicidal ideation: (3) Bipolar disorder: (4) Borderline personality disorder: (5) PTSD (post-traumatic stress disorder): (6) Reactive airways dysfunction syndrome: Plan 02/29/2024: -Discontinue Delavan for now -CBC, BUN, Cr, electrolytes ordered -Repeat Li level [id number] 02/28/2024: Continue current medications and tx plan. Duoneb prn for breathing difficulty/shortness of breath ordered. 02/27/2024: Continue current medications and tx plan. 02/26/2024: Start trazodone 50mg HS 02/25/2024: Continue with current medications and tx plan. 02/24/2024: Increase Delavan to 450mg qAM & 1350mg HS 02/23/2024: The patient was [facility] on q15 min checks (behavioral with suicide precautions) for safety. The patient will participate in group, recreational, and milieu therapies and will be offered additional individual and family sessions as clinically appropriate. -Delavan level tomorrow AM for true trough -Continue Li 450mg qAM and 900mg HS Inventory Assets Strengths: supportive relationships, willing to get treatment Needs: safety and stabilization, medication adjustment, additional coping skills, increased outpatient services Suicide Risk Level Suicide Risk Level: Low (q15 min observation checks) (mood improved, denies SI ) Risk Factors Assessment : Yes Do You Have Access To A Gun?: Yes (2 rifles and 1 handgun in her apartment.) Health Problems: Yes Mental Health Diagnoses: Yes Previous Attempt: Yes Previous Psychiatric Hospitalization: Yes Protective Factors Assessment Employed: Yes Good Rapport with Provider: Yes Interval History Identifying Information STANLEY VUONG is a 28-year-old F who currently lives in [place] alone, has a history of BPAD, PTSD, anxiety and reactive airway disease and was admitted on 02/22/24 14:44 on a 201 voluntary commitment for SI with plan to shoot herself. Chief Complaint "I feel safe". Review of Systems Sleep Information Total Hours of Sleep: 6 Sleep Comments: Scheduled Trazodone at HS Meal Information Percent Meal Consumed - Breakfast: 100 Percent Meal Consumed - Lunch: 100 Percent Meal Consumed - Dinner: 15 Subjective Subjective Patient was seen & assessed and interval progress reviewed with treatment team nursing and social work. She reports improved mood today, feels safe and denies SI. No headache or other symptoms today. However, discussed that her Delavan level came back outside of the therapeutic range. She has no tremor, no nystamus, no ataxia, no confusion, no GI symptoms, no lethargy nor fatigue. She is agreeable to remaining in the hospital for ongoing monitoring of Li level and to ensure no development of any symptoms of toxicity. Her breathing has improved since duoneb treatment yesterday. Physical Exam Psychiatric Orientation: alert and oriented x 3 Apperance: appropriately dressed and appropriately groomed Eye Contact: good eye contact Motor Behavior: steady gait and station and no abnormal motor movements; n tremor Speech: normal rate/rhythm/volume of speech Affect: + constricted affect Mood: no depressed mood and no anxious mood Thought Process: goal directed thought process Thought Content: reality based without delusions Suicidal Thoughts: denies suicidal thoughts, denies suicidal plan and denies suicidal intent Homicidal Thoughts: denies homicidal thoughts Hallucinations: no auditory hallucinations and no visual hallucinations Cognition: recent memory grossly intact, remote memory grossly intact, attention grossly intact and language grossly intact Estimated Intelligence: consistent with education level Insight: + fair insight Judgment: + fair judgement Vital Signs (Past 24 Hours) Last Vital Signs Temp 36.9 C 02/29/24 06:43 Pulse 81 02/29/24 06:43 Resp 16 02/29/24 06:43 BP 101/66 02/29/24 06:43 Pulse Ox 100 02/28/24 16:34 O2 Del Method Room Air 02/28/24 16:34 FiO2 21 02/28/24 16:34 Neurologic Cranial Nerves: no nystagmus Gait: no ataxic gait Coordination: normal [id number] test Results & Data ([facility]) Laboratory Results Laboratory Results - last 24 hr 02/29/24 07:53 Delavan 1.5 H Current Inpatient Medications Current Inpatient Medications: Current Inpatient Medications Acetaminophen (Acetaminophen 500 Mg Tab) 1,000 mg PO Q8H PRN PRN Reason: Headache or Minor Fever Stop: 03/23/24 18:50 Last Admin: 02/28/24 09:41 Dose: 1,000 mg Al Hydrox/Mg Hydrox/Simethicone (Aluminum/Magnesium Susp 30 Ml Udc) 30 ml PO Q4H PRN PRN Reason: GI Upset Stop: 03/23/24 18:50 Albuterol (Albut/Ipratrop 3mg/0.5mg Neb 3 Ml Vial) 3 ml NEB Q6R PRN; Protocol PRN Reason: Shortness Of Breath Stop: 03/29/24 16:04 Last Admin: 02/28/24 16:34 Dose: 3 ml Bismuth Subsalicylate (Bismuth Subsalicylate Liqd 236 Ml) 15 ml PO PRN PRN PRN Reason: Loose Stool Stop: 03/23/24 18:50 Epinephrine HCl (Epinephrine Inj 1 Mg/Ml Amp) 0.3 mg IM PRN PRN PRN Reason: Allergic Reaction Stop: 03/24/24 10:30 Hydroxyzine HCl (Hydroxyzine Hcl 25 Mg Tab) 50 mg PO HSZ PRN PRN Reason: Insomnia Stop: 03/23/24 18:50 Hydroxyzine HCl (Hydroxyzine Hcl 25 Mg Tab) 25 mg PO Q4H PRN PRN Reason: Anxiety Stop: 03/23/24 18:50 Levothyroxine Sodium (Levothyroxine Sodium 50 Mcg Tablet) 50 mcg PO QAM@0600 LORENA Stop: 03/27/24 07:29 Last Admin: 02/29/24 06:03 Dose: 50 mcg Magnesium Hydroxide (Magnesium Hydroxide Susp 30 Ml Udc) 30 ml PO DAILY PRN PRN Reason: Constipation Stop: 03/23/24 18:50 Montelukast Sodium (Montelukast Sodium 10 Mg Tablet) 10 mg PO QPM LORENA Stop: 03/24/24 20:59 Last Admin: 02/28/24 22:00 Dose: 10 mg *Symbicort Inhal*Non -Form Patient's Own Med 2 each INH BID LORENA Stop: 03/24/24 20:59 Last Admin: 02/29/24 09:08 Dose: 2 puffs Sodium Chloride (Sodium Chloride 0.65% Na Soln 45 Ml ([place])) 1 - 2 sprays NA PRN PRN PRN Reason: Nasal Dryness/Congestion Stop: 03/23/24 18:50 Sumatriptan Succinate (Sumatriptan Succinate 25 Mg Tab) 25 mg PO DAILY PRN PRN Reason: Migraine Headache Stop: 03/28/24 16:17 Last Admin: 02/27/24 17:17 Dose: 25 mg Trazodone HCl (Trazodone Hcl 50 Mg Tab) 50 mg PO HS LORENA Stop: 03/27/24 21:59 Last Admin: 02/28/24 21:58 Dose: 50 mg Mental Health & Subst Abuse Tx Psychiatrist Name of Psychiatrist: Iris Lema Psychiatrist's Date Of Appointment With Psychiatric Provider: 03/04/24 Time of Appointment with Psychiatrist: 2:40pm Psychiatric Appointment Comment: [address] [facility] [place], [facility] [address] Therapist Name of Therapist: Ashley Crane Therapist's Date of Therapist Appointment: 03/05/24 Time of Therapist Appointment: 12:00 Refinisher Name of Refinisher: Osmany LANDIN Date of Appointment with Refinisher: 03/13/24 Time of Appointment with Refinisher: 8:00am Case Management Appointment Comment: Will contact you within 1-3 days of being discharged Post Discharge Appointments Primary Care Physician Name Of Family Doctor/PCP: Rena Gerard [facility] Date of Future Appointment with PCP: . Provider Appointment Comment: Please follow up with PCP as needed. Contact Information Discharge Discharge Address: [facility] [place] [facility] [address] (3) Bipolar disorder Active/Remission status: remission status unspecified Qualified Code(s): F31 .9 - Bipolar disorder, unspecified
[2024-02-29 11:56] LABS: Basophils # (auto) 0.04 K/uL (0.00-0.20); Basophils % (auto) 0.6 %; Eosinophils # (auto) 0.27 K/uL (0.00-0.50); Eosinophils % (auto) 4.3 %; Hematocrit (blood only) 42.4 % (37.0-47.0); Immature Granulocytes # (auto) 0.01 K/uL (0.01-0.20); Immature Granulocytes % (auto) 0.2 %; Lymphocytes # (auto) 1.31 K/uL (1.20-3.40); Lymphocytes % (auto) 20.7 %; Mean Corpuscular Hemoglobin 29.3 pg (25.0-34.0); Mean Corpuscular Volume 88.7 fL (80.0-100.0); Mean Platelet Volume 9.2 fL (9.4-12.4); Monocytes # (auto) 0.61 K/uL (0.11-0.59); Monocytes % (auto) 9.7 %; Neutrophils # (auto) 4.08 K/uL (1.40-6.50); Neutrophils % (auto) 64.5 %; Platelet Count 435 K/uL (130-400); RDW Coefficient of Variation 13.5 % (11.5-14.5); RDW Standard Deviation 44.2 fL (36.4-46.3); Red Blood Count 4.78 M/uL (4.20-5.40); White Blood Count 6.32 K/ul (4.8-10.8)
[2024-02-29 12:01] LABS: Creatinine Clr Calc Pharmacy 131.7 ml/min; Est GFR (African American) 142.5 ml/min; Est GFR (Non-African American) 122.9 ml/min; Potassium 3.9 mmol/L (3.5-5.1)
[2024-02-29] MEDS: ALUMINUM/MAGNESIUM SUSP 30 ML UDC PO PRN (20:10)
[2024-02-29] MEDS ORDERED: LITHIUM CARBONATE 450 MG TABCR PO SCH (22:00)
--- NOTE | 2024-03-01 11:50 | Discharge Summary ---
Date of Service March 01, 2024 History of Present Illness Elidia is a 28 year old woman with a history of BPAD and PTSD who was admitted for worsening depression with SI with plan and access to guns in the context of recent surgical procedure, of her grandfather, worsened reactive airway disease and recent episode of catrina. Diagnostically consistent with BPAD current depressive episode. Discussed medication treatment options in detail including [place], augmentation with an antidepressant, augmentation with a dopamine antagonist for depression. Discussed risks, benefits and alternatives. She wants to continue [place] for bipolar depression. Given recent dose increase will hold off on further increase for now. Reviewed side effects including but not limited to: Baseline labs of thyroid function, kidney function, weight, electrolytes, CBC, and UA were preformed and reviewed. Patient understands risks of dehydration, renal, thyroid, cardiac, drug interactions (NSAIDs, ACEIs, angiotensin receptor antagonists, risks). Physical Exam Mental Examination Appearance: Well Groomed Eye Contact: Direct Eye Contact Motor Behavior: Wringing Hands and Coordinated Speech: Normal Affect: Inappropriate Thought Process: Intact and Racing Insight: Fair Judgement: Fair Psychiatric Orientation: alert and oriented x 3 Apperance: appropriately dressed and appropriately groomed Eye Contact: good eye contact Motor Behavior: steady gait and station and no abnormal motor movements; n tremor Speech: normal rate/rhythm/volume of speech Affect: + depressed affect, + anxious affect, + irritable affect and + constricted affect Mood: + irritable mood; no depressed mood and no anxious mood Thought Process: goal directed thought process Thought Content: reality based without delusions and + self deprecation Suicidal Thoughts: denies suicidal thoughts, denies suicidal plan and denies suicidal intent Homicidal Thoughts: denies homicidal thoughts Hallucinations: no auditory hallucinations and no visual hallucinations Cognition: recent memory grossly intact, remote memory grossly intact, attention grossly intact and language grossly intact Estimated Intelligence: consistent with education level Vital Signs (Past 24 Hours) Last Vital Signs Temp 36.9 C 03/01/24 06:47 Pulse 77 03/01/24 06:48 Resp 16 03/01/24 06:47 BP 96/50 L 03/01/24 06:48 Pulse Ox 100 02/28/24 16:34 O2 Del Method Room Air 02/28/24 16:34 FiO2 21 02/28/24 16:34 Principal Diagnosis Suicidal ideation Psychiatric Data See daily stay summary. In short, safety was maintained and the patient was cooperative with care. Medication changes included starting trazodone and increasing the lithium, which unfortunately caused her lithium levels to be high, so it was temporarily discontinued and they tolerated this well. The patient was re-started on their home dose of lithium and she knows that she will be going to see her psychiatrist in a few days and they can re check her lithium levels. Day of Discharge Assessment Today the patient voices readiness for discharge. They note improvement in mood and deny thoughts to harm self or others. Thoughts remain organized and they are improved from admission. There is no evidence of psychosis. They agree to take mediations as prescribed and keep follow-up appointments. They are stable for discharge to outpatient level of care. Transition of Care Transition Of Care Record: was reviewed with the patient Advance Directives Advance Directives Information Provided: No Advance Directives: No Mental Health Advance Directive: No Advance Directives on File: No Living Will: No Power of Ditch Inspector: No Advance Directives Reason:: Declines as Mental Health Visit. Risk Factors Assessment : Yes Do You Have Access To A Gun?: Yes (2 rifles and 1 handgun in her apartment.) Health Problems: Yes Mental Health Diagnoses: Yes Previous Attempt: Yes Previous Psychiatric Hospitalization: Yes Protective Factors Assessment Employed: Yes Good Rapport with Provider: Yes Discharge Data Lab Results 02/24/24 02/29/24 02/29/24 06:58 07:53 11:29 WBC 6.32 RBC 4.78 Hgb 14.0 Hct 42.4 MCV 88.7 MCH 29.3 MCHC 33.0 RDW Std Deviation 44.2 RDW Coeff of Maryana 13.5 Plt Count 435 H MPV 9.2 L Immature Gran % (Auto) 0.2 Neut % (Auto) 64.5 Lymph % (Auto) 20.7 Owsley % (Auto) 9.7 Eos % (Auto) 4.3 Baso % (Auto) 0.6 Neut # (Auto) 4.08 Lymph # (Auto) 1.31 Owsley # (Auto) 0.61 H Eos # (Auto) 0.27 Baso # (Auto) 0.04 Immature Gran # (Auto) 0.01 Sodium 135 L Potassium 3.9 Chloride 105 Carbon Dioxide 28 Anion Gap 2 L BUN 8 Creatinine 0.63 Est Cr Clr Drug Dosing 131.7 Est GFR ( Amer) 142.5 Est GFR (Non-Af Amer) 122.9 [place] 0.7 1.5 H 02/29/24 02/29/24 14:52 20:34 WBC RBC Hgb Hct MCV MCH MCHC RDW Std Deviation RDW Coeff of Maryana Plt Count MPV Immature Gran % (Auto) Neut % (Auto) Lymph % (Auto) Owsley % (Auto) Eos % (Auto) Baso % (Auto) Neut # (Auto) Lymph # (Auto) Owsley # (Auto) Eos # (Auto) Baso # (Auto) Immature Gran # (Auto) Sodium Potassium Chloride Carbon Dioxide Anion Gap BUN Creatinine Est Cr Clr Drug Dosing Est GFR ( Amer) Est GFR (Non-Af Amer) [place] 1.3 H 0.9 Hospital Course (1) Depression with suicidal ideation: (2) Bipolar disorder: (3) Borderline personality disorder: Mental Health & Subst Abuse Tx Psychiatrist Name of Psychiatrist: Iris Lema Psychiatrist's Date Of Appointment With Psychiatric Provider: 03/04/24 Time of Appointment with Psychiatrist: 2:40pm Psychiatric Appointment Comment: [address] [facility] [address] Therapist Name of Therapist: Ashley Crane Therapist's Date of Therapist Appointment: 03/05/24 Time of Therapist Appointment: 12:00 Trouble Locater Name of Trouble Locater: Osmany LANDIN Date of Appointment with Trouble Locater: 03/13/24 Time of Appointment with Trouble Locater: 8:00am Case Management Appointment Comment: Will contact you within 1-3 days of being discharged Post Discharge Appointments Primary Care Physician Name Of Family Doctor/PCP: Rena Gerard Primary [facility] Date of Future Appointment with PCP: . Provider Appointment Comment: Please follow up with PCP as needed. Contact Information Discharge Discharge [address] [address] [place] [id number] Discharge Plan Discharge Items Patient Disposition: Home - Self-Care Reason For Visit: SUICIDAL IDEATION Discharge Diagnosis: Bipolar depression Activity: Resume your previous activity Non-emergency contact: Primary Care Provider Call non-emergency contact if: you have any medication questions Follow-up/Referrals: Schrack,Dede, FOAM DISPENSER [Primary Care Provider] - Diet: Regular Addtl Attending Provider Instructions: Patient knows that she will be seeing her psychiatrist on 04 Mar 2024 and so she will only be given medications for one week. She also knows that she will need a lithium level because her lithium will be restarted today at a slightly lower dose than the dose that resulted in her previous lithium level being high. Pending Studies at Discharge: No Stand-Alone Forms: My [employer], Smoking Cessation Medications and DC Order Prescriptions: New trazodone 50 mg Tablet 50 mg PO HS Qty: 7 0RF lithium carbonate 450 mg tablet extended release 450 mg PO TID Qty: 21 0RF Continued montelukast [Singulair] 10 mg tablet 10 mg PO QPM epinephrine 0.3 mg/0.3 mL auto-injector 0.3 mg IM UD PRN (Reason: Allergic Reaction) budesonide-formoterol [Symbicort] 80-4.5 mcg/actuation HFA aerosol inhaler 2 puff INHALATION Q12H levothyroxine 50 mcg tablet 50 mcg PO 1XD hydroxyzine HCl 10 mg tablet 10 mg PO DIRECTED PRN (Reason: Anxiety) lithium carbonate 450 mg tablet extended release See Rx Instructions .ROUTE .COMPLEX Qty: 21 0RF Rx Instructions: Take one 450 mg tablet in the morning, take two 450 mg tablets before bed (for a total of 900 mg before bed) Discharge Orders: Discharge Order (Routine); Ordered 03/01/24 Ordered By: Mariam Hairston Admission Data Admit Date/Time: 02/22/24 14:44 Attending Provider: Helen Werner Admit Provider: Alfonzo Salamanca Primary Care Provider: Dede Long Coding Level of Care Code 14688 D/C day mgmt > 30 min Diagnoses Depression with suicidal ideation F32.A; R45.851 Bipolar disorder, current episode depressed, severe, without psychotic features F31.9 Active/Remission status: remission status unspecified Borderline personality disorder F60.3
== END 2024-03-01 13:40 | disposition home or self-care (01) | DRG 885 ==
LOC: 3S 14:44 → SUATTDRO 14:44